=== PATIENT | female | born 1945 | race Caucasian/White ===

== ENCOUNTER 2017-12-30 20:35 | Emergency (ER) | payer MEDICARE, OTHER, SELFPAY ==
[2017-12-30 20:36] VITALS: BP 144/71; PULSE 123; RESP 18; TEMP 36.3; O2SAT 99; BMI 35.0
--- NOTE | 2017-12-30 20:56 | ED.DCSUM_ITS ---
- ER Visit Summary Date of Service: 12/30/17 Chief Complaint: Nosebleed History of Present Illness: The patient is a 72 F presenting with nosebleed. Patient states she has had intermittent bleeding from her nose since last night. She states initially it was coming from the right side of her nose and then started from the left. She is not on blood thinners. She had no trauma. She has seasonal allergies and blows her nose frequently. She does not have a humidifier. She states this happened one time several years ago and she followed up with Dr. Glez. Physical Examination: Vitals are stable. Patient is afebrile. Alert no acute distress. HEENT exam is unremarkable. No blood in bilateral nares. No blood in posterior pharynx. Neck is supple. Lungs are clear and equal bilaterally. Heart is regular and tachycardic. Abdomen is soft nontender nondistended. Extremities are unremarkable. Skin is warm and dry. No focal neurologic deficit. Remainder of exam is unremarkable. Emergency Department Course and Treatment: She was observed in the emergency department and had no further bleeding. She is comfortable with discharge home. She is advised to follow-up with Dr. Glez. Advised return to ED for any worsening complaints. Disposition: Discharge home Impression: Epistaxis, resolved This note was generated with [employer] dictation software. It may contain incorrect words, spelling, and punctuation that were not noted in review of the chart prior to signing ED Disposition - Plan for ED Patient: Chief Complaint: Nosebleed Instructions: Nosebleed Referrals: Zoran Glez MD [STAFF PHYSICIAN] - Garcia Angelo DO [Primary Care Provider] -
--- NOTE | 2017-12-30 21:52 | ED.DEP ---
ED Disposition - Plan for ED Patient: Chief Complaint: Nosebleed Instructions: Nosebleed Referrals: Garcia Angelo DO [Primary Care Provider] - Zoran Glez MD [STAFF PHYSICIAN] -
[2017-12-30 22:02] VITALS: BP 156/66; PULSE 100; RESP 15; O2SAT 98
== END 2017-12-30 22:00 | disposition home or self-care (01) ==
LOC: ED 21:01
PROVIDERS: Emergency Provider Emergency Medicine; Family Provider Family Medicine; PCP Family Medicine
DX: R04.0 Epistaxis (principal); I10 Essential (primary) hypertension; E78.00 Pure hypercholesterolemia, unspecified; Z79.899 Other long term (current) drug therapy
CPT/HCPCS: 99282

== ENCOUNTER → 2018-02-05 15:52 | Outpatient (CLI) | payer MEDICARE, OTHER, SELFPAY ==
[2018-02-05 17:52] LABS: Absolute Lymphocyte Count 2.05 X10^3/ul (0.83-4.51); Absolute Neutrophil Count 6.3 X10^3/uL (2.0-7.7); Basophil# 0.08 X10^3/uL; Basophil% 0.8 % (0-1); Eosinophil# 0.36 X10^3/uL; Eosinophils% 3.6 % (0-5); Hematocrit 36.1 % (37-47); Hemoglobin 11.1 g/dl (12.0-15.0); Lymphocyte # 2.05 X10^3/ul (4.0); Lymphocyte % 20.6 % (19-41); Mean Corp Hgb Conc 30.7 g/gl (32-36); Mean Corpuscular Hgb 27.5 pg (27.0-32.0); Mean Corpuscular Volume 89.4 fL (81-99); Mean Platelet Vol. 10.5 fl (6.2-12.0); Neutrophil # 6.25 X10^3/uL (2.7-7.7); Neutrophil % 62.8 % (47-70); Platelet Count 349 K/mm3 (150-450); Red Blood Count 4.04 M/mm3 (4.2-5.4)
[2018-02-05 17:56] LABS: POSITIVE COUNT NO; POSITIVE DIFFERENTIAL NO; POSITIVE MORPHOLOGY NO
[2018-02-05 18:09] LABS: ALB/GLOB Ratio 0.9 RATIO (0.9-2.4); AST(SGOT) 23 U/L (15-37); Alanine Aminotransfer ALT/SGPT 29 U/L (13-56); Albumin, Serum 3.5 g/dL (3.2-5.0); Alkaline Phosphatase 84 U/L (45-117); Anion Gap 11 (5-15); BUN 26 mg/dL (7-18); BUN/Creat Ratio 24.5 RATIO (10-20); Calcium,Total 8.8 mg/dL (8.5-10.1); Chloride 106 mmol/L (98-107); Cholesterol 171 mg/dL (200); Creatinine, Serum 1.06 mg/dL (0.55-1.02); EST Glomerular Filtration Rate 54 mL/min (>60); Est Glom Filt Rate - Afr Amer 65 mL/min (>60); Globulin 3.8 g/dL (2.2-4.2); Glucose 94 mg/dL (74-106); High Density Lipoprotein 48 mg/dL; Potassium 4.3 mmol/L (3.5-5.1); Protein, Total 7.3 g/dL (6.4-8.2); Sodium Level 142 mmol/L (136-145); T4 Free Direct 1.23 ng/dL (0.76-1.46); Thyroid Stim Hormone (TSH) 2.79 uIU/mL (0.358-3.74); Triglycerides 147 mg/dL; Very Low Density Lipoprotein 29 mg/dL (5-40)
== END ==
PROVIDERS: Family Provider Family Medicine; PCP Family Medicine; Visit Provider Family Medicine
DX: I10 Essential (primary) hypertension (principal); E03.9 Hypothyroidism, unspecified; E78.00 Pure hypercholesterolemia, unspecified
CPT/HCPCS: 36415; 80053; 80061; 84439; 84443; 85025

== ENCOUNTER → 2018-03-11 16:26 | Outpatient (CLI) | payer MEDICARE, OTHER, SELFPAY ==
[2018-03-11 17:34] LABS: Absolute Lymphocyte Count 2.06 X10^3/ul (0.83-4.51); Absolute Neutrophil Count 6.9 X10^3/uL (2.0-7.7); Basophil# 0.06 X10^3/uL; Basophil% 0.6 % (0-1); Eosinophil# 0.23 X10^3/uL; Eosinophils% 2.2 % (0-5); Hematocrit 37.1 % (37-47); Hemoglobin 11.4 g/dl (12.0-15.0); Lymphocyte # 2.06 X10^3/ul (4.0); Lymphocyte % 19.5 % (19-41); Mean Corp Hgb Conc 30.7 g/gl (32-36); Mean Corpuscular Volume 87.7 fL (81-99); Mean Platelet Vol. 10.1 fl (6.2-12.0); Monocyte# 1.31 X10^3/uL; Monocyte% 12.4 % (0-10); Neutrophil % 65.1 % (47-70); Platelet Count 371 K/mm3 (150-450); RBC Distribution Width CV 14.9 % (11.6-14.6); RBC Distribution Width SD 47.6 fl (35.1-43.9); Red Blood Count 4.23 M/mm3 (4.2-5.4); White Blood Count 10.6 K/mm3 (4.4-11.0)
[2018-03-11 17:37] LABS: POSITIVE COUNT NO; POSITIVE DIFFERENTIAL NO; POSITIVE MORPHOLOGY NO
[2018-03-11 17:52] LABS: Ferritin 8 ng/mL (8-252); Iron 50 ug/dL (50-170)
== END ==
PROVIDERS: Family Provider Family Medicine; PCP Family Medicine; Referring Provider Family Medicine; Visit Provider Family Medicine
DX: D64.9 Anemia, unspecified (principal)
CPT/HCPCS: 36415; 82728; 83540; 85025

== ENCOUNTER → 2018-06-05 12:58 | Outpatient (CLI) | payer MEDICARE, OTHER, SELFPAY ==
--- NOTE | 2018-06-05 13:02 | BI_ITS ---
MAMMOGRAPHY - BILATERAL SCREENING REASON FOR EXAM: Female, 72 years old. Routine annual screening examination. PERTINENT HISTORY: Aunt with breast cancer. TECHNIQUE: Digital bilateral breast karen (3D mammographic acquisition) in the CC and MLO projections. 2-D mediolateral oblique (MLO) and craniocaudad (CC) views of both breasts were obtained. CAD: Full Field Digital Mammography with Computer Added Detection was performed. COMPARISON: Comparison is made with prior study dated April 09, 2017 and April 03, 2016. FINDINGS: Breast Composition: The breasts are almost entirely fatty. There are no dominant masses or suspicious calcifications. Stable partially calcified 6.1 mm nodule in the slightly upper medial portion of the right breast. No other significant abnormalities are identified. There has been no significant change since the prior study. BI/SCREENING MAMM (CAD), BILAT IMPRESSION: Stable bilateral screening mammogram. Yearly follow-up mammogram recommended. (A) ASSESSMENT CATEGORY: BIRADS Category 2: Benign. A letter regarding these results will be sent to the patient by the facility within 30 days. Approximately 10% of breast cancers are not detected by mammography. A normal mammogram should not delay biopsy of a clinically suspicious abnormality. [id number] Electronically Signed: Moises Huerta MD at 9:18 EST Tel [phone], Service support ,
== END ==
PROVIDERS: Family Provider Family Medicine; PCP Family Medicine; Visit Provider Obstetrics & Gynecology
DX: Z12.31 Encounter for screening mammogram for malignant neoplasm of breast (principal)
CPT/HCPCS: 77063; 77067

== ENCOUNTER 2022-05-25 16:27 | Inpatient (IN) | payer MEDICARE, OTHER, SELFPAY ==
[2022-05-25] VITALS (21 sets, daily range): BP systolic 136–192; BP diastolic 67–93; PULSE 85–104; RESP 12–24; TEMP 36.1–36.4; O2SAT 78–100; BMI 29.3; BMI 27.3
--- NOTE | 2022-05-25 16:48 | EDS_ITS ---
HPI History of Present Illness Chief Complaint: Shortness of Breath Informant: patient Narrative Narrative: Patient is a very poor informant for details and this makes history quite difficult. She answers with I do not know not infrequently. She evidently stopped all of her medications a year or 2 ago. This includes Synthroid and medicine for cholesterol. She denies any diabetes hypertension or history of heart disease. She does have a history of smoking but I cannot get from her if she is still smoking. It does not sound like she is ever had COPD. I do not know if she is ever used an inhaler before. She states she has been getting short of breath off and on. But I cannot get from her if this is been going on for hours days weeks months or longer. She did call because she was short of breath today. She cannot say if its worse or different than other times. She does not think she has had a fever. She does not think she is having any chest pain. When I ask her how long she has had some swelling of arms and legs she states she did not know she did have swelling of her arms and legs. [facility] Medical History (Updated 05/26/22 @ 00:[address] Rojelio Pedersen MD) Hypothyroid Home Medications NK 05/25/22 [History Last Taken Unknown] Allergy/AdvReac Type Severity Reaction Status Date / Time No Known Allergies Allergy Verified 12/30/17 20:36 Social History Smoking Status: Former smoker ROS ROS ED ROS Narrative Very limited history. Patient's not sure of all of her symptoms or how long they have been going on. Constitutional Constitutional ED: Denies fever(s) ENT ENT ED: Denies sore throat Cardiovascular Cardiovascular: Denies chest pain Respiratory/Chest Respiratory/Chest: Reports dyspnea Gastrointestinal Gastrointestinal: Denies vomiting Musculoskeletal Musculoskeletal: Denies myalgias Integumentary Denies rash Neurologic Neurologic: Denies headache(s) Hematologic/Lymphatic Hematologic/Lymphatic: Denies easy bleeding or easy bruising Allergic/Immunologic Allergic/Immunologic ED: Denies urticaria EXAM Physical Exam Const Vital Signs: 05/25/22 16:36 05/25/22 16:40 05/25/22 16:42 Temperature 97.1 F L Temperature Source Oral Pulse Rate 95 Respiratory Rate 22 H Respiratory Effort Short of Breath Labored Accessory Muscle Use Respiratory Pattern Normal Blood Pressure 192/92 H Blood Pressure Mean 125 Blood Pressure Source Blood Pressure Position Blood Pressure Location Pulse Ox 84 88 Oxygen Delivery Method Room Air Nasal Cannula Nasal Cannula Oxygen Flow Rate (L/min) 4 4 Fraction of Inspired Oxygen (FIO2) 05/25/22 16:43 05/25/22 16:45 05/25/22 16:59 Temperature Temperature Source Pulse Rate 96 97 Respiratory Rate 18 22 H Respiratory Effort Respiratory Pattern Blood Pressure Blood Pressure Mean Blood Pressure Source Blood Pressure Position Blood Pressure Location Pulse Ox 92 78 Oxygen Delivery Method Nasal Cannula Nasal Cannula Oxygen Flow Rate (L/min) 4 6 Fraction of Inspired Oxygen (FIO2) 05/25/22 17:00 05/25/22 17:32 05/25/22 18:58 Temperature 97.1 F L Temperature Source Axillary Pulse Rate 104 H 88 85 Respiratory Rate 22 H 21 H 17 Respiratory Effort Respiratory Pattern Blood Pressure 148/71 H 143/75 H Blood Pressure Mean 96 97 Blood Pressure Source Monitor Blood Pressure Position Semi-Fowlers Blood Pressure Location Left Arm Pulse Ox 100 98 100 Oxygen Delivery Method Bi-pap Nasal Cannula Oxygen Flow Rate (L/min) 6 Fraction of Inspired Oxygen (FIO2) 100 Positive well nourished and well developed Constitutional Narrative: When I first walked in the room patient is awake alert. Her saturations are 92 to 94% on 4 L. But she looks quite pale. She also has some visible edema of arms and legs/mild anasarca. She carries on just a shortened conversation. She does appear somewhat dyspneic but is not gasping. She does not need to be intubated. General Appearance ED: well developed and pallor HEENT Reports moist mucous membranes Eyes Eyes Narrative: Conjunctive a are quite pale. General Eye ED: Yes pale conjunctiva Neck no meningeal signs and no JVD Resp Resp Narrative: Slight increased respiratory effort. She does have some basilar crackles and some slight expiratory wheezing. Auscultation: rales and wheezes; Negative for rhonchi Cardio regular rate, regular rhythm and no murmurs GI non-tender and non-distended Back/Spine no CVA tenderness Extremity Extremity Narrative: Patient does have some +1/2 edema of arms and legs diffusely. General Extremety ED: Yes edema General Extremity: edema Neuro Sensorium / Orientation: alert Psych mental status grossly normal Skin no wounds General Skin Exam: pallor MDM MDM MDM Narrative Medical decision making narrative: Patient is doing better on oxygen. We will recheck her blood pressure. I will give a breathing treatment as she has some wheezing and history of smoking. But I do not think all of her symptoms are due to COPD. I think significant anemia is a major contributor. But she denies any black or bloody stools and she denies any anticoagulation or any other medicines. She may also have a component myxedema. Lab Data Attestation: I reviewed the patient's lab results. Labs: Laboratory Results - last 24 hr 05/25/22 05/25/22 05/25/22 16:50 16:50 16:50 WBC 14.5 H RBC 3.86 L Hgb 5.5 L* Hct 21.9 L MCV 56.7 L MCH 14.2 L MCHC 25.1 L RDW Std Deviation 43.2 RDW Coeff of [place] 22.2 H Plt Count 652 H MPV 8.9 Immature Gran % (Auto) 0.800 Neut % (Auto) 77.2 H Lymph % (Auto) 12.1 L [place] % (Auto) 7.9 Eos % (Auto) 0.8 Baso % (Auto) 1.2 H Absolute Neuts (auto) 11.2 H Absolute Lymphs (auto) 1.75 Nucleated RBC % 0.2 Differential Comment SCANNED Diff Path Review May foll PT 14.6 INR 1.2 APTT 30.4 Sodium Potassium Chloride Carbon Dioxide Anion Gap BUN Creatinine Estim Creat Clear Calc Est GFR (MDRD) Af Amer Est GFR (MDRD) Non-Af BUN/Creatinine Ratio Glucose Lactic Acid Calcium Iron TIBC Iron Saturation Ferritin Total Bilirubin AST ALT Alkaline Phosphatase Troponin I High Sens B-Natriuretic Peptide 1115.3 H Total Protein Albumin Globulin Albumin/Globulin Ratio Vitamin B12 Folate TSH Free T4 Free T3 pg/dL Blood Type Antibody Screen Crossmatch 05/25/22 05/25/22 05/25/22 16:50 16:50 16:50 WBC RBC Hgb Hct MCV MCH MCHC RDW Std Deviation RDW Coeff of [place] Plt Count MPV Immature Gran % (Auto) Neut % (Auto) Lymph % (Auto) [place] % (Auto) Eos % (Auto) Baso % (Auto) Absolute Neuts (auto) Absolute Lymphs (auto) Nucleated RBC % Differential Comment Diff Path Review PT INR APTT Sodium 132 L Potassium 4.3 Chloride 102 Carbon Dioxide 21.0 Anion Gap 9 BUN 18 Creatinine 0.89 Estim Creat Clear Calc 54.28 Est GFR (MDRD) Af Amer 79 Est GFR (MDRD) Non-Af 65 BUN/Creatinine Ratio 20.3 H Glucose 181 H Lactic Acid 3.9 H* Calcium 8.4 L Iron TIBC Iron Saturation Ferritin Total Bilirubin 0.30 AST 15 ALT 12 L Alkaline Phosphatase 109 Troponin I High Sens 16 B-Natriuretic Peptide Total Protein 7.4 Albumin 3.2 Globulin 4.2 Albumin/Globulin Ratio 0.8 L Vitamin B12 Folate TSH 78.40 H Free T4 0.45 L Free T3 pg/dL 0.8 L Blood Type O POSITIVE Antibody Screen NEGATIVE Crossmatch See Detail 05/25/22 05/25/22 16:50 16:50 WBC RBC Hgb Hct MCV MCH MCHC RDW Std Deviation RDW Coeff of [place] Plt Count MPV Immature Gran % (Auto) Neut % (Auto) Lymph % (Auto) [place] % (Auto) Eos % (Auto) Baso % (Auto) Absolute Neuts (auto) Absolute Lymphs (auto) Nucleated RBC % Differential Comment Diff Path Review PT INR APTT Sodium Potassium Chloride Carbon Dioxide Anion Gap BUN Creatinine Estim Creat Clear Calc Est GFR (MDRD) Af Amer Est GFR (MDRD) Non-Af BUN/Creatinine Ratio Glucose Lactic Acid Calcium Iron 7 L TIBC 456 H Iron Saturation 1.5 L Ferritin 4 L Total Bilirubin AST ALT Alkaline Phosphatase Troponin I High Sens B-Natriuretic Peptide Total Protein Albumin Globulin Albumin/Globulin Ratio Vitamin B12 401 Folate 11.90 TSH Free T4 Free T3 pg/dL Blood Type Antibody Screen Crossmatch Radiography Diagnostic Testing: Clinical Impression(s) from Imaging Studies Chest X-Ray 05/25/22 17:05 IMPRESSION: 1. RIGHT lower lobe airspace consolidation atelectasis and moderate to large RIGHT effusion. 2. Atelectasis versus interstitial infiltrate at the LEFT lung base and small LEFT effusion. 3. No congestive failure Electronically Signed: Wojciech Rick MD at 17:47 EST , EKG Initial EKG: Comments: EKG done for dyspnea read by me shows normal sinus rhythm with overall rate of 99. There is some baseline variation. No ventricular ectopy. No acute ST elevation or depression other than nonspecific changes. PA interval, QRS duration and QTc normal. Discharge Plan Dx/Rx/DC Orders Clinical Impression: CHF exacerbation, Hypothyroid, Pleural effusion, Myxedema Disposition Disposition: Acute Care Hospital [facility]
[2022-05-25] MEDS: Ipratropium/Albuterol Sulfate 3 ML AMPUL.NEB INHALATION (16:57)
--- NOTE | 2022-05-25 17:05 | RAD_ITS ---
INDICATION: SOB EXAMINATION/TECHNIQUE: X-RAY - XR Chest 1 View COMPARISON: No previous relevant examinations available for comparison.. FINDINGS: LIFE-SUPPORT AND LINES: 1. None HEART AND VESSELS: Cardiac silhouette is partially obscured due to pleural fluid collection and consolidation at the RIGHT lung base. No evidence congestive failure although vascular congestion noted LUNGS AND PLEURAL SPACES: 1. RIGHT lower lobe consolidation, RIGHT effusion and volume loss. 2. Mild atelectasis versus retrocardiac LEFT lower lobe infiltrate and small LEFT effusion. MEDIASTINUM AND HILAR REGIONS: No masses adenopathy noted. No areas of calcification. Visualized upper airway is normal in position. BONY ELEMENTS: No acute bony changes noted. RAD/Chest 1 View (Portable) IMPRESSION: 1. RIGHT lower lobe airspace consolidation atelectasis and moderate to large RIGHT effusion. 2. Atelectasis versus interstitial infiltrate at the LEFT lung base and small LEFT effusion. 3. No congestive failure Electronically Signed: Wojciech Rick MD at 17:47 EST ,
[2022-05-25 17:07] LABS: Absolute Lymphocyte Count 1.75 X10^3/uL (0.83-4.51); Absolute Neutrophil Count 11.2 X10^3/uL (2.0-7.7); Basophil# 0.18 X10^3/uL; Basophil% 1.2 % (0-1); Eosinophil# 0.12 X10^3/uL; Eosinophils% 0.8 % (0-5); Hematocrit 21.9 % (37-47); Hemoglobin 5.5 g/dL (12.0-15.0); Lymphocyte # 1.75 X10^3/ul (0.83-4.51); Lymphocyte % 12.1 % (19-41); Mean Corp Hgb Conc 25.1 g/dL (32-36); Mean Corpuscular Hgb 14.2 pg (27.0-32.0); Mean Corpuscular Volume 56.7 fL (81-99); Mean Platelet Vol. 8.9 fl (6.2-12.0); Monocyte# 1.15 X10^3/uL; Monocyte% 7.9 % (0-10); NRBC Flagged by Analyzer 0.2 % (0-5); Neutrophil # 11.19 X10^3/uL (2.7-7.7); Neutrophil % 77.2 % (47-70); POSITIVE COUNT YES; POSITIVE MORPHOLOGY YES; Platelet Count 652 K/mm3 (150-450); RBC Distribution Width CV 22.2 % (11.6-14.6); RBC Distribution Width SD 43.2 fl (35.1-43.9); Red Blood Count 3.86 M/mm3 (4.2-5.4); White Blood Count 14.5 K/mm3 (4.4-11.0)
[2022-05-25 17:10] LABS: International Normalized Ratio 1.2; Prothrombin Time (Protime)PT. 14.6 SECONDS (11.7-14.9)
[2022-05-25 17:11] LABS: Partial Thromboplast Time 30.4 Seconds (24.1-36.2)
[2022-05-25 17:16] LABS: Differential Indicated SCAN CRITERIA MET
[2022-05-25 17:28] LABS: ALB/GLOB Ratio 0.8 RATIO (0.9-2.4); AST(SGOT) 15 U/L (15-37); Alanine Aminotransfer ALT/SGPT 12 U/L (13-56); Albumin, Serum 3.2 g/dL (3.2-5.0); Alkaline Phosphatase 109 U/L (45-117); Anion Gap 9 (5-15); BUN 18 mg/dL (7-18); BUN/Creat Ratio 20.3 RATIO (10-20); Calcium,Total 8.4 mg/dL (8.5-10.1); Chloride 102 mmol/L (98-107); Creatinine, Serum 0.89 mg/dL (0.55-1.02); EST Glomerular Filtration Rate 65 mL/min (>60); Est Glom Filt Rate - Afr Amer 79 mL/min (>60); Estimated Creatinine Clearance 54.28 ml/min; Free T3 0.8 pg/mL (2.18-3.98); Globulin 4.2 g/dL (2.2-4.2); Glucose 181 mg/dL (74-106); Potassium 4.3 mmol/L (3.5-5.1); Protein, Total 7.4 g/dL (6.4-8.2); Sodium Level 132 mmol/L (136-145); T4 Free Direct 0.45 ng/dL (0.76-1.46); Troponin-I HS 16 pg/mL (3.0-54.0)
[2022-05-25 17:39] LABS: Differential Comment SCANNED
[2022-05-25 17:46] LABS: Lactic Acid 3.9 mmol/L (0.4-1.9)
[2022-05-25 17:51] LABS: BNP,B-Type NATRIURETIC PEPTIDE 1115.3 pg/mL (0-100)
[2022-05-25] MEDS: LEVOTHYROXINE SODIUM 100 MCG VIAL IV (18:23)
--- NOTE | 2022-05-25 19:11 | PCM.HP.STD ---
[facility] - General General Date of Service: 05/25/22 Chief Complaint: weakness and shortness of breath. HPI Narrative ROS COFFEY, is a 76 F who presents with progressive weakness and shortness of breath. Since the onset of the pandemic, patient has not gone nor seen any physicians and much less family. Today she just more noticeably short of breath. Brought into the emergency room where was noted that her hemoglobin is 5.5 and x-ray showed bilateral pleural effusions with the right being greater than the left. Patient does have a history of hypothyroidism and her TSH came back at 78 and her free T4 was low at 0.45. Patient received 100 mcg of levothyroxine IV in the emergency room. There is concerned about myxedema coma. Patient was listless but not confused during my encounter. Patient did not really have any reasoning for not seeing anyone but just sheltering in place. Patient did receive 1 shot of her COVID-19 vaccination but has not followed up to get any additional shots for boosters. Patient does have lower extremity edema. Denies any fever or chills. [facility] Medical History (Updated 05/25/22 @ 19:[address] Mart Houston DO) Hypothyroid Allergy/AdvReac Type Severity Reaction Status Date / Time No Known Allergies Allergy Verified 12/30/17 20:36 no significant family history Social History Smoking Status: Former smoker ROS ROS Narrative Denies any chest pain. No abdominal pain. No melena nor hematochezia. All review of systems were negative except as mentioned above in the history of present illness and the other review of systems. Vital Signs Vital Signs Vital Signs: 05/25/22 16:36 05/25/22 16:40 05/25/22 16:42 Temperature 36.2 C L Temperature Source Oral Pulse Rate 95 Respiratory Rate 22 H Respiratory Effort Short of Breath Labored Accessory Muscle Use Respiratory Pattern Normal Blood Pressure 192/92 H Blood Pressure Mean 125 Pulse Ox 84 88 Oxygen Delivery Method Room Air Nasal Cannula Nasal Cannula Oxygen Flow Rate (L/min) 4 4 Fraction of Inspired Oxygen (FIO2) 05/25/22 16:43 05/25/22 16:45 05/25/22 16:59 Temperature Temperature Source Pulse Rate 96 97 Respiratory Rate 18 22 H Respiratory Effort Respiratory Pattern Blood Pressure Blood Pressure Mean Pulse Ox 92 78 Oxygen Delivery Method Nasal Cannula Nasal Cannula Oxygen Flow Rate (L/min) 4 6 Fraction of Inspired Oxygen (FIO2) 05/25/22 17:00 05/25/22 17:32 Temperature Temperature Source Pulse Rate 104 H 88 Respiratory Rate 22 H 21 H Respiratory Effort Respiratory Pattern Blood Pressure 148/71 H Blood Pressure Mean 96 Pulse Ox 100 98 Oxygen Delivery Method Bi-pap Oxygen Flow Rate (L/min) Fraction of Inspired Oxygen (FIO2) 100 Weight Weight: 66 kg Body Mass Index (BMI) 29.3 Physical Exam Const Constitutional Narrative: Initially seen on BiPAP but was not having any respiratory distress. During my encounter I requested the BiPAP be taken off and the patient was placed on nasal cannula. Patient remained alert and oriented during the encounter and had no respiratory distress after being taken off the BiPAP. HEENT normocephalic and hearing grossly normal bilaterally Resp normal respiratory effort Resp Narrative: Diminished in the bases Cardio regular rate, regular rhythm, S1 normal heart sound and S2 normal heart sound GI normal to inspection, nondistended, normoactive bowel sounds, soft to palpation, non-tender and non-distended Extremity Extremity Narrative: Bilateral lower extremity edema with skin changes Neuro oriented x3 and moves all extremities Sensorium / Orientation: awake and alert Psych affect normal Results Lab / Micro Data Attestation: I reviewed the patient's lab results. Lab results narrative: Chest x-ray personally reviewed and showed bilateral pleural effusions with right greater than the left. Result Diagrams: 05/25/22 16:50 05/25/22 16:50 Labs: Laboratory Results - last 24 hr 05/25/22 16:50: WBC 14.5 H, RBC 3.86 L, Hgb 5.5 L*, Hct 21.9 L, MCV 56.7 L, MCH 14.2 L, MCHC 25.1 L, RDW Std Deviation 43.2, RDW Coeff of [place] 22.2 H, Plt Count 652 H, MPV 8.9, Immature Gran % (Auto) 0.800, Neut % (Auto) 77.2 H, Lymph % (Auto) 12.1 L, [place] % (Auto) 7.9, Eos % (Auto) 0.8, Baso % (Auto) 1.2 H, Absolute Neuts (auto) 11.2 H, Absolute Lymphs (auto) 1.75, Nucleated RBC % 0.2, Differential Comment SCANNED, Diff Path Review October foll 05/25/22 16:50: PT 14.6, INR 1.2, APTT 30.4 05/25/22 16:50: B-Natriuretic Peptide 1115.3 H 05/25/22 16:50: Sodium 132 L, Potassium 4.3, Chloride 102, Carbon Dioxide 21.0, Anion Gap 9, BUN 18, Creatinine 0.89, Estim Creat Clear Calc 54.28, Est GFR (MDRD) Af Amer 79, Est GFR (MDRD) Non-Af 65, BUN/Creatinine Ratio 20.3 H, Glucose 181 H, Calcium 8.4 L, Total Bilirubin 0.30, AST 15, ALT 12 L, Alkaline Phosphatase 109, Troponin I High Sens 16, Total Protein 7.4, Albumin 3.2, Globulin 4.2, Albumin/Globulin Ratio 0.8 L, TSH 78.40 H, Free T4 0.45 L, Free T3 pg/dL 0.8 L 05/25/22 16:50: Lactic Acid 3.9 H* 05/25/22 16:50: Blood Type O POSITIVE, Antibody Screen NEGATIVE, Crossmatch See Detail Micro: Microbiology 05/25/22 18:00 Nasal Secretion SARS-CoV-2 & FLU Antigen (Rapid) - Final EKG Initial EKG: Attestation: I personally reviewed and interpreted this EKG as follows: Prior EKG tracings: available for review EKG Rhythm Intrepretation: Sinus Rhythm Radiology Impression Chest X-Ray 05/25/22 17:05 IMPRESSION: 1. RIGHT lower lobe airspace consolidation atelectasis and moderate to large RIGHT effusion. 2. Atelectasis versus interstitial infiltrate at the LEFT lung base and small LEFT effusion. 3. No congestive failure Electronically Signed: Wojciech Rick MD at 17:47 EST , Assessment & Plan Assessment/Plan (1) CHF exacerbation: QUALIFIERS: Heart failure type: unspecified Qualified Code(s): I50.9 - Heart failure, unspecified PLAN: Unclear type Start furosemide IV Check echocardiogram (2) Pleural effusion: PLAN: Suspect transudative Plan for ultrasound-guided thoracentesis on the right Check studies. Check LDH. Patient already had a protein 7.4. (3) Microcytic anemia: PLAN: Patient is never had a colonoscopy Denies any hematochezia or melena Consult gastroenterology Start prep with GoLytely Patient received 2 units of packed red blood cells. (4) Hypothyroid: PLAN: I do not feel the patient is in myxedema coma Patient received 100 mcg of levothyroxine IV in the emergency room Will continue with 75 mcg p.o. daily Patient will require follow-up (5) Debility: PLAN: Likely due to the patient's multiple medical comorbidities PT OT evaluate and treat Check 25-hydroxy vitamin D level PLAN: Plan VTE prophylaxis with SCDs. Chemical prophylaxis contraindicated in light of the anemia. CODE STATUS: Addressed with the patient. Patient wishes to be full code. Charges/Coding Visit Charges Inpatient E&M: 40105 Init Hosp L3
[2022-05-25 20:57] LABS: Reflex Lactate? Y
--- NOTE | 2022-05-25 21:09 | ECHOD_ITS ---
Reason For Study: CHF Procedure This was a 2D Doppler, Color Flow transthoracic echocardiogram. Exam performed portable in patient room. Left Ventricle Moderately dilated left ventricle. The estimated ejection fraction is 50-55 %. Right Ventricle Normal right ventricle. Normal systolic function. Atria The left atrium is moderately enlarged. The right atrium is mildly enlarged. Mitral Valve There is moderate mitral annular calcification. Mild (1+) mitral valve insufficiency. Tricuspid Valve Normal tricuspid valve. Moderate (2+) tricuspid valve insufficiency. Aortic Valve Moderate diffuse aortic valve calcification. Pulmonic Valve The pulmonic valve is not well visualized. Great Vessels Normal aortic root. Pericardium/Pleural Small pericardial effusion. Large left pleural effusion. MMode/2D Measurements & Calculations LVIDd: 4.3 cm IVSd: 1.1 cm Ao root diam: 2.6 cm LVIDs: 3.3 cm LVPWd: 1.1 cm RVDd: 3.1 cm FS: 23.9 % LAV(MOD-bp): 60.1 ml LA A4 area: 22.6 cm2 LA dimension(2D): 3.2 cm LAV(MOD-bp) Indexed: 38.5 ml/m2 LAV(MOD-sp2): 45.5 ml LAV(MOD-sp4): 73.8 ml RA A4 area: 10.2 cm2 Time Measurements MV dec time: 0.17 sec Doppler Measurements & Calculations MV E max angel: 83.6 cm/sec Lat Peak E' Angel: 5.9 cm/sec Med Peak E' Angel: 4.5 cm/sec MV A max angel: 127.7 cm/sec E/E' lat: 14.2 E/E' med: 18.6 MV E/A: 0.65 MV dec slope: 492.2 cm/sec2 Ao V2 max: 123.9 cm/sec LV V1 max: 82.5 cm/sec Ao max P.1 mmHg LV V1 max P.7 mmHg Ao V2 mean: 88.7 cm/sec LV V1 mean P.5 mmHg Ao mean P.4 mmHg LV V1 mean: 58.0 cm/sec Ao V2 VTI: 23.9 cm LV V1 VTI: 18.0 cm AV (velocity ratio): 0.76 PA V2 max: 93.7 cm/sec TR max angel: 291.6 cm/sec TR max P.2 mmHg ECHO/Echo Complete Interpretation Summary The estimated ejection fraction is 50-55 %. Large L.Pleural Effusion Small pericardial Effusion No previous echo to compare Ordering Physician: Mart Houston Referring Physician: Garcia Angelo Performed By: Kassie Hamilton RDCS, RVT
[2022-05-25 21:41] LABS: Ferritin 4 ng/mL (8-252); Iron 7 ug/dL (50-170); Iron Binding Capacity,Total 456 ug/dL (250-450); PERCENT IRON SATURATION 1.5 % (15.0-55.0)
--- NOTE | 2022-05-25 21:42 | NURSING ---
Discussed pt with Dr Rosales states pt is not sepsis and cancelled alert. Denies need for blood cultures and antibiotics at this time.
[2022-05-25] MEDS: Furosemide 40 MG/4 ML Vial IV (22:07)
[2022-05-25] MEDS: Ondansetron 4 MG/2 ML Vial IV (22:15)
[2022-05-25 22:20] LABS: Lactic Acid 2.4 mmol/L (0.4-1.9)
[2022-05-25] MEDS: 0.9% Saline Lock 10 ML Syringe IV (22:27)
[2022-05-25 22:34] LABS: Vitamin B12 401 pg/mL (211-911)
--- NOTE | 2022-05-25 22:36 | NURSING ---
Addendum entered by Trinidad Rudolph 05/25/22 22:37: states will order prn medication for blood pressure. Original Note: Dr Peguero notified of lactic acid level of 2.4 and previous level. also notified of need for continuous bipap and can not take bowel prep at this time. ok to dc bowel prep for now. also informed of elevated bp 189/88. and just received 40 mg iv lasix.
[2022-05-25 23:52] LABS: Troponin-I HS 40 pg/mL (3.0-54.0)
[2022-05-25 23:59] LABS: Hemoglobin 8.2 g/dL (12.0-15.0)
[2022-05-26] VITALS (24 sets, daily range): BP systolic 93–155; BP diastolic 42–80; PULSE 75–95; RESP 10–28; TEMP 35.6–36.5; O2SAT 92–100
--- NOTE | 2022-05-26 00:25 | NURSING ---
Dr Peguero notified that the hemoglobin was checked too early by lab. order received to have cbc in am
[2022-05-26 01:46] LABS: Troponin-I HS 65 pg/mL (3.0-54.0)
[2022-05-26 06:04] LABS: Absolute Lymphocyte Count 1.14 X10^3/uL (0.83-4.51); Absolute Neutrophil Count 10.6 X10^3/uL (2.0-7.7); Basophil# 0.13 X10^3/uL; Eosinophil# 0.11 X10^3/uL; Eosinophils% 0.8 % (0-5); Hematocrit 26.8 % (37-47); Hemoglobin 7.3 g/dL (12.0-15.0); Lymphocyte # 1.14 X10^3/ul (0.83-4.51); Lymphocyte % 8.6 % (19-41); Mean Corp Hgb Conc 27.2 g/dL (32-36); Mean Corpuscular Hgb 17.3 pg (27.0-32.0); Mean Corpuscular Volume 63.5 fL (81-99); Mean Platelet Vol. 8.8 fl (6.2-12.0); Monocyte# 1.12 X10^3/uL; Monocyte% 8.5 % (0-10); NRBC Flagged by Analyzer 0.2 % (0-5); Neutrophil # 10.59 X10^3/uL (2.7-7.7); Neutrophil % 80.4 % (47-70); POSITIVE MORPHOLOGY YES; Platelet Count 524 K/mm3 (150-450); RBC Distribution Width CV 29.2 % (11.6-14.6); RBC Distribution Width SD 62.8 fl (35.1-43.9); Red Blood Count 4.22 M/mm3 (4.2-5.4); White Blood Count 13.2 K/mm3 (4.4-11.0)
[2022-05-26 06:15] LABS: Differential Indicated SCAN CRITERIA MET
[2022-05-26 06:23] LABS: Hypochromasia 2+
[2022-05-26 06:24] LABS: Anisocytosis 2+; Microcytosis 2+
[2022-05-26 06:37] LABS: Anion Gap 6 (5-15); BUN 19 mg/dL (7-18); BUN/Creat Ratio 21.7 RATIO (10-20); Calcium,Total 8.5 mg/dL (8.5-10.1); Chloride 103 mmol/L (98-107); Cholesterol 165 mg/dL (200); Creatinine, Serum 0.88 mg/dL (0.55-1.02); EST Glomerular Filtration Rate 66 mL/min (>60); Est Glom Filt Rate - Afr Amer 80 mL/min (>60); Estimated Creatinine Clearance 51.07 ml/min; Glucose 82 mg/dL (74-106); High Density Lipoprotein 49 mg/dL; LDH 163 U/L (84-246); Potassium 4.5 mmol/L (3.5-5.1); Sodium Level 133 mmol/L (136-145); Triglycerides 80 mg/dL; Very Low Density Lipoprotein 16 mg/dL (5-40)
[2022-05-26 06:40] LABS: Troponin-I HS 66 pg/mL (3.0-54.0)
[2022-05-26] MEDS: Furosemide 40 MG/4 ML Vial IV (09:02)
[2022-05-26] MEDS: 0.9% Saline Lock 10 ML Syringe IV ×2 (09:02→21:47)
[2022-05-26] MEDS: Ensure Clear 120 ML Liquid PO (11:21)
[2022-05-26 12:04] LABS: Magnesium 2.6 mg/dL (1.6-2.6)
--- NOTE | 2022-05-26 12:56 | PN.HOSP_ITS ---
Subjective Subjective Follow-up on acute CHF/bilateral pleural effusion/hypothyroidism: Patient was seen and examined. She denied any new complaints. She is on 4 L of oxygen. Thoracocentesis could not be done yesterday IR was not available. Patient is however diuresing. She denied any chest pain or chest pressure or dizziness. Objective Data Objective Data Vital Signs: Vital Signs Temp Pulse Resp BP Pulse Ox O2 Del Method O2 Flow Rate 97.7 F L 93 18 93/42 L 96 Nasal Cannula 4 05/26/22 12:00 05/26/22 12:00 05/26/22 12:00 05/26/22 12:00 05/26/22 12:00 05/26/22 12:00 05/26/22 12:00 FiO2 40 05/26/22 06:14 Oxygen Flow Rate (L/min) 4 Oxygen Delivery Method Nasal Cannula Weight: 61.4 kg Body Mass Index (BMI) 27.3 Intake & Output: Intake and Output for Last 24 Hours 05/24/22 05/25/22 05/26/22 23:59 23:59 23:59 Intake Total 0 / 0 200 / 200 Output Total 1750 / 1750 Balance 0 / 0 -1550 / -1550 Lab / Micro Data Result Diagrams: 05/26/22 05:25 05/26/22 05:25 Labs: Laboratory Results - last 24 hr 05/25/22 16:50: WBC 14.5 H, RBC 3.86 L, Hgb 5.5 L*, Hct 21.9 L, MCV 56.7 L, MCH 14.2 L, MCHC 25.1 L, RDW Std Deviation 43.2, RDW Coeff of [place] 22.2 H, Plt Count 652 H, MPV 8.9, Immature Gran % (Auto) 0.800, Neut % (Auto) 77.2 H, Lymph % (Auto) 12.1 L, [place] % (Auto) 7.9, Eos % (Auto) 0.8, Baso % (Auto) 1.2 H, Absolute Neuts (auto) 11.2 H, Absolute Lymphs (auto) 1.75, Nucleated RBC % 0.2, Differential Comment SCANNED, Diff Path Review October05/25/22 16:50: PT 14.6, INR 1.2, APTT 30.4 05/25/22 16:50: B-Natriuretic Peptide 1115.3 H 05/25/22 16:50: Sodium 132 L, Potassium 4.3, Chloride 102, Carbon Dioxide 21.0, Anion Gap 9, BUN 18, Creatinine 0.89, Estim Creat Clear Calc 54.28, Est GFR (MDRD) Af Amer 79, Est GFR (MDRD) Non-Af 65, BUN/Creatinine Ratio 20.3 H, Glucose 181 H, Calcium 8.4 L, Total Bilirubin 0.30, AST 15, ALT 12 L, Alkaline Phosphatase 109, Troponin I High Sens 16, Total Protein 7.4, Albumin 3.2, Globulin 4.2, Albumin/Globulin Ratio 0.8 L, TSH 78.40 H, Free T4 0.45 L, Free T3 pg/dL 0.8 L 05/25/22 16:50: Lactic Acid 3.9 H* 05/25/22 16:50: Blood Type O POSITIVE, Antibody Screen NEGATIVE, Crossmatch See Detail 05/25/22 16:50: Iron 7 L, TIBC 456 H, Iron Saturation 1.5 L, Ferritin 4 L, Folate 11.90 05/25/22 16:50: Vitamin B12 401 05/25/22 21:27: Lactic Acid 2.4 H* 05/25/22 22:50: Troponin I High Sens 40 05/25/22 22:50: Hgb 8.2 L 05/26/22 00:55: Troponin I High Sens 65 H 05/26/22 05:25: WBC 13.2 H, RBC 4.22, Hgb 7.3 L, Hct 26.8 L, MCV 63.5 L D, MCH 17.3 L, MCHC 27.2 L D, RDW Std Deviation 62.8 H, RDW Coeff of [place] 29.2 H, Plt Count 524 H, MPV 8.8, Immature Gran % (Auto) 0.700, Neut % (Auto) 80.4 H, Lymph % (Auto) 8.6 L, [place] % (Auto) 8.5, Eos % (Auto) 0.8, Baso % (Auto) 1.0, Absolute Neuts (auto) 10.6 H, Absolute Lymphs (auto) 1.14, Nucleated RBC % 0.2, Hypochromasia 2+, Anisocytosis 2+, Microcytosis 2+ 05/26/22 05:25: Sodium 133 L, Potassium 4.5, Chloride 103, Carbon Dioxide 24.0, Anion Gap 6, BUN 19 H, Creatinine 0.88, Estim Creat Clear Calc 51.07, Est GFR (MDRD) Af Amer 80, Est GFR (MDRD) Non-Af 66, BUN/Creatinine Ratio 21.7 H, Glucose 82, Calcium 8.5, Lactate Dehydrogenase 163, Triglycerides 80, Cholesterol 165, LDL Cholesterol 100, VLDL Cholesterol 16, HDL Cholesterol 49 05/26/22 05:25: Vitamin D 25-Hydroxy 9.0 05/26/22 05:25: Troponin I High Sens 66 H 05/26/22 05:25: Magnesium 2.6 Micro: Microbiology 05/25/22 18:00 Nasal Secretion SARS-CoV-2 & FLU Antigen (Rapid) - Final Radiography Diagnostic Testing: Radiology Impression Chest X-Ray 05/25/22 17:05 IMPRESSION: 1. RIGHT lower lobe airspace consolidation atelectasis and moderate to large RIGHT effusion. 2. Atelectasis versus interstitial infiltrate at the LEFT lung base and small LEFT effusion. 3. No congestive failure Electronically Signed: Wojciech Rick MD at 17:47 EST , Physical Exam Narrative Physical exam: General: Alert, Oriented x3, Cooperative, on 4L oxygen HEENT: Atraumatic Oral: Moist Mucosa Neck: Supple Lungs: Diminished to auscultation Cardiovascular: HS I+II, regular, no murmurs Abdomen: Bowel Sounds Present, Soft, Non Tender Extremities: Bilateral trace pedal edema Skin: No rashes, No breakdown Neurological: Grossly intact Psych/Mental Status: Appropriate Assessment & Plan Assessment/Plan (1) Anemia: (2) Debility: (3) Microcytic anemia: (4) Pleural effusion: PLAN: Plan 1. Acute hypoxia secondary to bilateral pleural effusion/acute CHF exacerbation Patient is currently on 4 L of oxygen, will wean off for Spo2 >94% Encourage use of incentive spirometer 2. Acute exacerbation of heart failure with reduced EF, EF 50%/bilateral pleural effusion Continue on IV Lasix, CHF protocol Thoracocentesis planned 3. Hypothyroidism, continue Synthroid, needs to follow-up in the outpatient 4. Severe iron deficiency anemia, patient was admitted with hemoglobin 5.5, status post 2 units of packed RBCs, repeat hemoglobin was 8.2, hemoglobin 7.3 this morning GI consulted, will check celiac panel, FOBT, IV venofer, repeat blood work in am 5. DVT PPx- SCDs Charges/Coding Visit Charges Inpatient E&M: 71890 Subs Hosp L3
[2022-05-26 14:02] LABS: Pathologist Review Reviewed
[2022-05-26 14:02] LABS: Pathologist Review Reviewed
--- NOTE | 2022-05-26 16:31 | CASEMGMT ---
FE GAGE Discharge Planning Assessment: Face to Face with patient for initial transition planning/care coordination assessment. Pt alert and oriented and sitting up in the chair. Pt agreeable to participating in assessment. FE GAGE introduced self and role at [facility], Pt voices understanding.? Care providers, pharmacy,?and demographics verified. ? PCP: Gi but has not seen Dr. Angelo for over 2 years. Specialists: None Preferred Pharmacy: [facility] Insurance: [facility] A/B, [employer] Prescription Benefit:?Yes, Pt states she has not taken her medications (thyroid and cholesterol medications) for the past 2 years (since before COVID). Living Will/HPOA: No LNOK: Son Rudy, Daughter Lili Living Arrangements: Pt lives in a single story home without steps to enter. States her son and daughter live with her and a second son lives next door. Pt states she is never alone. States she sits in her chair all day and only goes to the bathroom when someone can walk her there so she doesn't fall. Sates the bathroom is only 10 feet from her bedroom and she doesn't walk far. Children cook and perform all household tasks. Transportation: Pt states she has not left the house in 2 years, since COVID. Pt's children are able to transport if needed. DME: shower chair SNF/HHC: denies prior providers ? Plan: Pt states she would like to return at discharge with the support of her family. Discussed possible needs including home O2 and home health. Pt agreeable and states she does not have a preference in home O2 providers. Reviewed providers and pt states her choice is [facility]. Pt would consider home health if that was felt to be what she needed. Pt will need a visit with her PCP before this could be set up. Will continue to monitor pt's progress with therapy to determine appropriate level of care at discharge. Pt choice lists for both Home Health and SNF level of care including quality and resource use data and consistent with pt's insurance network and geographic region were provided to pt in preparation for either need. Pt also provided with brochure on Visiting Physician service for in-home physician visits. Antony Iniguez RN CM
--- NOTE | 2022-05-26 16:40 | CASEMGMT ---
FE GAGE NOTE: Pt states she does not have a walker and would be agreeable to getting one @ d/c, if she is able to return home. She does not have preference of DME co. Green sheet placed on chart for home o2 and walker. Rigoberto OGLESBY RN CM
--- NOTE | 2022-05-26 16:59 | CON.PCM.GI_ITS ---
HPI Consult Data Date of Consult: 05/26/22 HPI Narrative HPI Narrative: ROS COFFEY, is a 76 F who presents with progressive weakness and shortness of breath.? Since the onset of the pandemic, patient has not gone nor seen any physicians and much less family.? Today she just more noticeably short of breath.? Brought into the emergency room where was noted that her hemoglobin is 5.5 and x-ray showed bilateral pleural effusions with the right being greater than the left.? Patient does have a history of hypothyroidism and her TSH came back at 78 and her free T4 was low at 0.45.? Patient received 100 mcg of levothyroxine IV in the emergency room.? There is concerned about myxedema coma.? Patient was listless but not confused during my encounter.? Patient did not really have any reasoning for not seeing anyone but just sheltering in place.? Patient did receive 1 shot of her COVID-19 vaccination but has not followed up to get any additional shots for boosters.? Patient does have lower extremity edema.? Denies any fever or chills. I was called to see her due to her severely low bone. As per patient she does not take any blood thinners. She has not had a colonoscopy in the past. She denies any abdominal pain. She denies any chest pain or shortness of breath. She received 2 units of packed red blood cells and her hemoglobin increased from 5.5-7.8. However currently it is going back down to 7.1. I had wanted to do an upper lower endoscopy on her but she has been on BiPAP and cannot prep for procedure at this time. [facility] Medical History (Updated 05/26/22 @ 17:[address] Hilario Friend, DO) Hypothyroid Home Medications NK 05/25/22 [History Last Taken Unknown] Allergy/AdvReac Type Severity Reaction Status Date / Time No Known Allergies Allergy Verified 12/30/17 20:36 Family History no significant family his Social History Smoking Status: Former smoker ROS ROS Narrative Denies any chest pain. No abdominal pain. No melena nor hematochezia. All review of systems were negative except as mentioned above in the history of present illness and the other review of systems. Physical Exam HEENT normocephalic and hearing grossly normal bilaterally Resp normal respiratory effort Resp Narrative: Diminished in the bases Cardio regular rate, regular rhythm, S1 normal heart sound and S2 normal heart sound GI normal to inspection, nondistended, normoactive bowel sounds, soft to palpation, non-tender and non-distended Extremity Extremity Narrative: Bilateral lower extremity edema with skin changes Neuro oriented x3 and moves all extremities Sensorium / Orientation: awake and alert Psych affect normal Lab / Micro Data Result Diagrams: 05/26/22 05:25 05/26/22 05:25 Labs: Laboratory Results - last 24 hr 05/25/22 16:50: WBC 14.5 H, RBC 3.86 L, Hgb 5.5 L*, Hct 21.9 L, MCV 56.7 L, MCH 14.2 L, MCHC 25.1 L, RDW Std Deviation 43.2, RDW Coeff of [place] 22.2 H, Plt Count 652 H, MPV 8.9, Immature Gran % (Auto) 0.800, Neut % (Auto) 77.2 H, Lymph % (Auto) 12.1 L, [place] % (Auto) 7.9, Eos % (Auto) 0.8, Baso % (Auto) 1.2 H, Absolute Neuts (auto) 11.2 H, Absolute Lymphs (auto) 1.75, Nucleated RBC % 0.2, Differential Comment SCANNED, Diff Path Review Reviewed 05/25/22 16:50: PT 14.6, INR 1.2, APTT 30.4 05/25/22 16:50: B-Natriuretic Peptide 1115.3 H 05/25/22 16:50: Sodium 132 L, Potassium 4.3, Chloride 102, Carbon Dioxide 21.0, Anion Gap 9, BUN 18, Creatinine 0.89, Estim Creat Clear Calc 54.28, Est GFR (MDRD) Af Amer 79, Est GFR (MDRD) Non-Af 65, BUN/Creatinine Ratio 20.3 H, Glucose 181 H, Calcium 8.4 L, Total Bilirubin 0.30, AST 15, ALT 12 L, Alkaline Phosphatase 109, Troponin I High Sens 16, Total Protein 7.4, Albumin 3.2, Globulin 4.2, Albumin/Globulin Ratio 0.8 L, TSH 78.40 H, Free T4 0.45 L, Free T3 pg/dL 0.8 L 05/25/22 16:50: Lactic Acid 3.9 H* 05/25/22 16:50: Blood Type O POSITIVE, Antibody Screen NEGATIVE, Crossmatch See Detail 05/25/22 16:50: Iron 7 L, TIBC 456 H, Iron Saturation 1.5 L, Ferritin 4 L, Folate 11.90 05/25/22 16:50: Vitamin B12 401 05/25/22 21:27: Lactic Acid 2.4 H* 05/25/22 22:50: Troponin I High Sens 40 05/25/22 22:50: Hgb 8.2 L 05/26/22 00:55: Troponin I High Sens 65 H 05/26/22 05:25: WBC 13.2 H, RBC 4.22, Hgb 7.3 L, Hct 26.8 L, MCV 63.5 L D, MCH 17.3 L, MCHC 27.2 L D, RDW Std Deviation 62.8 H, RDW Coeff of [place] 29.2 H, Plt Count 524 H, MPV 8.8, Immature Gran % (Auto) 0.700, Neut % (Auto) 80.4 H, Lymph % (Auto) 8.6 L, [place] % (Auto) 8.5, Eos % (Auto) 0.8, Baso % (Auto) 1.0, Absolute Neuts (auto) 10.6 H, Absolute Lymphs (auto) 1.14, Nucleated RBC % 0.2, Diff Path Review Reviewed, Hypochromasia 2+, Anisocytosis 2+, Microcytosis 2+ 05/26/22 05:25: Sodium 133 L, Potassium 4.5, Chloride 103, Carbon Dioxide 24.0, Anion Gap 6, BUN 19 H, Creatinine 0.88, Estim Creat Clear Calc 51.07, Est GFR (MDRD) Af Amer 80, Est GFR (MDRD) Non-Af 66, BUN/Creatinine Ratio 21.7 H, Glucose 82, Calcium 8.5, Lactate Dehydrogenase 163, Triglycerides 80, Cholesterol 165, LDL Cholesterol 100, VLDL Cholesterol 16, HDL Cholesterol 49 05/26/22 05:25: Vitamin D 25-Hydroxy 9.0 05/26/22 05:25: Troponin I High Sens 66 H 05/26/22 05:25: Magnesium 2.6 Micro: Microbiology 05/25/22 18:00 Nasal Secretion SARS-CoV-2 & FLU Antigen (Rapid) - Final Radiology Impression Chest X-Ray 05/25/22 17:05 IMPRESSION: 1. RIGHT lower lobe airspace consolidation atelectasis and moderate to large RIGHT effusion. 2. Atelectasis versus interstitial infiltrate at the LEFT lung base and small LEFT effusion. 3. No congestive failure Electronically Signed: Wojciech Rick MD at 17:47 EST , Assessment & Plan Assessment/Plan (1) Anemia: PLAN: Due to her severe microcytic anemia she should rule out occult GI blood loss. Also recommend to check celiac studies as that can cause a chronic microcytic anemia. When she is able to tolerate a prep I think she should have an upper and lower endoscopy. Recommend iron transfusions x2. I will continue to follow. Charges/Coding Visit Charges Inpatient E&M: 29274 Init Hosp L2
[2022-05-26] MEDS: Furosemide 20 MG/2 ML VIAL IV (18:50)
--- NOTE | 2022-05-26 23:44 | CPS ---
Pt not using Bipap tonite, was used in for rescue, Nasal O2 at 3L . Pt resting comfortably.
[2022-05-27] VITALS (14 sets, daily range): BP systolic 96–125; BP diastolic 47–62; PULSE 80–90; RESP 15–18; TEMP 35.9–36.4; O2SAT 85–100
[2022-05-27] MEDS: Levothyroxine 75 MCG Tablet PO (05:49)
[2022-05-27 07:08] LABS: Absolute Lymphocyte Count 1.27 X10^3/uL (0.83-4.51); Absolute Neutrophil Count 7.8 X10^3/uL (2.0-7.7); Basophil# 0.15 X10^3/uL; Basophil% 1.4 % (0-1); Eosinophil# 0.47 X10^3/uL; Eosinophils% 4.4 % (0-5); Hematocrit 25.8 % (37-47); Lymphocyte # 1.27 X10^3/ul (0.83-4.51); Lymphocyte % 11.9 % (19-41); Mean Corp Hgb Conc 27.1 g/dL (32-36); Mean Corpuscular Hgb 17.6 pg (27.0-32.0); Mean Corpuscular Volume 64.8 fL (81-99); Mean Platelet Vol. 8.8 fl (6.2-12.0); Monocyte# 0.98 X10^3/uL; Monocyte% 9.2 % (0-10); NRBC Flagged by Analyzer 0.2 % (0-5); Neutrophil # 7.76 X10^3/uL (2.7-7.7); Neutrophil % 72.6 % (47-70); POSITIVE MORPHOLOGY YES; Platelet Count 477 K/mm3 (150-450); RBC Distribution Width CV 29.2 % (11.6-14.6); RBC Distribution Width SD 64.8 fl (35.1-43.9); Red Blood Count 3.98 M/mm3 (4.2-5.4); White Blood Count 10.7 K/mm3 (4.4-11.0)
[2022-05-27 07:17] LABS: Differential Indicated SCAN CRITERIA MET
[2022-05-27] MEDS: Ensure Clear 120 ML Liquid PO ×2 (07:22→17:12)
[2022-05-27 07:32] LABS: ALB/GLOB Ratio 0.8 RATIO (0.9-2.4); AST(SGOT) 18 U/L (15-37); Alanine Aminotransfer ALT/SGPT 10 U/L (13-56); Albumin, Serum 2.9 g/dL (3.2-5.0); Alkaline Phosphatase 90 U/L (45-117); Anion Gap 8 (5-15); BUN 24 mg/dL (7-18); Calcium,Total 8.2 mg/dL (8.5-10.1); Chloride 104 mmol/L (98-107); EST Glomerular Filtration Rate 46 mL/min (>60); Est Glom Filt Rate - Afr Amer 56 mL/min (>60); Estimated Creatinine Clearance 36.72 ml/min; Globulin 3.7 g/dL (2.2-4.2); Glucose 67 mg/dL (74-106); Potassium 4.1 mmol/L (3.5-5.1); Protein, Total 6.6 g/dL (6.4-8.2); Sodium Level 134 mmol/L (136-145)
[2022-05-27 08:20] LABS: Anisocytosis 2+; Hypochromasia 2+; Microcytosis 2+; Platelet Estimate ADEQUATE (ADEQ); Poikilocytosis 1+
[2022-05-27] MEDS: Furosemide 20 MG/2 ML VIAL IV ×2 (08:59→17:13)
[2022-05-27] MEDS: 0.9% Saline Lock 10 ML Syringe IV ×3 (08:59→22:55)
--- NOTE | 2022-05-27 11:02 | PN.HOSP_ITS ---
Subjective Subjective Patient is a 76-year-old lady admitted with progressive shortness of breath diagnosed with acute hypoxia secondary to CHF with acute exacerbation.1.? RIGHT lower lobe airspace consolidation atelectasis and moderate to large RIGHT effusion. Atelectasis versus interstitial infiltrate at the LEFT lung base and small LEFT effusion. Objective Data Objective Data Vital Signs: Vital Signs Temp Pulse Resp BP Pulse Ox O2 Del Method O2 Flow Rate 97.1 F L 80 18 125/59 H 97 Nasal Cannula 2 05/27/22 08:54 05/27/22 08:54 05/27/22 08:54 05/27/22 08:54 05/27/22 08:54 05/27/22 08:54 05/27/22 08:54 FiO2 97 05/27/22 07:31 Oxygen Flow Rate (L/min) 2 Oxygen Delivery Method Nasal Cannula Weight: 60.2 kg Body Mass Index (BMI) 27.3 Intake & Output: Intake and Output for Last 24 Hours 05/25/22 05/26/22 05/27/22 23:59 23:59 23:59 Intake Total 0 / 0 590 / 710 230 / 230 Output Total 2400 / 2850 450 / 450 Balance 0 / 0 -1810 / -2140 -220 / -220 Lab / Micro Data Result Diagrams: 05/27/22 05:42 05/27/22 05:42 Labs: Laboratory Results - last 24 hr 05/25/22 16:50: Diff Path Review Reviewed 05/26/22 05:25: Diff Path Review Reviewed 05/26/22 05:25: Magnesium 2.6 05/27/22 05:42: WBC 10.7, RBC 3.98 L, Hgb 7.0 L, Hct 25.8 L, MCV 64.8 L, MCH 17.6 L, MCHC 27.1 L, RDW Std Deviation 64.8 H, RDW Coeff of [place] 29.2 H, Plt Count 477 H, MPV 8.8, Immature Gran % (Auto) 0.500, Neut % (Auto) 72.6 H, Lymph % (Auto) 11.9 L, [place] % (Auto) 9.2, Eos % (Auto) 4.4, Baso % (Auto) 1.4 H, Absolute Neuts (auto) 7.8 H, Absolute Lymphs (auto) 1.27, Nucleated RBC % 0.2, Platelet Estimate ADEQUATE, Hypochromasia 2+, Poikilocytosis 1+, Anisocytosis 2+, Microcytosis 2+ 05/27/22 05:42: Sodium 134 L, Potassium 4.1, Chloride 104, Carbon Dioxide 22.0, Anion Gap 8, BUN 24 H, Creatinine 1.20 H, Estim Creat Clear Calc 36.72, Est GFR (MDRD) Af Amer 56 L, Est GFR (MDRD) Non-Af 46 L, BUN/Creatinine Ratio 20.0, Glucose 67 L, Calcium 8.2 L, Total Bilirubin 0.50, AST 18, ALT 10 L, Alkaline Phosphatase 90, Total Protein 6.6, Albumin 2.9 L, Globulin 3.7, Albumin/Globulin Ratio 0.8 L Micro: Microbiology 05/25/22 18:00 Nasal Secretion SARS-CoV-2 & FLU Antigen (Rapid) - Final Radiography Diagnostic Testing: Radiology Impression Echocardiogram 05/25/22 21:09 Interpretation Summary The estimated ejection fraction is 50-55 %. Large L.Pleural Effusion Small pericardial Effusion No previous echo to compare Ordering Physician: Mart Houston Referring Physician: Garcia Angelo Performed By: Kassie Hamilton, DENISE, RVT Physical Exam Narrative GENERAL: cooperative HEENT: Atraumatic; normocephalic EYES; Anicteric, Normal Conjunctiva NECK; supple, normal thyroid, RESPIRATORY: Diminished to auscultation CARDIOVASCULAR: Regular S1 S2, GI: soft, normoactive bowel sounds, : No Renal angle tenderness; EXTREMITIES: Dry scaly with pitting edema, MUSCULOSKELETAL: no muscle wasting NEURO: Awake; no lateralizing signs. SKIN: As described above PSYCH; Flat affect Assessment & Plan Assessment/Plan (1) Anemia: PLAN: Plan Patient is a 76-year-old lady admitted with progressive shortness of breath diagnosed with acute hypoxia secondary to CHF with acute exacerbation.1.? RIGHT lower lobe airspace consolidation atelectasis and moderate to large RIGHT effusion. Atelectasis versus interstitial infiltrate at the LEFT lung base and small LEFT effusion. 1. Acute hypoxia secondary to combination of bilateral pleural effusion and CHF exacerbation ? Patient placed on supplemental oxygen 2. Acute on chronic congestive heart failure with preserved ejection fraction ? Echo obtained demonstrated EF of 50 to 55%. 3. Large left-sided pleural effusion ? Attributed to patient congestive heart failure patient being managed with diuretics. Plan also patient to undergo an ultrasound-guided thoracocentesis w hich had to be postponed due to nonavailability of interventional radiology. Repeat checks x-ray ordered for subsequent monitoring 4. Severe iron deficiency anemia ? Patient has received total of 2 unit PRBC following her admission subsequent monitoring with daily H&H ordered with plans for further transfusion patient is deemed to be symptomatic or hemoglobin falls below 7. Patient placed on s upplemental iron with consultation placed to GI for possible endoscopic evaluation prior to discharge 5. Hypothyroidism - Patient is on levothyroxine home dose continued 6. DVT prophylaxis -bilateral SCDs Charges/Coding Visit Charges Inpatient E&M: 93468 Subs Hosp L2
--- NOTE | 2022-05-27 11:05 | RAD_ITS ---
STUDY: X-RAY CHEST REASON FOR EXAM: Female, 76 years old. Pleural effusion TECHNIQUE: Frontal and lateral views of the chest. COMPARISON: May 25, 2022 FINDINGS: There monitoring device. There is right mid and bilateral lower lung airspace consolidation. There is moderately large right pleural effusion. There is small to moderate left pleural effusion. Normal size heart. Normal mediastinum and omar. Normal visualized pulmonary arteries. Normal visualized aortic arch and descending thoracic aorta. There are diffuse degenerative changes of the visualized thoracic spine. Normal visualized ribs, clavicles, and shoulders. There is no demonstrated abnormality of the visualized soft tissue structures of the upper abdomen. RAD/Chest PA and Lateral IMPRESSION: Right greater than left infiltrates and effusions. Electronically Signed: Alex Syed MD at 15:23 EST ,
[2022-05-27] MEDS: Acetaminophen 325 MG Tablet 650 MG PO (12:09)
[2022-05-28] VITALS (12 sets, daily range): BP systolic 98–115; BP diastolic 46–56; PULSE 77–92; RESP 14–20; TEMP 36.4–37.3; O2SAT 96–100
[2022-05-28] MEDS: Levothyroxine 75 MCG Tablet PO (05:36)
--- NOTE | 2022-05-28 08:14 | PCM.PN.HOSP ---
Subjective Subjective Patient seen. Repeat chest x-ray obtained today prior demonstrated presence of Right greater than left infiltrates and effusions.. CT of the chest without contrast ordered for further eval Objective Data Objective Data Vital Signs: Vital Signs Temp Pulse Resp BP Pulse Ox O2 Del Method O2 Flow Rate 97.6 F L 84 16 105/46 L 100 Nasal Cannula 2 05/28/22 04:00 05/28/22 07:20 05/28/22 04:00 05/28/22 04:00 05/28/22 04:00 05/28/22 04:00 05/28/22 04:00 FiO2 97 05/27/22 07:31 Oxygen Flow Rate (L/min) 2 Oxygen Delivery Method Nasal Cannula Weight: 61.3 kg Body Mass Index (BMI) 27.3 Intake & Output: Intake and Output for Last 24 Hours 05/26/22 05/27/22 05/28/22 23:59 23:59 23:59 Intake Total 590 / 710 1010 / 1010 200 / 200 Output Total 2400 / 2850 1200 / 1650 750 / 750 Balance -1810 / -2140 -190 / -640 -550 / -550 Lab / Micro Data Result Diagrams: 05/27/22 05:42 05/27/22 05:42 Labs: Laboratory Results - last 24 hr 05/27/22 05:42: Platelet Estimate ADEQUATE, Hypochromasia 2+, Poikilocytosis 1+, Anisocytosis 2+, Microcytosis 2+ Micro: Microbiology 05/25/22 18:00 Nasal Secretion SARS-CoV-2 & FLU Antigen (Rapid) - Final Radiography Diagnostic Testing: Radiology Impression Chest X-Ray 05/27/22 11:05 IMPRESSION: Right greater than left infiltrates and effusions. Electronically Signed: Alex Syed MD at 15:23 EST , Physical Exam Narrative GENERAL: cooperative HEENT: Atraumatic; normocephalic EYES; Anicteric, Normal Conjunctiva NECK; supple, normal thyroid, RESPIRATORY: Diminished to auscultation CARDIOVASCULAR: Regular S1 S2, GI: soft, normoactive bowel sounds, : No Renal angle tenderness; EXTREMITIES: Dry scaly with pitting edema, MUSCULOSKELETAL: no muscle wasting NEURO: Awake; no lateralizing signs. SKIN: As described above PSYCH; Flat affect Assessment & Plan Assessment/Plan (1) Anemia: PLAN: Plan Patient is a 76-year-old lady admitted with progressive shortness of breath diagnosed with acute hypoxia secondary to CHF with acute exacerbation.1.? RIGHT lower lobe airspace consolidation atelectasis and moderate to large RIGHT effusion. Atelectasis versus interstitial infiltrate at the LEFT lung base and small LEFT effusion. 1. Acute hypoxia secondary to combination of bilateral pleural effusion and CHF exacerbation ? Patient placed on supplemental oxygen 2. Acute on chronic congestive heart failure with preserved ejection fraction ? Echo obtained demonstrated EF of 50 to 55%. 3. Large left-sided pleural effusion ? Attributed to patient congestive heart failure patient being managed with diuretics. Plan also patient to undergo an ultrasound-guided thoracocentesis which had to be postponed due to nonavailability of interventional radiology. Repeat checks x-ray ordered for subsequent monitoring -05/28/2022; Repeat chest x-ray obtained today prior demonstrated presence of Right greater than left infiltrates and effusions.. CT of the chest without contrast ordered for further eval 4. Severe iron deficiency anemia ? Patient has received total of 2 unit PRBC following her admission subsequent monitoring with daily H&H ordered with plans for further transfusion patient is deemed to be symptomatic or hemoglobin falls below 7. Patient placed on supplemental iron with consultation placed to GI for possible endoscopic evaluation prior to discharge 5. Hypothyroidism - Patient is on levothyroxine home dose continued 6. DVT prophylaxis -bilateral SCDs Charges/Coding Visit Charges Inpatient E&M: 43280 Subs Hosp L2
[2022-05-28] MEDS: 0.9% Saline Lock 10 ML Syringe IV ×2 (10:13→18:23)
[2022-05-28] MEDS: Furosemide 20 MG/2 ML VIAL IV ×2 (10:13→18:24)
--- NOTE | 2022-05-28 10:20 | CT_ITS ---
INDICATION: pneumonia EXAMINATION: CT CHEST WITHOUT CONTRAST - CT Chest W/O Contrast Injection TECHNIQUE: Helically acquired images were obtained of the chest. A radiation dose optimization technique was used for this scan. IV Contrast dosage and agent: None. COMPARISON: Chest x-ray 05/27/2022 FINDINGS: LUNGS, PLEURA AND LARGE AIRWAYS: 1.5 cm noncalcified nodule in the left upper lobe the lungs on image 21 and correlation with PET CT scan is recommended. Another 1 cm nodule in the posterior left upper lobe the lungs adjacent to the major fissure on image 32 and correlation with PET CT scan is recommended. Large right pleural effusion with right lower lobe atelectasis. Moderate left pleural effusion with left lower lobe atelectasis. No pneumothorax. THYROID: No thyroid lesions. HEART AND PERICARDIUM: Heart size is normal. Small pericardial effusion. CORONARY ARTERIES: Coronary artery calcification is seen. VESSELS: Thoracic aorta is not dilated. MEDIASTINUM AND ROSEANNE: No mediastinal or hilar adenopathy. Esophagus is unremarkable. No hiatal hernia. UPPER ABDOMEN: No acute pathology. BONES: No suspicious lytic or blastic abnormality. CT/Chest without Contrast IMPRESSION: 1. Large right pleural effusion with right lower lobe atelectasis. 2. Moderate left pleural effusion with left lower lobe atelectasis. 3. 2 Separate left upper lobe nodules in correlation with PET CT scan is recommended. 4. Small pericardial effusion. Electronically Signed: Wojciech Almanza MD at 11:48 EST ,
[2022-05-28] MEDS: DiphenhydrAMINE 25 MG Capsule PO (11:58)
[2022-05-28] MEDS: Ensure Clear 120 ML Liquid PO (12:08)
--- NOTE | 2022-05-28 18:30 | PCM.PROGNOTE ---
Subjective Subjective Patient says that her breathing is about the same but she is requiring oxygen. She not requiring oxygen as an outpatient. She is tolerating a diet. She denies chest pain or shortness of breath. Objective Data Objective Data Vital Signs: Vital Signs Temp Pulse Resp BP Pulse Ox O2 Del Method O2 Flow Rate 98 F 83 14 98/56 L 98 Nasal Cannula 2 05/28/22 15:30 05/28/22 15:30 05/28/22 15:30 05/28/22 15:30 05/28/22 15:30 05/28/22 15:30 05/28/22 15:30 FiO2 97 05/27/22 07:31 Oxygen Flow Rate (L/min) 2 Oxygen Delivery Method Nasal Cannula Weight: 135 lb 2.294 oz Body Mass Index (BMI) 27.3 Intake & Output: Intake and Output for Last 24 Hours 05/26/22 05/27/22 05/28/22 23:59 23:59 23:59 Intake Total 590 / 710 1010 / 1010 1540 / 1540 Output Total 2400 / 2850 1200 / 1650 1450 / 1450 Balance -1810 / -2140 -190 / -640 90 / 90 Lab / Micro Data Result Diagrams: 05/27/22 05:42 05/27/22 05:42 Micro: Microbiology 05/25/22 18:00 Nasal Secretion SARS-CoV-2 & FLU Antigen (Rapid) - Final Radiography Diagnostic Testing: Radiology Impression Chest CT 05/28/22 10:20 IMPRESSION: 1. Large right pleural effusion with right lower lobe atelectasis. 2. Moderate left pleural effusion with left lower lobe atelectasis. 3. 2 Separate left upper lobe nodules in correlation with PET CT scan is recommended. 4. Small pericardial effusion. Electronically Signed: Wojciech Almanza MD at 11:48 EST , Physical Exam Narrative GENERAL: cooperative HEENT: Atraumatic; normocephalic EYES; Anicteric, Normal Conjunctiva NECK; supple, normal thyroid, RESPIRATORY: Diminished to auscultation CARDIOVASCULAR: Regular S1 S2, GI: soft, normoactive bowel sounds, : No Renal angle tenderness; EXTREMITIES: Dry scaly with pitting edema, MUSCULOSKELETAL: no muscle wasting NEURO: Awake; no lateralizing signs. SKIN: As described above PSYCH; Flat affect Assessment & Plan Assessment/Plan (1) Anemia: PLAN: Patient's hemoglobin continues to trend down. She will need an EGD and colonoscopy. The plan was to do it on 05/30/2022. However the patient told me she is scheduled to get a thoracentesis on that day. Therefore we can plan on doing it either later on 05/30/2022 or on 05/31/2022. Charges/Coding Visit Charges Inpatient E&M: 21783 Subs Hosp L2
[2022-05-28] MEDS: Acetaminophen 325 MG Tablet 650 MG PO (22:48)
[2022-05-29] VITALS (13 sets, daily range): BP systolic 97–153; BP diastolic 41–63; PULSE 77–97; RESP 16–24; TEMP 36.5–36.8; O2SAT 90–100
[2022-05-29] MEDS: Levothyroxine 75 MCG Tablet PO (06:02)
[2022-05-29] MEDS: 0.9% Saline Lock 10 ML Syringe IV ×3 (08:26→21:03)
[2022-05-29] MEDS: Ensure Clear 120 ML Liquid PO (08:28)
[2022-05-29] MEDS: Furosemide 20 MG/2 ML VIAL IV ×2 (08:28→18:01)
--- NOTE | 2022-05-29 09:41 | PN.HOSP_ITS ---
Subjective Subjective CT of the chest obtained the day prior did show large right-sided pleural effusion with right lobe atelectasis. Repeat requisition placed for interventional radiology for patient to undergo ultrasound-guided thoraco centesis on 05/30/2022 ? Objective Data Objective Data Vital Signs: Vital Signs Temp Pulse Resp BP Pulse Ox O2 Del Method O2 Flow Rate 98.3 F 80 16 130/54 H 94 Room Air 1 05/29/22 08:12 05/29/22 08:12 05/29/22 08:12 05/29/22 08:12 05/29/22 08:37 05/29/22 08:37 05/29/22 07:54 FiO2 97 05/27/22 07:31 Oxygen Flow Rate (L/min) 1 Oxygen Delivery Method Room Air Weight: 61.5 kg Body Mass Index (BMI) 27.3 Intake & Output: Intake and Output for Last 24 Hours 05/27/22 05/28/22 05/29/22 23:59 23:59 23:59 Intake Total 1010 / 1010 1540 / 1540 320 / 320 Output Total 1200 / 1650 1450 / 1900 850 / 850 Balance -190 / -640 90 / -360 -530 / -530 Lab / Micro Data Result Diagrams: 05/27/22 05:42 05/27/22 05:42 Labs: Laboratory Results - last 24 hr 05/25/22 16:50: Crossmatch See Detail Micro: Microbiology 05/25/22 18:00 Nasal Secretion SARS-CoV-2 & FLU Antigen (Rapid) - Final Radiography Diagnostic Testing: Radiology Impression Chest CT 05/28/22 10:20 IMPRESSION: 1. Large right pleural effusion with right lower lobe atelectasis. 2. Moderate left pleural effusion with left lower lobe atelectasis. 3. 2 Separate left upper lobe nodules in correlation with PET CT scan is recommended. 4. Small pericardial effusion. Electronically Signed: Wojciech Almanza MD at 11:48 EST , Physical Exam Narrative GENERAL: cooperative HEENT: Atraumatic; normocephalic EYES; Anicteric, Normal Conjunctiva NECK; supple, normal thyroid, RESPIRATORY: Diminished to auscultation CARDIOVASCULAR: Regular S1 S2, GI: soft, normoactive bowel sounds, : No Renal angle tenderness; EXTREMITIES: Dry scaly with pitting edema, MUSCULOSKELETAL: no muscle wasting NEURO: Awake; no lateralizing signs. SKIN: As described above PSYCH; Flat affect Assessment & Plan Assessment/Plan (1) Anemia: PLAN: Plan Patient is a 76-year-old lady admitted with progressive shortness of breath diagnosed with acute hypoxia secondary to CHF with acute exacerbation.1.? RIGHT lower lobe airspace consolidation atelectasis and moderate to large RIGHT effusion. Atelectasis versus interstitial infiltrate at the LEFT lung base and small LEFT effusion. 1. Acute hypoxia secondary to combination of bilateral pleural effusion and CHF exacerbation ? Patient placed on supplemental oxygen 2. Acute on chronic congestive heart failure with preserved ejection fraction ? Echo obtained demonstrated EF of 50 to 55%. 3. Large left-sided pleural effusion ? Attributed to patient congestive heart failure patient being managed with diuretics. Plan also patient to undergo an ultrasound-guided thoracocentesis which had to be postponed due to nonavailability of interventional radiology. Repeat checks x-ray ordered for subsequent monitoring -05/28/2022; Repeat chest x-ray obtained today prior demonstrated presence of Right greater than left infiltrates and effusions.. CT of the chest without contrast ordered for further eval -05/29/2022; CT of the chest obtained the day prior did show large right-sided pleural effusion with right lobe atelectasis. Repeat requisition placed for interventional radiology for patient to undergo ultrasound-guided thoracocentesis on 05/30/2022 4. Severe iron deficiency anemia ? Patient has received total of 2 unit PRBC following her admission subsequent monitoring with daily H&H ordered with plans for further transfusion patient is deemed to be symptomatic or hemoglobin falls below 7. Patient placed on supplemental iron with consultation placed to GI for possible endoscopic evalu ation prior to discharge 5. Hypothyroidism - Patient is on levothyroxine home dose continued 6. DVT prophylaxis -bilateral SCDs Charges/Coding Visit Charges Inpatient E&M: 86629 Subs Hosp L2
[2022-05-29 10:05] LABS: Absolute Neutrophil Count 11.5 X10^3/uL (2.0-7.7); Basophil# 0.24 X10^3/uL; Basophil% 1.7 % (0-1); Eosinophil# 0.54 X10^3/uL; Eosinophils% 3.8 % (0-5); Hematocrit 27.1 % (37-47); Hemoglobin 7.6 g/dL (12.0-15.0); Lymphocyte % 6.3 % (19-41); Mean Corpuscular Volume 64.1 fL (81-99); Mean Platelet Vol. 8.5 fl (6.2-12.0); Monocyte# 1.11 X10^3/uL; Monocyte% 7.7 % (0-10); NRBC Flagged by Analyzer 0.1 % (0-5); Neutrophil # 11.47 X10^3/uL (2.7-7.7); Neutrophil % 79.9 % (47-70); POSITIVE MORPHOLOGY YES; Platelet Count 479 K/mm3 (150-450); RBC Distribution Width CV 31.5 % (11.6-14.6); RBC Distribution Width SD 67.1 fl (35.1-43.9); Red Blood Count 4.23 M/mm3 (4.2-5.4); White Blood Count 14.3 K/mm3 (4.4-11.0)
[2022-05-29 10:06] LABS: Differential Indicated SCAN CRITERIA MET
[2022-05-29 10:18] LABS: Anion Gap 8 (5-15); BUN 25 mg/dL (7-18); BUN/Creat Ratio 15.9 RATIO (10-20); Calcium,Total 8.5 mg/dL (8.5-10.1); Chloride 104 mmol/L (98-107); Creatinine, Serum 1.57 mg/dL (0.55-1.02); EST Glomerular Filtration Rate 34 mL/min (>60); Est Glom Filt Rate - Afr Amer 41 mL/min (>60); Estimated Creatinine Clearance 28.67 ml/min; Glucose 142 mg/dL (74-106); Magnesium 1.9 mg/dL (1.6-2.6); Phosphorus 2.9 mg/dL (2.5-4.9); Potassium 2.9 mmol/L (3.5-5.1); Sodium Level 136 mmol/L (136-145)
[2022-05-29 10:27] LABS: Anisocytosis 3+; Hypochromasia 1+; Microcytosis 2+; Ovalocyte 1+; Platelet Estimate SLT INC (ADEQ); Poikilocytosis 1+
[2022-05-29] MEDS: Acetaminophen 325 MG Tablet 650 MG PO ×2 (13:23→21:03)
[2022-05-29] MEDS: Senna Tablet 1 TABLET PO ×2 (13:53→21:03)
[2022-05-29] MEDS: Polyethylene Glycol 3350 17 GM PACKET PO (13:53)
[2022-05-29] MEDS: Potassium Chloride Oral Tablet 20 MEQ PO ×2 (13:57→21:03)
[2022-05-29] MEDS: Bisacodyl 5 MG Tablet 20 MG PO (14:58)
[2022-05-29] MEDS: Potassium Chloride 10mEq/100mL 10 MEQ/100 ML IV.SOLN. 100 MEQ IV BOLUS ×4 (15:02→18:00)
[2022-05-29] MEDS: Polyethylene Glycol 3350 BOWEL PREP PO (16:33)
[2022-05-29] MEDS: Ondansetron 4 MG/2 ML Vial IV (21:03)
[2022-05-30] VITALS (20 sets, daily range): BP systolic 76–128; BP diastolic 34–83; PULSE 69–103; RESP 14–19; TEMP 36.4–37.1; O2SAT 91–100; BMI 27.8
[2022-05-30 07:03] LABS: Absolute Lymphocyte Count 1.27 X10^3/uL (0.83-4.51); Absolute Neutrophil Count 15.9 X10^3/uL (2.0-7.7); Basophil# 0.13 X10^3/uL; Basophil% 0.7 % (0-1); Eosinophil# 0.17 X10^3/uL; Eosinophils% 0.9 % (0-5); Hematocrit 27.9 % (37-47); Hemoglobin 7.5 g/dL (12.0-15.0); Lymphocyte # 1.27 X10^3/ul (0.83-4.51); Lymphocyte % 6.6 % (19-41); Mean Corp Hgb Conc 26.9 g/dL (32-36); Mean Corpuscular Hgb 17.6 pg (27.0-32.0); Mean Corpuscular Volume 65.3 fL (81-99); Mean Platelet Vol. 8.8 fl (6.2-12.0); Monocyte# 1.56 X10^3/uL; Monocyte% 8.1 % (0-10); NRBC Flagged by Analyzer 0.1 % (0-5); Neutrophil # 15.89 X10^3/uL (2.7-7.7); Neutrophil % 82.9 % (47-70); POSITIVE DIFFERENTIAL YES; POSITIVE MORPHOLOGY YES; Platelet Count 573 K/mm3 (150-450); RBC Distribution Width CV 31.9 % (11.6-14.6); RBC Distribution Width SD 68.4 fl (35.1-43.9); Red Blood Count 4.27 M/mm3 (4.2-5.4); White Blood Count 19.2 K/mm3 (4.4-11.0)
[2022-05-30 07:20] LABS: International Normalized Ratio 1.2; Prothrombin Time (Protime)PT. 14.5 SECONDS (11.7-14.9)
[2022-05-30 07:21] LABS: Partial Thromboplast Time 37.2 Seconds (24.1-36.2)
[2022-05-30 07:28] LABS: Differential Indicated SCAN CRITERIA MET
[2022-05-30 07:30] LABS: Anion Gap 6 (5-15); BUN 27 mg/dL (7-18); BUN/Creat Ratio 18.1 RATIO (10-20); Calcium,Total 8.8 mg/dL (8.5-10.1); Chloride 104 mmol/L (98-107); Creatinine, Serum 1.49 mg/dL (0.55-1.02); EST Glomerular Filtration Rate 36 mL/min (>60); Est Glom Filt Rate - Afr Amer 43 mL/min (>60); Estimated Creatinine Clearance 30.65 ml/min; Glucose 89 mg/dL (74-106); LDH 154 U/L (84-246); Potassium 3.8 mmol/L (3.5-5.1); Sodium Level 136 mmol/L (136-145)
--- NOTE | 2022-05-30 08:00 | US_ITS ---
PROCEDURE: Ultrasound guided thoracentesis. DATE OF EXAMINATION: 05/30/2022. INDICATION: Female, 76 years old. Pleural effusion PHYSICIAN: Matt Arthur D.O. TECHNIQUE: The risks, benefits, and alternatives to the procedure were explained to the patient. The specific risks of bleeding, infection, and pneumothorax were detailed and accepted. Witnessed informed consent was obtained. The chest was ultrasonographically surveyed. An appropriate pocket of fluid was identified at the right lower thorax. The skin were cleaned and prepped in the usual sterile fashion. Using ultrasound guidance, the pleural cavity was accessed with a 5-Namibian paracentesis needle/catheter system. The trocar was removed. A total of 900 ml of clear straw-colored pleural fluid was removed from the peritoneal cavity with a 100 cc sample sent to the lab for diagnostic tests. The catheter was removed and a sterile dressing was applied. The procedure was well tolerated. Immediate post operative chest radiograph demonstrated no sizable pneumothorax. The patient was returned to the floor in stable condition. US/Thoracentesis W US IMPRESSION: Ultrasound guided diagnostic and therapeutic paracentesis. Electronically Signed: Matt Arthur, at 14:04 EST ,
[2022-05-30 08:46] LABS: Anisocytosis 2+; Differential Comment SCANNED; Hypochromasia 2+
[2022-05-30 08:47] LABS: Ovalocyte 1+
[2022-05-30 08:50] LABS: Microcytosis 2+
--- NOTE | 2022-05-30 09:50 | FLU_PTH ---
PATIENT: ROS COFFEY LOC: [facility] U#:[id number] AGE/SX: 76/F ROOM: [facility] RE05/25/[address]: Dr. Garcia Soares DO : 1945 BED: 1 DIS: 06/01/2022 SPEC #: [id number] RECD: 05/30/22 11:15 STATUS: RODRIGO REQ #: [id number] WANDA: 05/30/22 09:[address]: Naun Griffin DEPT: CYTOLOGY RECD BY: Felicitas Santana ENTERED: 05/30/22 11:53 SP TYPE: Fluid OTHR DR: MD Dr. Naun Euceda MD Dr. Dhaval Patel, DO Dr. Mart Houston, DO Dr. Garcia Angelo, DO Dr. Garcia Soares, Tissues: Pleural fluid, NOS Procedures: Special Stain Group II Surgery Specimen Level IV Cytospin Fluid Comments: @ Ordering doctor for SSII edited from to @ by LANDON at 05/30/22 1423 @ Ordering doctor for SUIV edited from to @ by RGOOD at 05/30/22 1423 @ Ordering doctor for CYSPIN edited from to @ by LANDON at 05/30/22 1423 @ Submitting doctor edited from to @ by RGOOD at 05/30/22 1423 HEADER OPERATION: Thoracentesis PRE-OP DIAGNOSIS: Right pleural effusion TISSUE SUBMITTED: Thoracentesis fluid for cytology DIAGNOSIS CYTOLOGY Thoracentesis fluid for cytology (cytospin): Negative for malignant cells. AM:wendie 05/31/2022 CYTOLOGY STUDY Slides are reviewed. CYTOLOGY GROSS Received is 95 ml of hazy yellow fluid labeled with the patient's name and and designated per the requisition as thoracentesis. Submitted for cytology preparation including cell block. / wendie 05/30/2022 TC:5 CPT: 78549, 01486
--- NOTE | 2022-05-30 10:08 | RAD_ITS ---
INDICATION: post thoracentesis EXAMINATION/TECHNIQUE: X-RAY - XR Chest 2 Views COMPARISON: Chest radiograph from 05/27/2022. FINDINGS: Support devices: None. Small residual right pleural effusion, improved from prior, status post thoracentesis. Aeration of the right lung base is improved. Stable trace left pleural effusion. No sizable pneumothorax. Heart size is stable. Bones and soft tissues are unchanged. RAD/Chest Insp/Exp 2 View IMPRESSION: Small residual right pleural effusion status post thoracentesis. No sizable pneumothorax. Electronically Signed: Matt Arthur, at 11:34 EST ,
[2022-05-30] MEDS: Lidocaine 1% (20 ml mdv) 20 ML Vial INFILT (10:10)
[2022-05-30 11:20] LABS: Cytology, Body Fluid / CSF SEE PATHOLOGY REPORT
[2022-05-30] MEDS: 0.9% Saline Lock 10 ML Syringe IV (11:29)
[2022-05-30] MEDS: Potassium Chloride Oral Tablet 20 MEQ PO ×2 (11:31→17:53)
[2022-05-30] MEDS: Senna Tablet 1 TABLET PO (11:32)
[2022-05-30 11:57] LABS: Body Fluid Mononuclear WBC # 0.187 10^3/uL; Body Fluid Mononuclear WBC % 88.2 %; Body Fluid Polynuclear WBC # 0.025 10^3/uL; Body Fluid Polynuclear WBC % 11.8 %; Body Fluid Total Cells Counted 0.258 10^3/ul; White Blood Count/Body Fluid 0.212 10^3/uL
[2022-05-30 12:00] LABS: Glucose, Body Fluid 99 mg/dL (40-70); LDH,Body Fluid 99 Units/l (Not Establ.); Protein, Body Fluid 4.5 g/dL (Not Establ.)
--- NOTE | 2022-05-30 13:11 | OP.EGD_ITS ---
Patient Name: Kassie Diane Procedure Date: 05/30/2022 12:26 PM Date of : 1945 Age: 76 Procedure: Upper GI endoscopy Indications: Epigastric abdominal pain, Iron deficiency anemia Providers: Sulaiman Justin DO Medicines: Propofol per Anesthesia Patient Profile: This is a 76 year old female. Refer to note in patient chart for documentation of history and physical. Patient has symptoms of acute epigastric abdominal pain, acute dyspepsia and acute nausea. Complications: No immediate complications. Procedure: Pre-Anesthesia Assessment: - Prior to the procedure, a History and Physical was performed, and patient medications and allergies were reviewed. The risks and benefits of the procedure and the sedation options and risks were discussed with the patient. All questions were answered and informed consent was obtained. Patient identification and proposed procedure were verified by the physician in the pre-procedure area. Mental Status Examination: alert and oriented. Airway Examination: normal oropharyngeal airway and neck mobility. Respiratory Examination: clear to auscultation. CV Examination: normal. Prophylactic Antibiotics: The patient does not require prophylactic antibiotics. Prior Anticoagulants: The patient has taken no previous anticoagulant or antiplatelet agents. ASA Grade Assessment: III - A patient with severe systemic disease. After reviewing the risks and benefits, the patient was deemed in satisfactory condition to undergo the procedure. The anesthesia plan was to use monitored anesthesia care (MAC). Immediately prior to administration of medications, the patient was re-assessed for adequacy to receive sedatives. The heart rate, respiratory rate, oxygen saturations, blood pressure, adequacy of pulmonary ventilation, and response to care were monitored throughout the procedure. The physical status of the patient was re-assessed after the procedure. After obtaining informed consent, the endoscope was passed under direct vision. Throughout the procedure, the patient's blood pressure, pulse, and oxygen saturations were monitored continuously. The Colonoscope was introduced through the mouth, and advanced to the second part of duodenum. The upper GI endoscopy was accomplished without difficulty. The patient tolerated the procedure well. Scope In: 12:37:46 PM Scope Out: 12:45:16 PM Total Procedure Duration Time 0 hours 7 minutes 30 seconds Findings: No gross lesions were noted in the entire esophagus. Three 5 mm bleeding angiodysplastic lesions were found on the greater curvature of the stomach. Coagulation for hemostasis using heater probe was successful. Estimated blood loss was minimal. Estimated blood loss was minimal. 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 Biopsies for histology were taken with a cold forceps. Coagulation for hemostasis using argon plasma at 0.3 liters/minute and 20 martini was successful. Estimated blood loss was minimal. The second portion of the duodenum was normal. Impression: - No gross lesions in esophagus. - Three bleeding angiodysplastic lesions in the stomach. Treated with a heater probe. - Gastric antral vascular ectasia with bleeding. Biopsied. Treated with argon plasma coagulation (APC). - Normal second portion of the duodenum. Recommendation: - Advance diet as tolerated. - Continue present medications. - Await pathology results. - Repeat upper endoscopy in 3 months for retreatment. - Return to GI office. Procedure Code(s): --- Professional --- 90793, 59, Esophagogastroduodenoscopy, flexible, transoral; with control of bleeding, any method 47117, 51, Esophagogastroduodenoscopy, flexible, transoral; with biopsy, single or multiple CPT copyright 2017 [employer]. All rights reserved. The codes documented in this report are preliminary and upon client hr manager review may be revised to meet current compliance requirements. Sulaiman Justin DO 05/30/2022 1:10:47 PM This report has been signed electronically. Number of Addenda: 0 Note Initiated On: 05/30/2022 12:26 PM
--- NOTE | 2022-05-30 13:12 | OP.CCLET_ITS ---
05/30/2022 Garcia Angelo [address] [facility] [address] Re : Upper GI endoscopy procedure for Kassiekishan Diane Dear Dr. Angelo This procedure was performed on Monday, May 30, 2022. My impressions and recommendations are as follows: Impressions : - No gross lesions in esophagus. - Three bleeding angiodysplastic lesions in the stomach. Treated with a heater probe. - Gastric antral vascular ectasia with bleeding. Biopsied. Treated with argon plasma coagulation (APC). - Normal second portion of the duodenum. Recommendations : - Advance diet as tolerated. - Continue present medications. - Await pathology results. - Repeat upper endoscopy in 3 months for retreatment. - Return to GI office. My findings are described in the full procedure note, which is enclosed. If I can be of further assistance, please feel free to contact me at . Sincerely, Sulaiman Justin, 05/30/2022 1:10:47 PM This report has been signed electronically.
--- NOTE | 2022-05-30 13:17 | OP.COLON_ITS ---
Patient Name: Kassie Diane Procedure Date: 05/30/2022 12:45 PM Date of : 1945 Age: 76 Procedure: Colonoscopy Indications: This is the patient's first colonoscopy, Iron deficiency anemia Providers: Sulaiman Justin DO Medicines: Monitored Anesthesia Care Patient Profile: This is a 76 year old female. Refer to note in patient chart for documentation of history and physical. Patient has symptoms of acute epigastric abdominal pain, acute dyspepsia and acute nausea. Last Colonoscopy: none. The patient's first colonoscopy is today. Complications: No immediate complications. Procedure: Pre-Anesthesia Assessment: - Prior to the procedure, a History and Physical was performed, and patient medications and allergies were reviewed. The risks and benefits of the procedure and the sedation options and risks were discussed with the patient. All questions were answered and informed consent was obtained. Patient identification and proposed procedure were verified by the physician in the pre-procedure area. Mental Status Examination: alert and oriented. Airway Examination: normal oropharyngeal airway and neck mobility. Respiratory Examination: clear to auscultation. CV Examination: normal. Prophylactic Antibiotics: The patient does not require prophylactic antibiotics. Prior Anticoagulants: The patient has taken no previous anticoagulant or antiplatelet agents. ASA Grade Assessment: III - A patient with severe systemic disease. After reviewing the risks and benefits, the patient was deemed in satisfactory condition to undergo the procedure. The anesthesia plan was to use monitored anesthesia care (MAC). Immediately prior to administration of medications, the patient was re-assessed for adequacy to receive sedatives. The heart rate, respiratory rate, oxygen saturations, blood pressure, adequacy of pulmonary ventilation, and response to care were monitored throughout the procedure. The physical status of the patient was re-assessed after the procedure. After I obtained informed consent, the scope was passed under direct vision. Throughout the procedure, the patient's blood pressure, pulse, and oxygen saturations were monitored continuously. The Colonoscope was introduced through the anus and advanced to the terminal ileum. The colonoscopy was performed without difficulty. The patient tolerated the procedure well. The quality of the bowel preparation was poor. Scope In: 12:49:55 PM Scope Withdrawal Time 0 hours 8 minutes 16 seconds Scope Out: 1:01:04 PM Total Procedure Duration Time 0 hours 11 minutes 9 seconds Findings: Hemorrhoids were found on perianal exam. Multiple small and large-mouthed diverticula were found in the recto-sigmoid colon, sigmoid colon and descending colon. Localized mild inflammation characterized by congestion (edema), erosions and erythema was found in the sigmoid colon. Biopsies were taken with a cold forceps for histology. Verification of patient identification for the specimen was done. Estimated blood loss was minimal. Three medium-sized localized angiodysplastic lesions with bleeding were found at the splenic flexure and in the transverse colon. Coagulation for hemostasis using heater probe was successful. Estimated blood loss was minimal. A large amount of stool was found in the rectum, in the recto-sigmoid colon, in the sigmoid colon, at the splenic flexure, in the transverse colon, at the hepatic flexure, in the ascending colon and in the cecum. Impression: - Preparation of the colon was poor. - Hemorrhoids found on perianal exam. - Diverticulosis in the recto-sigmoid colon, in the sigmoid colon and in the descending colon. - Localized mild inflammation was found in the sigmoid colon secondary to colitis. Biopsied. - Three bleeding colonic angiodysplastic lesions. Treated with a heater probe. - Stool in the rectum, in the recto-sigmoid colon, in the sigmoid colon, at the splenic flexure, in the transverse colon, at the hepatic flexure, in the ascending colon and in the cecum. Recommendation: - Return patient to [facility] for ongoing care. - Repeat colonoscopy in 3 months because the bowel preparation was suboptimal. - Continue present medications. Procedure Code(s): --- Professional --- 94442, 59, Colonoscopy, flexible; with control of bleeding, any method 14935, Colonoscopy, flexible; with biopsy, single or multiple CPT copyright 2017 [employer]. All rights reserved. The codes documented in this report are preliminary and upon platform inspector review may be revised to meet current compliance requirements. Sulaiman Justin DO 05/30/2022 1:17:18 PM This report has been signed electronically. Number of Addenda: 0 Note Initiated On: 05/30/2022 12:45 PM
--- NOTE | 2022-05-30 13:18 | OP.CCLET_ITS ---
05/30/2022 Garcia Angelo [address] [facility] [place] [address] Re : Colonoscopy procedure for Kassie Diane Dear Dr. Angelo This procedure was performed on Monday, May 30, 2022. My impressions and recommendations are as follows: Impressions : - Preparation of the colon was poor. - Hemorrhoids found on perianal exam. - Diverticulosis in the recto-sigmoid colon, in the sigmoid colon and in the descending colon. - Localized mild inflammation was found in the sigmoid colon secondary to colitis. Biopsied. - Three bleeding colonic angiodysplastic lesions. Treated with a heater probe. - Stool in the rectum, in the recto-sigmoid colon, in the sigmoid colon, at the splenic flexure, in the transverse colon, at the hepatic flexure, in the ascending colon and in the cecum. Recommendations : - Return patient to [facility] for ongoing care. - Repeat colonoscopy in 3 months because the bowel preparation was suboptimal. - Continue present medications. My findings are described in the full procedure note, which is enclosed. If I can be of further assistance, please feel free to contact me at . Sincerely, Sulaiman Justin, 05/30/2022 1:17:18 PM This report has been signed electronically.
--- NOTE | 2022-05-30 13:48 | SUR.PHASEI ---
pcu is ready for pt to come upstairs. waiting on transport to take pt.
[2022-05-30 14:13] LABS: Pathologist Review Reviewed
[2022-05-30 14:44] LABS: Auto B Fluid Analyzer BKGD Ct COUNTS W/IN LIMITS (W/IN LIMITS)
[2022-05-30 14:45] LABS: Appearance/Body Fluid CLEAR; Color/Body Fluid YELLOW; Red Cell Count/Body Fluid 14 /mm3; Source- Body Fluid THORACENTESIS
[2022-05-30 14:52] LABS: Body Fluid QC Type(s) BF1Q; Lymphocytes 9 %; Macrophages 57 %; Mesothelial Cells 1 %; Monocytes 5 %; Neutrophil (Segs) 28 %
--- NOTE | 2022-05-30 15:30 | IMM_PTH ---
PATIENT: ROS COFFEY LOC: [facility] U#:[id number] AGE/SX: 76/F ROOM: [facility] RE05/25/[address]: Dr. Garcia Soares DO : 1945 BED: 1 DIS: 06/01/2022 SPEC #: [id number] RECD: 05/31/22 09:16 STATUS: RODRIGO REZack #: [id number] WANDA: 05/30/22 15:[address]: Sulaiman Justin DEPT: IMMUNOHISTOCHEMISTRY RECD BY: Arlene Sutherland ENTERED: 05/31/22 09:17 SP TYPE: IMMUNO OTHR DR: MD Dr. Naun Euceda MD Dr. Dhaval Patel, DO Dr. Eric Jopperi, DO Dr. Mark Stutzman, DO Dr. Garcia Soares, Tissues: A - Stomach, NOS Procedures: H Pylori (initial) PHYSICIAN & [address] [address] SPECIMEN INFORMATION: Tissue Source: A ? Antrum biopsy Clinical Info: Aline Specimen Number: [id number] CPT code: 89206 METHODOLOGY: Deparaffinized sections of prefer/formalin-fixed tissue or PAP/DQ stained slides are incubated with monoclonal/polyclonal antibodies/oligonucleotide probes. Localization is made via biotin free immunoperoxidase method. Appropriate controls are performed and reacted as expected. Results on target cell population are indicated in the following table: RESULTS: ANTIBODY / CLONE RESULT Block A H Pylori (polyclonal) negative These tests were developed and their performance characteristics determined by [facility]. They may not have been cleared or approved by the U.S. Food and Drug Administration. The FDA has determined that such clearance or approval is not necessary. The above immunohistochemical/dualISH markers are ordered and reviewed by the Pathologist. INTERPRETATION: A. Antrum, biopsy: Negative for Helicobacter pylori organisms. AM:wendie 06/01/2022
--- NOTE | 2022-05-30 15:30 | COLBX_PTH ---
PATIENT: ROS COFFEY LOC: [facility] U#:[id number] AGE/SX: 76/F ROOM: [facility] RE05/25/[address]: Dr. Garcia Soares DO : 1945 BED: 1 DIS: 06/01/2022 SPEC #: [id number] RECD: 05/30/22 16:18 STATUS: RODRIGO [place] #: [id number] WANDA: 05/30/22 15:[address]: Sulaiman Justin DEPT: SURGICAL PATHOLOGY RECD BY: Felicitas Santana ENTERED: 05/31/22 08:12 SP TYPE: COLON BX OTHR DR: MD Dr. Naun Euceda MD Dr. Dhaval Patel, DO Dr. Garcia Ortega Dr., DO Dr. Garcia Soares, Tissues: A - Gastric mucous membrane B - Sigmoid colon biopsy Procedures: Surgery Specimen Level IV HEADER OPERATION: Colonoscopy, EGD (MAC), biopsy, electrohemostasis PRE-OP DIAGNOSIS: Anemia TISSUE SUBMITTED: A ? Antrum biopsy for histo and H. pylori, B ? Sigmoid biopsy MICROSCOPIC DIAGNOSIS A. Gastric antrum, biopsy: Chronic gastritis. See comment. B. Sigmoid colon, biopsy: Polypoid fragments of benign colonic mucosa. AM:wendie 06/01/2022 COMMENT A. The results of immunohistochemistry for Helicobacter pylori will be reported separately ([id number]). MICROSCOPIC DESCRIPTION Slides are reviewed. GROSS DESCRIPTION A - Received in fixative is one container labeled with the patient's name and designated antrum biopsy. The specimen consists of two irregular fragments of light osborn soft tissue that in aggregate measure 0.6 x 0.3 x 0.1 cm. The specimen is totally submitted in one cassette. B - Received in fixative is one container labeled with the patient's name and designated sigmoid biopsy. The specimen consists of two irregular fragments of light osborn soft tissue that in aggregate measure 0.4 x 0.3 x 0.1 cm. The specimen is totally submitted in one cassette. / JANAY:wendie 05/31/2022 TC:5 CPT: 96324 x2
[2022-05-30] MEDS: Furosemide 20 MG/2 ML VIAL IV (17:54)
[2022-05-30 19:46] LABS: Endomysial Antibody IgA Negative (Negative); Immunoglobulin A 314 mg/dL (64-422); t-Transglutaminase IgA <2 U/mL (0-3)
--- NOTE | 2022-05-30 20:08 | PN.HOSP_ITS ---
Subjective Subjective AlteredPatient was seen and examined today, a right thoracentesis was performed and 900 cc of fluid was removed from the right thoracic cavity. Patient also underwent an EGD and colonoscopy today, a small area of mild colitis was found in the sigmoid colon, this was biopsied, there is also 3 bleeding colonic angio dysplastic lesions that were treated with a heater probe. EGD revealed 3 bleeding angiodysplastic lesions in the stomach, these were treated with a heater probe, there are areas of vascular ectasia noted in the stomach that was biopsied-these appear to be bleeding. They were treated with argon plasma coagulation. At this time, patient remains on 2 L of oxygen, I will reevaluate the patient tomorrow for possible discharge. Objective Data Objective Data Vital Signs: Vital Signs Temp Pulse Resp BP Pulse Ox O2 Del Method O2 Flow Rate 98.3 F 85 19 H 119/56 L 100 Nasal Cannula 2 05/30/22 15:48 05/30/22 15:48 05/30/22 15:48 05/30/22 15:48 05/30/22 15:48 05/30/22 15:48 05/30/22 15:48 FiO2 97 05/27/22 07:31 Oxygen Flow Rate (L/min) [4] 2 Oxygen Flow Rate (L/min) [3] 2 Oxygen Flow Rate (L/min) [2] 2 Oxygen Flow Rate (L/min) [1 ( 2 Initial Baseline)] Oxygen Flow Rate (L/min) 2 Oxygen Delivery Method [4] Nasal Cannula Oxygen Delivery Method [3] Nasal Cannula Oxygen Delivery Method [2] Nasal Cannula Oxygen Delivery Method [1 ( Nasal Cannula Initial Baseline)] Oxygen Delivery Method Nasal Cannula Weight: 62.4 kg Body Mass Index (BMI) 27.8 Intake & Output: Intake and Output for Last 24 Hours 05/28/22 05/29/22 05/30/22 23:59 23:59 23:59 Intake Total 1540 / 1540 2273.33 / 2273.33 670 / 670 Output Total 1450 / 1900 1850 / 1850 900 / 900 Balance 90 / -360 423.33 / 423.33 -230 / -230 Lab / Micro Data Result Diagrams: 06/01/22 06:45 05/30/22 06:15 Labs: Laboratory Results - last 24 hr 05/26/22 05:25: IgA 314, Endomysial IgA Ab Negative, Tiss Transglutamin IgA <2 05/30/22 06:15: WBC 19.2 H, RBC 4.27, Hgb 7.5 L, Hct 27.9 L, MCV 65.3 L, MCH 17.6 L, MCHC 26.9 L, RDW Std Deviation 68.4 H, RDW Coeff of [place] 31.9 H, Plt Count 573 H, MPV 8.8, Immature Gran % (Auto) 0.800, Neut % (Auto) 82.9 H, Lymph % (Auto) 6.6 L, [place] % (Auto) 8.1, Eos % (Auto) 0.9, Baso % (Auto) 0.7, Absolute Neuts (auto) 15.9 H, Absolute Lymphs (auto) 1.27, Nucleated RBC % 0.1, Differential Comment SCANNED, Diff Path Review Reviewed, Hypochromasia 2+, Anisocytosis 2+, Microcytosis 2+, Ovalocytes 1+ 05/30/22 06:15: Sodium 136, Potassium 3.8, Chloride 104, Carbon Dioxide 26.0, Anion Gap 6, BUN 27 H, Creatinine 1.49 H, Estim Creat Clear Calc 30.65, Est GFR (MDRD) Af Amer 43 L, Est GFR (MDRD) Non-Af 36 L, BUN/Creatinine Ratio 18.1, Glucose 89, Calcium 8.8, Lactate Dehydrogenase 154 05/30/22 06:15: PT 14.5, INR 1.2, APTT 37.2 H 05/30/22 09:50: Fluid Glucose 99 H, Fluid Total Protein 4.5, Fluid LDH 99 05/30/22 09:50: Fluid Source THORACENTESIS, Fluid Color YELLOW, Fluid Appearance CLEAR, Fluid WBC 0.212, Fluid RBC 14, Fluid Tot Cell Count 0.258 H, Fld Polynuclear WBCs # 0.025, Fld Polynuclear WBCs % 11.8, Fluid Mononuclear WBCs 0.187, Fld Mononuclear WBCs % 88.2, Fluid Neutrophils 28, Fluid Lymphocytes 9, Fluid Monocytes 5, Fluid Macrophages 57, Fld Mesothelial Cells 1, Fl Pathologist Comment May follow, Fluid Comment 2 SEE COMMENT Micro: Microbiology 05/25/22 18:00 Nasal Secretion SARS-CoV-2 & FLU Antigen (Rapid) - Final Radiography Diagnostic Testing: Radiology Impression Thoracentesis Ultrasound 05/30/22 08:00 IMPRESSION: Ultrasound guided diagnostic and therapeutic paracentesis. Electronically Signed: Matt Arthur, at 14:04 EST , ADDENDUM: 05/30/22 1510 IMPRESSION: undefined Chest X-Ray 05/30/22 10:08 IMPRESSION: Small residual right pleural effusion status post thoracentesis. No sizable pneumothorax. Electronically Signed: Matt Arthur, at 11:34 EST , Physical Exam Const alert, oriented x3, no apparent distress and healthy appearing General Appearance: cooperative, well kempt and well developed Orientation / Consciousness: awake, oriented to person, oriented to place and oriented to time HEENT normocephalic and moist oral mucous membranes Eyes PERRL, EOMs intact bilaterally and conjunctivae normal Neck supple, no JVD, thyroid normal and no carotid bruits General: trachea midline Resp normal respiratory effort and clear to auscultation bilaterally Auscultation: Negative for rales, rhonchi or wheezes Cardio regular rate, regular rhythm, no murmurs, no rub and no gallops GI normal to inspection, nondistended, normoactive bowel sounds, soft to palpation, non-tender and non-distended Extremity no clubbing, cyanosis or edema Skin no rashes or lesions noted General Skin Exam: no breakdown Neuro oriented x3, CN's II-XII intact bilaterally, no focal motor deficits and no sensory deficits noted Sensorium / Orientation: awake and alert Speech: speech normal Psych affect normal Assessment & Plan Assessment/Plan (1) CHF exacerbation: QUALIFIERS: Heart failure type: unspecified Qualified Code(s): I50.9 - Heart failure, unspecified PLAN: Plan 1. Acute hypoxia secondary to acute on chronic diastolic CHF exacerbation- continue present treatment, I will reevaluate the patient tomorrow for possible discharge. 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
[2022-05-31] VITALS (16 sets, daily range): BP systolic 118–142; BP diastolic 45–70; PULSE 80–105; RESP 16–18; TEMP 36.8–37.3; O2SAT 87–100
[2022-05-31] MEDS: Levothyroxine 75 MCG Tablet PO (06:19)
--- NOTE | 2022-05-31 08:00 | NURSING ---
Emergency Documentation effective 05/31 @ 0800.
--- NOTE | 2022-05-31 08:00 | NURSING ---
Emergency Documentation effective 05/31 @ 0800.
[2022-05-31] MEDS: Potassium Chloride Oral Tablet 20 MEQ PO ×2 (09:03→17:08)
[2022-05-31] MEDS: Furosemide 20 MG/2 ML VIAL IV ×2 (09:28→17:09)
--- NOTE | 2022-05-31 10:39 | CASEMGMT ---
Social Work Consult: Possible SNF placement, patient declining to participate in therapy. Referral source: FE GAGE This social work case manager spoke with nursing staff, nursing report that patient was a assist of 1 with a walker to transfer from the bed to the chair this morning. This social work case manager met with patient in room. Introduced self and social work case manager role. Patient reports plan and intent to discharge to home where patient son and daughter lives with patient in a 1-story home. Patient reports that family have been assisting patient with getting to the bathroom prior to hospitalization. This social work case manager inquired if patient has a walker at home. Patient reports to have no walker at home and to be agreeable to having one set up. This social work case manager inquired if patient would be agreeable to home health care for therapy. Patient reports to be agreeable to home health care. Patient is only open to returning to home and is declining [facility]cf placement. This social work case manager updated RN MERARI on above. FE GAGE to follow up for discharge planning. Ronal ACE, JULIAN
--- NOTE | 2022-05-31 10:51 | CASEMGMT ---
FE GAGE in to discuss discharge planning with patient. Patient would like [facility] after reviewing list. Patient will need PCP appt prior to [facility] setup. departmental secretary to schedule appt. Patient will need walker and home oxygen at discharge and prefers [employer]. FE GAGE will obtain scripts from hospitalist. FE GAGE called [facility] to make referral for SN, PT/OT. CM will continue to follow this patient and plan for a safe discharge.
[2022-05-31 11:05] LABS: Absolute Lymphocyte Count 0.66 X10^3/uL (0.83-4.51); Absolute Neutrophil Count 10.5 X10^3/uL (2.0-7.7); Basophil# 0.13 X10^3/uL; Eosinophil# 0.43 X10^3/uL; Eosinophils% 3.3 % (0-5); Hematocrit 26.3 % (37-47); Hemoglobin 7.2 g/dL (12.0-15.0); Lymphocyte # 0.66 X10^3/ul (0.83-4.51); Lymphocyte % 5.1 % (19-41); Mean Corp Hgb Conc 27.4 g/dL (32-36); Mean Corpuscular Hgb 18.4 pg (27.0-32.0); Mean Corpuscular Volume 67.1 fL (81-99); Mean Platelet Vol. 8.5 fl (6.2-12.0); Monocyte# 1.28 X10^3/uL; Monocyte% 9.8 % (0-10); NRBC Flagged by Analyzer 0 % (0-5); Neutrophil # 10.46 X10^3/uL (2.7-7.7); Neutrophil % 80.3 % (47-70); POSITIVE MORPHOLOGY YES; Platelet Count 512 K/mm3 (150-450); RBC Distribution Width CV 33.4 % (11.6-14.6); RBC Distribution Width SD 69.8 fl (35.1-43.9); Red Blood Count 3.92 M/mm3 (4.2-5.4)
[2022-05-31 11:08] LABS: Differential Indicated SCAN CRITERIA MET
[2022-05-31 11:33] LABS: Differential Comment SCANNED
[2022-05-31 11:35] LABS: Anisocytosis 2+; Platelet Estimate SLT INC (ADEQ)
[2022-05-31 11:36] LABS: Hypochromasia 2+
[2022-05-31 12:17] LABS: Pathologist Comment/Body Fluid Reviewed
--- NOTE | 2022-05-31 13:14 | CASEMGMT ---
FE CM updated that PCP appt scheduled for 06/07/22 at 0900. RN CM updated [facility] and they will see patient on 06/08/22. RN CM back to patient's room to update. Daughter is in room with patient. Patient and daughter updated regarding PCP appt and [facility] with planned start of care for 06/08/22. FE GAGE updated hospitalist regarding [facility] start of care date, hospitalist agreeable to discharge plan. CM will continue to follow patient and plan for a safe discharge.
--- NOTE | 2022-05-31 17:08 | NURSING ---
Spoke with Mariely, from [facility]. Confirmation # [id number].
--- NOTE | 2022-05-31 18:56 | PN_ITS ---
Subjective Subjective Patient is doing very well today. She supplemental oxygen. She colonoscopy yesterday. She was discovered to have multiple angiodysplastic lesions stomach and in the colon that were treated endoscopically. She also had a polyp removed. She colitis that was seen. Biopsies Pending. I suspect it was due to bile induced colitis or ischemic colitis. Objective Data Objective Data Vital Signs: Vital Signs Temp Pulse Resp BP Pulse Ox O2 Del Method O2 Flow Rate 99.2 F H 90 16 137/56 H 97 Nasal Cannula 2 05/31/22 18:19 05/31/22 18:19 05/31/22 18:19 05/31/22 18:19 05/31/22 18:19 05/31/22 18:19 05/31/22 18:19 FiO2 97 05/27/22 07:31 Oxygen Flow Rate (L/min) [4] 2 Oxygen Flow Rate (L/min) [3] 2 Oxygen Flow Rate (L/min) [2] 2 Oxygen Flow Rate (L/min) [1 ( 2 Initial Baseline)] Oxygen Flow Rate (L/min) [ 2 AMBULATING on Room Air] Oxygen Flow Rate (L/min) [At 2 REST with Oxygen] Oxygen Flow Rate (L/min) [At 0 REST on Room Air] Oxygen Flow Rate (L/min) 2 Oxygen Delivery Method [4] Nasal Cannula Oxygen Delivery Method [3] Nasal Cannula Oxygen Delivery Method [2] Nasal Cannula Oxygen Delivery Method [1 ( Nasal Cannula Initial Baseline)] Oxygen Delivery Method Nasal Cannula Weight: 134 lb 4.184 oz Body Mass Index (BMI) 27.8 Intake & Output: Intake and Output for Last 24 Hours 05/29/22 05/30/22 05/31/22 23:59 23:59 23:59 Intake Total 2273.33 / 2273.33 780 / 780 110 / 110 Output Total 1850 / 1850 900 / 1600 850 / 850 Balance 423.33 / 423.33 -120 / -820 -740 / -740 Lab / Micro Data Result Diagrams: 05/31/22 10:48 05/30/22 06:15 Labs: Laboratory Results - last 24 hr 05/26/22 05:25: IgA 314, Endomysial IgA Ab Negative, Tiss Transglutamin IgA <2 05/30/22 09:50: Fl Pathologist Comment Reviewed 05/30/22 09:50: Miscellaneous Cytology SEE PATHOLOGY REPORT 05/31/22 10:48: WBC 13.0 H, RBC 3.92 L, Hgb 7.2 L, Hct 26.3 L, MCV 67.1 L, MCH 18.4 L, MCHC 27.4 L, RDW Std Deviation 69.8 H, RDW Coeff of [place] 33.4 H, Plt Count 512 H, MPV 8.5, Immature Gran % (Auto) 0.500, Neut % (Auto) 80.3 H, Lymph % (Auto) 5.1 L, [place] % (Auto) 9.8, Eos % (Auto) 3.3, Baso % (Auto) 1.0, Absolute Neuts (auto) 10.5 H, Absolute Lymphs (auto) 0.66 L, Nucleated RBC % 0, Differential Comment SCANNED, Platelet Estimate SLT INC, Hypochromasia 2+, Anisocytosis 2+ 05/31/22 10:48: Blood Type O POSITIVE, Antibody Screen NEGATIVE, Crossmatch See Detail Micro: Microbiology 05/25/22 18:00 Nasal Secretion SARS-CoV-2 & FLU Antigen (Rapid) - Final Physical Exam Narrative GENERAL: cooperative HEENT: Atraumatic; normocephalic EYES; Anicteric, Normal Conjunctiva NECK; supple, normal thyroid, RESPIRATORY: Diminished to auscultation CARDIOVASCULAR: Regular S1 S2, GI: soft, normoactive bowel sounds, : No Renal angle tenderness; EXTREMITIES: Dry scaly with pitting edema, MUSCULOSKELETAL: no muscle wasting NEURO: Awake; no lateralizing signs. SKIN: As described above PSYCH; Flat affect Assessment & Plan Assessment/Plan (1) Anemia: PLAN: Anemia secondary to acute on chronic GI blood loss secondary to he odysplastic lesions that were treated endoscopically in the setting of colitis likely secondary to ischemic colitis. Hemoglobin seems to be stable. She should A capsule endoscopy study as an Outpatient. Charges/Coding Visit Charges Inpatient E&M: 92089 Subs Hosp L2
--- NOTE | 2022-05-31 19:00 | PCA ---
EMERGENCY DOCUMENTATION
--- NOTE | 2022-05-31 19:37 | PN.HOSP_ITS ---
Subjective Subjective Patient was seen and examined today, she is going to require supplemental oxygen at 2 L/min at rest and during activity. Patient's repeat CBC today showed a hemoglobin of 7.2, I decided after much discussion with the patient and her daughter to give the patient 1 unit of packed red blood cells, this will not be completed till late tonight and the patient will be reevaluated tomorrow morning, H&H will be obtained tomorrow morning. Patient's white blood cell count today was improved at 13 Objective Data Objective Data Vital Signs: Vital Signs Temp Pulse Resp BP Pulse Ox O2 Del Method O2 Flow Rate 99.2 F H 90 16 137/56 H 97 Nasal Cannula 2 05/31/22 18:19 05/31/22 18:19 05/31/22 18:19 05/31/22 18:19 05/31/22 18:19 05/31/22 18:19 05/31/22 18:19 FiO2 97 05/27/22 07:31 Oxygen Flow Rate (L/min) [4] 2 Oxygen Flow Rate (L/min) [3] 2 Oxygen Flow Rate (L/min) [2] 2 Oxygen Flow Rate (L/min) [1 ( 2 Initial Baseline)] Oxygen Flow Rate (L/min) [ 2 AMBULATING on Room Air] Oxygen Flow Rate (L/min) [At 2 REST with Oxygen] Oxygen Flow Rate (L/min) [At 0 REST on Room Air] Oxygen Flow Rate (L/min) 2 Oxygen Delivery Method [4] Nasal Cannula Oxygen Delivery Method [3] Nasal Cannula Oxygen Delivery Method [2] Nasal Cannula Oxygen Delivery Method [1 ( Nasal Cannula Initial Baseline)] Oxygen Delivery Method Nasal Cannula Weight: 60.9 kg Body Mass Index (BMI) 27.8 Intake & Output: Intake and Output for Last 24 Hours 05/29/22 05/30/22 05/31/22 23:59 23:59 23:59 Intake Total 2273.33 / 2273.33 780 / 780 110 / 110 Output Total 1850 / 1850 900 / 1600 850 / 850 Balance 423.33 / 423.33 -120 / -820 -740 / -740 Lab / Micro Data Result Diagrams: 06/01/22 06:45 05/30/22 06:15 Labs: Laboratory Results - last 24 hr 05/26/22 05:25: IgA 314, Endomysial IgA Ab Negative, Tiss Transglutamin IgA <2 05/30/22 09:50: Fl Pathologist Comment Reviewed 05/30/22 09:50: Miscellaneous Cytology SEE PATHOLOGY REPORT 05/31/22 10:48: WBC 13.0 H, RBC 3.92 L, Hgb 7.2 L, Hct 26.3 L, MCV 67.1 L, MCH 18.4 L, MCHC 27.4 L, RDW Std Deviation 69.8 H, RDW Coeff of [place] 33.4 H, Plt Count 512 H, MPV 8.5, Immature Gran % (Auto) 0.500, Neut % (Auto) 80.3 H, Lymph % (Auto) 5.1 L, [place] % (Auto) 9.8, Eos % (Auto) 3.3, Baso % (Auto) 1.0, Absolute Neuts (auto) 10.5 H, Absolute Lymphs (auto) 0.66 L, Nucleated RBC % 0, Differential Comment SCANNED, Platelet Estimate SLT INC, Hypochromasia 2+, Anisocytosis 2+ 05/31/22 10:48: Blood Type O POSITIVE, Antibody Screen NEGATIVE, Crossmatch See Detail Micro: Microbiology 05/25/22 18:00 Nasal Secretion SARS-CoV-2 & FLU Antigen (Rapid) - Final Physical Exam Narrative alert, oriented x3, no apparent distress and healthy appearing General Appearance: cooperative, well kempt and well developed Orientation / Consciousness: awake, oriented to person, oriented to place and oriented to time HEENT normocephalic and moist oral mucous membranes Eyes PERRL, EOMs intact bilaterally and conjunctivae normal Neck supple, no JVD, thyroid normal and no carotid bruits General: trachea midline Resp normal respiratory effort and clear to auscultation bilaterally Auscultation: Negative for rales, rhonchi or wheezes Cardio regular rate, regular rhythm, no murmurs, no rub and no gallops GI normal to inspection, nondistended, normoactive bowel sounds, soft to palpation, non-tender and non-distended Extremity no clubbing, cyanosis or edema Skin no rashes or lesions noted General Skin Exam: no breakdown Neuro oriented x3, CN's II-XII intact bilaterally, no focal motor deficits and no sensory deficits noted Sensorium / Orientation: awake and alert Speech: speech normal Psych affect normal Assessment & Plan Assessment/Plan (1) Anemia: (2) CHF exacerbation: QUALIFIERS: Heart failure type: unspecified Qualified Code(s): I50.9 - Heart failure, unspecified PLAN: Plan 1. Acute hypoxia secondary to acute on chronic diastolic CHF exacerbation- continue present treatment, I will reevaluate the patient tomorrow for possible discharge. Patient may need home oxygen at the time of discharge #2 acute on chronic diastolic congestive heart failure-continue present medications #3 left-sided pleural effusion secondary to #2-patient underwent thoracentesis today #4 severe iron deficiency anemia secondary to GI blood loss-patient had received 2 units of packed red blood cells following her admission, I will transfuse 1 additional unit of packed red blood cells today and reevaluate the patient tomorrow #5 hypothyroidism-patient is currently on Synthroid #6 angiodysplastic lesions of the stomach with bleeding-again patient underwent EGD today with treatment with a heater probe #7 gastric antral vascular ectasia-treated with argon plasma coagulation Charges/Coding Visit Charges Inpatient E&M: 94326 Subs Hosp L2
[2022-05-31] MEDS: 0.9% Saline Lock 10 ML Syringe IV (21:46)
--- NOTE | 2022-05-31 22:45 | NURSING ---
Spoke with about patients IV site and IV protonix. Pt has had 3 infiltrated IV's and is planned to be Discharged tomorrow. changed protonix to PO and gave the OK to leave IV out for the night.
[2022-05-31] MEDS: Acetaminophen 325 MG Tablet 650 MG PO (23:00)
[2022-05-31] MEDS: Pantoprazole Sodium 40 MG Tablet PO (23:00)
[2022-06-01 03:00] VITALS: BP 141/59; PULSE 78; PULSE 84; RESP 16; TEMP 36.6; O2SAT 98
[2022-06-01] MEDS: Levothyroxine 75 MCG Tablet PO (06:12)
[2022-06-01 07:00] VITALS: PULSE 75
[2022-06-01 07:25] LABS: Absolute Lymphocyte Count 0.93 X10^3/uL (0.83-4.51); Absolute Neutrophil Count 7.6 X10^3/uL (2.0-7.7); Basophil# 0.15 X10^3/uL; Basophil% 1.4 % (0-1); Eosinophil# 0.51 X10^3/uL; Eosinophils% 4.8 % (0-5); Hematocrit 30.3 % (37-47); Hemoglobin 8.9 g/dL (12.0-15.0); Lymphocyte # 0.93 X10^3/ul (0.83-4.51); Lymphocyte % 8.7 % (19-41); Mean Corp Hgb Conc 29.4 g/dL (32-36); Mean Corpuscular Hgb 20.4 pg (27.0-32.0); Mean Corpuscular Volume 69.5 fL (81-99); Mean Platelet Vol. 8.6 fl (6.2-12.0); Monocyte# 1.34 X10^3/uL; Monocyte% 12.6 % (0-10); NRBC Flagged by Analyzer 0 % (0-5); Neutrophil # 7.64 X10^3/uL (2.7-7.7); Neutrophil % 71.8 % (47-70); POSITIVE MORPHOLOGY YES; Platelet Count 445 K/mm3 (150-450); RBC Distribution Width CV 33.5 % (11.6-14.6); RBC Distribution Width SD 73.8 fl (35.1-43.9); Red Blood Count 4.36 M/mm3 (4.2-5.4); White Blood Count 10.6 K/mm3 (4.4-11.0)
[2022-06-01 07:50] LABS: Differential Indicated SCAN CRITERIA MET
[2022-06-01 08:07] LABS: Anisocytosis 2+; Hypochromasia 2+; Microcytosis 2+
[2022-06-01 08:59] VITALS: O2SAT 84; O2SAT 95
[2022-06-01 09:00] VITALS: BP 128/52; PULSE 80; RESP 16; TEMP 36.6; O2SAT 95
[2022-06-01] MEDS: Potassium Chloride Oral Tablet 20 MEQ PO (09:36)
[2022-06-01] MEDS: Pantoprazole Sodium 40 MG Tablet PO (09:37)
[2022-06-01 11:00] VITALS: PULSE 74
--- NOTE | 2022-06-01 11:09 | DCINST_ITS ---
Discharge Instructions Diet Discharge Diet: No restrictions Activity Discharge Activity: Return to Normal Activity Weight Bearing Status: Full weight bearing Follow Up Care Test Results: Test results from this visit will be discussed in further detail at your follow- up appointment, if applicable. Discharge Plan Admission Admit Date/Time: 05/25/22 19:01 Primary Reason for Your Visit: congestive heart failure, pleural effusion Attending Provider: Garcia Soares Primary Care Provider: Garcia Angelo Consulting Providers: Mart Houston ; Juhi Rao ; Nuan Griffin ; Matt Arhtur Instructions Patient Instructions: RUBA RN Thoracentesis Dc Additional Instructions / Restrictions: Wear oxygen at 2 L at rest and with activity Discharge Orders/Prescriptions Prescriptions: New pantoprazole 40 mg Tablet,Delayed Release (Dr/Ec) 40 mg PO BID Qty: 60 0RF furosemide [Lasix] 40 mg tablet 40 mg PO DAILY Qty: 30 0RF potassium chloride 10 mEq tablet,ER particles/crystals 20 meq PO DAILY Qty: 60 0RF pantoprazole [Protonix] 40 mg tablet,delayed release (DR/EC) 40 mg PO BID Qty: 60 0RF levothyroxine 100 mcg tablet 100 mcg PO DAILY Qty: 30 0RF Referrals / Follow Up: Garcia Angelo DO [Primary Care Provider] - In 1 Week (He will need to repeat your CBC to check on your anemia, he will also need to order a renal panel to check on your kidney function) Friend,DO Sulaiman [Med Staff - Active Staff] - See Referral Note (in 2 weeks) Disposition Disposition (needs filled in before D/C Order can be placed): Home, Self Care
[2022-06-01 12:25] VITALS: BP 133/52; PULSE 79; RESP 15; TEMP 37.1; O2SAT 95
--- NOTE | 2022-06-01 12:25 | DS.PCM_ITS ---
Providers Date of Admission: 05/25/22 Date of Discharge: 06/01/22 Primary Care Physician: Dr. Garcia Angelo, Consultations 05/25/22 21:09 Consult: Gastroenterology Routine Consulting Provider: [facility] Reason for Consult: microcytic anemia EMERGENT Consult: No MD Notified: Yes Date Notified: 05/25/22 Time Notified: 19:03 Method of Notification: Text Reason For Visit: CHF. ANEMIA/ PLEURAL EFFUSION Diagnosis Discharge Diagnosis (1) Anemia: Status: Acute Code(s): D64.9 - Anemia, unspecified Plan 1. Acute hypoxia secondary to acute on chronic diastolic CHF exacerbation #2 acute on chronic diastolic congestive heart failure #3 left-sided pleural effusion #4 severe iron deficiency anemia secondary to GI blood loss #5 hypothyroidism #6 angiodysplastic lesions of the stomach with hemorrhage #7 gastric antral vascular ectasia #8 angiodysplastic lesions in the colon at the splenic flexure and in transverse colon #9 localized inflammation in the sigmoid colon Medications at Discharge Home Medications furosemide 40 mg tablet (Lasix) 40 mg PO DAILY #30 tabs 06/01/22 levothyroxine 100 mcg tablet 100 mcg PO DAILY #30 tabs 06/01/22 pantoprazole 40 mg tablet,delayed release 40 mg PO BID #60 tabs 06/01/22 pantoprazole 40 mg tablet,delayed release (Protonix) 40 mg PO BID #60 tabs 06/01/22 potassium chloride 10 mEq tablet,extended release(part/cryst) 20 meq PO DAILY #60 tabs 06/01/22 Hospital Course Operations None Procedures Blood transfusion and Thoracentesis Summary of Care Provided Minutes Spent on Discharge: 32 Hospital Course: 76-year-old white female was seen in the emergency room with this chief complaint of weakness and shortness of breath. Work-up in the emergency room included a CBC which showed a low hemoglobin of 5.5, chest x-ray showed bilateral pleural effusions with the right being greater than left. Patient's TSH came back elevated at 78, free T4 was low at 0.45. Patient was admitted to PCU, she was placed on IV furosemide, she had an echocardiogram obtained which showed a normal EF. Patient had an ultrasound-guided thoracentesis on the right, she was given a total of 3 units of packed red blood cells. Patient's thyroid medications which were started in the ER was continued. 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 She had a colonoscopy performed which showed localized mild inflammation in the sigmoid colon, biopsies were taken, there were 3 medium sized localized angiodysplastic lesions with bleeding found at the splenic flexure and in the transverse colon coagulation with a heater probe was carried out. On 06/01/2022, patient was seen and examined: On examination she appeared in good health and spirits, she does not appear to be in any distress. Vital signs as documented. Skin warm and dry and without overt rashes. Neck without JVD, thyroid appears normal, trachea is midline, neck is supple. Lungs clear, normal air movement was noted. Heart exam notable for regular rhythm, normal sounds and absence of murmurs, rubs or gallops. Abdomen unremarkable and without evidence of organomegaly, masses, or abdominal aortic enlargement, bowel sounds are present in all 4 quadrants, no abdominal tenderness was noted. Extremities nonedematous, no cyanosis was noted, no clubbing was noted. Neuro: Cranial nerves II through XII are grossly intact, no focal motor deficits were noted, sensation to light touch and pinprick is intact, motor exam 5/5 throughout. Psych: Patient is alert and oriented x3, she does not appear anxious or depressed, she does not appear agitated. On 06/01/2022, patient was discharged to home in stable condition, she required 2 L of oxygen at rest and with activity to maintain a pulse ox above 90%, she was expected to wear the oxygen at home and outside her home during rest and during activities of daily living. Weight / BMI Weight Weight: 59.6 kg Body Mass Index (BMI) 27.8 ABG / Lab / Microbiology Data Result Diagrams: 06/01/22 06:45 05/30/22 06:15 Laboratory: Laboratory Results - last 24 hr 05/30/22 09:50: Miscellaneous Cytology SEE PATHOLOGY REPORT 05/31/22 10:48: Blood Type O POSITIVE, Antibody Screen NEGATIVE, Crossmatch See Detail 06/01/22 06:45: WBC 10.6, RBC 4.36, Hgb 8.9 L, Hct 30.3 L, MCV 69.5 L, MCH 20.4 L, MCHC 29.4 L D, RDW Std Deviation 73.8 H, RDW Coeff of [place] 33.5 H, Plt Count 445, MPV 8.6, Immature Gran % (Auto) 0.700, Neut % (Auto) 71.8 H, Lymph % (Auto) 8.7 L, [place] % (Auto) 12.6 H, Eos % (Auto) 4.8, Baso % (Auto) 1.4 H, Absolute Neuts (auto) 7.6, Absolute Lymphs (auto) 0.93, Nucleated RBC % 0, Hypochromasia 2+, Anisocytosis 2+, Microcytosis 2+ 06/01/22 06:45: Blood Type O POSITIVE, Antibody Screen NEGATIVE Microbiology: Microbiology 05/25/22 18:00 Nasal Secretion SARS-CoV-2 & FLU Antigen (Rapid) - Final D/C Instructions Discharge Diet: No restrictions Weight Bearing Status: Full weight bearing Meaningful Use Info Meaningful Use Diagnoses (Choose all that apply): None applicable Discharge Plan Admission Admit Date/Time: 05/25/22 19:01 Primary Reason for Your Visit: congestive heart failure, pleural effusion Attending Provider: Garcia Soares Primary Care Provider: Garcia Angelo Consulting Providers: Mart Houston ; Juhi Rao ; Naun Griffin ; Matt Arthur Instructions Patient Instructions: RUBA RN Thoracentesis Dc Additional Instructions / Restrictions: Wear oxygen at 2 L at rest and with activity Discharge Orders/Prescriptions Prescriptions: New pantoprazole 40 mg Tablet,Delayed Release (Dr/Ec) 40 mg PO BID Qty: 60 0RF furosemide [Lasix] 40 mg tablet 40 mg PO DAILY Qty: 30 0RF potassium chloride 10 mEq tablet,ER particles/crystals 20 meq PO DAILY Qty: 60 0RF pantoprazole [Protonix] 40 mg tablet,delayed release (DR/EC) 40 mg PO BID Qty: 60 0RF levothyroxine 100 mcg tablet 100 mcg PO DAILY Qty: 30 0RF Referrals / Follow Up: Garcia Angelo DO [Primary Care Provider] - In 1 Week (He will need to repeat your CBC to check on your anemia, he will also need to order a renal panel to check on your kidney function) Friend,DO Sulaiman [Med Staff - Active Staff] - See Referral Note (in 2 weeks) Disposition Disposition (needs filled in before D/C Order can be placed): Home, Self Care Charges/Coding Visit Charges Inpatient E&M: [id number] Disch Hosp
== END 2022-06-01 15:03 | disposition home health service (06) | DRG 291 ==
LOC: ED 18:22 → PCU 20:01
PROVIDERS: Hospitalist; Internal Medicine; Internal Medicine Gastroenterology; Emergency Provider Emergency Medicine; PCP Family Medicine; Visit Provider Internal Medicine
PROC: 0DJD8ZZ Inspection of Lower Intestinal Tract, Via Natural or Artificial Opening Endoscopic (ICD-10-PCS; CPT 45378; principal; 2022-05-30 15:25)
DX: I50.33 Acute on chronic diastolic (congestive) heart failure (principal); K55.21 Angiodysplasia of colon with hemorrhage; K31.811 Angiodysplasia of stomach and duodenum with bleeding; J91.8 Pleural effusion in other conditions classified elsewhere; E03.9 Hypothyroidism, unspecified; K52.9 Noninfective gastroenteritis and colitis, unspecified; K57.30 Diverticulosis of large intestine without perforation or abscess without bleeding; D50.0 Iron deficiency anemia secondary to blood loss (chronic); R53.81 Other malaise; Z87.891 Personal history of nicotine dependence; R09.02 Hypoxemia
CPT/HCPCS: 32555; 36415; 71045; 71046; 71250; 80048; 80053; 80061; 82306; 82607; 82728; 82746; 82784; 82945; 83516; 83540; 83550; 83605; 83615; 83735; 83880; 84100; 84157; 84439; 84443; 84481; 84484; 85018; 85025; 85610; 85730; 86255; 86850; 86900; 86901; 86920; 86922; 87428; 88108; 88305; 88313; 88342; 89050; 93005; 93306; 94002; 94003; 94640; 94762; 97116; 97162; 97166; 97530; 97802; 97803; 99285; J7040; J7050; P9016; A4216; J1940; J2405; J2916

== ENCOUNTER → 2022-06-15 | Outpatient (CLI) | payer MEDICARE, OTHER, SELFPAY ==
[2022-06-15 16:05] LABS: Absolute Lymphocyte Count 1.15 X10^3/uL (0.83-4.51); Absolute Neutrophil Count 7.7 X10^3/uL (2.0-7.7); Basophil# 0.15 X10^3/uL; Basophil% 1.4 % (0-1); Eosinophil# 0.63 X10^3/uL; Eosinophils% 5.9 % (0-5); Hematocrit 37.4 % (37-47); Hemoglobin 10.8 g/dL (12.0-15.0); Lymphocyte # 1.15 X10^3/ul (0.83-4.51); Lymphocyte % 10.8 % (19-41); Mean Corp Hgb Conc 28.9 g/dL (32-36); Mean Corpuscular Hgb 22.7 pg (27.0-32.0); Mean Corpuscular Volume 78.7 fL (81-99); Mean Platelet Vol. 9.7 fl (6.2-12.0); Monocyte# 1.04 X10^3/uL; Monocyte% 9.7 % (0-10); NRBC Flagged by Analyzer 0 % (0-5); Neutrophil # 7.67 X10^3/uL (2.7-7.7); Neutrophil % 71.7 % (47-70); POSITIVE COUNT YES; POSITIVE MORPHOLOGY YES; Red Blood Count 4.75 M/mm3 (4.2-5.4); White Blood Count 10.7 K/mm3 (4.4-11.0)
[2022-06-15 16:18] LABS: Differential Indicated SCAN CRITERIA MET; Platelet Count 752 K/mm3 (150-450)
[2022-06-15 16:27] LABS: ALB/GLOB Ratio 0.7 RATIO (0.9-2.4); AST(SGOT) 19 U/L (15-37); Alanine Aminotransfer ALT/SGPT 15 U/L (13-56); Albumin, Serum 3.1 g/dL (3.2-5.0); Alkaline Phosphatase 95 U/L (45-117); Anion Gap 3 (5-15); BUN 44 mg/dL (7-18); BUN/Creat Ratio 23.7 RATIO (10-20); Calcium,Total 9.6 mg/dL (8.5-10.1); Chloride 107 mmol/L (98-107); Creatinine, Serum 1.86 mg/dL (0.55-1.02); EST Glomerular Filtration Rate 28 mL/min (>60); Est Glom Filt Rate - Afr Amer 34 mL/min (>60); Ferritin 359 ng/mL (8-252); Globulin 4.6 g/dL (2.2-4.2); Glucose 96 mg/dL (74-106); Iron 51 ug/dL (50-170); Iron Binding Capacity,Total 297 ug/dL (250-450); PERCENT IRON SATURATION 17.2 % (15.0-55.0); Potassium 4.4 mmol/L (3.5-5.1); Protein, Total 7.7 g/dL (6.4-8.2); Sodium Level 140 mmol/L (136-145)
[2022-06-15 16:47] LABS: Anisocytosis 3+; Differential Comment SCANNED; Hypochromasia 1+; Macrocytosis 1+; Microcytosis 2+; Platelet Estimate MKD INC (ADEQ); Platelet Morphology LARGE
[2022-06-17 17:07] LABS: Endomysial Antibody IgA Negative (Negative)
[2022-06-18 12:03] LABS: Immunoglobulin A 339 mg/dL (64-422); t-Transglutaminase IgA <2 U/mL (0-3)
[2022-06-19 09:31] LABS: Pathologist Review Reviewed
== END | disposition home or self-care (01) ==
PROVIDERS: PCP Family Medicine; Referring Provider Internal Medicine Gastroenterology; Visit Provider Family Medicine
DX: D64.9 Anemia, unspecified (principal); N18.32 Chronic kidney disease, stage 3b
CPT/HCPCS: 36415; 80053; 82728; 82784; 83516; 83540; 83550; 85025; 86255

== ENCOUNTER → 2022-07-10 | Outpatient (CLI) | payer MEDICARE, OTHER, SELFPAY ==
[2022-07-10 18:04] LABS: Anion Gap 10 (5-15); BUN 46 mg/dL (7-18); BUN/Creat Ratio 26.9 RATIO (10-20); Calcium,Total 9.5 mg/dL (8.5-10.1); Chloride 109 mmol/L (98-107); Cholesterol 208 mg/dL (200); Creatinine, Serum 1.71 mg/dL (0.55-1.02); EST Glomerular Filtration Rate 31 mL/min (>60); Est Glom Filt Rate - Afr Amer 37 mL/min (>60); Glucose 87 mg/dL (74-106); High Density Lipoprotein 43 mg/dL; Potassium 4.3 mmol/L (3.5-5.1); Sodium Level 142 mmol/L (136-145); T4 Free Direct 1.32 ng/dL (0.76-1.46); Triglycerides 210 mg/dL; Very Low Density Lipoprotein 42 mg/dL (5-40)
== END | disposition home or self-care (01) ==
LOC: BFHLAB 16:06
PROVIDERS: PCP Family Medicine; Visit Provider Family Medicine
DX: I10 Essential (primary) hypertension (principal); E03.9 Hypothyroidism, unspecified; E78.00 Pure hypercholesterolemia, unspecified; L43.9 Lichen planus, unspecified
CPT/HCPCS: 36415; 80048; 80061; 84439; 84443

== ENCOUNTER → 2022-08-02 | Outpatient (CLI) | payer MEDICARE, OTHER, SELFPAY ==
--- NOTE | 2022-08-02 13:54 | CT_ITS ---
STUDY: CT CHEST WITH CONTRAST REASON FOR EXAM: Female, 77 years old. F/U 2 LEFT LUNG NODULES 05/2022 -- IV CONTRAST ONLY RADIATION DOSAGE (If Supplied By Facility): CTDIvol = ( 9.55 ) mGy, DLP = ( 310.60 ) mGycm TECHNIQUE: Transaxial imaging was performed following intravenous administration of IV 100mL Isovue-300. Multiplanar coronal and sagittal images were reformatted. Individualized dose optimization techniques were used for this CT. COMPARISON: Comparison is made with prior study dated 05/28/2022. FINDINGS: CHEST Stable 1.2 cm noncalcified nodule in the left upper lobe along the lateral aspect as seen on axial image #21. Stable 1 cm nodule in the posterior aspect of the left upper lobe abutting the left major fissure. Small right pleural effusion with right basilar atelectasis. This has improved as compared to prior study. There are calcifications of the coronary arteries. Normal mediastinum. Normal hilar regions. Normal unenhanced pulmonary arteries. Normal aorta arch and descending thoracic aorta. There are multi-level degenerative changes of the thoracic spine. There is no demonstrated abnormality of the visualized upper abdomen. CT/Chest WITH Contrast IMPRESSION: Interval decrease in size of the right pleural effusion. The remainder of the examination is unremarkable. Electronically Signed: Moises Huerta MD at 15:19 EST ,
[2022-08-02 14:36] VITALS: BP 137/62; PULSE 91; RESP 18; TEMP 35.8; O2SAT 94
== END | disposition home or self-care (01) ==
LOC: CT 13:54
PROVIDERS: PCP Family Medicine; Visit Provider Internal Medicine Hematology & Oncology
DX: R91.8 Other nonspecific abnormal finding of lung field (principal)
CPT/HCPCS: 71260; J7040; Q9967; A4216

== ENCOUNTER → 2022-11-10 | Outpatient (CLI) | payer MEDICARE, OTHER, SELFPAY ==
[2022-11-10 18:05] LABS: Absolute Lymphocyte Count 1.57 X10^3/uL (0.83-4.51); Absolute Neutrophil Count 8.9 X10^3/uL (2.0-7.7); Basophil# 0.15 X10^3/uL; Basophil% 1.1 % (0-1); Eosinophil# 1.39 X10^3/uL; Eosinophils% 10.5 % (0-5); Hematocrit 36.8 % (37-47); Lymphocyte # 1.57 X10^3/ul (0.83-4.51); Lymphocyte % 11.9 % (19-41); Mean Corp Hgb Conc 29.9 g/dL (32-36); Mean Corpuscular Hgb 26.7 pg (27.0-32.0); Mean Corpuscular Volume 89.3 fL (81-99); Mean Platelet Vol. 10.7 fl (6.2-12.0); Monocyte% 8.3 % (0-10); NRBC Flagged by Analyzer 0 % (0-5); Neutrophil # 8.94 X10^3/uL (2.7-7.7); Neutrophil % 67.8 % (47-70); Platelet Count 570 K/mm3 (150-450); RBC Distribution Width CV 14.5 % (11.6-14.6); RBC Distribution Width SD 46.3 fl (35.1-43.9); Red Blood Count 4.12 M/mm3 (4.2-5.4); White Blood Count 13.2 K/mm3 (4.4-11.0)
[2022-11-10 18:54] LABS: ALB/GLOB Ratio 0.6 RATIO (0.9-2.4); AST(SGOT) 18 U/L (15-37); Alanine Aminotransfer ALT/SGPT 15 U/L (13-56); Albumin, Serum 3.1 g/dL (3.2-5.0); Alkaline Phosphatase 118 U/L (45-117); Anion Gap 6 (5-15); BUN 35 mg/dL (7-18); BUN/Creat Ratio 31.5 RATIO (10-20); Calcium,Total 9.3 mg/dL (8.5-10.1); Chloride 113 mmol/L (98-107); Creatinine, Serum 1.11 mg/dL (0.55-1.02); EST Glomerular Filtration Rate 50 mL/min (>60); Est Glom Filt Rate - Afr Amer 61 mL/min (>60); Ferritin 66 ng/mL (8-252); Globulin 4.8 g/dL (2.2-4.2); Glucose 91 mg/dL (74-106); Iron 33 ug/dL (50-170); LDH 200 U/L (84-246); Potassium 4.3 mmol/L (3.5-5.1); Protein, Total 7.9 g/dL (6.4-8.2); Sodium Level 140 mmol/L (136-145); T4 Free Direct 1.81 ng/dL (0.76-1.46); Thyroid Stim Hormone (TSH) 0.32 uIU/mL (0.358-3.74)
== END | disposition home or self-care (01) ==
LOC: BFHLAB 15:15
PROVIDERS: PCP Family Medicine; Referring Provider Family Medicine; Visit Provider Family Medicine
DX: D64.9 Anemia, unspecified (principal); N18.32 Chronic kidney disease, stage 3b; E03.9 Hypothyroidism, unspecified; I12.9 Hypertensive chronic kidney disease with stage 1 through stage 4 chronic kidney disease, or unspecified chronic kidney disease
CPT/HCPCS: 36415; 80053; 82728; 83540; 83615; 84439; 84443; 85025

== ENCOUNTER 2023-06-03 19:27 | Inpatient (IN) | payer MEDICARE, OTHER, SELFPAY ==
[2023-06-03] VITALS (12 sets, daily range): BP systolic 55–152; BP diastolic 44–90; PULSE 105–152; RESP 14–35; TEMP 36.2–37.5; O2SAT 82–100; BMI 20.1
--- NOTE | 2023-06-03 19:55 | EKG12_ITS ---
Test Reason : DYSRHYTHMIA Blood Pressure : / mmHG Vent. Rate : 118 BPM Atrial Rate : 118 BPM P-R Int : 162 ms QRS Dur : 108 ms QT Int : 330 ms P-R-T Axes : 062 071 037 degrees QTc Int : 462 ms Sinus tachycardia Incomplete right bundle branch block Borderline ECG Confirmed by CARLOS RODRIGUEZ, JUAN ([id number]), subeditor ROSANNA CARL ([id number]) on 06/05/2023 8:37:57 AM Referred By: Confirmed By:JUAN GONZALEZ MD
[2023-06-03 20:44] LABS: Absolute Lymphocyte Count 0.78 X10^3/uL (0.83-4.51); Absolute Neutrophil Count 23.6 X10^3/uL (2.0-7.7); Basophil# 0.11 X10^3/uL; Basophil% 0.4 % (0-1); Hematocrit 36.4 % (37-47); Lymphocyte # 0.78 X10^3/ul (0.83-4.51); Mean Corp Hgb Conc 30.2 g/dL (32-36); Mean Corpuscular Hgb 24.6 pg (27.0-32.0); Mean Corpuscular Volume 81.3 fL (81-99); Monocyte# 1.41 X10^3/uL; Monocyte% 5.4 % (0-10); NRBC Flagged by Analyzer 0 % (0-5); Neutrophil % 90.8 % (47-70); POSITIVE DIFFERENTIAL YES; Platelet Count 429 K/mm3 (150-450); RBC Distribution Width CV 16.1 % (11.6-14.6); RBC Distribution Width SD 47.9 fl (35.1-43.9); Red Blood Count 4.48 M/mm3 (4.2-5.4)
[2023-06-03 20:45] LABS: Differential Indicated SCAN CRITERIA MET
[2023-06-03 20:55] LABS: International Normalized Ratio 1.2; Partial Thromboplast Time 36.9 Seconds (24.1-36.2); Prothrombin Time (Protime)PT. 14.8 SECONDS (11.7-14.9)
--- NOTE | 2023-06-03 21:06 | RAD_ITS ---
INDICATION: cough COMPARISON: 05/30/2022 chest radiograph. Findings: Single frontal view of the chest. LUNG PARENCHYMA/PLEURA: Diffuse bilateral interstitial thickening, somewhat more consolidative at the right lung base with associated small right layering pleural effusion. No pneumothorax. HEART/GREAT VESSELS: Cardiomediastinal silhouette is unremarkable. BONES: Osseous structures are unremarkable for age. RAD/Chest 1 View (Portable) IMPRESSION: Diffuse bilateral interstitial thickening, somewhat more consolidative at the right lung base with associated small right layering pleural effusion, to include pulmonary edema or other inflammatory process. Infectious etiology is not excluded. Electronically Signed: Buck Greco MD at 21:51 EST ,
[2023-06-03 21:08] LABS: BNP,B-Type NATRIURETIC PEPTIDE 698.1 pg/mL (0-100)
[2023-06-03 21:10] LABS: Lactic Acid 1.8 mmol/L (0.4-1.9)
[2023-06-03 21:37] LABS: AST(SGOT) 27 U/L (15-37); Alanine Aminotransfer ALT/SGPT 15 U/L (13-56); Albumin, Serum 3.2 g/dL (3.2-5.0); Alkaline Phosphatase 116 U/L (45-117); Anion Gap 10 (5-15); BUN 27 mg/dL (7-18); Bilirubin, Direct 0.09 mg/dL (0.00-0.30); Calcium,Total 9.2 mg/dL (8.5-10.1); Chloride 106 mmol/L (98-107); Creatinine, Serum 1.04 mg/dL (0.55-1.02); EST Glomerular Filtration Rate 54 mL/min (>60); Est Glom Filt Rate - Afr Amer 66 mL/min (>60); Estimated Creatinine Clearance 36.84 ml/min; Globulin 4.5 g/dL (2.2-4.2); Glucose 94 mg/dL (74-106); Lipase 67 U/L (13-75); Protein, Total 7.7 g/dL (6.4-8.2); Sodium Level 136 mmol/L (136-145); Troponin-I HS 1745 pg/mL (3.0-54.0)
[2023-06-03 21:44] LABS: Differential Comment SCANNED
[2023-06-03] MEDS: Furosemide 100 MG/10 ML Vial 60 MG IV (21:45)
[2023-06-03] MEDS: dexAMETHasone 10 MG/ML Vial IV (21:45)
[2023-06-03] MEDS: Heparin Injection (Vial) 5,000 UNIT/ML VIAL 4000 UNIT IV (22:08)
[2023-06-03] MEDS: HEPARIN/D5w 25,000 UNITS 25,000 UNITS/250 ML IV.SOLN. 8 UNITS CONT INF (22:10)
[2023-06-03] MEDS: Etomidate 20 MG/10 ML Vial 16 MG IV (23:15)
[2023-06-03] MEDS: Succinylcholine Chloride 200 MG/10 ML Vial 53 MG IV (23:16)
[2023-06-03] MEDS: Midazolam 5 MG/ML Syringe IV (23:25)
[2023-06-03] MEDS: Norepinephrine 8 MG in 0.9% Normal Saline (250mL Bag) 242 ML 9.40000000000000036 MG CONT INF (23:36)
[2023-06-03] MEDS: Propofol 10MG/Ml 1,000 MG/100 ML Bottle 3.20000000000000018 MG CONT INF (23:45)
--- NOTE | 2023-06-03 23:45 | RAD_ITS ---
INDICATION: intubation COMPARISON: Chest radiograph earlier same day and 05/30/2022. Findings: Single frontal view of the chest. Endotracheal tube tip is just at the tony. Right IJ central venous catheter tip overlies cavoatrial junction. Enteric tube tip terminates off the left upper quadrant inferior margin of the image, likely mid stomach. LUNG PARENCHYMA/PLEURA: Improved aeration with decreased bilateral interstitial thickening, although still more consolidative at the right lung base with associated small right layering pleural effusion. No pneumothorax. HEART/GREAT VESSELS: Cardiomediastinal silhouette is unremarkable. BONES: Osseous structures are unremarkable for age. RAD/Chest 1 View (Portable) IMPRESSION: Endotracheal tube tip is just at the tony. Recommend retracting 4 cm and reimaging. Right IJ central venous catheter tip overlies cavoatrial junction. Improved aeration with decreased bilateral interstitial thickening, although still more consolidative at the right lung base with associated small right layering pleural effusion. Electronically Signed: Buck Greco MD at 0:35 EST ,
[2023-06-03 23:46] LABS: Bacteria 0 SEEN /hpf (None Seen); Mucous, Urine 0 SEEN /hpf (<or=2+); Red Blood Cells-Urine 0 SEEN /hpf (0-5); Squamous Epithelial Cells - UA 0 SEEN /hpf (5-10)
[2023-06-03 23:54] LABS: Color, Urine Yellow (Yellow); Glucose, Dipstick Normal (Normal); Ketone-Dipstick 5 mg/dl (Negative); Leukocyte Esterase-Dipstick Negative /ul (Negative); Nitrite-Dipstick Negative (Negative); Occult Blood-Urine 25 /ul (Negative); Protein-Dipstick 30 mg/dl (Negative); Urine Bilirubin Dipstick Negative (Negative); Urine Clarity Clear (Clear); Urine Urobilinogen Normal (Normal)
[2023-06-03] MEDS: 0.9% Normal Saline (1000mL) 1,000 ML 200 ML IV (23:58)
[2023-06-04] VITALS (41 sets, daily range): BP systolic 67–139; BP diastolic 40–83; PULSE 72–108; RESP 14–22; TEMP 36–36.6; O2SAT 93–100; BMI 20.4
--- NOTE | 2023-06-04 00:02 | NURSING ---
ok to use Central Line: white: Propofol, Blue: Norepinephrine and NS, brown: Heparin
[2023-06-04 00:12] LABS: CPK Total, Creatine Kinase 83 U/L (26-192); Triglycerides 105 mg/dL
[2023-06-04 00:13] LABS: White Blood Cells 0-5 SEEN /hpf (0-5)
--- NOTE | 2023-06-04 00:14 | EKG12_ITS ---
Test Reason : DYSRHYTHMIA Blood Pressure : / mmHG Vent. Rate : 148 BPM Atrial Rate : 000 BPM P-R Int : 000 ms QRS Dur : 118 ms QT Int : 288 ms P-R-T Axes : 000 117 -29 degrees QTc Int : 452 ms Critical Test Result: High HR , Supraventricular tachycardia Right axis deviation Possible Right ventricular hypertrophy Confirmed by CARLOS RODRIGUEZ, JUAN ([id number]), marketing editor ROSANNA CARL ([id number]) on 06/05/2023 8:38:39 AM Referred By: Confirmed By:JUAN GONZALEZ MD
--- NOTE | 2023-06-04 00:22 | ED.VIS.DYS ---
HPI History of Present Illness Chief Complaint: Cough Informant: patient and family Narrative Narrative: 77-year-old female history of congestive heart failure presenting to the emergency room chief complaint of cough COVID-19. Patient states that she was exposed to COVID-19 by family and became ill mostly yesterday and worse today. She has developed worsening breathing throughout the day. She notes chills. She states she had a small amount of diarrhea. She does not wear oxygen at home. She denies any known significant lung conditions. She notes sputum production but is unable to characterize it as she states I swallow it PFSH PFS Medical History Angiodysplasia of colon Angiodysplasia of stomach Chronic gastritis Congestive heart failure Diverticular disease Dyslipidemia Hemorrhoids Hypothyroid Iron deficiency anemia due to chronic blood loss Lung nodule, multiple Pleural effusion, bilateral Home Medications pantoprazole 40 mg tablet,delayed release (Protonix) 40 mg PO BID #60 tabs 06/01/22 [Rx Last Taken Unknown] losartan 50 mg-hydrochlorothiazide 12.5 mg tablet 1 tab PO DAILY 07/19/22 [History Last Taken Unknown] pravastatin 20 mg tablet 20 mg PO DAILY 07/19/22 [History Last Taken Unknown] levothyroxine 100 mcg tablet 125 mcg PO DAILY 08/02/22 [History Last Taken Unknown] triamterene 37.5 mg-hydrochlorothiazide 25 mg tablet 1 tab PO DAILY 06/03/23 [History Last Taken Unknown] Allergy/AdvReac Type Severity Reaction Status Date / Time No Known Allergies Allergy Verified 06/03/23 19:28 Family History Mother NHL (non-Hodgkin's lymphoma) Father Heart disease Brother Myocardial infarction Daughter Essential thrombocytopenia Surgical History History of removal of skin mole History of tubal ligation Social History household members: family Smoking Status: Former smoker how long ago did patient quit smoking: >20 years; 1ppd x 35yrs alcohol intake: never substance use type: does not use ROS ROS ED Constitutional Constitutional ED: Reports chills and fever(s); Denies weight loss Eyes Eyes: Denies change in vision or diplopia ENT ENT ED: Denies ear pain, rhinorrhea or sore throat Cardiovascular Cardiovascular: Denies chest pain, orthopnea, palpitations or racing heartbeat Respiratory/Chest Respiratory/Chest: Reports cough, dyspnea, dyspnea on exertion and sputum; Denies orthopnea Gastrointestinal Gastrointestinal: Reports diarrhea; Denies abdominal pain, nausea or vomiting Genitourinary Genitourinary ED: Denies dysuria, hematuria or urinary frequency Musculoskeletal Musculoskeletal: Denies arthralgias or myalgias Integumentary Denies abscess or rash Neurologic Neurologic: Denies headache(s) or weakness Psychiatric Psychiatric: Denies anxiety, depression, suicidal ideation or suicidal thoughts Endocrine Endocrinology: Denies polydipsia, polyphagia or polyuria Allergic/Immunologic Allergic/Immunologic ED: Denies mouth swelling, tongue swelling or urticaria EXAM Physical Exam Const Vital Signs: 06/03/23 19:28 06/03/23 20:31 06/03/23 21:00 Temperature 99.5 F H 98.2 F 98.2 F Temperature Source Temporal Temporal Temporal Pulse Rate 113 H 131 H 136 H Respiratory Rate 20 H 31 H 31 H Respiratory Effort Respiratory Depth Respiratory Pattern Blood Pressure 142/75 H 136/73 H 152/90 H Blood Pressure Mean 97 94 110 Pulse Ox 93 96 95 Oxygen Delivery Method Venturi Mask Non-Rebreather Non-Rebreather Oxygen Flow Rate (L/min) 4 15 15 Fraction of Inspired Oxygen (FIO2) 06/03/23 21:15 06/03/23 20:20 06/03/23 22:00 Temperature 97.2 F L Temperature Source Temporal Pulse Rate 152 H Respiratory Rate 35 H Respiratory Effort Short of Breath Labored Accessory Muscle Use Respiratory Depth Normal Respiratory Pattern Normal Blood Pressure 122/77 H Blood Pressure Mean 92 Pulse Ox 82 Oxygen Delivery Method Non-Rebreather Nasal Cannula Bi-pap Oxygen Flow Rate (L/min) 15 6 Fraction of Inspired Oxygen (FIO2) 06/03/23 22:11 06/03/23 21:45 06/03/23 23:00 Temperature 98.1 F Temperature Source Oral Pulse Rate 146 H 121 H Respiratory Rate 34 H 31 H Respiratory Effort Respiratory Depth Respiratory Pattern Tachypnea Blood Pressure 84/46 L Blood Pressure Mean 58 Pulse Ox 97 92 Oxygen Delivery Method Bi-pap Bi-pap Oxygen Flow Rate (L/min) Fraction of Inspired Oxygen (FIO2) 100 06/03/23 23:36 06/03/23 23:44 06/04/23 00:00 Temperature Temperature Source Pulse Rate 105 H 106 H 103 H Respiratory Rate 16 17 16 Respiratory Effort Respiratory Depth Respiratory Pattern Blood Pressure 55/44 L 75/51 L 108/57 L Blood Pressure Mean 47 59 74 Pulse Ox 100 100 100 Oxygen Delivery Method Mechanical Ventilator Mechanical Ventilator Mechanical Ventilator Oxygen Flow Rate (L/min) 100 100 Fraction of Inspired Oxygen (FIO2) 100 06/04/23 00:16 06/04/23 00:27 06/03/23 23:31 Temperature Temperature Source Pulse Rate 106 H 107 H 108 H Respiratory Rate 19 H 22 H 14 Respiratory Effort Respiratory Depth Respiratory Pattern Blood Pressure 101/57 L 92/60 Blood Pressure Mean 71 70 Pulse Ox 100 100 98 Oxygen Delivery Method Mechanical Ventilator Mechanical Ventilator Oxygen Flow Rate (L/min) Fraction of Inspired Oxygen (FIO2) 60 60 100 06/04/23 01:00 06/04/23 01:10 Temperature Temperature Source Pulse Rate 108 H 105 H Respiratory Rate 16 17 Respiratory Effort Respiratory Depth Respiratory Pattern Blood Pressure 67/40 L 97/63 Blood Pressure Mean 49 74 Pulse Ox 100 100 Oxygen Delivery Method Mechanical Ventilator Mechanical Ventilator Oxygen Flow Rate (L/min) Fraction of Inspired Oxygen (FIO2) 50 50 Positive well nourished and well developed General Appearance ED: well developed HEENT Reports normocephalic, head/scalp atraumatic and moist mucous membranes Eyes PERRL and EOMs intact bilaterally Neck no lymphadenopathy, supple and no JVD Resp Resp Narrative: Patient has a very moist cough. She has a slight increased work of breathing. Auscultation: rales bilateral Cardio regular rate, regular rhythm and no murmurs Rate: tachycardic GI normal to inspection, nondistended, normoactive bowel sounds and non-tender Palpation: soft Back/Spine no CVA tenderness and normal ROM Extremity normal to inspection General Extremety ED: Negative for edema General Extremity: Negative for edema Neuro oriented x3 and CN's II-XII intact bilaterally Sensorium / Orientation: alert Motor Exam: strength 5/5 throughout Psych mental status grossly normal Mood & Affect: Negative for depressed or tearful Skin no rashes or lesions noted and no wounds MDM MDM MDM Narrative Medical decision making narrative: Patient returns COVID-positive. My independent interpretation of the plain films is a pleural effusion on the right with pulmonary edema. White count returned at 26 hemoglobin 11 platelet count of 429. Coags obtained. Lactic acid 1.8. Troponin 1745 BNP 698 lipase 67 glucose 94 anion gap 10 CO2 20 urinalysis negative for infection. Patient progressively had increasing work of breathing and was requiring increased amounts of oxygen to maintain saturations. She eventually required placement on BiPAP. With the positive COVID test the hypoxia and increasing work of breathing and the elevated troponin was wondering about PE. I would did not feel that we good quality images with the amount of work that she was doing and placed her on a heparin drip. This would benefit both the PE and possible coronary disease. Plan would be to take her to [facility] as soon as able. Patient has EKG is a sinus tachycardia with a ventricular rate of 118 bpm. Noted right bundle branch block. This seems new when compared to EKG dated 25 May 2022. While speaking with the son regarding treatment options and elevation of care I did notice a change in the morphology on the monitor. Repeat EKG shows tachycardia with a rate of 148. Concern for for STEMI and the case was discussed with on-call cardiology who felt this was not acute STEMI and in light of other issues would recommend optimizing management. Patient progressively worse send I noticed mottling decline in blood pressure. I advised the son that I felt that she may need to be intubated and have a central line with pressors. He wanted to wait till other siblings could arrive. Once they arrived we had a long detailed discussion regarding her wishes what they think she would want as she does not appear to be mentating adequately. Eventually they decided that they would go ahead and proceed with intubation central line and pressors. They understand that she would not want heroic measures such as CPR or long-term mechanical ventilation which would require tracheostomy. They provided informed consent for central line and intubation. Patient was moved to a larger room. She underwent RSI using etomidate succinylcholine and endotracheal tube was passed on the first step without any difficulty secured and placed equal breath sounds and good color change. A right IJ central line was placed under ultrasound guidance. This was done in the usual sterile fashion performed by this physician. Dark red nonpulsatile blood was obtained on the first attempt without difficulty.Using modified Seldinger technique the central line was placed and secured in line. My independent or potation of the postintubation line placement films is that the endotracheal tube needs to be pulled back 3 cm. Adequate patient will beOG and central line was approved for use. He can do CT and the plan will be admission into the hospital. Patient has received some Lasix but I do not feel that she is overtly volume overloaded is much as this is more of a pump issue. She was placed on Levophed for systolic blood pressures down into the 50s. Third EKG shows significant improvement over the second show sinus tachycardia at a rate of 108 bpm. Right bundle branch block noted. History & Record Review Discussion w/independent historian: Patient and Family Additional record(s) reviewed:: Prior inpatient record, Prior outpatient record, Prior ED visit and Prior labs Lab Data Attestation: I reviewed the patient's lab results. Labs: Laboratory Results - last 24 hr 06/03/23 06/03/23 20:30 23:40 WBC 26.0 H RBC 4.48 Hgb 11.0 L Hct 36.4 L MCV 81.3 MCH 24.6 L MCHC 30.2 L RDW Std Deviation 47.9 H RDW Coeff of [place] 16.1 H Plt Count 429 MPV 10.0 Immature Gran % (Auto) 0.400 Neut % (Auto) 90.8 H Lymph % (Auto) 3.0 L [place] % (Auto) 5.4 Eos % (Auto) 0.0 Baso % (Auto) 0.4 Absolute Neuts (auto) 23.6 H Absolute Lymphs (auto) 0.78 L Nucleated RBC % 0 Differential Comment SCANNED PT 14.8 INR 1.2 APTT 36.9 H Sodium 136 Potassium 4.0 Chloride 106 Carbon Dioxide 20.0 L Anion Gap 10 BUN 27 H Creatinine 1.04 H Estim Creat Clear Calc 36.84 Est GFR (MDRD) Af Amer 66 Est GFR (MDRD) Non-Af 54 L BUN/Creatinine Ratio 26.0 H Glucose 94 Lactic Acid 1.8 Calcium 9.2 Total Bilirubin 0.20 Direct Bilirubin 0.09 AST 27 ALT 15 Alkaline Phosphatase 116 Total Creatine Kinase 83 Troponin I High Sens 1745 H* B-Natriuretic Peptide 698.1 H Total Protein 7.7 Albumin 3.2 Globulin 4.5 H Triglycerides 105 Lipase 67 Urine Color Yellow Urine Clarity Clear Urine pH 6.0 Ur Specific [place] 1.020 Urine Protein 30 H Urine Glucose (UA) Normal Urine Ketones 5 H Urine Occult Blood 25 H Urine Nitrite Negative Urine Bilirubin Negative Urine Urobilinogen Normal Ur Leukocyte Esterase Negative Urine RBC 0 SEEN Urine WBC 0-5 SEEN Ur Squamous Epith Cells 0 SEEN Urine Bacteria 0 SEEN Urine Mucus 0 SEEN Radiography Diagnostic Testing: Clinical Impression(s) from Imaging Studies Chest X-Ray 06/03/23 21:06 IMPRESSION: Diffuse bilateral interstitial thickening, somewhat more consolidative at the right lung base with associated small right layering pleural effusion, to include pulmonary edema or other inflammatory process. Infectious etiology is not excluded. Electronically Signed: Buck Greco MD at 21:51 EST , Chest X-Ray 06/03/23 23:45 IMPRESSION: Endotracheal tube tip is just at the tony. Recommend retracting 4 cm and reimaging. Right IJ central venous catheter tip overlies cavoatrial junction. Improved aeration with decreased bilateral interstitial thickening, although still more consolidative at the right lung base with associated small right layering pleural effusion. Electronically Signed: Buck Greco MD at 0:35 EST , EKG Initial EKG: Attestation: I personally reviewed and interpreted this EKG as follows: Comments: Sinus tachycardia ventricular rate of 118 bpm. Right bundle branch block Follow-up EKG: Attestation: I personally reviewed and interpreted this EKG as follows: Comments: Supraventricular tachycardia at a rate of 148 bpm. Significant QRS changes when compared to prior Critical Care Time Critical Care Time: Yes Critical care time (excluding procedures): 30-74 minutes (35 min), Including time spent:, Discussing w/Patient &/or Family/Account Support Rep, Discussing w/Consultants, Arranging Admission or Transfer and Performing Direct Patient Care at Bedside Discharge Plan Dx/Rx/DC Orders Clinical Impression: COVID-19, Congestive heart failure, Hypothyroid, Non-ST elevation NM (NSTEMI), Shock circulatory, Acute hypoxemic respiratory failure Disposition Disposition: Acute Care Hospital [facility]
--- NOTE | 2023-06-04 01:06 | HP.PCM.HOS_ITS ---
HPI - General General Date of Admission: 06/04/23 Date of Service: 06/04/23 Chief Complaint: Acute hypoxic respiratory failure, COVID-19 infection HPI Narrative ROS COFFEY, is a 77 F who presented to [facility] ED on 06/04/19 with worsening shortness of breath with cough and recent COVID exposure. Patient seen at bedside in the ED post-intubation and line placement by ED physician. Patient was sedated, not following any commands. History obtained from ED physician and chart review. Please see Dr. Silverman's note for further details of patient's ED course leading up to intubation. In short, patient was brought in to the ED from home by family for worsening shortness of breath and known COVID exposure. Was found to be COVID-positive in the ED. Chest x-ray showed diffuse bilateral interstitial thickening with possible right lung base consolidative changes and small right layering pleural effusion. Patient unfortunately had increased work of breathing with increasing oxygen requirements while in the ED. Patient was also noted to have mottling of the skin with worsening hypotension at the time. After discussion with family, decision was ultimately made to intubate the patient for impending respiratory failure. Central line was placed in the ED and patient was started on Levophed for hypotension. Per ED physician, patient appeared to stabilize quite well after intubation, with improvement of patient's mottling, improvement in patient's heart rate and blood pressure. Importantly, patient was also found to have an elevated troponin of 1745 in the ED. ED physician also noted an apparent rhythm change with worsening tachycardia to the 140s. Had concern for possible STEMI at that time. ED physician spoke with on-call cardiology, who felt that this was not an acute STEMI, was likely an NSTEMI in setting of severe COVID infection and recommended optimizing medical management. [facility] Medical History Angiodysplasia of colon Angiodysplasia of stomach Chronic gastritis Congestive heart failure Diverticular disease Dyslipidemia Hemorrhoids Hypothyroid Iron deficiency anemia due to chronic blood loss Lung nodule, multiple Pleural effusion, bilateral Home Medications pantoprazole 40 mg tablet,delayed release (Protonix) 40 mg PO BID #60 tabs 06/01/22 [Rx Last Taken Unknown] losartan 50 mg-hydrochlorothiazide 12.5 mg tablet 1 tab PO DAILY 07/19/22 [History Last Taken Unknown] pravastatin 20 mg tablet 20 mg PO DAILY 07/19/22 [History Last Taken Unknown] levothyroxine 100 mcg tablet 125 mcg PO DAILY 08/02/22 [History Last Taken Unknown] triamterene 37.5 mg-hydrochlorothiazide 25 mg tablet 1 tab PO DAILY 06/03/23 [History Last Taken Unknown] Allergy/AdvReac Type Severity Reaction Status Date / Time No Known Allergies Allergy Verified 06/03/23 19:28 Family History Mother NHL (non-Hodgkin's lymphoma) Father Heart disease Brother Myocardial infarction Daughter Essential thrombocytopenia Surgical History History of removal of skin mole History of tubal ligation Social History household members: family Smoking Status: Former smoker how long ago did patient quit smoking: >20 years; 1ppd x 35yrs alcohol intake: never substance use type: does not use ROS Review of Systems ROS Unobtainable: due to endotracheal tube Vital Signs Vital Signs Vital Signs: 06/03/23 19:28 06/03/23 20:31 06/03/23 21:00 Temperature 99.5 F H 98.2 F 98.2 F Temperature Source Temporal Temporal Temporal Pulse Rate 113 H 131 H 136 H Respiratory Rate 20 H 31 H 31 H Respiratory Effort Respiratory Depth Respiratory Pattern Blood Pressure 142/75 H 136/73 H 152/90 H Blood Pressure Mean 97 94 110 Pulse Ox 93 96 95 Oxygen Delivery Method Venturi Mask Non-Rebreather Non-Rebreather Oxygen Flow Rate (L/min) 4 15 15 Fraction of Inspired Oxygen (FIO2) 06/03/23 21:15 06/03/23 20:20 06/03/23 22:00 Temperature 97.2 F L Temperature Source Temporal Pulse Rate 152 H Respiratory Rate 35 H Respiratory Effort Short of Breath Labored Accessory Muscle Use Respiratory Depth Normal Respiratory Pattern Normal Blood Pressure 122/77 H Blood Pressure Mean 92 Pulse Ox 82 Oxygen Delivery Method Non-Rebreather Nasal Cannula Bi-pap Oxygen Flow Rate (L/min) 15 6 Fraction of Inspired Oxygen (FIO2) 06/03/23 22:11 06/03/23 21:45 06/03/23 23:00 Temperature 98.1 F Temperature Source Oral Pulse Rate 146 H 121 H Respiratory Rate 34 H 31 H Respiratory Effort Respiratory Depth Respiratory Pattern Tachypnea Blood Pressure 84/46 L Blood Pressure Mean 58 Pulse Ox 97 92 Oxygen Delivery Method Bi-pap Bi-pap Oxygen Flow Rate (L/min) Fraction of Inspired Oxygen (FIO2) 100 06/03/23 23:36 06/03/23 23:44 06/04/23 00:00 Temperature Temperature Source Pulse Rate 105 H 106 H 103 H Respiratory Rate 16 17 16 Respiratory Effort Respiratory Depth Respiratory Pattern Blood Pressure 55/44 L 75/51 L 108/57 L Blood Pressure Mean 47 59 74 Pulse Ox 100 100 100 Oxygen Delivery Method Mechanical Ventilator Mechanical Ventilator Mechanical Ventilator Oxygen Flow Rate (L/min) 100 100 Fraction of Inspired Oxygen (FIO2) 100 06/04/23 00:16 06/04/23 00:27 06/03/23 23:31 Temperature Temperature Source Pulse Rate 106 H 107 H 108 H Respiratory Rate 19 H 22 H 14 Respiratory Effort Respiratory Depth Respiratory Pattern Blood Pressure 101/57 L 92/60 Blood Pressure Mean 71 70 Pulse Ox 100 100 98 Oxygen Delivery Method Mechanical Ventilator Mechanical Ventilator Oxygen Flow Rate (L/min) Fraction of Inspired Oxygen (FIO2) 60 60 100 Weight Weight: 53.2 kg Body Mass Index (BMI) 20.1 Physical Exam Const Constitutional Narrative: Intubated and sedated, not following commands. HEENT normocephalic and head/scalp atraumatic HEENT Narrative: ET tube in place. Neck no lymphadenopathy and supple Lymph Lymphatic: no lymphadenopathy noted Chest inspection of chest normal Resp Resp Narrative: Good breath sounds bilaterally in upper airways on ventilator. Moderate crackles noted throughout bilaterally, worse at lung bases. No wheezing noted. Cardio no murmurs and peripheral pulses 2+ throughout Cardio Narrative: Sinus tachycardia. GI normal to inspection, nondistended, normoactive bowel sounds, soft to palpation, non-tender and non-distended Extremity normal to inspection and no pedal edema Skin no rashes or lesions noted Results Lab / Micro Data 06/03/23 20:30 06/03/23 20:30 Labs: Laboratory Results - last 24 hr 06/03/23 20:30: WBC 26.0 H, RBC 4.48, Hgb 11.0 L, Hct 36.4 L, MCV 81.3, MCH 24.6 L, MCHC 30.2 L, RDW Std Deviation 47.9 H, RDW Coeff of [place] 16.1 H, Plt Count 429, MPV 10.0, Immature Gran % (Auto) 0.400, Neut % (Auto) 90.8 H, Lymph % (Auto) 3.0 L, [place] % (Auto) 5.4, Eos % (Auto) 0.0, Baso % (Auto) 0.4, Absolute Neuts (auto) 23.6 H, Absolute Lymphs (auto) 0.78 L, Nucleated RBC % 0, Differen tial Comment SCANNED, PT 14.8, INR 1.2, APTT 36.9 H, Sodium 136, Potassium 4.0, Chloride 106, Carbon Dioxide 20.0 L, Anion Gap 10, BUN 27 H, Creatinine 1.04 H, Estim Creat Clear Calc 36.84, Est GFR (MDRD) Af Amer 66, Est GFR (MDRD) Non-Af 54 L, BUN/Creatinine Ratio 26.0 H, Glucose 94, Lactic Acid 1.8, Calcium 9.2, Total Bilirubin 0.20, Direct Bilirubin 0.09, AST 27, ALT 15, Alkaline Phosphatase 116, Total Creatine Kinase 83, Troponin I High Sens 1745 H*, B- Natriuretic Peptide 698.1 H, Total Protein 7.7, Albumin 3.2, Globulin 4.5 H, Triglycerides 105, Lipase 67 06/03/23 23:40: Urine Color Yellow, Urine Clarity Clear, Urine pH 6.0, Ur Specific [place] 1.020, Urine Protein 30 H, Urine Glucose (UA) Normal, Urine Ketones 5 H, Urine Occult Blood 25 H, Urine Nitrite Negative, Urine Bilirubin Negative, Urine Urobilinogen Normal, Ur Leukocyte Esterase Negative, Urine RBC 0 SEEN, Urine WBC 0-5 SEEN, Ur Squamous Epith Cells 0 SEEN, Urine Bacteria 0 SEEN, Urine Mucus 0 SEEN Micro: Microbiology 06/03/23 20:25 Mucosa - Nose Influenza & RSV (PCR) - Final 06/03/23 20:30 Nasal Secretion SARS-CoV-2 Antigen (Rapid) - Final SARS-CoV-2 (COVID 19) Imagaing Radiology Impression Chest X-Ray 06/03/23 21:06 IMPRESSION: Diffuse bilateral interstitial thickening, somewhat more consolidative at the right lung base with associated small right layering pleural effusion, to include pulmonary edema or other inflammatory process. Infectious etiology is not excluded. Electronically Signed: Buck Greco MD at 21:51 EST , Chest X-Ray 06/03/23 23:45 IMPRESSION: Endotracheal tube tip is just at the tony. Recommend retracting 4 cm and reimaging. Right IJ central venous catheter tip overlies cavoatrial junction. Improved aeration with decreased bilateral interstitial thickening, although still more consolidative at the right lung base with associated small right layering pleural effusion. Electronically Signed: Buck Greco MD at 0:35 EST , Assessment & Plan Assessment/Plan (1) Acute hypoxemic respiratory failure: (2) COVID-19: (3) Septic shock: (4) Non-ST elevation HI (NSTEMI): PLAN: Plan Patient is a 77-year-old female who presented to [facility] ED on 06/04/2023 with worsening shortness of breath with cough and recent COVID exposure. 1. Acute hypoxic respiratory failure Suspect primarily due to severe COVID-19 infection, with possibly some degree of volume overload from heart failure. CTA chest showed no obvious PE, multiple diffuse bilateral groundglass opacities suggesting atypical infectious etiology, with small right and trace left pleural effusions. ? Admit under inpatient status to the ICU. Make Ready Worker consulted. Orders placed per ventilator management order set. Propofol and fentanyl pushes for sedation. Treating COVID infection as noted below. Given 1 dose of IV Lasix 60 mg in the ED, will hold on further diuresis for now. Repeat echo ordered as noted below. 2. Septic shock Suspect due to COVID-19 infection, lower concern for superimposed bacterial infection at this time. WBC count 26 K, sinus tachycardia to 140s, acute respiratory failure as noted above, hypotension requiring vasopressors; meets criteria for septic shock. Chest x-ray as noted above. UA on admit fairly benign. ? Continue vasopressors with MAP goal > 65 mmHg. Treating COVID as below. Blood cultures, sputum culture ordered. Procalcitonin ordered. Holding on IV antibiotics for now. Holding on sepsis fluids given respiratory status and concern for possible worsening HFpEF. Trend CBC. 3. Severe COVID-19 infection COVID-19 positive in ED, CTA chest findings as noted above. Reported onset of symptoms on 06/02. Unclear if vaccinated or if patient has had previous COVID infection. Given 1 dose of IV decadron 10 mg in the ED. ? Will start IV Decadron 6 mg daily and remdesivir. Isolation precautions in place. CRP, ferritin ordered for risk stratification. 4. NSTEMI, history of HFpEF Troponin trend 1745 to 7803. ED physician discussed with on-call cardiology, no active STEMI noted on EKG, suspected NSTEMI secondary to severe COVID infection with septic shock as noted above. CTA chest notably showed no obvious PE. Notably with history of HFpEF, last echo in 05/2022 showed EF 50 to 55%, moderately dilated left ventricle, moderately enlarged LA. ? Start heparin drip in the ED for NSTEMI, will continue this for now. Trend troponins. Echo ordered. Monitor telemetry. Can consider cardiology consult as needed. 5. History of acute blood loss anemia secondary to upper and lower GI bleed, Chronic normocytic anemia Previous hospitalization from 05/25-06/01/2022 for acute blood loss anemia secondary to upper GI bleed. EGD with Dr. 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 Also had colonoscopy that showed 3 medium size localized angiodysplastic lesions with bleeding found at splenic flexure, treated with heater probe. Hemoglobin was 5.5 on admit, required 3 units of packed red blood cells and hemoglobin stabilized after this. On home PPI twice daily. ? Hemoglobin 11.0, MCV 81 on admit. No signs of GI bleeding currently, but will need to monitor closely with heparin drip started as noted above. Will start IV PPI twice daily for now. Chronic medical conditions: ? Hypertension: Holding home meds. ? Hypothyroidism: TSH ordered. Continue home Synthroid. DVT prophylaxis: Heparin drip CODE STATUS: DNR CCA, okay to intubate. Dr. Watson had extensive discussion with family at bedside prior to intubation of the patient, family was clear they were okay with intubation but wanted no CPR or other heroic measures done if patient was to have cardiac arrest. Expected disposition: TBD Total clinical time spent by myself addressing the patient's medical issues, reviewing all the data, and collaborating with patient's care team: 75 minutes. Charges/Coding Visit Charges Inpatient E&M: 35380 Init Hosp L3
--- NOTE | 2023-06-04 01:29 | ECHOD_ITS ---
Reason For Study: CHF Procedure This was a limited 2D transthoracic echocardiogram. Exam performed portable in ICU/CCU. The exam was abbreviated due to the COVID 19 protocol. Left Ventricle Normal LV size. Severe LV systolic dysfunction. Anterior and apical akinesis. Consider Takotsubo's cardiomyopathy. Estimated ejection fraction 20%. Right Ventricle Normal right ventricle. Atria The left and right atria are normal. Mitral Valve Mild diffuse mitral valve thickening. Moderate (2+) mitral valve insufficiency. Tricuspid Valve Moderate (2+) tricuspid valve insufficiency. Right ventricular systolic pressure estimated to be 48 mmHg. Aortic Valve Aortic sclerosis, no stenosis. Pulmonic Valve The pulmonic valve is not well visualized. Great Vessels Normal sized aortic root. Pericardium/Pleural No pericardial effusion. MMode/2D Measurements & Calculations LVIDd: 3.6 cm IVSd: 1.1 cm LVAd ap4: 25.0 cm2 LVIDs: 2.3 cm LVPWd: 0.95 cm LVLd ap4: 7.1 cm FS: 35.3 % EDV(MOD-sp4): 71.2 ml EDV(sp4-el): 74.8 ml LVAs ap4: 21.1 cm2 LVLs ap4: 6.6 cm ESV(MOD-sp4): 55.2 ml ESV(sp4-el): 57.6 ml EF(MOD-sp4): 22.5 % EF(sp4-el): 23.0 % SV(MOD-sp4): 16.0 ml SV(sp4-el): 17.2 ml Doppler Measurements & Calculations Ao V2 max: 105.7 cm/sec TR max estela: 287.6 cm/sec Ao max P.5 mmHg TR max P.1 mmHg Ao V2 mean: 79.9 cm/sec Ao mean P.7 mmHg Ao V2 VTI: 19.5 cm ECHO/Echo Complete Interpretation Summary Severe LV systolic dysfunction. Anterior and apical akinesis. Consider Takotsub o's cardiomyopathy. Estimated ejection fraction 20%. Mild diffuse mitral valve thickening. Moderate (2+) mitral valve insufficiency. Moderate (2+) tricuspid valve insufficiency. Right ventricular systolic pressure estimated to be 48 mmHg. Ordering Physician: Nolan Eastman Referring Physician: Garcia Angelo Performed By: Jess Hernandez, DENISE, RVT
--- NOTE | 2023-06-04 01:39 | NURSING ---
Report called to ICU. Ready for pt.
[2023-06-04 01:55] LABS: Allen Test Positive; Base Excess -11 mmol/L (-2 to +2); Bicarbonate 15.7 mmol/L (22-26); Blood Gas Specimen Type ART; Mode Not entered; O2 Delivery Device Adult Vent; PEEP 5; PO2 68 mmHG (75-100); RR 14; SITE R Brach; SO2 92 % (95-99); Total Carbon Dioxide 17 mmol/L; pCO2 30.8 mmHg (35-45); pH 7.31 (7.35-7.45)
[2023-06-04 03:20] LABS: Troponin-I HS 7803 pg/mL (3.0-54.0)
[2023-06-04] MEDS: 0.9 % NaCl (Sterile) Posiflush 10 mL IV (04:06)
[2023-06-04] MEDS: fentaNYL drip 100 ML 2.5 MCG CONT INF (04:07)
[2023-06-04] MEDS: 0.9% Normal Saline (1000mL) 1,000 ML 200 ML IV (04:47)
[2023-06-04] MEDS: Remdesivir 200 MG in 0.9% Normal Saline (250mL Bag) 210 ML 250 MG IV (04:47)
[2023-06-04 04:48] LABS: Absolute Lymphocyte Count 0.92 X10^3/uL (0.83-4.51); Absolute Neutrophil Count 38.1 X10^3/uL (2.0-7.7); Basophil# 0.08 X10^3/uL; Basophil% 0.2 % (0-1); Eosinophil# 0.13 X10^3/uL; Eosinophils% 0.3 % (0-5); Hematocrit 34.6 % (37-47); Hemoglobin 10.5 g/dL (12.0-15.0); Lymphocyte # 0.92 X10^3/ul (0.83-4.51); Lymphocyte % 2.2 % (19-41); Mean Corp Hgb Conc 30.3 g/dL (32-36); Mean Corpuscular Hgb 24.9 pg (27.0-32.0); Mean Corpuscular Volume 82.2 fL (81-99); Monocyte# 2.33 X10^3/uL; Monocyte% 5.6 % (0-10); NRBC Flagged by Analyzer 0 % (0-5); Neutrophil # 38.06 X10^3/uL (2.7-7.7); Neutrophil % 90.8 % (47-70); POSITIVE COUNT YES; POSITIVE DIFFERENTIAL YES; POSITIVE MORPHOLOGY YES; Platelet Count 522 K/mm3 (150-450); RBC Distribution Width CV 16.3 % (11.6-14.6); RBC Distribution Width SD 48.3 fl (35.1-43.9); Red Blood Count 4.21 M/mm3 (4.2-5.4)
[2023-06-04 04:56] LABS: Differential Indicated SCAN CRITERIA MET; White Blood Count 41.9 K/mm3 (4.4-11.0)
[2023-06-04 05:21] LABS: Anion Gap 13 (5-15); BUN 29 mg/dL (7-18); BUN/Creat Ratio 24.8 RATIO (10-20); Calcium,Total 7.9 mg/dL (8.5-10.1); Chloride 107 mmol/L (98-107); Creatinine, Serum 1.17 mg/dL (0.55-1.02); EST Glomerular Filtration Rate 47 mL/min (>60); Est Glom Filt Rate - Afr Amer 57 mL/min (>60); Estimated Creatinine Clearance 33.24 ml/min; Ferritin 205 ng/mL (8-252); Glucose 107 mg/dL (74-106); Potassium 3.7 mmol/L (3.5-5.1); Sodium Level 136 mmol/L (136-145); Thyroid Stim Hormone (TSH) 2.76 uIU/mL (0.358-3.74)
--- NOTE | 2023-06-04 05:53 | EX.PCM.CONCC ---
Assessment & Plan Assessment/Plan (1) Acute hypoxemic respiratory failure: (2) Septic shock: PLAN: Plan RECOMMENDATIONS: 1. Continue assist-control mode mechanical ventilation. Wean FiO2 and PEEP for saturations greater than 90%. 2. Wean Levophed to maintain mean arterial pressure at or above 65 mmHg. 3. Agree with fluid resuscitation. 4. Continue remdesivir and Decadron as ordered. 5. Continue empiric broad-spectrum antimicrobials, pending infectious workup. 6. Continue heparin infusion. Obtain echocardiogram and cardiology consultation. 7. Continue appropriate ICU prophylaxis. IMPRESSIONS: 1. Septic shock The patient presented with sepsis due to COVID-19 pneumonia with concern for concurrent bacterial superinfection with acute sepsis related organ dysfunction as evidenced by acute respiratory failure requiring invasive mechanical ventilatory support. Initially, fluid resuscitation was withheld over concerns for worsening respiratory status. However, given the patient's current state including ongoing hypotension requiring vasopressor support, agree with pursuing fluid resuscitation at this time. In the interim, continue Levophed to maintain a mean arterial pressure at or above 65 mmHg. I agree with continuing broad-spectrum antimicrobials. Continue Decadron and remdesivir. The patient will be appropriate for the initiation of baricitinib as well. 2. Acute hypoxemic respiratory failure Concern for multifactorial etiology. Obviously, the patient has COVID-19 pneumonia. However, given the severity of her disease, I agree with treating for secondary bacterial pneumonia as well. The patient will be continued on appropriate COVID related treatment, as noted above. Assist-control mode mechanical ventilation will be continued. FiO2 and PEEP will be weaned to maintain saturations at or above 90%. 3. NSTEMI Most likely secondary demand ischemia in the setting of #1 and 2. The patient has been initiated on a heparin infusion with echocardiogram and cardiology consultation pending. 4. History of pulmonary nodules/hypothyroidism/hypertension/hyperlipidemia/anemia Complicates care, management, recovery and prognosis. Hold home antihypertensives. The patient has been followed on an outpatient basis by oncology with regard to her underlying pulmonary nodules. She is electing to pursue serial CT scans on an outpatient basis. However, it does not appear that she ever followed up for repeat imaging. TIME: 38 minutes of critical care time, independent of procedures, was spent addressing the patient's septic shock, acute hypoxemic respiratory failure, NSTEMI, review of all data and collaboration with the care team. HPI Consult Data Date of Consult: 06/04/23 HPI Narrative Reason for Consultation: Respiratory failure HPI Narrative: The patient is a 77-year-old female, with a history as outlined below, who presented to the emergency department via EMS on June 03 with cough, shortness of breath and recent exposure to COVID-19. History pertinent to her hospitalization was obtained primarily via chart review, as the patient is currently intubated and mechanically ventilated. The patient has a baseline medical history that includes hypothyroidism, hypertension and hyperlipidemia. Prior surface echocardiogram from May 2022 demonstrated a moderately dilated LV with an ejection fraction of 50 to 55%. On presentation to the emergency department, the patient was documented to have a low-grade fever and was tachycardic and tachypneic. Initial laboratory evaluation revealed an elevated white blood cell count to 26,000. Coagulation profile revealed an INR of 1.2. Chemistry profile was notable for a bicarbonate of 20 and creatinine of 1.04. Lactate was normal at 1.8. Troponin was increased at 1745 with a BNP of 698. Urine analysis was unremarkable. Rapid COVID screen was positive. The patient's respiratory status continued to decline in the emergency department and she was ultimately intubated. Although CT was obtained, distal pulmonary artery branches were suboptimally visualized. Diffuse bilateral groundglass and nodularity was noted. The patient was started on a heparin infusion along with vasopressor support, Decadron, remdesivir and antimicrobials. She was admitted to the medical intensive care unit for further management. [facility] Medical History Angiodysplasia of colon Angiodysplasia of stomach Chronic gastritis Congestive heart failure Diverticular disease Dyslipidemia Hemorrhoids Hypothyroid Iron deficiency anemia due to chronic blood loss Lung nodule, multiple Pleural effusion, bilateral Home Medications pantoprazole 40 mg tablet,delayed release (Protonix) 40 mg PO BID #60 tabs 06/01/22 [Rx Last Taken Unknown] losartan 50 mg-hydrochlorothiazide 12.5 mg tablet 1 tab PO DAILY 07/19/22 [History Last Taken Unknown] pravastatin 20 mg tablet 20 mg PO DAILY 07/19/22 [History Last Taken Unknown] levothyroxine 100 mcg tablet 125 mcg PO DAILY 08/02/22 [History Last Taken Unknown] triamterene 37.5 mg-hydrochlorothiazide 25 mg tablet 1 tab PO DAILY 06/03/23 [History Last Taken Unknown] Allergy/AdvReac Type Severity Reaction Status Date / Time No Known Allergies Allergy Verified 06/03/23 19:28 Family History Mother NHL (non-Hodgkin's lymphoma) Father Heart disease Brother Myocardial infarction Daughter Essential thrombocytopenia Surgical History History of removal of skin mole History of tubal ligation Social History household members: family Smoking Status: Former smoker how long ago did patient quit smoking: >20 years; 1ppd x 35yrs alcohol intake: never substance use type: does not use ROS Review of Systems ROS Unobtainable: due to endotracheal tube and due to mental status Physical Exam Const Constitutional Narrative: Intubated, sedated mechanically ventilated. No ventilator synchrony noted. HEENT normocephalic and head/scalp atraumatic Mouth: endotracheal tube in place and OG tube in place Eyes PERRL and EOMs intact bilaterally Neck supple General: trachea midline and CVC in place Chest inspection of chest normal Resp normal respiratory effort Auscultation: rales and diminished lung sounds Cardio regular rate and regular rhythm GI normal to inspection, nondistended, normoactive bowel sounds Extremity no clubbing, cyanosis or edema Skin no rashes or lesions noted Neuro Sensorium / Orientation: sedated on vent Lab / Micro Data 06/04/23 04:25 06/04/23 04:25 Labs: Laboratory Results - last 24 hr 06/03/23 20:30: WBC 26.0 H, RBC 4.48, Hgb 11.0 L, Hct 36.4 L, MCV 81.3, MCH 24.6 L, MCHC 30.2 L, RDW Std Deviation 47.9 H, RDW Coeff of [place] 16.1 H, Plt Count 429, MPV 10.0, Immature Gran % (Auto) 0.400, Neut % (Auto) 90.8 H, Lymph % (Auto) 3.0 L, [place] % (Auto) 5.4, Eos % (Auto) 0.0, Baso % (Auto) 0.4, Absolute Neuts (auto) 23.6 H, Absolute Lymphs (auto) 0.78 L, Nucleated RBC % 0, Differential Comment SCANNED, PT 14.8, INR 1.2, APTT 36.9 H, Sodium 136, Potassium 4.0, Chloride 106, Carbon Dioxide 20.0 L, Anion Gap 10, BUN 27 H, Creatinine 1.04 H, Estim Creat Clear Calc 36.84, Est GFR (MDRD) Af Amer 66, Est GFR (MDRD) Non-Af 54 L, BUN/Creatinine Ratio 26.0 H, Glucose 94, Lactic Acid 1.8, Calcium 9.2, Total Bilirubin 0.20, Direct Bilirubin 0.09, AST 27, ALT 15, Alkaline Phosphatase 116, Total Creatine Kinase 83, Troponin I High Sens 1745 H*, B-Natriuretic Peptide 698.1 H, Total Protein 7.7, Albumin 3.2, Globulin 4.5 H, Triglycerides 105, Lipase 67 06/03/23 23:40: Urine Color Yellow, Urine Clarity Clear, Urine pH 6.0, Ur Specific [place] 1.020, Urine Protein 30 H, Urine Glucose (UA) Normal, Urine Ketones 5 H, Urine Occult Blood 25 H, Urine Nitrite Negative, Urine Bilirubin Negative, Urine Urobilinogen Normal, Ur Leukocyte Esterase Negative, Urine RBC 0 SEEN, Urine WBC 0-5 SEEN, Ur Squamous Epith Cells 0 SEEN, Urine Bacteria 0 SEEN, Urine Mucus 0 SEEN 06/04/23 02:30: Troponin I High Sens 7803 H* 06/04/23 04:25: WBC 41.9 H*, RBC 4.21, Hgb 10.5 L, Hct 34.6 L, MCV 82.2, MCH 24.9 L, MCHC 30.3 L, RDW Std Deviation 48.3 H, RDW Coeff of [place] 16.3 H, Plt Count 522 H, MPV 10.0, Immature Gran % (Auto) 0.900, Neut % (Auto) 90.8 H, Lymph % (Auto) 2.2 L, [place] % (Auto) 5.6, Eos % (Auto) 0.3, Baso % (Auto) 0.2, Absolute Neuts (auto) 38.1 H, Absolute Lymphs (auto) 0.92, Nucleated RBC % 0, Sodium 136, Potassium 3.7, Chloride 107, Carbon Dioxide 16.0 L, Anion Gap 13, BUN 29 H, Creatinine 1.17 H, Estim Creat Clear Calc 33.24, Est GFR (MDRD) Af Amer 57 L, Est GFR (MDRD) Non-Af 47 L, BUN/Creatinine Ratio 24.8 H, Glucose 107 H, Calcium 7.9 L, Ferritin 205, C-React Prot Ext Range 150.00 H, TSH 2.76 Micro: Microbiology 06/03/23 20:25 Mucosa - Nose Influenza & RSV (PCR) - Final 06/03/23 20:30 Nasal Secretion SARS-CoV-2 Antigen (Rapid) - Final SARS-CoV-2 (COVID 19) ABG Data ABG results: ABG 06/04/23 01:51 Specimen Type ART Sample Site R Brach pH 7.31 L Bicarbonate Actual 15.7 L Total CO2 17 Base Excess -11 L O2 Saturation 92 L O2 % 40.0 ABG pCO2 30.8 L ABG pO2 68 L Hank Test Positive Respiration Rate 14 O2 Delivery Device Adult Vent Vent Mode Not entered Tidal Volume 450.0 POC PEEP 5 Imagaing Radiology Impression Chest X-Ray 06/03/23 21:06 IMPRESSION: Diffuse bilateral interstitial thickening, somewhat more consolidative at the right lung base with associated small right layering pleural effusion, to include pulmonary edema or other inflammatory process. Infectious etiology is not excluded. Electronically Signed: Buck Greco MD at 21:51 EST , Chest X-Ray 06/03/23 23:45 IMPRESSION: Endotracheal tube tip is just at the tony. Recommend retracting 4 cm and reimaging. Right IJ central venous catheter tip overlies cavoatrial junction. Improved aeration with decreased bilateral interstitial thickening, although still more consolidative at the right lung base with associated small right layering pleural effusion. Electronically Signed: Buck Greco MD at 0:35 EST , Chest CTA 06/04/23 22:00 IMPRESSION: Endotracheal tube tip is 21 mm from the tony. Interval worsening of multiple diffuse bilateral groundglass pulmonary nodules, suggesting atypical infectious etiology. Small right and trace left pleural effusion. Metastatic disease is not excluded. Distal pulmonary artery branch vessel evaluation is suboptimal secondary to timing of contrast bolus as well as respiratory motion, however, there is no obvious proximal pulmonary embolus. No acute aortic abnormality. Electronically Signed: Buck Greco MD at 2:33 EST , Charges/Coding Procedures Hospitalists Procedures: [id number] Critical Care 1st Hr
[2023-06-04] MEDS: 0.9% Normal Saline 250 ML IV.SOLN. IV (06:03)
[2023-06-04 07:01] LABS: Partial Thromboplast Time > 200.0 Seconds (24.1-36.2)
--- NOTE | 2023-06-04 07:07 | PCM.PN.HOSP ---
Reason for Visit Reason for Visit: Shortness of breath/cough Subjective Subjective Patient is a 77-year-old female who presented to the emergency department on 06/04/2023 with worsening shortness of breath and cough. She had a known recent COVID exposure. She reported on presentation she became ill the day prior to presentation and worse on the day of presentation. She slowly had worsening shortness of breath throughout the day on presentation. She had chills and a small amount of diarrhea. She is not oxygen dependent at home and does not have any significant lung conditions of which she is aware. She has had sputum production but was unable to characterize it and reported that she has been swallowing it. While in the emergency department, she had progressively worsening shortness of breath and increased work of breathing and was requiring increasing oxygen amounts to maintain saturations so she was placed on BiPAP. There was concern for possible pulmonary embolism so she was placed on a heparin drip she was too unstable to take the CAT scan. She became mottled and then had a decline in blood pressure and intubation was recommended. The ER physician had an extensive conversation with family with regards to CODE STATUS and they elected for DNR CCA but okay for short-term intubation lines and pressors. She was intubated and placed on pressors and admitted to the ICU. CBC on presentation showed a white count of 26,000 with a significant left shift. She had a stable hemoglobin of 11. Coags were normal. Her chemistry panel showed normal electrolytes with a decreased serum bicarbonate 20, BUN at 27 and 1.04 respectively which appears to be close to her baseline. Her lactic acid was 1.8. Liver functions were normal. Initial troponin was 1747 with a repeat at 7803. She never had chest pain on presentation. BNP was elevated at 698.1. Lipase was normal. TSH is normal. UA is not consistent with infection. CRP is markedly elevated at 150 with a normal ferritin. Chest x-ray showed diffuse bilateral interstitial thickening and somewhat consolidative right lung base with a small layering pleural effusion and CTA of the chest was performed after she was stabilized as there was concern for PE and demonstrated interval worsening of multiple diffuse bilateral groundglass pulmonary nodules concerning for atypical infectious etiology and a small right and trace left pleural effusion. Patient does have a history of pulmonary nodules previously and is followed with oncology for this. COVID testing was positive. Influenza and RSV was unremarkable. Blood cultures are pending, sputum cultures pending, urine cultures pending. She is now on pressors of Levophed at 15 mics per minute and I have added IV antibiotics with vancomycin and Zosyn. Objective Data Objective Data Vital Signs: Vital Signs Temp Pulse Resp BP Pulse Ox O2 Del Method O2 Flow Rate 96.8 F L 88 15 102/56 L 100 Mechanical Ventilator 100 06/04/23 04:00 06/04/23 05:45 06/04/23 05:45 06/04/23 05:45 06/04/23 05:45 06/04/23 05:45 06/03/23 23:44 FiO2 30 06/04/23 05:45 Oxygen Flow Rate (L/min) 100 Oxygen Delivery Method Mechanical Ventilator Weight: 54 kg Body Mass Index (BMI) 20.4 Intake & Output: Intake and Output for Last 24 Hours 06/02/23 06/03/23 06/04/23 23:59 23:59 23:59 Intake Total 1.25 / 1.25 1731.78 / 1731.78 Output Total 450 / 450 Balance 1.25 / 1.25 1281.78 / 1281.78 Lab / Micro Data 06/04/23 04:25 06/04/23 04:25 Labs: Laboratory Results - last 24 hr 06/03/23 20:30: WBC 26.0 H, RBC 4.48, Hgb 11.0 L, Hct 36.4 L, MCV 81.3, MCH 24.6 L, MCHC 30.2 L, RDW Std Deviation 47.9 H, RDW Coeff of [place] 16.1 H, Plt Count 429, MPV 10.0, Immature Gran % (Auto) 0.400, Neut % (Auto) 90.8 H, Lymph % (Auto) 3.0 L, [place] % (Auto) 5.4, Eos % (Auto) 0.0, Baso % (Auto) 0.4, Absolute Neuts (auto) 23.6 H, Absolute Lymphs (auto) 0.78 L, Nucleated RBC % 0, Differential Comment SCANNED, PT 14.8, INR 1.2, APTT 36.9 H, Sodium 136, Potassium 4.0, Chloride 106, Carbon Dioxide 20.0 L, Anion Gap 10, BUN 27 H, Creatinine 1.04 H, Estim Creat Clear Calc 36.84, Est GFR (MDRD) Af Amer 66, Est GFR (MDRD) Non-Af 54 L, BUN/Creatinine Ratio 26.0 H, Glucose 94, Lactic Acid 1.8, Calcium 9.2, Total Bilirubin 0.20, Direct Bilirubin 0.09, AST 27, ALT 15, Alkaline Phosphatase 116, Total Creatine Kinase 83, Troponin I High Sens 1745 H*, B-Natriuretic Peptide 698.1 H, Total Protein 7.7, Albumin 3.2, Globulin 4.5 H, Triglycerides 105, Lipase 67 06/03/23 23:40: Urine Color Yellow, Urine Clarity Clear, Urine pH 6.0, Ur Specific [place] 1.020, Urine Protein 30 H, Urine Glucose (UA) Normal, Urine Ketones 5 H, Urine Occult Blood 25 H, Urine Nitrite Negative, Urine Bilirubin Negative, Urine Urobilinogen Normal, Ur Leukocyte Esterase Negative, Urine RBC 0 SEEN, Urine WBC 0-5 SEEN, Ur Squamous Epith Cells 0 SEEN, Urine Bacteria 0 SEEN, Urine Mucus 0 SEEN 06/04/23 02:30: Troponin I High Sens 7803 H* 06/04/23 04:25: WBC 41.9 H*, RBC 4.21, Hgb 10.5 L, Hct 34.6 L, MCV 82.2, MCH 24.9 L, MCHC 30.3 L, RDW Std Deviation 48.3 H, RDW Coeff of [place] 16.3 H, Plt Count 522 H, MPV 10.0, Immature Gran % (Auto) 0.900, Neut % (Auto) 90.8 H, Lymph % (Auto) 2.2 L, [place] % (Auto) 5.6, Eos % (Auto) 0.3, Baso % (Auto) 0.2, Absolute Neuts (auto) 38.1 H, Absolute Lymphs (auto) 0.92, Nucleated RBC % 0, APTT > 200.0 H*, Sodium 136, Potassium 3.7, Chloride 107, Carbon Dioxide 16.0 L, Anion Gap 13, BUN 29 H, Creatinine 1.17 H, Estim Creat Clear Calc 33.24, Est GFR (MDRD) Af Amer 57 L, Est GFR (MDRD) Non-Af 47 L, BUN/Creatinine Ratio 24.8 H, Glucose 107 H, Calcium 7.9 L, Ferritin 205, C-React Prot Ext Range 150.00 H, TSH 2.76 Micro: Microbiology 06/03/23 20:25 Mucosa - Nose Influenza & RSV (PCR) - Final 06/03/23 20:30 Nasal Secretion SARS-CoV-2 Antigen (Rapid) - Final SARS-CoV-2 (COVID 19) ABG Data ABG results: ABG 06/04/23 01:51 Specimen Type ART Sample Site R Brach pH 7.31 L Bicarbonate Actual 15.7 L Total CO2 17 Base Excess -11 L O2 Saturation 92 L O2 % 40.0 ABG pCO2 30.8 L ABG pO2 68 L Hank Test Positive Respiration Rate 14 O2 Delivery Device Adult Vent Vent Mode Not entered Tidal Volume 450.0 POC PEEP 5 Radiography Diagnostic Testing: Radiology Impression Chest X-Ray 06/03/23 21:06 IMPRESSION: Diffuse bilateral interstitial thickening, somewhat more consolidative at the right lung base with associated small right layering pleural effusion, to include pulmonary edema or other inflammatory process. Infectious etiology is not excluded. Electronically Signed: Buck Greco MD at 21:51 EST , Chest X-Ray 06/03/23 23:45 IMPRESSION: Endotracheal tube tip is just at the tony. Recommend retracting 4 cm and reimaging. Right IJ central venous catheter tip overlies cavoatrial junction. Improved aeration with decreased bilateral interstitial thickening, although still more consolidative at the right lung base with associated small right layering pleural effusion. Electronically Signed: Buck Greco MD at 0:35 EST , Chest CTA 06/04/23 22:00 IMPRESSION: Endotracheal tube tip is 21 mm from the tony. Interval worsening of multiple diffuse bilateral groundglass pulmonary nodules, suggesting atypical infectious etiology. Small right and trace left pleural effusion. Metastatic disease is not excluded. Distal pulmonary artery branch vessel evaluation is suboptimal secondary to timing of contrast bolus as well as respiratory motion, however, there is no obvious proximal pulmonary embolus. No acute aortic abnormality. Electronically Signed: Buck Greco MD at 2:33 EST , Assessment & Plan Assessment/Plan (1) Acute hypoxemic respiratory failure: (2) Septic shock: (3) Non-ST elevation AK (NSTEMI): (4) COVID-19: PLAN: Plan Acute hypoxic respiratory failure -Clearly related to acute COVID-19 infection however there may be superimposed infection as well -I doubt that her acute COVID-19 infection is 100% responsible for her respiratory failure -Patient with markedly elevated white count at greater than 41,000 -Start broad-spectrum antibiotics with vancomycin and Zosyn -Blood cultures pending -Urine culture pending -Sputum culture pending -strep pneumo and Legionella antigens pending -Patient currently requiring Levophed at 15 mics per minute -Remdesivir and Decadron have been initiated for acute COVID infection -Remdesivir day 1 of 5 -Decadron day 1 of 10 -Patient could potentially be a candidate for baricitinib -Continue mechanical ventilation and wean as -Will utilize diuretics as hemodynamics allow--> patient did get 1 dose of Lasix in the emergency department -Pulmonary/critical care medicine following Septic shock -Doubt COVID-19 is 100% responsible for this -Procalcitonin is pending -Cultures are pending -Start broad-spectrum antibiotics -Fluids were held due to COVID infection and concerns for volume with history of heart failure with preserved ejection fraction -Will give fluid boluses now and attempt to wean Levophed COVID-19 pneumonia -Treatment as noted above NSTEMI -Acute troponin elevation -On-call cardiology was consulted with by the emergency department and no active STEMI noted on EKG -Check echocardiogram -Cycle cardiac enzymes -Heparin drip -Start aspirin -Check lipid panel and start high-intensity dose statin -Hold antihypertensives due to hypotension -Will likely need risk stratification with invasive versus noninvasive testing once more medically stable if patient wishes to proceed -Cardiology consultation pending Chronic normocytic anemia -Follows outpatient with hematology -Previous hospitalization about 1 year ago she was found to have a 3 angiodysplastic lesions in the stomach that were treated with heater probe, 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 and on colonoscopy had 3 medium sized angiodysplastic lesions with bleeding at the splenic flexure that was treated with heater probe -Hemoglobin at admission at that time was 5.5 -Hemoglobin stable at 12 on admission at this time -No current signs of bleeding -Continue heparin drip and monitor closely HFpEF -No current signs of heart failure -Monitor clinically History of pulmonary nodules -Patient had been following with oncology -Recommended further workup with PET scan and to proceed with biopsy if there was significant uptake however patient declined and plan was to follow with serial CAT scans. -Repeat CAT scan was recommended at 6 months and that was on August 02, 2022 -Does not appear patient ever followed up with CAT scan History of large pleural effusion -Will monitor -pleural effusions noted on CAT scan or chest x-ray at admission Hypothyroidism -Continue home levothyroxine via G-tube Hypertension -Hold home antihypertensives as patient is currently hypotensive Hyperlipidemia -Check lipids with NSTEMI -Continue statin but transition to high intensity dosing given NSTEMI DVT prophylaxis -Patient is fully anticoagulated with heparin drip CODE STATUS -DNR CCA okay for intubation as per discussion at the time of admission prior to intubation
[2023-06-04 07:47] LABS: Differential Comment SCANNED
--- NOTE | 2023-06-04 08:37 | PCM.CONS.C ---
Assessment & Plan Assessment/Plan (1) Septic shock: PLAN: Manage as per intensive care. On vasopressor agents for support. (2) Acute hypoxemic respiratory failure: PLAN: Mechanically ventilated. Critical care following. (3) COVID-19: PLAN: As per critical care/internal medicine. (4) Non-ST elevation [place] (NSTEMI): PLAN: Type II in the setting of COVID-19 infection with respiratory failure and septic shock. On aspirin. Also on heparin infusion. Check echocardiogram. Conservative management at present. HPI Consult Data Date of Consult: 06/04/23 HPI Narrative Reason for Consultation: NSTEMI HPI Narrative: This 77-year-old female presented to the hospital with complaints of cough and shortness of breath. She was noted to be hypoxic. COVID-19 positive. As her respiratory status declined, she had to be intubated in the emergency room. As part of her workup, troponins were checked. These were elevated ruling her in for NSTEMI. We are asked for evaluation and help with management. History is obtained from the chart as the patient is intubated. Patient was also noted to be in septic shock. Presently she is on Levophed infusion. CT chest showed bilateral infiltrates suggestive of atypical infectious etiology. FOR[facility]LY [facility] Medical History Angiodysplasia of colon Angiodysplasia of stomach Chronic gastritis Congestive heart failure Diverticular disease Dyslipidemia Hemorrhoids Hypothyroid Iron deficiency anemia due to chronic blood loss Lung nodule, multiple Pleural effusion, bilateral Home Medications pantoprazole 40 mg tablet,delayed release (Protonix) 40 mg PO BID #60 tabs 06/01/22 [Rx Last Taken Unknown] losartan 50 mg-hydrochlorothiazide 12.5 mg tablet 1 tab PO DAILY 07/19/22 [History Last Taken Unknown] pravastatin 20 mg tablet 20 mg PO DAILY 07/19/22 [History Last Taken Unknown] levothyroxine 100 mcg tablet 125 mcg PO DAILY 08/02/22 [History Last Taken Unknown] triamterene 37.5 mg-hydrochlorothiazide 25 mg tablet 1 tab PO DAILY 06/03/23 [History Last Taken Unknown] Allergy/AdvReac Type Severity Reaction Status Date / Time No Known Allergies Allergy Verified 06/03/23 19:28 Family History Mother NHL (non-Hodgkin's lymphoma) Father Heart disease Brother Myocardial infarction Daughter Essential thrombocytopenia Surgical History History of removal of skin mole History of tubal ligation Social History household members: family Smoking Status: Former smoker how long ago did patient quit smoking: >20 years; 1ppd x 35yrs alcohol intake: never substance use type: does not use Physical Exam Narrative Patient is intubated, sedated on mechanical ventilation. Risk Stratification Risk Stratification Applicable: No Objective Data Vital Signs: Vital Signs Temp Pulse Resp BP Pulse Ox O2 Del Method O2 Flow Rate 97 F L 83 16 107/65 93 Mechanical Ventilator 100 06/04/23 06:00 06/04/23 07:18 06/04/23 07:18 06/04/23 07:00 06/04/23 07:20 06/04/23 07:20 06/03/23 23:44 FiO2 25 06/04/23 07:20 Oxygen Flow Rate (L/min) 100 Oxygen Delivery Method Mechanical Ventilator Weight: 119 lb 0.794 oz Body Mass Index (BMI) 20.4 Intake & Output: Intake and Output for Last 24 Hours 06/02/23 06/03/23 06/04/23 23:59 23:59 23:59 Intake Total 1.25 / 1.25 1839.56 / 1839.56 Output Total 450 / 450 Balance 1.25 / 1.25 1389.56 / 1389.56 Lab / Micro Data Attestation: I reviewed the patient's lab results. 06/04/23 04:25 06/04/23 04:25 Labs: Laboratory Results - last 24 hr 06/03/23 20:30: WBC 26.0 H, RBC 4.48, Hgb 11.0 L, Hct 36.4 L, MCV 81.3, MCH 24.6 L, MCHC 30.2 L, RDW Std Deviation 47.9 H, RDW Coeff of [place] 16.1 H, Plt Count 429, MPV 10.0, Immature Gran % (Auto) 0.400, Neut % (Auto) 90.8 H, Lymph % (Auto) 3.0 L, [place] % (Auto) 5.4, Eos % (Auto) 0.0, Baso % (Auto) 0.4, Absolute Neuts (auto) 23.6 H, Absolute Lymphs (auto) 0.78 L, Nucleated RBC % 0, Differential Comment SCANNED, PT 14.8, INR 1.2, APTT 36.9 H, Sodium 136, Potassium 4.0, Chloride 106, Carbon Dioxide 20.0 L, Anion Gap 10, BUN 27 H, Creatinine 1.04 H, Estim Creat Clear Calc 36.84, Est GFR (MDRD) Af Amer 66, Est GFR (MDRD) Non-Af 54 L, BUN/Creatinine Ratio 26.0 H, Glucose 94, Lactic Acid 1.8, Calcium 9.2, Total Bilirubin 0.20, Direct Bilirubin 0.09, AST 27, ALT 15, Alkaline Phosphatase 116, Total Creatine Kinase 83, Troponin I High Sens 1745 H*, B-Natriuretic Peptide 698.1 H, Total Protein 7.7, Albumin 3.2, Globulin 4.5 H, Triglycerides 105, Lipase 67 06/03/23 23:40: Urine Color Yellow, Urine Clarity Clear, Urine pH 6.0, Ur Specific [place] 1.020, Urine Protein 30 H, Urine Glucose (UA) Normal, Urine Ketones 5 H, Urine Occult Blood 25 H, Urine Nitrite Negative, Urine Bilirubin Negative, Urine Urobilinogen Normal, Ur Leukocyte Esterase Negative, Urine RBC 0 SEEN, Urine WBC 0-5 SEEN, Ur Squamous Epith Cells 0 SEEN, Urine Bacteria 0 SEEN, Urine Mucus 0 SEEN 06/04/23 02:30: Troponin I High Sens 7803 H* 06/04/23 04:25: WBC 41.9 H*, RBC 4.21, Hgb 10.5 L, Hct 34.6 L, MCV 82.2, MCH 24.9 L, MCHC 30.3 L, RDW Std Deviation 48.3 H, RDW Coeff of [place] 16.3 H, Plt Count 522 H, MPV 10.0, Immature Gran % (Auto) 0.900, Neut % (Auto) 90.8 H, Lymph % (Auto) 2.2 L, [place] % (Auto) 5.6, Eos % (Auto) 0.3, Baso % (Auto) 0.2, Absolute Neuts (auto) 38.1 H, Absolute Lymphs (auto) 0.92, Nucleated RBC % 0, Differential Comment SCANNED, Diff Path Review October, APTT > 200.0 H*, Sodium 136, Potassium 3.7, Chloride 107, Carbon Dioxide 16.0 L, Anion Gap 13, BUN 29 H, Creatinine 1.17 H, Estim Creat Clear Calc 33.24, Est GFR (MDRD) Af Amer 57 L, Est GFR (MDRD) Non-Af 47 L, BUN/Creatinine Ratio 24.8 H, Glucose 107 H, Calcium 7.9 L, Ferritin 205, C-React Prot Ext Range 150.00 H, TSH 2.76 Micro: Microbiology 06/03/23 20:25 Mucosa - Nose Influenza & RSV (PCR) - Final 06/03/23 20:30 Nasal Secretion SARS-CoV-2 Antigen (Rapid) - Final SARS-CoV-2 (COVID 19) ABG Data ABG results: ABG 06/04/23 01:51 Specimen Type ART Sample Site R Brach pH 7.31 L Bicarbonate Actual 15.7 L Total CO2 17 Base Excess -11 L O2 Saturation 92 L O2 % 40.0 ABG pCO2 30.8 L ABG pO2 68 L Hank Test Positive Respiration Rate 14 O2 Delivery Device Adult Vent Vent Mode Not entered Tidal Volume 450.0 POC PEEP 5 Rhythm Strip Rhythm Strip: Sinus Rhythm Cardiology Labs/Tests 06/03/23 20:30: WBC 26.0 H, RBC 4.48, Hgb 11.0 L, Hct 36.4 L, MCV 81.3, MCH 24.6 L, MCHC 30.2 L, Plt Count 429, MPV 10.0, Immature Gran % (Auto) 0.400, Neut % (Auto) 90.8 H, Lymph % (Auto) 3.0 L, [place] % (Auto) 5.4, Eos % (Auto) 0.0, Baso % (Auto) 0.4, Absolute Neuts (auto) 23.6 H, Nucleated RBC % 0, PT 14.8, INR 1.2, APTT 36.9 H, Sodium 136, Potassium 4.0, Chloride 106, Carbon Dioxide 20.0 L, Anion Gap 10, BUN 27 H, Creatinine 1.04 H, Est GFR (MDRD) Af Amer 66, Est GFR (MDRD) Non-Af 54 L, BUN/Creatinine Ratio 26.0 H, Glucose 94, Lactic Acid 1.8, Calcium 9.2, Total Bilirubin 0.20, Direct Bilirubin 0.09, B-Natriuretic Peptide 698.1 H, Triglycerides 105 06/03/23 23:40: Urine Color Yellow, Urine Clarity Clear, Urine pH 6.0, Ur Specific [place] 1.020, Urine Protein 30 H, Urine Glucose (UA) Normal, Urine Ketones 5 H, Urine Occult Blood 25 H, Urine Nitrite Negative, Urine Bilirubin Negative, Urine Urobilinogen Normal, Ur Leukocyte Esterase Negative, Urine RBC 0 SEEN, Urine WBC 0-5 SEEN 06/04/23 01:51: pH 7.31 L, Bicarbonate Actual 15.7 L, Base Excess -11 L, O2 Saturation 92 L, ABG pCO2 30.8 L, ABG pO2 68 L, Hank Test Positive 06/04/23 04:25: WBC 41.9 H*, RBC 4.21, Hgb 10.5 L, Hct 34.6 L, MCV 82.2, MCH 24.9 L, MCHC 30.3 L, Plt Count 522 H, MPV 10.0, Immature Gran % (Auto) 0.900, Neut % (Auto) 90.8 H, Lymph % (Auto) 2.2 L, [place] % (Auto) 5.6, Eos % (Auto) 0.3, Baso % (Auto) 0.2, Absolute Neuts (auto) 38.1 H, Nucleated RBC % 0, APTT > 200.0 H*, Sodium 136, Potassium 3.7, Chloride 107, Carbon Dioxide 16.0 L, Anion Gap 13, BUN 29 H, Creatinine 1.17 H, Est GFR (MDRD) Af Amer 57 L, Est GFR (MDRD) Non-Af 47 L, BUN/Creatinine Ratio 24.8 H, Glucose 107 H, Calcium 7.9 L, Ferritin 205 Rhythm: EKG: Sinus tachycardia with right bundle branch block ECHO: Stress Test: Cardiac Cath: PCI: CT Surgery: Holter monitor: EPS: PPM: CXR: Chest CT Scan: Radiography Diagnostic Testing: Radiology Impression Chest X-Ray 06/03/23 21:06 IMPRESSION: Diffuse bilateral interstitial thickening, somewhat more consolidative at the right lung base with associated small right layering pleural effusion, to include pulmonary edema or other inflammatory process. Infectious etiology is not excluded. Electronically Signed: Buck Greco MD at 21:51 EST , Chest X-Ray 06/03/23 23:45 IMPRESSION: Endotracheal tube tip is just at the tony. Recommend retracting 4 cm and reimaging. Right IJ central venous catheter tip overlies cavoatrial junction. Improved aeration with decreased bilateral interstitial thickening, although still more consolidative at the right lung base with associated small right layering pleural effusion. Electronically Signed: Buck Greco MD at 0:35 EST , Chest CTA 06/04/23 22:00 IMPRESSION: Endotracheal tube tip is 21 mm from the tony. Interval worsening of multiple diffuse bilateral groundglass pulmonary nodules, suggesting atypical infectious etiology. Small right and trace left pleural effusion. Metastatic disease is not excluded. Distal pulmonary artery branch vessel evaluation is suboptimal secondary to timing of contrast bolus as well as respiratory motion, however, there is no obvious proximal pulmonary embolus. No acute aortic abnormality. Electronically Signed: Buck Greco MD at 2:33 EST ,
[2023-06-04 08:41] LABS: Cholesterol 116 mg/dL (200); High Density Lipoprotein 48 mg/dL; Triglycerides 115 mg/dL; Very Low Density Lipoprotein 23 mg/dL (5-40)
[2023-06-04] MEDS: 0.9% Normal Saline (1000mL) 1,000 ML 999 ML IV ×2 (08:59→10:09)
[2023-06-04] MEDS: Chlorhexidine 15 ML PO ×2 (09:03→21:59)
[2023-06-04] MEDS: Vancomycin HCl 1,250 MG in 0.9% Normal Saline (250mL Bag) 250 ML 167 MG IV (09:14)
[2023-06-04] MEDS: dexAMETHasone 4 MG/ML Vial 6 MG IV (10:07)
[2023-06-04] MEDS: Levothyroxine 125 MCG Tablet NG (10:07)
[2023-06-04] MEDS: Aspirin 81 MG TAB.CHEW GT (10:07)
--- NOTE | 2023-06-04 10:09 | PCM.RX.CS ---
Consult Antibiotic Management Pharmacy has been consulted to manage selected antibiotic: Vancomycin Type of Intervention Type of Consult: New start Suspected Infection Suspected Infection: Pneumonia Labs Labs: Sodium 136 mmol/L (136-145) 06/04/23 04:25 Potassium 3.7 mmol/L (3.5-5.1) 06/04/23 04:25 Chloride 107 mmol/L (98-107) 06/04/23 04:25 Carbon Dioxide 16.0 mmol/L (21.0-32.0) L 06/04/23 04:25 Anion Gap 13 (5-15) 06/04/23 04:25 BUN 29 mg/dL (7-18) H 06/04/23 04:25 Creatinine 1.17 mg/dL (0.55-1.02) H 06/04/23 04:25 Est GFR (MDRD) Af Amer 57 mL/min (>60) L 06/04/23 04:25 Est GFR (MDRD) Non-Af 47 mL/min (>60) L 06/04/23 04:25 BUN/Creatinine Ratio 24.8 RATIO (10-20) H 06/04/23 04:25 Glucose 107 mg/dL (74-106) H 06/04/23 04:25 Microbiology Microbiology: Microbiology 06/03/23 20:25 Mucosa - Nose Influenza & RSV (PCR) - Final 06/03/23 20:30 Nasal Secretion SARS-CoV-2 Antigen (Rapid) - Final SARS-CoV-2 (COVID 19) Pharmacy Plan for Drug Dosing Pharmacy Plan for Drug Dosing: NEW START IV VANCOMYCIN Consulting Physician: Bijan MELISSA Indication: PNEUMONIA Goal Trough: 15-20 MG/DL SrCr: 1.17 MG/DL CrCl: 33 ML/MIN Comments: LOADING DOSE OF 1250MG GIVEN 06/04 @ 0914 Vancomycin Dose: WILL START 750MG Q24H 06/05 @ 0900 AND GET A LEVEL PRIOR TO THE 3RD TOTAL DOSE PER POLICY. Pending Level: 06/06/23 @ 0830 Pharmacy Service will continue to monitor and adjust dosing as required.
[2023-06-04] MEDS: Pantoprazole Sodium 40 MG in 0.9% Normal Saline (100mL MB+) 100 ML 330 MG IV ×2 (10:59→21:59)
[2023-06-04 11:00] LABS: Procalcitonin > 50.00 ng/mL (0.00-0.09)
[2023-06-04] MEDS: Piperacil/Tazobactam 3.375 GM in 0.9% Normal Saline (50mL MB+) 50 ML IV ×3 (11:08→21:59)
[2023-06-04 14:09] LABS: CPK Total, Creatine Kinase 170 U/L (26-192); Triglycerides 118 mg/dL
[2023-06-04] MEDS: Norepinephrine 8 MG in 0.9% Normal Saline (250mL Bag) 242 ML 9.40000000000000036 MG CONT INF ×2 (17:09→17:13)
[2023-06-04 17:22] LABS: Partial Thromboplast Time 111.2 Seconds (24.1-36.2)
[2023-06-04] MEDS: Propofol 10MG/Ml 1,000 MG/100 ML Bottle 6.40000000000000036 MG CONT INF ×2 (17:43→22:00)
[2023-06-04] MEDS: Atorvastatin Calcium 80 MG Tablet GT (21:59)
--- NOTE | 2023-06-04 22:00 | CT_ITS ---
INDICATION: pulmonary embolism EXAMINATION: - CTA Chest WO/W Contrast Injection A radiation dose optimization technique was used for this scan. RADIATION DOSAGE (If Supplied By Facility): CTDIvol/DLP = 13.07 / 396.59 mGy / mGycm COMPARISON: Chest radiograph previous day and chest CT 08/02/2022. FINDINGS: Contrast enhanced serial CTA axial images through the chest with coronal and sagittal reformatted series. Additional dedicated coronal and sagittal MIP reformatted series provided as well. IV Contrast dosage and agent: 75mL [id number]-370 IV. Endotracheal tube tip is 21 mm from the tony. Enteric tube tip terminates beyond the mid gastric lumen off the inferior margin of the image. MEDIASTINUM: No acute thoracic aortic abnormality. Distal pulmonary artery branch vessel evaluation is suboptimal secondary to timing of contrast bolus as well as respiratory motion, however, there are no obvious proximal pulmonary artery filling defects. Right IJ central venous catheter tip terminates within the superior vena cava. LUNG PARENCHYMA: Interval worsening of multiple diffuse bilateral groundglass pulmonary nodules, suggesting atypical infectious etiology. PLEURA: Small right and trace left pleural effusion. No pneumothorax. BONES: Osseous structures are unremarkable for age. UPPER ABDOMEN: Unremarkable. CT/CTA Chest W/WO Contrast IMPRESSION: Endotracheal tube tip is 21 mm from the tony. Interval worsening of multiple diffuse bilateral groundglass pulmonary nodules, suggesting atypical infectious etiology. Small right and trace left pleural effusion. Metastatic disease is not excluded. Distal pulmonary artery branch vessel evaluation is suboptimal secondary to timing of contrast bolus as well as respiratory motion, however, there is no obvious proximal pulmonary embolus. No acute aortic abnormality. Electronically Signed: Buck Greco MD at 2:33 EST ,
[2023-06-05] VITALS (48 sets, daily range): BP systolic 95–129; BP diastolic 51–79; PULSE 63–89; RESP 14–19; TEMP 35.3–37.2; O2SAT 100
[2023-06-05] MEDS: 0.9% Normal Saline 250 ML IV.SOLN. IV ×2 (01:50→22:43)
[2023-06-05] MEDS: fentaNYL drip 100 ML 2.5 MCG CONT INF (01:51)
[2023-06-05 02:20] LABS: Partial Thromboplast Time 50.8 Seconds (24.1-36.2)
[2023-06-05 04:22] LABS: Hematocrit 30.6 % (37-47); Hemoglobin 9.2 g/dL (12.0-15.0); Mean Corp Hgb Conc 30.1 g/dL (32-36); Mean Corpuscular Hgb 24.5 pg (27.0-32.0); Mean Corpuscular Volume 81.6 fL (81-99); Mean Platelet Vol. 10.1 fl (6.2-12.0); POSITIVE COUNT YES; Platelet Count 490 K/mm3 (150-450); RBC Distribution Width CV 16.6 % (11.6-14.6); RBC Distribution Width SD 49.3 fl (35.1-43.9); Red Blood Count 3.75 M/mm3 (4.2-5.4)
[2023-06-05 04:49] LABS: Phosphorus 5.7 mg/dL (2.5-4.9)
[2023-06-05 05:05] LABS: ALB/GLOB Ratio 0.6 RATIO (0.9-2.4); AST(SGOT) 56 U/L (15-37); Alanine Aminotransfer ALT/SGPT 16 U/L (13-56); Albumin, Serum 2.4 g/dL (3.2-5.0); Alkaline Phosphatase 78 U/L (45-117); Anion Gap 17 (5-15); BUN 40 mg/dL (7-18); Calcium,Total 7.5 mg/dL (8.5-10.1); Chloride 112 mmol/L (98-107); Creatinine, Serum 1.29 mg/dL (0.55-1.02); EST Glomerular Filtration Rate 42 mL/min (>60); Est Glom Filt Rate - Afr Amer 51 mL/min (>60); Estimated Creatinine Clearance 30.15 ml/min; Globulin 3.7 g/dL (2.2-4.2); Glucose 100 mg/dL (74-106); Potassium 4.3 mmol/L (3.5-5.1); Protein, Total 6.1 g/dL (6.4-8.2); Sodium Level 141 mmol/L (136-145); Thyroid Stim Hormone (TSH) 1.45 uIU/mL (0.358-3.74)
[2023-06-05 05:14] LABS: Scan Indicated on CBC? Y/N YES- FLAGS NOTED
[2023-06-05] MEDS: Norepinephrine 8 MG in 0.9% Normal Saline (250mL Bag) 242 ML 14.0999999999999996 MG CONT INF (05:57)
[2023-06-05] MEDS: Levothyroxine 125 MCG Tablet NG (05:58)
[2023-06-05] MEDS: Piperacil/Tazobactam 3.375 GM in 0.9% Normal Saline (50mL MB+) 50 ML IV ×3 (05:58→22:42)
[2023-06-05 07:29] LABS: Base Excess -15 mmol/L (-2 to +2); Bicarbonate 11.7 mmol/L (22-26); Blood Gas Specimen Type ART; Mode CPAP/PS; O2 Delivery Device Adult Vent; PO2 85 mmHG (75-100); SITE R Brach; SO2 95 % (95-99); Total Carbon Dioxide 13 mmol/L; pCO2 24.7 mmHg (35-45); pH 7.29 (7.35-7.45)
--- NOTE | 2023-06-05 07:39 | PCM.PN.HOSP ---
Reason for Visit Reason for Visit: Shortness of breath/cough Subjective Subjective No issues overnight. Patient has been stable. Has developed a metabolic acidosis and lactic acid and ABG are pending. Etiology is unclear at this time. Currently with minimal oxygen requirements at 25% FiO2 and sats are stable at 100%. Weaning trial in progress. Objective Data Objective Data Vital Signs: Vital Signs Temp Pulse Resp BP Pulse Ox O2 Del Method O2 Flow Rate 98.8 F 78 14 110/58 L 100 Mechanical Ventilator 100 06/05/23 04:00 06/05/23 05:20 06/05/23 05:20 06/05/23 05:57 06/05/23 05:20 06/05/23 05:00 06/03/23 23:44 FiO2 25 06/05/23 05:00 Oxygen Flow Rate (L/min) 100 Oxygen Delivery Method Mechanical Ventilator Weight: 54 kg Body Mass Index (BMI) 20.4 Intake & Output: Intake and Output for Last 24 Hours 06/03/23 06/04/23 06/05/23 23:59 23:59 23:59 Intake Total 1.25 / 1.25 4765.12 / 4878.12 389.01 / 389.01 Output Total 1200 / 1550 350 / 350 Balance 1.25 / 1.25 3565.12 / 3328.12 39.01 / 39.01 Lab / Micro Data 06/05/23 04:15 06/05/23 04:15 Labs: Laboratory Results - last 24 hr 06/04/23 04:25: Differential Comment SCANNED, Diff Path Review May sis Total Creatine Kinase 170, Triglycerides 115 06/04/23 04:25: Triglycerides 118, Cholesterol 116, LDL Cholesterol 45, VLDL Cholesterol 23, HDL Cholesterol 48 06/04/23 05:05: Procalcitonin > 50.00 H 06/04/23 16:45: APTT 111.2 H* 06/05/23 01:55: APTT 50.8 H 06/05/23 04:15: WBC 35.0 H*, RBC 3.75 L, Hgb 9.2 L, Hct 30.6 L, MCV 81.6, MCH 24.5 L, MCHC 30.1 L, RDW Std Deviation 49.3 H, RDW Coeff of [place] 16.6 H, Plt Count 490 H, MPV 10.1, Diff Path Review May foll, Sodium 141, Potassium 4.3, Chloride 112 H, Carbon Dioxide 12.0 L, Anion Gap 17 H, BUN 40 H, Creatinine 1.29 H, Estim Creat Clear Calc 30.15, Est GFR (MDRD) Af Amer 51 L, Est GFR (MDRD) Non-Af 42 L, BUN/Creatinine Ratio 31.0 H, Glucose 100, Calcium 7.5 L, Phosphorus 5.7 H, Magnesium 2.0, Total Bilirubin 0.50, AST 56 H, ALT 16, Alkaline Phosphatase 78, Total Protein 6.1 L, Albumin 2.4 L, Globulin 3.7, Albumin/Globulin Ratio 0.6 L, TSH 1.45 Micro: Microbiology 06/03/23 23:58 Sputum, Tracheal Aspirate Gram Stain - Final 06/04/23 13:00 Urine Catheter - Isaac Legionella Antigen - Final 06/04/23 13:00 Urine Catheter - Isaac Streptococcus pneumoniae Antigen (M - Final 06/04/23 07:16 Mucosa - Nasopharyngeal Respiratory Panel (PCR) - Final 06/03/23 20:25 Mucosa - Nose Influenza & RSV (PCR) - Final 06/03/23 20:30 Nasal Secretion SARS-CoV-2 Antigen (Rapid) - Final SARS-CoV-2 (COVID 19) ABG Data ABG results: ABG 06/05/23 07:25 Specimen Type ART Sample Site R Brach pH 7.29 L Bicarbonate Actual 11.7 L Total CO2 13 Base Excess -15 L O2 Saturation 95 O2 % 25.0 ABG pCO2 24.7 L ABG pO2 85 O2 Delivery Device Adult Vent Vent Mode CPAP/PS Rhythm Strip Rhythm Strip: Sinus Rhythm Physical Exam Const Constitutional Narrative: Intubated and sedated, not following commands HEENT normocephalic and head/scalp atraumatic HEENT Narrative: ET tube in place, OG in place, mucous membranes are moist Resp no retractions, no use of accessory muscles and clear to auscultation bilaterally Resp Narrative: Patient remains on a ventilator however appears comfortable with mild tachypnea probably to compensate for her acidosis but normal breathing pattern otherwise Auscultation: Negative for rales, rhonchi or wheezes Cardio regular rate, regular rhythm, S1 normal heart sound, S2 normal heart sound, no murmurs, no rub, no gallops and no clicks GI normal to inspection, nondistended, normoactive bowel sounds, soft to palpation and non-tender Extremity no clubbing, cyanosis or edema Neuro Neuro Narrative: Patient moves all 4 extremities spontaneously to noxious stimuli but no purposeful movement while sedated and on Psych Psych Narrative: Unable to assess Assessment & Plan Assessment/Plan (1) Acute hypoxemic respiratory failure: (2) Septic shock: (3) Non-ST elevation [place] (NSTEMI): (4) COVID-19: PLAN: Plan Acute hypoxic respiratory failure -Clearly related to acute COVID-19 infection however there may be superimposed infection as well -Remains on ventilator however FiO2 has been weaned to 25% -Patient with tachypnea however this is likely compensatory for her metabolic acidosis -Continue vancomycin and Zosyn till cultures result -White count still markedly elevated but trending down at 35,000 currently -Blood cultures pending -Urine culture pending -Sputum culture pending however Gram stain looks like it we will probably be oral maris -Strep pneumo and Legionella antigens are negative -Patient currently requiring Levophed at 15 mics per minute -Remdesivir and Decadron have been initiated for acute COVID infection -Remdesivir day 2 of 5 -Decadron day 2 of 10 -Baricitinib day 2 -Pulmonary/critical care medicine following Septic shock -Doubt COVID-19 is 100% responsible for this -Patient remains on Levophed at 7.5 mcg/min down from 15 yesterday -Procalcitonin was greater than 50 -Cultures are pending -Continue vancomycin and Zosyn -Fluids were held due to COVID infection and concerns for volume with history of heart failure with preserved ejection fraction -Patient did get appropriate fluid resuscitation yesterday with 30 cc/kg of body weight Elevated anion gap metabolic acidosis -Anion gap is now abnormal and bicarb has trended down to 12 -ABG shows metabolic acidosis -Lactic acid is pending -May be propofol induced acidosis and if lactate is up will discontinue propofol in favor of Precedex and monitor COVID-19 pneumonia -Treatment as noted above NSTEMI -Acute troponin elevation -Cardiology feels that this is most likely a type II infarct related to respiratory failure and shock -Cardiogram is pending -Continue heparin drip -Continue aspirin -Continue high intensity dose statin -Total cholesterol is 116/LDL 45/HDL 48/triglycerides 118 -Hold antihypertensives due to hypotension -Cardiology is following-appreciate input -No current follow-up recommended at this time Chronic normocytic anemia -Follows outpatient with hematology -Previous hospitalization about 1 year ago she was found to have a 3 angiodysplastic lesions in the stomach that were treated with heater probe, 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 and on colonoscopy had 3 medium sized angiodysplastic lesions with bleeding at the splenic flexure that was treated with heater probe -Hemoglobin at admission at that time was 5.5 -Hemoglobin has dropped and is currently 9.2 with no signs of active bleeding -Continue heparin drip and monitor closely -Will check guaiac and monitor CBC HFpEF -No current signs of heart failure -Monitor clinically -Will dose Lasix as hemodynamics allow History of pulmonary nodules -Patient had been following with oncology -Recommended further workup with PET scan and to proceed with biopsy if there was significant uptake however patient declined and plan was to follow with serial CAT scans. -Repeat CAT scan was recommended at 6 months and that was on August 02, 2022 -Does not appear patient ever followed up with CAT scan History of large pleural effusion -Will monitor -pleural effusions noted on CAT scan or chest x-ray at admission Hypothyroidism -Continue home levothyroxine via G-tube Hypertension -Hold home antihypertensives as patient is currently hypotensive Hyperlipidemia -Check lipids with NSTEMI -Continue statin but transition to high intensity dosing given NSTEMI DVT prophylaxis -Patient is fully anticoagulated with heparin drip CODE STATUS -DNR CCA okay for intubation as per discussion at the time of admission prior to intubation Charges/Coding Visit Charges Inpatient E&M: 32354 Subs Hosp L2
--- NOTE | 2023-06-05 08:13 | PN.CC_ITS ---
Assessment & Plan Assessment/Plan (1) Acute hypoxemic respiratory failure: (2) Septic shock: PLAN: Plan RECOMMENDATIONS: 1. Continue assist-control mode mechanical ventilation. Wean FiO2 and PEEP for saturations greater than 90%. 2. Discontinue propofol. Transition to Precedex 3. Hold on additional fluids if possible. Okay to start tube feeds 4. Continue remdesivir and Decadron as ordered. 5. Continue empiric broad-spectrum antimicrobials, pending infectious workup . 6. Continue heparin infusion. 7. Continue appropriate ICU prophylaxis. IMPRESSIONS: 1. Septic shock The patient presented with sepsis due to COVID-19 pneumonia with concern for concurrent bacterial superinfection with acute sepsis related organ dysfunction as evidenced by acute respiratory failure requiring invasive mechanical ventilatory support. Initially, fluid resuscitation was withheld over concerns for worsening respiratory status. Patient did have slightly delayed fluid bolus secondary to respiratory status. Patient currently on pressor therapy. Continuing broad-spectrum antimicrobials. Continue Decadron and remdesivir. The patient will be appropriate for the initiation of baricitinib as well. 2. Acute hypoxemic respiratory failure Concern for multifactorial etiology. Obviously, the patient has COVID-19 pneumonia. Patient was able to have a spontaneous breathing trial this morning and was tachypneic. Patient found to have significant metabolic acidosis. Patient does not appear to be in DKA and blood pressures have been controlled with pressor therapy. Clinical concern for propofol infusion syndrome leading to ongoing acidosis. Propofol will be discontinued and patient will be transition to Precedex. Continue spontaneous breathing and awakening trials per protocol 3. NSTEMI Most likely secondary demand ischemia in the setting of #1 and 2. The patient has been initiated on a heparin infusion. Await cardiology interpretation of echocardiogram 4. History of pulmonary nodules/hypothyroidism/hypertension/hyperlipi demia/anemia Complicates care, management, recovery and prognosis. Hold home antihype rtensives. The patient has been followed on an outpatient basis by oncology with regard to her underlying pulmonary nodules. She is electing to pursue serial CT scans on an outpatient basis. However, it does not appear that she ever followed up for repeat imaging. TIME: 35 minutes of critical care time, independent of procedures, was spent addressing the patient's septic shock, acute hypoxemic respiratory failure, NSTEMI, review of all data and collaboration with the care team. Subjective Subjective Patient did okay overnight. Patient did have a low-grade fever, but did not have to be initiated on pressors. Patient did have a spontaneous breathing trial this morning and tolerated well. Patient was slightly tachypneic and ABG showed significant metabolic acidosis, so she was not extubated. Objective Data Objective Data Vital Signs: Vital Signs Temp Pulse Resp BP Pulse Ox O2 Del Method O2 Flow Rate 37.1 C 74 15 103/53 L 100 Mechanical Ventilator 100 06/05/23 06:00 06/05/23 07:00 06/05/23 07:00 06/05/23 07:00 06/05/23 07:00 06/05/23 07:00 06/03/23 23:44 FiO2 25 06/05/23 07:00 Oxygen Flow Rate (L/min) 100 Oxygen Delivery Method Mechanical Ventilator Weight: 54 kg Body Mass Index (BMI) 20.4 Intake & Output: Intake and Output for Last 24 Hours 06/03/23 06/04/23 06/05/23 23:59 23:59 23:59 Intake Total 1.25 / 1.25 4765.12 / 4878.12 498.82 / 498.82 Output Total 1200 / 1550 350 / 350 Balance 1.25 / 1.25 3565.12 / 3328.12 148.82 / 148.82 Lab / Micro Data Attestation: I reviewed the patient's lab results. 06/05/23 04:15 06/05/23 04:15 Labs: Laboratory Results - last 24 hr 06/04/23 04:25: Total Creatine Kinase 170, Triglycerides 115 06/04/23 04:25: Triglycerides 118, Cholesterol 116, LDL Cholesterol 45, VLDL Cholesterol 23, HDL Cholesterol 48 06/04/23 05:05: Procalcitonin > 50.00 H 06/04/23 16:45: APTT 111.2 H* 06/05/23 01:55: APTT 50.8 H 06/05/23 04:15: WBC 35.0 H*, RBC 3.75 L, Hgb 9.2 L, Hct 30.6 L, MCV 81.6, MCH 24.5 L, MCHC 30.1 L, RDW Std Deviation 49.3 H, RDW Coeff of [place] 16.6 H, Plt Count 490 H, MPV 10.1, Diff Path Review October, Sodium 141, Potassium 4.3, Chloride 112 H, Carbon Dioxide 12.0 L, Anion Gap 17 H, BUN 40 H, Creatinine 1.29 H, Estim Creat Clear Calc 30.15, Est GFR (MDRD) Af Amer 51 L, Est GFR (MDRD) Non-Af 42 L, BUN/Creatinine Ratio 31.0 H, Glucose 100, Calcium 7.5 L, Phosphorus 5.7 H, Magnesium 2.0, Total Bilirubin 0.50, AST 56 H, ALT 16, Alkaline Phosphatase 78, Total Protein 6.1 L, Albumin 2.4 L, Globulin 3.7, Albumin/Globulin Ratio 0.6 L, TSH 1.45 Micro: Microbiology 06/03/23 23:58 Sputum, Tracheal Aspirate Gram Stain - Final 06/04/23 13:00 Urine Catheter - Isaac Legionella Antigen - Final 06/04/23 13:00 Urine Catheter - Isaac Streptococcus pneumoniae Antigen (M - Final 06/04/23 07:16 Mucosa - Nasopharyngeal Respiratory Panel (PCR) - Final 06/03/23 20:25 Mucosa - Nose Influenza & RSV (PCR) - Final 06/03/23 20:30 Nasal Secretion SARS-CoV-2 Antigen (Rapid) - Final SARS-CoV-2 (COVID 19) ABG Data ABG results: ABG 06/05/23 07:25 Specimen Type ART Sample Site R Brach pH 7.29 L Bicarbonate Actual 11.7 L Total CO2 13 Base Excess -15 L O2 Saturation 95 O2 % 25.0 ABG pCO2 24.7 L ABG pO2 85 O2 Delivery Device Adult Vent Vent Mode CPAP/PS Rhythm Strip Rhythm Strip: Sinus Rhythm Rate: 78 Physical Exam Const Constitutional Narrative: Intubated, sedated mechanically ventilated. No ventilator synchrony noted. HEENT normocephalic and head/scalp atraumatic Eyes PERRL and EOMs intact bilaterally Neck supple General: trachea midline and CVC in place Chest inspection of chest normal Resp Effort and Inspection: tachypneic Auscultation: diminished lung sounds; Negative for rales, rhonchi or wheezes Cardio regular rate and regular rhythm GI normal to inspection, nondistended, normoactive bowel sounds Extremity no clubbing, cyanosis or edema Skin no rashes or lesions noted Neuro Sensorium / Orientation: sedated on vent Psych Mood & Affect: flat affect Charges/Coding Procedures Hospitalists Procedures: 79021 Critical Care 1st Hr
[2023-06-05] MEDS: dexAMETHasone 4 MG/ML Vial 6 MG IV (08:43)
[2023-06-05] MEDS: Aspirin 81 MG TAB.CHEW GT (08:45)
[2023-06-05] MEDS: Pantoprazole Sodium 40 MG in 0.9% Normal Saline (100mL MB+) 100 ML 330 MG IV ×2 (08:47→20:52)
[2023-06-05] MEDS: Chlorhexidine 15 ML PO ×2 (08:49→20:56)
[2023-06-05 09:06] LABS: Partial Thromboplast Time 45.4 Seconds (24.1-36.2)
[2023-06-05] MEDS: Heparin Injection (Vial) 5,000 UNIT/ML VIAL IV (10:29)
[2023-06-05] MEDS: Vancomycin HCl 750 MG in 0.9% Normal Saline (250mL Bag) 250 ML 250 MG IV (10:37)
[2023-06-05] MEDS: dexMEDEtomidine 400 MCG in 0.9% Normal Saline (100mL Bag) 96 ML 6.79999999999999982 MCG CONT INF (10:39)
[2023-06-05] MEDS: Vital AF 1.2 Cal Liquid 1,000 ML 15 ML GT (10:45)
[2023-06-05 14:21] LABS: Pathologist Review Reviewed
--- NOTE | 2023-06-05 15:14 | CASEMGMT ---
RN CM NOTE: Call placed to pt's son, Rudy, for initial CM assessment. No answer and VM box is full. Unable to leave a message for a return call. Call also placed to pt's daughter, Lili. No answer. VM left w/kristen RN CM # if able to return call today and also left Emma MIRAMONTES CM, #, if returning the call tomorrow. Rigoberto OGLESBY RN CM
--- NOTE | 2023-06-05 15:34 | CASEMGMT ---
FE GAGE Assessment: Call received back from pt's daughter, Lili. FE GAGE introduced self and role at [facility]. Care providers, pharmacy,?and demographics verified. ? PCP: Dr Angelo. Pt last saw Gi in November and had a f/u appt scheduled this past , but she cancelled it d/t all the stuff going around and she didn't want to get sick . Specialists: None at this time. Preferred Pharmacy: [facility] @ discharge. Otherwise, [facility]. Insurance: MCR A/B, AARP Prescription Benefit:?Yes Living Will/HPOA: Lili states she does not think pt has completed these. LNOK: Son Rudy, Daughter Lili, Son Emil Living Arrangements: Pt lives in a single story home with 2-3 steps to enter. Pt lives w/her son (Rudy) and daughter (Lili) and other son (Emil) lives next door. Pt is never alone. Family assist her any time she gets up to go to the bathroom or walk. They assist w/bathing/dressing and do all home mgmt tasks. Rudy manages pt's medications and set up weekly pill containers. Transportation: Family DME: shower chair, walker, pulse ox. Lili states she wears O2 @ 2.5 L/M through [employer] as needed. Per Dedra @ [employer], current O2 orders are 2 l/m continuously. Pt has a concentrator and portable O2 that family can bring in for pt to discharge home on, if needed. SNF/HHC: No hx of SNF. Has had [facility] in the past. Discussed discharge planning w/Lili. She states they prefer for pt to discharge home, if able. If HHC is recommended, she states she will discuss this w/her brother, Rudy. She states pt is oriented @ her baseline, also, so discharge planning to be discussed with pt once she is extubated/oriented. ? Plan: TBD by course of treatment and progress w/therapy. Rigoberto OGLESBY RN, CM
[2023-06-05 17:26] LABS: Anion Gap 10 (5-15); BUN 46 mg/dL (7-18); BUN/Creat Ratio 35.9 RATIO (10-20); Calcium,Total 7.2 mg/dL (8.5-10.1); Chloride 115 mmol/L (98-107); Creatinine, Serum 1.28 mg/dL (0.55-1.02); EST Glomerular Filtration Rate 43 mL/min (>60); Est Glom Filt Rate - Afr Amer 52 mL/min (>60); Estimated Creatinine Clearance 30.38 ml/min; Glucose 127 mg/dL (74-106); Potassium 4.5 mmol/L (3.5-5.1); Sodium Level 140 mmol/L (136-145)
[2023-06-05 18:00] LABS: Partial Thromboplast Time 60.3 Seconds (24.1-36.2)
[2023-06-05] MEDS: dexMEDEtomidine 400 MCG in 0.9% Normal Saline (100mL Bag) 96 ML 9.5 MCG CONT INF (20:51)
[2023-06-05] MEDS: Atorvastatin Calcium 80 MG Tablet GT (20:58)
[2023-06-05] MEDS: Remdesivir 100 MG in 0.9% Normal Saline (250mL Bag) 230 ML 250 MG IV (21:00)
[2023-06-05 23:02] LABS: Partial Thromboplast Time 62.9 Seconds (24.1-36.2)
[2023-06-06] VITALS (35 sets, daily range): BP systolic 72–120; BP diastolic 47–73; PULSE 56–101; RESP 14–23; TEMP 35.7–36.8; O2SAT 94–100; BMI 21.7
[2023-06-06] MEDS: TITRATION PARAMETER CHANGE 1 EACH IV (02:43)
[2023-06-06] MEDS: Levothyroxine 125 MCG Tablet NG (04:27)
[2023-06-06] MEDS: Piperacil/Tazobactam 3.375 GM in 0.9% Normal Saline (50mL MB+) 50 ML IV ×3 (04:27→20:17)
[2023-06-06 04:40] LABS: Absolute Lymphocyte Count 0.87 X10^3/uL (0.83-4.51); Absolute Neutrophil Count 13.8 X10^3/uL (2.0-7.7); Basophil# 0.02 X10^3/uL; Basophil% 0.1 % (0-1); Hematocrit 28.5 % (37-47); Hemoglobin 9.1 g/dL (12.0-15.0); Lymphocyte # 0.87 X10^3/ul (0.83-4.51); Lymphocyte % 5.6 % (19-41); Mean Corp Hgb Conc 31.9 g/dL (32-36); Mean Corpuscular Hgb 25.3 pg (27.0-32.0); Mean Corpuscular Volume 79.4 fL (81-99); Mean Platelet Vol. 10.4 fl (6.2-12.0); Monocyte# 0.77 X10^3/uL; NRBC Flagged by Analyzer 0 % (0-5); Neutrophil # 13.78 X10^3/uL (2.7-7.7); Neutrophil % 88.8 % (47-70); Platelet Count 394 K/mm3 (150-450); RBC Distribution Width CV 16.6 % (11.6-14.6); RBC Distribution Width SD 47.8 fl (35.1-43.9); Red Blood Count 3.59 M/mm3 (4.2-5.4); White Blood Count 15.5 K/mm3 (4.4-11.0)
[2023-06-06 04:54] LABS: Partial Thromboplast Time 69.5 Seconds (24.1-36.2)
[2023-06-06 04:58] LABS: ALB/GLOB Ratio 0.6 RATIO (0.9-2.4); AST(SGOT) 58 U/L (15-37); Alanine Aminotransfer ALT/SGPT 16 U/L (13-56); Albumin, Serum 2.2 g/dL (3.2-5.0); Alkaline Phosphatase 69 U/L (45-117); Anion Gap 11 (5-15); BUN 51 mg/dL (7-18); BUN/Creat Ratio 38.6 RATIO (10-20); Chloride 115 mmol/L (98-107); Creatinine, Serum 1.32 mg/dL (0.55-1.02); EST Glomerular Filtration Rate 41 mL/min (>60); Est Glom Filt Rate - Afr Amer 50 mL/min (>60); Estimated Creatinine Clearance 29.46 ml/min; Globulin 3.5 g/dL (2.2-4.2); Glucose 162 mg/dL (74-106); Phosphorus 4.8 mg/dL (2.5-4.9); Potassium 4.1 mmol/L (3.5-5.1); Protein, Total 5.7 g/dL (6.4-8.2); Sodium Level 142 mmol/L (136-145)
--- NOTE | 2023-06-06 05:30 | RAD_ITS ---
STUDY: X-RAY CHEST REASON FOR EXAM: Female, 77 years old. Follow-up of pleural effusion. TECHNIQUE: Single frontal view of the chest. COMPARISON: June 03, 2023 FINDINGS: Tip of endotracheal tube approximately 3.7 cm above the tony. Tip of NG tube not identified. Right internal jugular catheter tip projected over the lower SVC. Cardiomegaly, aortic tortuosity and calcification, hyperinflation and patchy opacity at the right base with right pleural effusion, unchanged. Resolution of left lower lobe opacity. No abnormality of the visualized soft tissue structures of the upper abdomen. RAD/Chest 1 View (Portable) IMPRESSION: Stable chest except for resolution of patchy left lower lobe opacity. No acute or emergent finding. Electronically Signed: Conner Ross MD at 9:37 EST ,
[2023-06-06 07:38] LABS: Allen Test Positive; Base Excess -11 mmol/L (-2 to +2); Bicarbonate 13.8 mmol/L (22-26); Blood Gas Specimen Type ART; Mode PC/PS; O2 Delivery Device Adult Vent; PEEP 5; PO2 86 mmHG (75-100); SITE R Radial; SO2 97 % (95-99); Total Carbon Dioxide 15 mmol/L; pH 7.39 (7.35-7.45)
--- NOTE | 2023-06-06 07:51 | PCM.PN.INT ---
Assessment & Plan Assessment/Plan (1) Acute hypoxemic respiratory failure: (2) Septic shock: PLAN: Plan RECOMMENDATIONS: 1. Will treat patient with bicarbonate and then proceed to extubation 2. Discontinue Precedex and fentanyl once extubated 3. Swallow study prior to initiation of p.o. diet 4. Continue remdesivir and Decadron as ordered. 5. Continue empiric broad-spectrum antimicrobials. Possibly transition to Unasyn if culture negative 6. Continue heparin infusion. 7. Continue appropriate ICU prophylaxis. IMPRESSIONS: 1. Septic shock The patient presented with sepsis due to COVID-19 pneumonia with concern for concurrent bacterial superinfection with acute sepsis related organ dysfunction as evidenced by acute respiratory failure requiring invasive mechanical ventilatory support. Initially, fluid resuscitation was withheld over concerns for worsening respiratory status. Hold on additional fluid boluses. Chest x-ray shows no significant pleural effusion. Patient currently on pressor therapy. Continuing broad-spectrum antimicrobials. Continue Decadron and remdesivir. Likely transition to Unasyn if culture negative to cover aspiration 2. Acute hypoxemic respiratory failure Concern for multifactorial etiology. Obviously, the patient has COVID-19 pneumonia. Patient was able to have a spontaneous breathing trial this morning and ABG shows improvement in metabolic acidosis. Patient found to have significant metabolic acidosis. Patient does not appear to be in DKA and blood pressures have been controlled with pressor therapy. Will proceed with extubation 3. NSTEMI Most likely secondary demand ischemia in the setting of #1 and 2. The patient has been initiated on a heparin infusion. Await cardiology interpretation of echocardiogram 4. History of pulmonary nodules/hypothyroidism/hypertension/hyperlipidemia/anemia Complicates care, management, recovery and prognosis. Hold home antihypertensives. The patient has been followed on an outpatient basis by oncology with regard to her underlying pulmonary nodules. She is electing to pursue serial CT scans on an outpatient basis. However, it does not appear that she ever followed up for repeat imaging. 5. Probable propofol infusion syndrome Unclear etiology of metabolic acidosis. Clinical suspicion for propofol infusion syndrome as metabolic acidosis has improved significantly following discontinuation. Some concern that metabolic acidosis could lead to increased respiratory demand. Patient will be given an amp of bicarb prior to extubation TIME: 32 minutes of critical care time, independent of procedures, was spent addressing the patient's septic shock, acute hypoxemic respiratory failure, NSTEMI, review of all data and collaboration with the care team. Subjective Subjective Patient did well overnight. Patient's status has not significantly changed. Patient has been improved on pressor requirements, but is still on Levophed at 1. Patient was able to tolerate a spontaneous breathing trial this morning. Bicarbonate is significantly improved after discontinuation of propofol. Objective Data Objective Data Vital Signs: Vital Signs Temp Pulse Resp BP Pulse Ox O2 Del Method O2 Flow Rate 36.4 C L 62 17 91/55 L 100 Mechanical Ventilator 100 06/06/23 04:00 06/06/23 07:00 06/06/23 07:00 06/06/23 07:00 06/06/23 07:00 06/06/23 07:00 06/03/23 23:44 FiO2 25 06/06/23 07:00 Oxygen Flow Rate (L/min) 100 Oxygen Delivery Method Mechanical Ventilator Weight: 57.4 kg Body Mass Index (BMI) 21.7 Intake & Output: Intake and Output for Last 24 Hours 06/04/23 06/05/23 06/06/23 23:59 23:59 23:59 Intake Total 4765.12 / 4878.12 2112.12 / 2123.67 260.22 / 260.22 Output Total 1200 / 1550 1400 / 1400 200 / 200 Balance 3565.12 / 3328.12 712.12 / 723.67 60.22 / 60.22 Lab / Micro Data Attestation: I reviewed the patient's lab results. 06/06/23 04:30 06/06/23 04:30 Labs: Laboratory Results - last 24 hr 06/05/23 04:15: Diff Path Review Reviewed 06/05/23 08:05: Lactic Acid 1.0 06/05/23 08:30: APTT 45.4 H 06/05/23 16:45: APTT 60.3 H, Sodium 140, Potassium 4.5, Chloride 115 H, Carbon Dioxide 15.0 L, Anion Gap 10, BUN 46 H, Creatinine 1.28 H, Estim Creat Clear Calc 30.38, Est GFR (MDRD) Af Amer 52 L, Est GFR (MDRD) Non-Af 43 L, BUN/Creatinine Ratio 35.9 H, Glucose 127 H, Calcium 7.2 L 06/05/23 22:40: APTT 62.9 H 06/06/23 04:30: WBC 15.5 H, RBC 3.59 L, Hgb 9.1 L, Hct 28.5 L, MCV 79.4 L, MCH 25.3 L, MCHC 31.9 L D, RDW Std Deviation 47.8 H, RDW Coeff of Bernardino 16.6 H, Plt Count 394, MPV 10.4, Immature Gran % (Auto) 0.500, Neut % (Auto) 88.8 H, Lymph % (Auto) 5.6 L, [place] % (Auto) 5.0, Eos % (Auto) 0.0, Baso % (Auto) 0.1, Absolute Neuts (auto) 13.8 H, Absolute Lymphs (auto) 0.87, Nucleated RBC % 0, APTT 69.5 H, Sodium 142, Potassium 4.1, Chloride 115 H, Carbon Dioxide 16.0 L, Anion Gap 11, BUN 51 H, Creatinine 1.32 H, Estim Creat Clear Calc 29.46, Est GFR (MDRD) Af Amer 50 L, Est GFR (MDRD) Non-Af 41 L, BUN/Creatinine Ratio 38.6 H, Glucose 162 H, Calcium 7.0 L, Phosphorus 4.8, Magnesium 2.0, Total Bilirubin 0.30, AST 58 H, ALT 16, Alkaline Phosphatase 69, Total Protein 5.7 L, Albumin 2.2 L, Globulin 3.5, Albumin/Globulin Ratio 0.6 L Micro: Microbiology 06/04/23 13:00 Urine Catheter - Isaac Urine Culture - Preliminary Culture exhibits no growth. 06/03/23 23:58 Sputum, Tracheal Aspirate Gram Stain - Final 06/03/23 23:58 Sputum, Tracheal Aspirate Respiratory Culture - Preliminary Appears to be normal respiratory maris. Further studies to follow. 06/04/23 13:00 Urine Catheter - Isaac Legionella Antigen - Final 06/04/23 13:00 Urine Catheter - Isaac Streptococcus pneumoniae Antigen (M - Final 06/04/23 07:16 Mucosa - Nasopharyngeal Respiratory Panel (PCR) - Final 06/03/23 20:25 Mucosa - Nose Influenza & RSV (PCR) - Final 06/03/23 20:30 Nasal Secretion SARS-CoV-2 Antigen (Rapid) - Final SARS-CoV-2 (COVID 19) ABG Data ABG results: ABG 06/06/23 07:35 Specimen Type ART Sample Site R Radial pH 7.39 Bicarbonate Actual 13.8 L Total CO2 15 Base Excess -11 L O2 Saturation 97 O2 % 25.0 ABG pCO2 23.0 L ABG pO2 86 Hank Test Positive O2 Delivery Device Adult Vent Vent Mode PC/PS POC PEEP 5 Attestation: I personally reviewed and interpreted this ABG as follows: (Compensated metabolic acidosis with increased AA gradient) Radiography Diagnostic Testing: Radiology Impression Echocardiogram 06/04/23 01:29 Interpretation Summary Severe LV systolic dysfunction. Anterior and apical akinesis. Consider Takotsubo's cardiomyopathy. Estimated ejection fraction 20%. Mild diffuse mitral valve thickening. Moderate (2+) mitral valve insufficiency. Moderate (2+) tricuspid valve insufficiency. Right ventricular systolic pressure estimated to be 48 mmHg. Ordering Physician: Nolan Eastman Referring Physician: Garcia Angelo Performed By: Jess Hernandez, DNEISE, RVT Rhythm Strip Rhythm Strip: Sinus Rhythm Rate: 58 Physical Exam Const Constitutional Narrative: Intubated, but on breathing trial breathing comfortably. No ventilator synchrony noted. Follows commands and makes eye contact HEENT normocephalic and head/scalp atraumatic Eyes PERRL and EOMs intact bilaterally Neck supple General: trachea midline and CVC in place Chest inspection of chest normal Resp Effort and Inspection: Negative for tachypneic or actively coughing Auscultation: diminished lung sounds; Negative for rales, rhonchi or wheezes Cardio regular rhythm, S1 normal heart sound and S2 normal heart sound Rate: bradycardia GI normal to inspection, nondistended, normoactive bowel sounds Extremity no clubbing, cyanosis or edema Skin no rashes or lesions noted Neuro CN's II-XII intact bilaterally, moves all extremities and no focal motor deficits Psych Mood & Affect: flat affect Charges/Coding Procedures Hospitalists Procedures: 03326 Critical Care 1st Hr
[2023-06-06] MEDS: Sodium Bicarbonate 8.4% 50 ML Syringe 50 MEQ IV (08:01)
[2023-06-06] MEDS: dexAMETHasone 4 MG/ML Vial 6 MG IV (08:04)
[2023-06-06] MEDS: Chlorhexidine 15 ML PO (08:06)
[2023-06-06] MEDS: Aspirin 81 MG TAB.CHEW GT (08:22)
[2023-06-06] MEDS: Vancomycin Trough/Random Due 1 LAB MC (08:30)
--- NOTE | 2023-06-06 08:30 | PN.HOSP_ITS ---
Reason for Visit Reason for Visit: Shortness of breath/cough Subjective Subjective No issues overnight. Patient remains on 1 mcg of Levophed per minute with still attempting to wean. Plan is for extubation later today if she is doing quite well and her breathing trials. On minimal oxygen at 25%. Objective Data Objective Data Vital Signs: Vital Signs Temp Pulse Resp BP Pulse Ox O2 Del Method O2 Flow Rate 97.6 F L 62 17 91/55 L 100 Mechanical Ventilator 100 06/06/23 04:00 06/06/23 07:00 06/06/23 07:00 06/06/23 07:00 06/06/23 07:00 06/06/23 07:00 06/03/23 23:44 FiO2 25 06/06/23 07:00 Oxygen Flow Rate (L/min) 100 Oxygen Delivery Method Mechanical Ventilator Weight: 57.4 kg Body Mass Index (BMI) 21.7 Intake & Output: Intake and Output for Last 24 Hours 06/04/23 06/05/23 06/06/23 23:59 23:59 23:59 Intake Total 4765.12 / 4878.12 2112.12 / 2123.67 260.22 / 260.22 Output Total 1200 / 1550 1400 / 1400 200 / 200 Balance 3565.12 / 3328.12 712.12 / 723.67 60.22 / 60.22 Lab / Micro Data 06/06/23 04:30 06/06/23 04:30 Labs: Laboratory Results - last 24 hr 06/05/23 04:15: Diff Path Review Reviewed 06/05/23 08:05: Lactic Acid 1.0 06/05/23 08:30: APTT 45.4 H 06/05/23 16:45: APTT 60.3 H, Sodium 140, Potassium 4.5, Chloride 115 H, Carbon Dioxide 15.0 L, Anion Gap 10, BUN 46 H, Creatinine 1.28 H, Estim Creat Clear Calc 30.38, Est GFR (MDRD) Af Amer 52 L, Est GFR (MDRD) Non-Af 43 L, BUN/Creatinine Ratio 35.9 H, Glucose 127 H, Calcium 7.2 L 06/05/23 22:40: APTT 62.9 H 06/06/23 04:30: WBC 15.5 H, RBC 3.59 L, Hgb 9.1 L, Hct 28.5 L, MCV 79.4 L, MCH 25.3 L, MCHC 31.9 L D, RDW Std Deviation 47.8 H, RDW Coeff of [place] 16.6 H, Plt Count 394, MPV 10.4, Immature Gran % (Auto) 0.500, Neut % (Auto) 88.8 H, Lymph % (Auto) 5.6 L, [place] % (Auto) 5.0, Eos % (Auto) 0.0, Baso % (Auto) 0.1, Absolute Neuts (auto) 13.8 H, Absolute Lymphs (auto) 0.87, Nucleated RBC % 0, APTT 69.5 H , Sodium 142, Potassium 4.1, Chloride 115 H, Carbon Dioxide 16.0 L, Anion Gap 11, BUN 51 H, Creatinine 1.32 H, Estim Creat Clear Calc 29.46, Est GFR (MDRD) Af Amer 50 L, Est GFR (MDRD) Non-Af 41 L, BUN/Creatinine Ratio 38.6 H, Glucose 162 H, Calcium 7.0 L, Phosphorus 4.8, Magnesium 2.0, Total Bilirubin 0.30, AST 58 H, ALT 16, Alkaline Phosphatase 69, Total Protein 5.7 L, Albumin 2.2 L, Globulin 3.5, Albumin/Globulin Ratio 0.6 L Micro: Microbiology 06/04/23 13:00 Urine Catheter - Isaac Urine Culture - Preliminary Culture exhibits no growth. 06/03/23 23:58 Sputum, Tracheal Aspirate Gram Stain - Final 06/03/23 23:58 Sputum, Tracheal Aspirate Respiratory Culture - Preliminary Appears to be normal respiratory maris. Further studies to follow. 06/04/23 13:00 Urine Catheter - Isaac Legionella Antigen - Final 06/04/23 13:00 Urine Catheter - Isaac Streptococcus pneumoniae Antigen (M - Final 06/04/23 07:16 Mucosa - Nasopharyngeal Respiratory Panel (PCR) - Final 06/03/23 20:25 Mucosa - Nose Influenza & RSV (PCR) - Final 06/03/23 20:30 Nasal Secretion SARS-CoV-2 Antigen (Rapid) - Final SARS-CoV-2 (COVID 19) ABG Data ABG results: ABG 06/06/23 07:35 Specimen Type ART Sample Site R Radial pH 7.39 Bicarbonate Actual 13.8 L Total CO2 15 Base Excess -11 L O2 Saturation 97 O2 % 25.0 ABG pCO2 23.0 L ABG pO2 86 Hank Test Positive O2 Delivery Device Adult Vent Vent Mode PC/PS POC PEEP 5 Radiography Diagnostic Testing: Radiology Impression Echocardiogram 06/04/23 01:29 Interpretation Summary Severe LV systolic dysfunction. Anterior and apical akinesis. Consider Takotsubo's cardiomyopathy. Estimated ejection fraction 20%. Mild diffuse mitral valve thickening. Moderate (2+) mitral valve insufficiency. Moderate (2+) tricuspid valve insufficiency. Right ventricular systolic pressure estimated to be 48 mmHg. Ordering Physician: Nolan Eastman Referring Physician: Garcia Angelo Performed By: Jess Hernandez, DENISE, RVT Rhythm Strip Rhythm Strip: Sinus Rhythm Rate: 58 Physical Exam Const alert and average body habitus Constitutional Narrative: Intubated and sedated, awakens intermittently and will follow commands HEENT normocephalic and head/scalp atraumatic HEENT Narrative: ET tube/OG in place, mucous membranes are moist Resp no retractions, no use of accessory muscles and clear to auscultation bilaterally Resp Narrative: Patient remains on a ventilator however appears comfortable with no signs of distress Auscultation: Negative for rales, rhonchi or wheezes Cardio regular rate, regular rhythm, S1 normal heart sound, S2 normal heart sound, no murmurs, no rub, no gallops and no clicks GI normal to inspection, nondistended, normoactive bowel sounds, soft to palpation and non-tender Extremity no clubbing, cyanosis or edema Extremity Narrative: Pedal pulses are 2+ Neuro Neuro Narrative: Patient moves all 4 extremities spontaneously, intermittent bouts of alertness and is able to follow commands Psych Psych Narrative: Unable to assess Assessment & Plan Assessment/Plan (1) Acute hypoxemic respiratory failure: (2) Septic shock: (3) Non-ST elevation [place] (NSTEMI): (4) COVID-19: (5) Takotsubo cardiomyopathy: PLAN: Plan Acute hypoxic respiratory failure -Clearly related to acute COVID-19 infection however there may be superimposed infection as well -Remains on ventilator however FiO2 has been weaned to 25% -Patient with tachypnea however this is likely compensatory for her metabolic acidosis -Discontinue vancomycin and Zosyn if blood cultures are negative and will transition to Unasyn for a total of 70 treatment for aspiration coverage -White count still markedly elevated but trending down at 35,000 currently -Blood cultures being pending -Urine culture was unremarkable -Sputum culture unremarkable other than normal respiratory maris -Strep pneumo and Legionella antigens are negative -Patient currently requiring Levophed at 1 mics per minute -Remdesivir and Decadron have been initiated for acute COVID infection -Remdesivir day 3 of 5 -Decadron day 3 of 10 -Baricitinib day 3 -Pulmonary/critical care medicine following Septic shock -Doubt COVID-19 is 100% responsible for this -Patient is on Levophed but down to 1 mcg/min from 7.5 mcg yesterday -Procalcitonin was greater than 50 -If blood cultures are negative will transition to Unasyn for total 7-day treatment to cover aspiration pneumonia -Continue vancomycin and Zosyn for now Elevated anion gap metabolic acidosis -Suspect propofol infusion syndrome -Bicarb is improving -Anion gap has resolved COVID-19 pneumonia -Treatment as noted above NSTEMI -Acute troponin elevation -Cardiology feels that this is most likely a type II infarct related to respiratory failure and shock -Echocardiogram was performed and showed an EF of 20% with anterior and apical akinesis, moderate mitral and tricuspid valve insufficiency and a right ventricular systolic pressure of 40 mmHg -Continue heparin drip will likely discontinue soon after consulting with cardiology -Continue aspirin -Continue high intensity dose statin -Total cholesterol is 116/LDL 45/HDL 48/triglycerides 118 -Hold antihypertensives due to hypotension -Cardiology is following-appreciate input -No current follow-up recommended at this time Acute cardiomyopathy -Appears to be consistent with Takotsubo cardiomyopathy -Once patient off pressors and blood pressure stabilized will initiate appropriate goal-directed therapy and patient will need outpatient follow-up echocardiogram in 6 to 8 weeks for reassessment -Diuresis as hemodynamics allow -Cardiology following-await further input Chronic normocytic anemia -Follows outpatient with hematology -Previous hospitalization about 1 year ago she was found to have a 3 angiodyspla stic lesions in the stomach that were treated with heater probe, 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 History of pulmonary nodules -Patient had been following with oncology -Recommended further workup with PET scan and to proceed with biopsy if there was significant uptake however patient declined and plan was to follow with serial CAT scans. -Repeat CAT scan was recommended at 6 months and that was on August 02, 2022 -Does not appear patient ever followed up with CAT scan History of large pleural effusion -Will monitor -pleural effusions noted on CAT scan or chest x-ray at admission Hypothyroidism -Continue home levothyroxine via G-tube Hypertension -Hold home antihypertensives as patient is currently hypotensive Hyperlipidemia -Check lipids with NSTEMI -Continue statin but transition to high intensity dosing given NSTEMI DVT prophylaxis -Patient is fully anticoagulated with heparin drip CODE STATUS -DNR CCA okay for intubation as per discussion at the time of admission prior to intubation Charges/Coding Visit Charges Inpatient E&M: 45173 Subs Hosp L2
[2023-06-06 08:50] LABS: Partial Thromboplast Time 59.6 Seconds (24.1-36.2)
[2023-06-06 09:32] LABS: Vancomycin, Trough Level 18.8 ug/mL (5.0-15.0)
[2023-06-06] MEDS: 0.9 % NaCl (Sterile) Posiflush 10 mL IV (09:44)
[2023-06-06] MEDS: Pantoprazole Sodium 40 MG in 0.9% Normal Saline (100mL MB+) 100 ML 330 MG IV ×2 (09:44→20:18)
--- NOTE | 2023-06-06 09:53 | PCM.RX.CS ---
Consult Antibiotic Management Pharmacy has been consulted to manage selected antibiotic: Vancomycin Type of Intervention Type of Consult: Follow-up Suspected Infection Suspected Infection: Pneumonia Labs Labs: Sodium 142 mmol/L (136-145) 06/06/23 04:30 Potassium 4.1 mmol/L (3.5-5.1) 06/06/23 04:30 Chloride 115 mmol/L (98-107) H 06/06/23 04:30 Carbon Dioxide 16.0 mmol/L (21.0-32.0) L 06/06/23 04:30 Anion Gap 11 (5-15) 06/06/23 04:30 BUN 51 mg/dL (7-18) H 06/06/23 04:30 Creatinine 1.32 mg/dL (0.55-1.02) H 06/06/23 04:30 Est GFR (MDRD) Af Amer 50 mL/min (>60) L 06/06/23 04:30 Est GFR (MDRD) Non-Af 41 mL/min (>60) L 06/06/23 04:30 BUN/Creatinine Ratio 38.6 RATIO (10-20) H 06/06/23 04:30 Glucose 162 mg/dL (74-106) H 06/06/23 04:30 Vancomycin Trough 18.8 ug/mL (5.0-15.0) H 06/06/23 08:30 Microbiology Microbiology: Microbiology 06/04/23 13:00 Urine Catheter - Isaac Urine Culture - Final Culture exhibits no growth. 06/03/23 23:58 Sputum, Tracheal Aspirate Gram Stain - Final 06/03/23 23:58 Sputum, Tracheal Aspirate Respiratory Culture - Final Mixed normal respiratory maris. No Streptococcus pneumoniae, beta-hemolytic Streptococcus or Staphylococcus aureus isolated. 06/04/23 13:00 Urine Catheter - Isaac Legionella Antigen - Final 06/04/23 13:00 Urine Catheter - Isaac Streptococcus pneumoniae Antigen (M - Final 06/04/23 07:16 Mucosa - Nasopharyngeal Respiratory Panel (PCR) - Final 06/03/23 20:25 Mucosa - Nose Influenza & RSV (PCR) - Final 06/03/23 20:30 Nasal Secretion SARS-CoV-2 Antigen (Rapid) - Final SARS-CoV-2 (COVID 19) Estimated Creatinine Clearance Estimated Creatinine Clearance: 29.8 Goal Trough Goal Trough: 15-20 mcg/mL Pharmacy Plan for Drug Dosing Pharmacy Plan for Drug Dosing: VANCOMYCIN LEVEL RECEIVED Current Vancomycin Dose: 750mg Q24H Number of Doses Received: 750mg x1, 1250mg x1 Vancomycin Level: 18.8 Hours Since Last Dose: 22 Renal Function: sCr 1.32 (CrCl ~ 29.8 ml/min) Renal Function Trend: stable Lab/Micro: pending Vancomycin Plan/Comments: Continue Vancomycin 750mg Q24H for now, recheck labs and trough level tomorrow Pending Level: Vancomycin trough @ 0830 06/07/23 Pharmacy Service will continue to monitor and adjust dosing as required. Follow-Up Labs Follow-Up Labs: Trough: Vancomycin (06/07/23 @ 0830)
[2023-06-06 10:16] LABS: Pathologist Review Reviewed
[2023-06-06] MEDS: Vancomycin HCl 750 MG in 0.9% Normal Saline (250mL Bag) 250 ML 250 MG IV (10:36)
[2023-06-06] MEDS: HEPARIN/D5w 25,000 UNITS 25,000 UNITS/250 ML IV.SOLN. 4 UNITS CONT INF (15:55)
[2023-06-06] MEDS: Atorvastatin Calcium 80 MG Tablet GT (20:17)
[2023-06-06] MEDS: Remdesivir 100 MG in 0.9% Normal Saline (250mL Bag) 230 ML 250 MG IV (20:17)
[2023-06-07] VITALS (29 sets, daily range): BP systolic 92–137; BP diastolic 51–87; PULSE 57–137; RESP 14–35; TEMP 36.1–36.5; O2SAT 86–100; BMI 21.9
[2023-06-07 03:31] LABS: Absolute Lymphocyte Count 0.99 X10^3/uL (0.83-4.51); Absolute Neutrophil Count 15.2 X10^3/uL (2.0-7.7); Basophil# 0.02 X10^3/uL; Basophil% 0.1 % (0-1); Hemoglobin 8.7 g/dL (12.0-15.0); Lymphocyte # 0.99 X10^3/ul (0.83-4.51); Lymphocyte % 5.8 % (19-41); Mean Corp Hgb Conc 32.2 g/dL (32-36); Mean Corpuscular Hgb 25.1 pg (27.0-32.0); Mean Corpuscular Volume 77.8 fL (81-99); Mean Platelet Vol. 10.1 fl (6.2-12.0); Monocyte# 0.84 X10^3/uL; Monocyte% 4.9 % (0-10); NRBC Flagged by Analyzer 0 % (0-5); Neutrophil # 15.17 X10^3/uL (2.7-7.7); Neutrophil % 88.4 % (47-70); Platelet Count 431 K/mm3 (150-450); RBC Distribution Width CV 16.9 % (11.6-14.6); RBC Distribution Width SD 47.8 fl (35.1-43.9); Red Blood Count 3.47 M/mm3 (4.2-5.4); White Blood Count 17.2 K/mm3 (4.4-11.0)
[2023-06-07 03:50] LABS: ALB/GLOB Ratio 0.7 RATIO (0.9-2.4); AST(SGOT) 55 U/L (15-37); Alanine Aminotransfer ALT/SGPT 17 U/L (13-56); Albumin, Serum 2.4 g/dL (3.2-5.0); Alkaline Phosphatase 60 U/L (45-117); Anion Gap 10 (5-15); BUN 47 mg/dL (7-18); BUN/Creat Ratio 39.2 RATIO (10-20); Calcium,Total 7.3 mg/dL (8.5-10.1); Chloride 117 mmol/L (98-107); EST Glomerular Filtration Rate 46 mL/min (>60); Est Glom Filt Rate - Afr Amer 56 mL/min (>60); Estimated Creatinine Clearance 32.83 ml/min; Globulin 3.5 g/dL (2.2-4.2); Glucose 97 mg/dL (74-106); Potassium 3.8 mmol/L (3.5-5.1); Protein, Total 5.9 g/dL (6.4-8.2); Sodium Level 145 mmol/L (136-145)
[2023-06-07] MEDS: Piperacil/Tazobactam 3.375 GM in 0.9% Normal Saline (50mL MB+) 50 ML IV (05:28)
[2023-06-07] MEDS: Levothyroxine 125 MCG Tablet NG (05:28)
[2023-06-07] MEDS: Vancomycin Trough/Random Due 1 LAB MC (08:30)
--- NOTE | 2023-06-07 08:35 | PCM.PN.CARD ---
Subjective Subjective Remains on mechanical ventilatory support. Still requiring small doses of vasopressors. Objective Data Vital Signs: Vital Signs Temp Pulse Resp BP Pulse Ox O2 Del Method O2 Flow Rate 97.6 F L 95 22 H 97/52 L 98 Nasal Cannula 2 06/07/23 00:00 06/07/23 07:00 06/07/23 07:00 06/07/23 03:00 06/07/23 07:00 06/07/23 07:00 06/07/23 07:00 FiO2 25 06/06/23 07:00 Oxygen Flow Rate (L/min) 2 Oxygen Delivery Method Nasal Cannula Weight: 127 lb 6.835 oz Body Mass Index (BMI) 21.9 Intake & Output: Intake and Output for Last 24 Hours 06/05/23 06/06/23 06/07/23 23:59 23:59 23:59 Intake Total 2112.12 / 2123.67 2024.98 / 2026.88 115.2 / 115.2 Output Total 1400 / 1400 800 / 800 Balance 712.12 / 723.67 1224.98 / 1226.88 115.2 / 115.2 Lab / Micro Data 06/07/23 03:15 06/07/23 03:15 Labs: Laboratory Results - last 24 hr 06/04/23 04:25: Diff Path Review Reviewed 06/06/23 08:30: APTT 59.6 H, Vancomycin Trough 18.8 H 06/07/23 03:15: WBC 17.2 H, RBC 3.47 L, Hgb 8.7 L, Hct 27.0 L, MCV 77.8 L, MCH 25.1 L, MCHC 32.2, RDW Std Deviation 47.8 H, RDW Coeff of [place] 16.9 H, Plt Count 431, MPV 10.1, Immature Gran % (Auto) 0.800, Neut % (Auto) 88.4 H, Lymph % (Auto) 5.8 L, [place] % (Auto) 4.9, Eos % (Auto) 0.0, Baso % (Auto) 0.1, Absolute Neuts (auto) 15.2 H, Absolute Lymphs (auto) 0.99, Nucleated RBC % 0, Sodium 145, Potassium 3.8, Chloride 117 H, Carbon Dioxide 18.0 L, Anion Gap 10, BUN 47 H, Creatinine 1.20 H, Estim Creat Clear Calc 32.83, Est GFR (MDRD) Af Amer 56 L, Est GFR (MDRD) Non-Af 46 L, BUN/Creatinine Ratio 39.2 H, Glucose 97, Calcium 7.3 L, Total Bilirubin 0.30, AST 55 H, ALT 17, Alkaline Phosphatase 60, Total Protein 5.9 L, Albumin 2.4 L, Globulin 3.5, Albumin/Globulin Ratio 0.7 L Micro: Microbiology 06/03/23 21:05 Blood Culture (Wb) - Right Hand Blood Culture - Preliminary No growth in 48 hours. 06/03/23 20:30 Blood Culture (Wb) - Left Wrist Blood Culture - Preliminary No growth in 48 hours. 06/04/23 13:00 Urine Catheter - Isaac Urine Culture - Final Culture exhibits no growth. 06/03/23 23:58 Sputum, Tracheal Aspirate Gram Stain - Final 06/03/23 23:58 Sputum, Tracheal Aspirate Respiratory Culture - Final Mixed normal respiratory maris. No Streptococcus pneumoniae, beta-hemolytic Streptococcus or Staphylococcus aureus isolated. Rhythm Strip Rhythm Strip: Sinus Rhythm Rate: 58 Cardiology Labs/Tests 06/06/23 08:30: APTT 59.6 H 06/07/23 03:15: WBC 17.2 H, RBC 3.47 L, Hgb 8.7 L, Hct 27.0 L, MCV 77.8 L, MCH 25.1 L, MCHC 32.2, Plt Count 431, MPV 10.1, Immature Gran % (Auto) 0.800, Neut % (Auto) 88.4 H, Lymph % (Auto) 5.8 L, [place] % (Auto) 4.9, Eos % (Auto) 0.0, Baso % (Auto) 0.1, Absolute Neuts (auto) 15.2 H, Nucleated RBC % 0, Sodium 145, Potassium 3.8, Chloride 117 H, Carbon Dioxide 18.0 L, Anion Gap 10, BUN 47 H, Creatinine 1.20 H, Est GFR (MDRD) Af Amer 56 L, Est GFR (MDRD) Non-Af 46 L, BUN/Creatinine Ratio 39.2 H, Glucose 97, Calcium 7.3 L, Total Bilirubin 0.30 Rhythm: EKG: ECHO: Stress Test: Cardiac Cath: PCI: CT Surgery: Holter monitor: EPS: PPM: CXR: Chest CT Scan: Radiography Diagnostic Testing: Radiology Impression Chest X-Ray 06/06/23 05:30 IMPRESSION: Stable chest except for resolution of patchy left lower lobe opacity. No acute or emergent finding. Electronically Signed: Conner Ross MD at 9:37 EST , Physical Exam Narrative Patient is intubated, sedated on mechanical ventilation. Assessment & Plan Assessment/Plan (1) Septic shock: PLAN: Manage as per intensive care. On vasopressor agents for support. (2) Acute hypoxemic respiratory failure: PLAN: Mechanically ventilated. Critical care following. (3) COVID-19: PLAN: As per critical care/internal medicine. (4) Non-ST elevation [place] (NSTEMI): PLAN: Type II in the setting of COVID-19 infection with respiratory failure and septic shock. Continue aspirin. May discontinue heparin infusion from a cardiology standpoint. (5) Takotsubo cardiomyopathy: PLAN: Recommend starting on beta-blockers and ZACKERY inhibitors once septic shock is resolved and hemodynamic stable. PLAN: Plan Will see on an as-needed basis. Please call if needed.
[2023-06-07] MEDS: Aspirin 81 MG TAB.CHEW GT (08:55)
[2023-06-07] MEDS: Midodrine HCl 5 MG Tablet 10 MG PO ×3 (08:56→17:31)
[2023-06-07] MEDS: dexAMETHasone 4 MG/ML Vial 6 MG IV (08:57)
--- NOTE | 2023-06-07 08:59 | PN.HOSP_ITS ---
Reason for Visit Reason for Visit: Shortness of breath Subjective Subjective Patient states she is still not feeling great. Complains predominantly of a sore throat and that she is significantly weak. We did discuss that the sore throat is likely related to being intubated and this would take time to resolve. I will add some Chloraseptic spray to see if this helps. Also she is complaining of that she is severely weak. We discussed that COVID alone and has probably made her weak let alone the fact she has been in bed and been on steroids. I told her it is very important for her to work with her incentive spirometer and Acapella as well as getting up with therapy and trying to sit upright in a chair some today. She voiced understanding and stated that she would try. Objective Data Objective Data Vital Signs: Vital Signs Temp Pulse Resp BP Pulse Ox O2 Del Method O2 Flow Rate 97.6 F L 95 22 H 97/52 L 98 Nasal Cannula 2 06/07/23 00:00 06/07/23 07:00 06/07/23 07:00 06/07/23 03:00 06/07/23 07:00 06/07/23 07:00 06/07/23 07:00 FiO2 25 06/06/23 07:00 Oxygen Flow Rate (L/min) 2 Oxygen Delivery Method Nasal Cannula Weight: 57.8 kg Body Mass Index (BMI) 21.9 Intake & Output: Intake and Output for Last 24 Hours 06/05/23 06/06/23 06/07/23 23:59 23:59 23:59 Intake Total 2112.12 / 2123.67 2024.98 / 2026.88 365.2 / 365.2 Output Total 1400 / 1400 800 / 800 Balance 712.12 / 723.67 1224.98 / 1226.88 365.2 / 365.2 Lab / Micro Data 06/07/23 03:15 06/07/23 03:15 Labs: Laboratory Results - last 24 hr 06/04/23 04:25: Diff Path Review Reviewed 06/06/23 08:30: Vancomycin Trough 18.8 H 06/07/23 03:15: WBC 17.2 H, RBC 3.47 L, Hgb 8.7 L, Hct 27.0 L, MCV 77.8 L, MCH 25.1 L, MCHC 32.2, RDW Std Deviation 47.8 H, RDW Coeff of [place] 16.9 H, Plt Count 431, MPV 10.1, Immature Gran % (Auto) 0.800, Neut % (Auto) 88.4 H, Lymph % (Auto) 5.8 L, [place] % (Auto) 4.9, Eos % (Auto) 0.0, Baso % (Auto) 0.1, Absolute Neuts (auto) 15.2 H, Absolute Lymphs (auto) 0.99, Nucleated RBC % 0, Sodium 145, Potassium 3.8, Chloride 117 H, Carbon Dioxide 18.0 L, Anion Gap 10, BUN 47 H, Creatinine 1.20 H, Estim Creat Clear Calc 32.83, Est GFR (MDRD) Af Amer 56 L, Est GFR (MDRD) Non-Af 46 L, BUN/Creatinine Ratio 39.2 H, Glucose 97, Calcium 7.3 L, Total Bilirubin 0.30, AST 55 H, ALT 17, Alkaline Phosphatase 60, Total Protein 5.9 L, Albumin 2.4 L, Globulin 3.5, Albumin/Globulin Ratio 0.7 L Micro: Microbiology 06/03/23 21:05 Blood Culture (Wb) - Right Hand Blood Culture - Preliminary No growth in 48 hours. 06/03/23 20:30 Blood Culture (Wb) - Left Wrist Blood Culture - Preliminary No growth in 48 hours. 06/04/23 13:00 Urine Catheter - Isaac Urine Culture - Final Culture exhibits no growth. 06/03/23 23:58 Sputum, Tracheal Aspirate Gram Stain - Final 06/03/23 23:58 Sputum, Tracheal Aspirate Respiratory Culture - Final Mixed normal respiratory maris. No Streptococcus pneumoniae, beta-hemolytic Streptococcus or Staphylococcus aureus isolated. 06/04/23 13:00 Urine Catheter - Isaac Legionella Antigen - Final 06/04/23 13:00 Urine Catheter - Isaac Streptococcus pneumoniae Antigen (M - Final 06/04/23 07:16 Mucosa - Nasopharyngeal Respiratory Panel (PCR) - Final 06/03/23 20:25 Mucosa - Nose Influenza & RSV (PCR) - Final 06/03/23 20:30 Nasal Secretion SARS-CoV-2 Antigen (Rapid) - Final SARS-CoV-2 (COVID 19) Radiography Diagnostic Testing: Radiology Impression Chest X-Ray 06/06/23 05:30 IMPRESSION: Stable chest except for resolution of patchy left lower lobe opacity. No acute or emergent finding. Electronically Signed: Conner Ross MD at 9:37 EST , Rhythm Strip Rhythm Strip: Sinus Rhythm Rate: 58 Physical Exam Const alert, oriented x3, no apparent distress, average body habitus and well nourished Constitutional Narrative: Elderly, white female, sitting up in bed eating breakfast and watching [employer], nursing at bedside, patient appears much improved HEENT normocephalic and head/scalp atraumatic HEENT Narrative: Mallampati 2, no thrush Head and Scalp: normocephalic Resp normal respiratory effort, no retractions, no use of accessory muscles and clear to auscultation bilaterally Resp Narrative: Few crackles at bases bilaterally with inspiration deeply but otherwise clear, stable on 2 L with no signs of respiratory distress Auscultation: crackles; Negative for rales, rhonchi or wheezes Cardio regular rate, regular rhythm, S1 normal heart sound, S2 normal heart sound, no murmurs, no rub, no gallops and no clicks GI normal to inspection, nondistended, normoactive bowel sounds, soft to palpation and non-tender Extremity no clubbing, cyanosis or edema Extremity Narrative: Pedal pulses are 2+ Neuro oriented x3, moves all extremities and no focal motor deficits Neuro Narrative: Significant generalized weakness noted proximal greater than distal Psych affect normal Psych Narrative: Eye contact is good, patient is appropriate, interacts appropriately Assessment & Plan Assessment/Plan (1) Acute hypoxemic respiratory failure: (2) Septic shock: (3) Non-ST elevation RI (NSTEMI): (4) COVID-19: (5) Takotsubo cardiomyopathy: PLAN: Plan Acute hypoxic respiratory failure secondary to acute COVID-19 infection/aspiration pneumonia -Intubated on 06/04/2023 -Extubated on 06/06/2023 -Sputum culture shows normal respiratory maris and all other cultures negative -Discontinue vancomycin and Zosyn and transition to Unasyn 3 g every 6 hours to complete a total of 7-day antibiotic course -day 4 of 7 -Patient still requiring low-dose Levophed at 1 mcg/min -Add midodrine 10 mg 3 times daily to facilitate discontinuation of Levophed -Remdesivir and Decadron have been initiated for acute COVID infection -Remdesivir day 4 of 5 -Decadron day 4 of 10 -Baricitinib day 4 -Pulmonary/critical care medicine following -Once hemodynamically stable will discharge out of ICU Septic shock -Doubt COVID-19 is 100% responsible for this -Remains on Levophed at 1 mcg/min -Add midodrine 10 3 times daily -Procalcitonin was greater than 50 -All cultures except sputum are negative -Sputum culture demonstrates oral maris -Discontinue vancomycin and Zosyn and transition to Unasyn as noted above Elevated anion gap metabolic acidosis -Suspect propofol infusion syndrome -P.o. bicarb continues to improve -Anion gap remains normal COVID-19 pneumonia -Treatment as noted above Leukocytosis -Remains elevated however cultures are negative other than her sputum being consistent with aspiration -Antibiotics changed as noted above -Will continue to monitor -Patient is also on Decadron which may be confounding this Severe debility -PT and OT following -Strongly encourage patient to participate in therapy services today to work on strength -Patient may very likely need skilled at discharge due to her profound weakness -Case management and social science professor following NSTEMI -Acute troponin elevation -Cardiology feels that this is most likely a type II infarct related to respiratory failure and shock -Echocardiogram was performed and showed an EF of 20% with anterior and apical akinesis, moderate mitral and tricuspid valve insufficiency and a right ventricular systolic pressure of 40 mmHg -Okay to discontinue heparin drip per discussion with cardiology -Continue aspirin -Continue high intensity dose statin -Total cholesterol is 116/LDL 45/HDL 48/triglycerides 118 -Hold antihypertensives due to hypotension -Cardiology is following-appreciate input -No current follow-up recommended at this time and cardiology has signed off Acute cardiomyopathy -Appears to be consistent with Takotsubo cardiomyopathy -Once patient off pressors and blood pressure stabilized will initiate appropriate goal-directed therapy and patient will need outpatient follow-up echocardiogram in 6 to 8 weeks for reassessment -Patient still on pressors so unable to start any appropriate goal-directed therapy today we will continue to monitor -Diuresis as hemodynamics allow -Cardiology following-await further input Chronic normocytic anemia -Follows outpatient with hematology -Previous hospitalization about 1 year ago she was found to have a 3 angiodysplastic lesions in the stomach that were treated with heater probe, 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 History of pulmonary nodules -Patient had been following with oncology -Recommended further workup with PET scan and to proceed with biopsy if there was significant uptake however patient declined and plan was to follow with serial CAT scans. -Repeat CAT scan was recommended at 6 months and that was on August 02, 2022 -Does not appear patient ever followed up with CAT scan History of large pleural effusion -Will monitor -pleural effusions noted on CAT scan or chest x-ray at admission Hypothyroidism -Continue home levothyroxine via G-tube Hypertension -Hold home antihypertensives as patient is currently hypotensive Hyperlipidemia -Lipid panel is unremarkable with current therapy having a total cholesterol 116/LDL 45/HDL 48 -Continue statin but transition to high intensity dosing given NSTEMI DVT prophylaxis -Heparin drip was discontinued -Start Lovenox subcu for DVT prophylaxis CODE STATUS -DNR CCA okay for intubation as per discussion at the time of admission prior to intubation Charges/Coding Visit Charges Inpatient E&M: 67891 Subs Hosp L2
[2023-06-07] MEDS: Ampicillin/Sulbactam 3 GM in 0.9% Normal Saline (100mL MB+) 100 ML IV ×3 (11:22→23:49)
[2023-06-07] MEDS: Enoxaparin 40 MG/0.4 ML Syringe SC (11:22)
[2023-06-07] MEDS: Pantoprazole Sodium 40 MG Tablet PO (11:22)
--- NOTE | 2023-06-07 12:10 | CASEMGMT ---
FE GAGE in to discuss needs at discharge with patient and son. FE GAGE explained DC planning process with patient and son. Patient asked if she could stay at [facility] for additional rehab. FE GAGE discuss TCU at discharge, but not sure on bed availability. Patient voiced understanding, denied further questions or concerns. FE GAGE updated SW regarding request for TCU at discharge.
--- NOTE | 2023-06-07 15:22 | PN.CC_ITS ---
Assessment & Plan Assessment/Plan (1) Acute hypoxemic respiratory failure: (2) Septic shock: PLAN: Plan RECOMMENDATIONS: * Respiratory status remains stable she is now on room air. * Evaluated by speech. tolerating diet * Patient remains on Levophed thus midodrine was started to help wean her off * Okay to switch to Unasyn to complete 7 days total of antibiotics * Continue remdesivir and Decadron * She is off heparin drip * DVT prophylaxis subcu Lovenox IMPRESSIONS: 1. Septic shock The patient presented with sepsis due to COVID-19 pneumonia with concern for concurrent bacterial superinfection with acute sepsis related organ dysfunction as evidenced by acute respiratory failure requiring invasive mechanical ventilatory support. Initially, fluid resuscitation was withheld over concerns for worsening respiratory status. Hold on additional fluid boluses. Chest x-ray shows no significant pleural effusion. Patient currently on pressor therapy. Continuing broad-spectrum antimicrobials. Continue Decadron and remdesivir. Likely transition to Unasyn if culture negative to cover aspiration 2. Acute hypoxemic respiratory failure Concern for multifactorial etiology. Obviously, the patient has COVID-19 pneumonia. Patient was extubated on 06/06 3. NSTEMI Most likely secondary demand ischemia in the setting of #1 and 2. Completed heparin drip 4. History of pulmonary nodules/hypothyroidism/hypertension/hyperlipidemia/anemia Complicates care, management, recovery and prognosis. Hold home antihypertensives. The patient has been followed on an outpatient basis by oncology with regard to her underlying pulmonary nodules. She is electing to pursue serial CT scans on an outpatient basis. However, it does not appear that she ever followed up for repeat imaging. 5. Probable propofol infusion syndrome Unclear etiology of metabolic acidosis. Clinical suspicion for propofol infusion syndrome as metabolic acidosis has improved significantly following discontinuation. Some concern that metabolic acidosis could lead to increased respiratory demand. Patient will be given an amp of bicarb prior to extubation TIME: 32 minutes of critical care time, independent of procedures, was spent addressing the patient's septic shock, NSTEMI, review of all data and collaboration with the care team. Subjective Subjective No acute events. She tolerated being off oxygen to room air Objective Data Objective Data Vital Signs: Vital Signs Temp Pulse Resp BP Pulse Ox O2 Del Method O2 Flow Rate 36.1 C L 96 27 H 122/71 H 94 Nasal Cannula 2 06/07/23 13:00 06/07/23 15:00 06/07/23 15:00 06/07/23 15:00 06/07/23 15:13 06/07/23 15:13 06/07/23 15:13 FiO2 25 06/06/23 07:00 Oxygen Flow Rate (L/min) 2 Oxygen Delivery Method Nasal Cannula Weight: 57.8 kg Body Mass Index (BMI) 21.9 Intake & Output: Intake and Output for Last 24 Hours 06/05/23 06/06/23 06/07/23 23:59 23:59 23:59 Intake Total 2112.12 / 2123.67 2024.98 / 2026.88 910.62 / 910.62 Output Total 1400 / 1400 800 / 800 150 / 150 Balance 712.12 / 723.67 1224.98 / 1226.88 760.62 / 760.62 Lab / Micro Data 06/07/23 03:15 06/07/23 03:15 Labs: Laboratory Results - last 24 hr 06/07/23 03:15: WBC 17.2 H, RBC 3.47 L, Hgb 8.7 L, Hct 27.0 L, MCV 77.8 L, MCH 25.1 L, MCHC 32.2, RDW Std Deviation 47.8 H, RDW Coeff of [place] 16.9 H, Plt Count 431, MPV 10.1, Immature Gran % (Auto) 0.800, Neut % (Auto) 88.4 H, Lymph % (Auto) 5.8 L, [place] % (Auto) 4.9, Eos % (Auto) 0.0, Baso % (Auto) 0.1, Absolute Neuts (auto) 15.2 H, Absolute Lymphs (auto) 0.99, Nucleated RBC % 0, Sodium 145, Potassium 3.8, Chloride 117 H, Carbon Dioxide 18.0 L, Anion Gap 10, BUN 47 H, Creatinine 1.20 H, Estim Creat Clear Calc 32.83, Est GFR (MDRD) Af Amer 56 L, Est GFR (MDRD) Non-Af 46 L, BUN/Creatinine Ratio 39.2 H, Glucose 97, Calcium 7.3 L, Total Bilirubin 0.30, AST 55 H, ALT 17, Alkaline Phosphatase 60, Total Protein 5.9 L, Albumin 2.4 L, Globulin 3.5, Albumin/Globulin Ratio 0.7 L Micro: Microbiology 06/03/23 21:05 Blood Culture (Wb) - Right Hand Blood Culture - Preliminary No growth in 48 hours. 06/03/23 20:30 Blood Culture (Wb) - Left Wrist Blood Culture - Preliminary No growth in 48 hours. 06/04/23 13:00 Urine Catheter - Isaac Urine Culture - Final Culture exhibits no growth. 06/03/23 23:58 Sputum, Tracheal Aspirate Gram Stain - Final 06/03/23 23:58 Sputum, Tracheal Aspirate Respiratory Culture - Final Mixed normal respiratory maris. No Streptococcus pneumoniae, beta-hemolytic Streptococcus or Staphylococcus aureus isolated. 06/04/23 13:00 Urine Catheter - Isaac Legionella Antigen - Final 06/04/23 13:00 Urine Catheter - Isaac Streptococcus pneumoniae Antigen (M - Final 06/04/23 07:16 Mucosa - Nasopharyngeal Respiratory Panel (PCR) - Final 06/03/23 20:25 Mucosa - Nose Influenza & RSV (PCR) - Final 06/03/23 20:30 Nasal Secretion SARS-CoV-2 Antigen (Rapid) - Final SARS-CoV-2 (COVID 19) Rhythm Strip Rhythm Strip: Sinus Rhythm Rate: 58 Physical Exam Narrative General alert no acute distress HEENT. Normocephalic atraumatic, pupils equal and reactive Respiratory reduced air entry bilaterally, no wheezing Cardiac S1-S2, regular rate and rhythm GI abdomen soft and nontender MSK no lower extremity edema Skin no rashes Neuro moves all extremities, no dysarthria, no facial droop Charges/Coding Procedures Hospitalists Procedures: [id number] Critical Care 1st Hr
--- NOTE | 2023-06-07 19:20 | RAD_ITS ---
INDICATION: DYSPNEA EXAMINATION/TECHNIQUE: X-RAY - XR Chest 1 View COMPARISON: June 06, 2023 FINDINGS: LINES/DEVICES: Right venous line with tip at the right atrial level.. LUNGS: Increasing right pleural effusion and worsening bilateral infiltrates/edema. MEDIASTINUM AND CARDIOVASCULAR STRUCTURES: Cardiac silhouette not enlarged. Central airways and mediastinal contour are unremarkable. BONES AND SOFT TISSUES: Degenerative vertebral changes. RAD/Chest 1 View (Portable) IMPRESSION: Increasing right pleural effusion and worsening bilateral infiltrates/edema. Electronically Signed: Aníbal Gamboa DO at 19:44 EST Reading Location ID and State: [facility] / [place] Tel [phone], Service support ,
[2023-06-07] MEDS: Furosemide 40 MG/4 ML Vial IV (19:26)
[2023-06-07 19:47] LABS: Anion Gap 13 (5-15); BUN 50 mg/dL (7-18); BUN/Creat Ratio 31.2 RATIO (10-20); Calcium,Total 8.2 mg/dL (8.5-10.1); Chloride 116 mmol/L (98-107); EST Glomerular Filtration Rate 33 mL/min (>60); Est Glom Filt Rate - Afr Amer 40 mL/min (>60); Estimated Creatinine Clearance 24.62 ml/min; Glucose 278 mg/dL (74-106); Potassium 4.5 mmol/L (3.5-5.1); Sodium Level 145 mmol/L (136-145)
[2023-06-07 20:03] LABS: Allen Test Positive; Base Excess -20 mmol/L (-2 to +2); Bicarbonate 10.3 mmol/L (22-26); Blood Gas Specimen Type ART; Mode Not entered; O2 Delivery Device BiPAP; PEEP 12; PO2 85 mmHG (75-100); RR 14; SITE R Radial; SO2 91 % (95-99); Total Carbon Dioxide 11 mmol/L; pCO2 36.8 mmHg (35-45); pH 7.05 (7.35-7.45)
--- NOTE | 2023-06-07 20:06 | NURSING ---
1800- PT SITTING IN CHAIR. REPORTS FEELING SOB. ASKING TO RETURN TO BED. SPO2=94% ON O2 AT 2L NC. PT ASSISTED TO BED X2. ATTENDS CHANGED D/T INCONT STOOL. STOOL SAMPLE COLLECTED FOR OCCULT BLOOD PER ORDER. PT CONT TO C/O SOB, SPO2 DECREASING TO MID 80'S ON 2L, O2 INCREASED TO 4L NC. PT NOTED TO HAVE AUDIBLE CRACKLES, LS W/COARSE CRACKLES. BLE W/+2 PITTING EDEMA. 1829- DR SHIN BARRIENTOS, REQUESTING LASIX. 1899- DR LEDEZMA ON UNIT. INFORMED OF PT STATUS AND LASIX REQUESTED. VERBAL ORDER RECEIVED FOR 40MG LASIX IV, STAT CXR AND STAT BMP. 1925- LASIX GIVEN, CXR DONE, BMP DRAWN. INCOMING NURSE UPDATED ON PT STATUS. CPS PRESENT AT BEDSIDE. SPO2=88% ON 15L HIGH FLOW NC. 1954- CPS STARTED PT ON BIPAP W/AVAPS, SPO2 INCREASING TO 97% 1999- DR LEDEZMA PRESENT ON UNIT- UPDATED ON PT STATUS.
[2023-06-07] MEDS: Ondansetron 4 MG/2 ML Vial IM (20:18)
[2023-06-07] MEDS: Etomidate 20 MG/10 ML Vial 10 MG IV (20:19)
[2023-06-07] MEDS: Succinylcholine Chloride 200 MG/10 ML SYRINGE 10 MG IV (20:20)
[2023-06-07] MEDS: Sodium Bicarbonate 8.4% 50 ML Syringe 50 MEQ IV ×2 (20:24)
[2023-06-07] MEDS: fentaNYL drip 100 ML 5 MCG CONT INF (20:30)
--- NOTE | 2023-06-07 20:32 | RAD_ITS ---
INDICATION: ETT and OG Tube placement EXAMINATION/TECHNIQUE: X-RAY - XR Chest 1 View COMPARISON: FINDINGS: LINES/DEVICES: Endotracheal tube with tip 39 mm above the tony. Nasogastric tube in the stomach. Right venous tip at the right atrium. LUNGS: Right pleural effusion. Bilateral infiltrates/edema. No pneumothorax. MEDIASTINUM AND CARDIOVASCULAR STRUCTURES: Cardiac silhouette not enlarged. Central airways and mediastinal contour are unremarkable. BONES AND SOFT TISSUES: Degenerative vertebral changes. RAD/Chest 1 View (Portable) IMPRESSION: Right pleural effusion. Bilateral infiltrates/edema. Electronically Signed: Aníbal Gamboa DO at 21:00 EST Reading Location ID and State: [facility] / [place] Tel [phone], Service support ,
--- NOTE | 2023-06-07 21:25 | CPS ---
Critical ABG values Dr. Pantoja aware
--- NOTE | 2023-06-07 21:44 | PN.HOSP_ITS ---
Hospitalist Note I was called by the SERVICE ADVISOR slightly before shift change and informed patient was dyspneic and appeared to be failing her BiPAP. She then had an ABG done that revealed a pH of 7.05 so she was set up to be intubated immediately. She was induced with 10 mg of etomidate and 10 mg succinylcholine and intubated on the first attempt with glide scope with tube advanced to 23 cm at the lip. Follow- up chest x-ray revealed endotracheal tube in good position. UN DATE: 06/07/23 [facility], DEPARTMENT OF LABORATORIES PAGE 1 RUN TIME: 2147 Specimen Inquiry [address], [place], [place], [id number] PATIENT: ROS COFFEY LOC: ICU U #: [id number] : 1945 AGE/SX: 77/F FACILITY: [facility] ROOM: ICU02 RE06/04/[address]: Dr. Melissa Inman DO STATUS:ADM IN ED: 1 DIS: ~ SPEC #: [id number] WANDA: 06/07/23 STATUS: COMP REQ #: [id number] RECD: 06/07/[address]: Dr. Melissa Inman, ENTERED: 06/07/[address]: Dr. Nolan Eastman, MD Dr. Everette Shine Dr., MD Dr. Derek Brown, MD Dr. Garcia Sykes Dr., DO MD Lili Armendariz, TEAM ASSEMBLY LINE MACHINE OPERATOR-C ~ Test Result Flag Adult Reference Range IBG Blood Gas Type ART SITE R Radial MICHAEL TEST Positive Mode Not entered O2 Delivery Dev BiPAP Vt 400.0 mL RR 14 FI02 60.0 PEEP 12 Read Back By Yes pH 7.05 *L 7.35-7.45 pCO2 36.8 35-45 mmHg PO2 85 75-100 mmHG HCO3 10.3 L 22-26 mmol/L BE -20 L -2 to +2 mmol/L TOTAL CO2 11 mmol/L SO2 91 L 95-99 % END OF REPORT [facility] Imaging Services [address] [place] [address] Chest 1 View (Portable) MR#: [id number] Acct: [id number] Name: ROS COFFEY Rep #: [id number] : 1945 F 77 From: Aníbal Gamboa DO PCP: Dr. Garcia Angelo DO Status: ADM IN Study: Chest 1 View (Portable) Date of Exam: 06/07/23 Exam# [id number] Ordering Dr: Naun Houser DO INDICATION: ETT and OG Tube placement EXAMINATION/TECHNIQUE: X-RAY - XR Chest 1 View COMPARISON: FINDINGS: LINES/DEVICES: Endotracheal tube with tip 39 mm above the tony. Nasogastric tube in the stomach. Right venous tip at the right atrium. LUNGS: Right pleural effusion. Bilateral infiltrates/edema. No pneumothorax. MEDIASTINUM AND CARDIOVASCULAR STRUCTURES: Cardiac silhouette not enlarged. Central airways and mediastinal contour are unremarkable. BONES AND SOFT TISSUES: Degenerative vertebral changes. RAD/Chest 1 View (Portable) IMPRESSION: Right pleural effusion. Bilateral infiltrates/edema. Electronically Signed: Aníbal Gamboa DO at 21:00 EST Reading Location ID and State: [facility] / [place] Tel [phone], Service support , CC: Dr. Naun Houser DO; Dr. Garcia Angelo DO ~ Shank Inspector: Signed
--- NOTE | 2023-06-07 21:44 | PCM.HOSP.N ---
Hospitalist Note I was called by the BABY STROLLER RENTAL CLERK slightly before shift change and informed patient was dyspneic and appeared to be failing her BiPAP. She then had an ABG done that revealed a pH of 7.05 so she was set up to be intubated immediately. She was induced with 10 mg of etomidate and 10 mg succinylcholine and intubated on the first attempt with glide scope with tube advanced to 23 cm at the lip. Follow-up chest x-ray revealed endotracheal tube in good position. UN DATE: 06/07/23 [facility], DEPARTMENT OF LABORATORIES PAGE 1 RUN TIME: 2147 Specimen Inquiry [address], [place], [place], [id number] PATIENT: ROS COFFEY LOC: ICU U #: [id number] : 1945 AGE/SX: 77/F FACILITY: [facility] ROOM: ICU02 RE06/04/[address]: Dr. Melissa Inman DO STATUS:ADM IN ED: 1 DIS: ~ SPEC #: [id number] WANDA: 06/07/23 STATUS: COMP REQ #: [id number] RECD: 06/07/[address]: Dr. Melissa Inman, ENTERED: 06/07/[address]: Dr. Nolan Eastman, MD Dr. Everette Shine Dr., MD Dr. Derek Brown, MD Dr. Garcia Sykes Dr., DO MD Lili Armendariz, SKULL CHOPPER-C ~ Test Result Flag Adult Reference Range IBG Blood Gas Type ART SITE R Radial MICHAEL TEST Positive Mode Not entered O2 Delivery Dev BiPAP Vt 400.0 mL RR 14 FI02 60.0 PEEP 12 Read Back By Yes pH 7.05 *L 7.35-7.45 pCO2 36.8 35-45 mmHg PO2 85 75-100 mmHG HCO3 10.3 L 22-26 mmol/L BE -20 L -2 to +2 mmol/L TOTAL CO2 11 mmol/L SO2 91 L 95-99 % END OF REPORT [facility] Imaging Services [address] [place] [address] Chest 1 View (Portable) MR#: [id number] Acct: [id number] Name: ROS COFFEY Rep #: [id number] : 1945 F 77 From: Aníbal Gamboa DO PCP: Dr. Garcia Angelo DO Status: ADM IN Study: Chest 1 View (Portable) Date of Exam: 06/07/23 Exam# [id number] Ordering Dr: Naun Houser DO INDICATION: ETT and OG Tube placement EXAMINATION/TECHNIQUE: X-RAY - XR Chest 1 View COMPARISON: FINDINGS: LINES/DEVICES: Endotracheal tube with tip 39 mm above the tony. Nasogastric tube in the stomach. Right venous tip at the right atrium. LUNGS: Right pleural effusion. Bilateral infiltrates/edema. No pneumothorax. MEDIASTINUM AND CARDIOVASCULAR STRUCTURES: Cardiac silhouette not enlarged. Central airways and mediastinal contour are unremarkable. BONES AND SOFT TISSUES: Degenerative vertebral changes. RAD/Chest 1 View (Portable) IMPRESSION: Right pleural effusion. Bilateral infiltrates/edema. Electronically Signed: Aníbal Gamboa DO at 21:00 EST Reading Location ID and State: [facility] / [place] Tel [phone], Service support , CC: Dr. Naun Houser DO; Dr. Garcia Angelo DO ~ Cargo Surveyor: Signed
[2023-06-07] MEDS: dexMEDEtomidine 400 MCG in 0.9% Normal Saline (100mL Bag) 96 ML 7.20000000000000018 MCG CONT INF (21:56)
[2023-06-07] MEDS: Atorvastatin Calcium 40 MG Tablet PO (22:02)
[2023-06-07] MEDS: Remdesivir 100 MG in 0.9% Normal Saline (250mL Bag) 230 ML 250 MG IV (22:34)
[2023-06-07 22:36] LABS: Allen Test Positive; Base Excess -7 mmol/L (-2 to +2); Bicarbonate 18.6 mmol/L (22-26); Blood Gas Specimen Type ART; Mode AC; O2 Delivery Device ET Tube; PEEP 5; PO2 385 mmHG (75-100); RR 14; SITE R Radial; SO2 100 % (95-99); Total Carbon Dioxide 20 mmol/L; pCO2 31.9 mmHg (35-45); pH 7.38 (7.35-7.45)
[2023-06-08] VITALS (33 sets, daily range): BP systolic 89–135; BP diastolic 55–69; PULSE 10–58; RESP 10–14; TEMP 36–36.8; O2SAT 57–100; BMI 21.0
--- NOTE | 2023-06-08 | FLU_PTH ---
PATHOLOGY RESULTS PATIENT: ROS COFFEY LOC: [facility] U#:[id number] AGE/SX: 77/F ROOM: ICU02 RE06/04/[address]: Dr. Nolan Eastman DO : 1945 BED: 1 DIS: 06/13/2023 SPEC #: [id number] RECD: 06/11/23 07:33 STATUS: SOUT REQ #: [id number] WANDA: 06/08/23 00:[address]: Olivia Daniel DEPT: CYTOLOGY RECD BY: Raya Siegel ENTERED: 06/11/23 07:33 SP TYPE: Fluid OTHR DR: Dr. Nolan Eastman, MD Dr. Everette Shine Dr., MD Dr. Derek Brown, MD Dr. Melissa Landers Dr., MD Dr. Garcia Sykes Dr., DO MD Lili Armendariz, EP SPECIALIST-C Tissues: Pleural fluid, NOS Procedures: Special Stain Group II Surgery Specimen Level IV Cytospin Fluid Comments: @ Ordering doctor for SSII edited from to @ by LANDON at 06/11/23 1435 @ Ordering doctor for SUIV edited from to DR.LALJUN Martin by LANDON at 06/11/23 1435 @ Ordering doctor for CYSPIN edited from to DR.LALJUN Martin by LANDON at 06/11/23 1435 @ Submitting doctor edited from to DR.LALJUN Veronica NAVARRETE at 06/11/23 1435 HEADER OPERATION: Thoracentesis PRE-OP DIAGNOSIS: Pleural effusion TISSUE SUBMITTED: Thoracentesis fluid for cytology DIAGNOSIS CYTOLOGY Thoracentesis fluid for cytology (cytospin and cell block): Negative for malignant cells. See comment. SJ:wendie 06/12/2023 COMMENT Clinical correlation and appropriate follow up are necessary. CYTOLOGY STUDY Slides are reviewed. CYTOLOGY GROSS Received is 40 ml of yellow cloudy fluid labeled with the patient's name and and designated per the requisition as thoracentesis. Submitted for cytology preparation including cell block. / wendie 06/11/2023 TC:5 CPT: 42202, 74761
[2023-06-08] MEDS: fentaNYL drip 100 ML 10 MCG CONT INF ×3 (04:18→20:45)
[2023-06-08 04:28] LABS: Absolute Lymphocyte Count 1.31 X10^3/uL (0.83-4.51); Absolute Neutrophil Count 11.4 X10^3/uL (2.0-7.7); Basophil# 0.03 X10^3/uL; Basophil% 0.2 % (0-1); Hematocrit 27.1 % (37-47); Hemoglobin 8.6 g/dL (12.0-15.0); Lymphocyte # 1.31 X10^3/ul (0.83-4.51); Lymphocyte % 9.4 % (19-41); Mean Corp Hgb Conc 31.7 g/dL (32-36); Mean Corpuscular Hgb 24.7 pg (27.0-32.0); Mean Corpuscular Volume 77.9 fL (81-99); Mean Platelet Vol. 10.4 fl (6.2-12.0); Monocyte# 1.02 X10^3/uL; Monocyte% 7.3 % (0-10); NRBC Flagged by Analyzer 0 % (0-5); Neutrophil # 11.37 X10^3/uL (2.7-7.7); Neutrophil % 81.8 % (47-70); Platelet Count 397 K/mm3 (150-450); RBC Distribution Width CV 16.9 % (11.6-14.6); RBC Distribution Width SD 47.8 fl (35.1-43.9); Red Blood Count 3.48 M/mm3 (4.2-5.4); White Blood Count 13.9 K/mm3 (4.4-11.0)
[2023-06-08 04:53] LABS: ALB/GLOB Ratio 0.7 RATIO (0.9-2.4); AST(SGOT) 79 U/L (15-37); Alanine Aminotransfer ALT/SGPT 22 U/L (13-56); Albumin, Serum 2.3 g/dL (3.2-5.0); Alkaline Phosphatase 66 U/L (45-117); Anion Gap 12 (5-15); BUN 50 mg/dL (7-18); BUN/Creat Ratio 35.2 RATIO (10-20); Calcium,Total 7.5 mg/dL (8.5-10.1); Chloride 117 mmol/L (98-107); Creatinine, Serum 1.42 mg/dL (0.55-1.02); EST Glomerular Filtration Rate 38 mL/min (>60); Est Glom Filt Rate - Afr Amer 46 mL/min (>60); Estimated Creatinine Clearance 27.74 ml/min; Globulin 3.4 g/dL (2.2-4.2); Glucose 132 mg/dL (74-106); Potassium 3.6 mmol/L (3.5-5.1); Protein, Total 5.7 g/dL (6.4-8.2); Sodium Level 150 mmol/L (136-145)
[2023-06-08] MEDS: dexMEDEtomidine 400 MCG in 0.9% Normal Saline (100mL Bag) 96 ML 7.20000000000000018 MCG CONT INF ×2 (05:17→20:11)
[2023-06-08] MEDS: Ampicillin/Sulbactam 3 GM in 0.9% Normal Saline (100mL MB+) 100 ML IV ×4 (05:18→23:55)
[2023-06-08] MEDS: Levothyroxine 125 MCG Tablet NG (05:18)
--- NOTE | 2023-06-08 08:10 | PCM.PN.HOSP ---
Reason for Visit Reason for Visit: Shortness of breath Subjective Subjective Patient required reintubation overnight for acute respiratory distress. It seems that maybe she had some pulmonary edema but etiology is not entirely clear as of yet. She was initially given some Lasix and tried on BiPAP however she had worsening acidosis and required intubation at about 10 PM. No issues since then. Currently only requiring an FiO2 of 30%. Objective Data Objective Data Vital Signs: Vital Signs Temp Pulse Resp BP Pulse Ox O2 Del Method O2 Flow Rate 96.8 F L 54 L 14 111/62 98 Mechanical Ventilator 15 06/08/23 04:00 06/08/23 07:00 06/08/23 07:00 06/08/23 07:00 06/08/23 07:00 06/08/23 07:00 06/07/23 20:03 FiO2 30 06/08/23 07:00 Oxygen Flow Rate (L/min) 15 Oxygen Delivery Method Mechanical Ventilator Weight: 55.6 kg Body Mass Index (BMI) 21.0 Intake & Output: Intake and Output for Last 24 Hours 06/06/23 06/07/23 06/08/23 23:59 23:59 23:59 Intake Total 2024.98 / 2026.88 1352.80 / 1370.00 361.60 / 361.60 Output Total 800 / 800 450 / 450 1100 / 1100 Balance 1224.98 / 1226.88 902.80 / 920.00 -738.40 / -738.40 Lab / Micro Data 06/08/23 04:10 06/08/23 04:10 Labs: Laboratory Results - last 24 hr 06/07/23 19:25: Sodium 145, Potassium 4.5, Chloride 116 H, Carbon Dioxide 16.0 L, Anion Gap 13, BUN 50 H, Creatinine 1.60 H, Estim Creat Clear Calc 24.62, Est GFR (MDRD) Af Amer 40 L, Est GFR (MDRD) Non-Af 33 L, BUN/Creatinine Ratio 31.2 H, Glucose 278 H, Calcium 8.2 L 06/08/23 04:10: WBC 13.9 H, RBC 3.48 L, Hgb 8.6 L, Hct 27.1 L, MCV 77.9 L, MCH 24.7 L, MCHC 31.7 L, RDW Std Deviation 47.8 H, RDW Coeff of [place] 16.9 H, Plt Count 397, MPV 10.4, Immature Gran % (Auto) 1.300 H, Neut % (Auto) 81.8 H, Lymph % (Auto) 9.4 L, [place] % (Auto) 7.3, Eos % (Auto) 0.0, Baso % (Auto) 0.2, Absolute Neuts (auto) 11.4 H, Absolute Lymphs (auto) 1.31, Nucleated RBC % 0, Sodium 150 H, Potassium 3.6, Chloride 117 H, Carbon Dioxide 21.0, Anion Gap 12, BUN 50 H, Creatinine 1.42 H, Estim Creat Clear Calc 27.74, Est GFR (MDRD) Af Amer 46 L, Est GFR (MDRD) Non-Af 38 L, BUN/Creatinine Ratio 35.2 H, Glucose 132 H, Calcium 7.5 L, Total Bilirubin 0.30, AST 79 H, ALT 22, Alkaline Phosphatase 66, Total Protein 5.7 L, Albumin 2.3 L, Globulin 3.4, Albumin/Globulin Ratio 0.7 L Micro: Microbiology 06/07/23 18:30 Stool Stool Occult Blood (STEPHANIE) - Final Occult Blood Positive 06/03/23 21:05 Blood Culture (Wb) - Right Hand Blood Culture - Preliminary No growth in 48 hours. 06/03/23 20:30 Blood Culture (Wb) - Left Wrist Blood Culture - Preliminary No growth in 48 hours. 06/04/23 13:00 Urine Catheter - Isaac Urine Culture - Final Culture exhibits no growth. 06/03/23 23:58 Sputum, Tracheal Aspirate Gram Stain - Final 06/03/23 23:58 Sputum, Tracheal Aspirate Respiratory Culture - Final Mixed normal respiratory maris. No Streptococcus pneumoniae, beta-hemolytic Streptococcus or Staphylococcus aureus isolated. 06/04/23 13:00 Urine Catheter - Isaac Legionella Antigen - Final 06/04/23 13:00 Urine Catheter - Isaac Streptococcus pneumoniae Antigen (M - Final 06/04/23 07:16 Mucosa - Nasopharyngeal Respiratory Panel (PCR) - Final 06/03/23 20:25 Mucosa - Nose Influenza & RSV (PCR) - Final 06/03/23 20:30 Nasal Secretion SARS-CoV-2 Antigen (Rapid) - Final SARS-CoV-2 (COVID 19) ABG Data ABG results: ABG 06/07/23 06/07/23 20:00 22:33 Specimen Type ART ART Sample Site R Radial R Radial pH 7.05 L* 7.38 Bicarbonate Actual 10.3 L 18.6 L Total CO2 11 20 Base Excess -20 L -7 L O2 Saturation 91 L 100 H O2 % 60.0 70.0 ABG pCO2 36.8 31.9 L ABG pO2 85 385 H* Hank Test Positive Positive Respiration Rate 14 14 O2 Delivery Device BiPAP ET Tube Vent Mode Not entered AC Tidal Volume 400.0 450.0 POC PEEP 12 5 Crit Call To/Read Back Yes Yes Radiography Diagnostic Testing: Radiology Impression Chest X-Ray 06/07/23 19:20 IMPRESSION: Increasing right pleural effusion and worsening bilateral infiltrates/edema. Electronically Signed: Aníbal Gamboa DO at 19:44 EST , Chest X-Ray 06/07/23 20:32 IMPRESSION: Right pleural effusion. Bilateral infiltrates/edema. Electronically Signed: Aníbal Gamboa DO at 21:00 EST , Rhythm Strip Rhythm Strip: Sinus Rhythm Rate: 58 Physical Exam Const no apparent distress, average body habitus and well nourished Constitutional Narrative: Elderly, white female, lying in bed on mechanical ventilation, currently appears comfortable HEENT normocephalic and head/scalp atraumatic HEENT Narrative: ET tube and OG in place Resp no retractions, no use of accessory muscles and clear to auscultation bilaterally Resp Narrative: Patient is intubated on a ventilator Auscultation: Negative for rales, rhonchi or wheezes Cardio regular rate, regular rhythm, S1 normal heart sound, S2 normal heart sound, no murmurs, no rub, no gallops and no clicks GI normal to inspection, nondistended, normoactive bowel sounds, soft to palpation, non-tender and non-distended Extremity no clubbing, cyanosis or edema Extremity Narrative: Pedal pulses are 2+, trace bilateral lower extremity pedal edema Neuro Neuro Narrative: Intubated and Psych Psych Narrative: Unable to assess due to intubation Assessment & Plan Assessment/Plan (1) Acute hypoxemic respiratory failure: (2) Septic shock: (3) Non-ST elevation [place] (NSTEMI): (4) COVID-19: (5) Takotsubo cardiomyopathy: PLAN: Plan Acute hypoxic respiratory failure secondary to acute COVID-19 infection/aspiration pneumonia -Intubated on 06/04/2023 -Extubated on 06/06/2023 -Reintubated 06/07/2023 -Preintubation ABG shows a pH of 7.05 but acidosis is more metabolic than respiratory -Check BNP -Lasix 40 mg x 1 dose as chest x-ray looks wet -Sputum culture shows normal respiratory maris and all other cultures negative -Unasyn 3 g every 6 hours to complete a total of 7-day antibiotic course -day 5 of 7 -Off Levophed since late yesterday morning -Remdesivir and Decadron have been initiated for acute COVID infection -Remdesivir day -Decadron day -Baricitinib day -Pulmonary/critical care medicine following Septic shock -Doubt COVID-19 is 100% responsible for this -Resolved -Off pressors since yesterday -Continue midodrine for now -Procalcitonin was greater than 50 -All cultures except sputum are negative -Sputum culture demonstrates oral maris -Unasyn as noted above Metabolic acidosis -Propofol infusion syndrome suspected 1 anion gap metabolic acidosis was present -Anion gap is now normalized however patient was 7.05 with a predominantly anabolic acidosis prior to intubation -Repeat ABG is pending now -Serum bicarb on lab this morning is 21 with normal anion gap -Repeat BMP at 1200 -Suspect this may be the reason for her extubation failure in combination with some volume overload -May need to add some oral bicarb COVID-19 pneumonia -Treatment as noted above Leukocytosis -Remains elevated however cultures are negative other than her sputum being consistent with aspiration -Antibiotics changed as noted above -Continues to trend down -Will continue to monitor -Patient is also on Decadron which may be confounding this Severe debility -PT and OT following -Strongly encourage patient to participate in therapy services today to work on strength -Patient may very likely need skilled at discharge due to her profound weakness -Case management and social insurance administrator following NSTEMI -Acute troponin elevation -Cardiology feels that this is most likely a type II infarct related to respiratory failure and shock -Echocardiogram was performed and showed an EF of 20% with anterior and apical akinesis, moderate mitral and tricuspid valve insufficiency and a right ventricular systolic pressure of 40 mmHg -Continue aspirin -Continue high intensity dose statin--> will transition to lower home dose at discharge -Total cholesterol is 116/LDL 45/HDL 48/triglycerides 118 -Hold antihypertensives due to hypotension -Cardiology is following-appreciate input -No current follow-up recommended at this time and cardiology has signed off Acute cardiomyopathy -Appears to be consistent with Takotsubo cardiomyopathy -Once patient off pressors and blood pressure stabilized will initiate appropriate goal-directed therapy and patient will need outpatient follow-up echocardiogram in 6 to 8 weeks for reassessment -off pressors so we will give Lasix 40 mg IV push x 1 dose -Chest x-ray does show volume overload -Check BNP as chest x-ray abnormalities could be related to COVID as well -Will continue diuresis as hemodynamics allow--> discussed with nursing and they will let me know what her blood pressures do after her initial dose of Lasix -Cardiology has signed off Chronic normocytic anemia -Follows outpatient with hematology -Previous hospitalization about 1 year ago she was found to have a 3 angiodysplastic lesions in the stomach that were treated with heater probe, 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 History of pulmonary nodules -Patient had been following with oncology -Recommended further workup with PET scan and to proceed with biopsy if there was significant uptake however patient declined and plan was to follow with serial CAT scans. -Repeat CAT scan was recommended at 6 months and that was on August 02, 2022 -Does not appear patient ever followed up with CAT scan History of large pleural effusion -Small right pleural effusion noted on chest x-ray today -Start Lasix -No current need for thoracentesis Hypothyroidism -Continue home levothyroxine via G-tube Hypertension -Hold home antihypertensives Hyperlipidemia -Lipid panel is unremarkable with current therapy having a total cholesterol 116/LDL 45/HDL 48 -Decrease atorvastatin to 20 mg DVT prophylaxis -Continue Lovenox CODE STATUS -DNR CCA okay for intubation as per discussion at the time of admission prior to intubation Charges/Coding Visit Charges Inpatient E&M: 54308 Subs Hosp L2
[2023-06-08] MEDS: Enoxaparin 40 MG/0.4 ML Syringe SC (08:39)
[2023-06-08] MEDS: Midodrine HCl 5 MG Tablet 10 MG PO ×3 (08:39→17:35)
[2023-06-08] MEDS: Furosemide 40 MG/4 ML Vial IV ×2 (08:39→17:35)
[2023-06-08] MEDS: Aspirin 81 MG TAB.CHEW PO (08:39)
[2023-06-08] MEDS: 0.9 % NaCl (Sterile) Posiflush 10 mL IV (08:40)
[2023-06-08] MEDS: dexAMETHasone 4 MG/ML Vial 6 MG IV (08:40)
[2023-06-08 09:02] LABS: Allen Test Positive; Base Excess -5 mmol/L (-2 to +2); Bicarbonate 16.7 mmol/L (22-26); Blood Gas Specimen Type ART; Mode AC; O2 Delivery Device Adult Vent; PEEP 5; PO2 99 mmHG (75-100); RR 14; SITE R Radial; SO2 99 % (95-99); Total Carbon Dioxide 17 mmol/L; pCO2 18.5 mmHg (35-45); pH 7.56 (7.35-7.45)
[2023-06-08 09:09] LABS: BNP,B-Type NATRIURETIC PEPTIDE 4432.5 pg/mL (0-100)
--- NOTE | 2023-06-08 10:54 | CASEMGMT ---
Social Work As per daughter Lili, pt has not completed LW/POA. Pt's next of kin are her three children: Lili Briggs([phone]), Rudy Diane([phone]), and Emil Diane([phone]). JULIAN Rodriguez
[2023-06-08 12:09] LABS: Allen Test Positive; Base Excess -7 mmol/L (-2 to +2); Bicarbonate 18.1 mmol/L (22-26); Blood Gas Specimen Type ART; Mode AC; O2 Delivery Device Adult Vent; PEEP 5; PO2 64 mmHG (75-100); RR 10; SITE L Radial; SO2 92 % (95-99); Total Carbon Dioxide 19 mmol/L; pH 7.37 (7.35-7.45)
[2023-06-08] MEDS: Vital AF 1.2 Cal Liquid 1,000 ML 10 ML GT (13:20)
--- NOTE | 2023-06-08 14:22 | CHAPLAIN ---
Type of Pastoral Visit ___ Initial Visit ___ Follow-up Visit ___ On-call Visit ___ General Patient Visit ___ Spiritual Assessment ___ Family Conference ___ Bereavement ___ Rapid Response ___ Code Blue ___ Other (describe below) Pastoral Care Referral From ___ Patient ___ Family ___ Nurse ___ Physician ___ Religion Instructor ___ Lunchroom Worker ___ Other (describe below) Sacrament/Intervention ___ Active listening ___ Anointing ___ Congregation ___ Bereavement ___ Communion ___ Adore exploration ___ ___ Life review ___ Prayer ___ Reconciliation ___ Sacrament of Sick ___ Supportive presence ___ Wedding ___ Other (describe below) Pastoral Comments phone call made into isolation room; voicemail states that pt is not available and no ability to leave a message
--- NOTE | 2023-06-08 15:20 | PN.CC_ITS ---
Assessment & Plan Assessment/Plan (1) Acute hypoxemic respiratory failure: (2) Septic shock: PLAN: Plan RECOMMENDATIONS: * Patient required to be reintubated last night with concerns for flash pulmonary anemia and severe metabolic acidosis with a pH of 7 with bicarb of 10 * Will consider nephrology consult if serum bicarb continues to trend down * Continue vent support and wean as tolerated * Blood pressure improved she is currently off Levophed. Continue midodrine. Will start diuresis given her CHF and volume overload * She appears to have developed a right pleural effusion. Will continue diuresis if right pleural effusion persist we will proceed with a thoracentesis * Vent settings adjusted for respiratory alkalosis * DVT prophylaxis subcu Lovenox * Start trickle feeds * Patient's son was at bedside today had many questions all of which were answered to his satisfaction. IMPRESSIONS: 1. Septic shock The patient presented with sepsis due to COVID-19 pneumonia with concern for concurrent bacterial superinfection with acute sepsis related organ dysfunction as evidenced by acute respiratory failure requiring invasive mechanical ventilatory support. Initially, fluid resuscitation was withheld over concerns for worsening respiratory status. Will complete remdesivir 06/08. Will complete 7 days of antibiotics currently on Unasyn. 2. Acute hypoxemic respiratory failure Concern for multifactorial etiology. Obviously, the patient has COVID-19 pneumonia. Patient was extubated on 06/06 and was reintubated on 06/07 evening with flash pulmonary edema 3. NSTEMI Most likely secondary demand ischemia in the setting of #1 and 2. Completed heparin drip 4. History of pulmonary nodules/hypothyroidism/hypertension/hyperlipidemia/anemia Complicates care, management, recovery and prognosis. Hold home antihypertensives. The patient has been followed on an outpatient basis by oncology with regard to her underlying pulmonary nodules. She is electing to pursue serial CT scans on an outpatient basis. However, it does not appear that she ever followed up for repeat imaging. 5. ? propofol infusion syndrome/metabolic acidosis Unclear etiology of metabolic acidosis. Clinical suspicion for propofol infusion syndrome as metabolic acidosis has improved significantly following discontinuation. Some concern that metabolic acidosis could lead to increased respiratory demand. Patient will be given an amp of bicarb prior to extubation 06/06. Patient again had severe metabolic acidosis with bicarb of 10 and pH of 7 on the evening of 06/07 which required her to be reintubated. She received 2 A of bicarb. Her bicarb appears to be improving. Unclear etiology of metabolic acidosis? RTA\ 6. FELISHA TIME: 34 minutes of critical care time, independent of procedures, was spent addressing the patient's septic shock, NSTEMI, review of all data and collaboration with the care team. Subjective Subjective Patient was reintubated overnight due to concerns for flash pulmonary edema. She was also found to have severe metabolic acidosis that improved after 2 A of bicarb. Objective Data Objective Data Vital Signs: Vital Signs Temp Pulse Resp BP Pulse Ox O2 Del Method O2 Flow Rate 36.1 C L 55 L 10 L 113/56 L 96 Mechanical Ventilator 15 06/08/23 12:00 06/08/23 13:00 06/08/23 13:00 06/08/23 13:00 06/08/23 13:00 06/08/23 13:00 06/07/23 20:03 FiO2 30 06/08/23 13:00 Oxygen Flow Rate (L/min) 15 Oxygen Delivery Method Mechanical Ventilator Weight: 55.6 kg Body Mass Index (BMI) 21.0 Intake & Output: Intake and Output for Last 24 Hours 06/06/23 06/07/23 06/08/23 23:59 23:59 23:59 Intake Total 2024.98 / 2026.88 1352.80 / 1370.00 629.83 / 629.83 Output Total 800 / 800 450 / 450 1600 / 1600 Balance 1224.98 / 1226.88 902.80 / 920.00 -970.17 / -970.17 Lab / Micro Data 06/08/23 04:10 06/08/23 04:10 Labs: Laboratory Results - last 24 hr 06/07/23 19:25: Sodium 145, Potassium 4.5, Chloride 116 H, Carbon Dioxide 16.0 L , Anion Gap 13, BUN 50 H, Creatinine 1.60 H, Estim Creat Clear Calc 24.62, Est GFR (MDRD) Af Amer 40 L, Est GFR (MDRD) Non-Af 33 L, BUN/Creatinine Ratio 31.2 H , Glucose 278 H, Calcium 8.2 L 06/08/23 04:10: WBC 13.9 H, RBC 3.48 L, Hgb 8.6 L, Hct 27.1 L, MCV 77.9 L, MCH 24.7 L, MCHC 31.7 L, RDW Std Deviation 47.8 H, RDW Coeff of [place] 16.9 H, Plt Count 397, MPV 10.4, Immature Gran % (Auto) 1.300 H, Neut % (Auto) 81.8 H, Lymph % (Auto) 9.4 L, [place] % (Auto) 7.3, Eos % (Auto) 0.0, Baso % (Auto) 0.2, Absolute Neuts (auto) 11.4 H, Absolute Lymphs (auto) 1.31, Nucleated RBC % 0, Sodium 150 H, Potassium 3.6, Chloride 117 H, Carbon Dioxide 21.0, Anion Gap 12, BUN 50 H, Creatinine 1.42 H, Estim Creat Clear Calc 27.74, Est GFR (MDRD) Af Amer 46 L, Est GFR (MDRD) Non-Af 38 L, BUN/Creatinine Ratio 35.2 H, Glucose 132 H, Calcium 7.5 L, Total Bilirubin 0.30, AST 79 H, ALT 22, Alkaline Phosphatase 66, B- Natriuretic Peptide 4432.5 H, Total Protein 5.7 L, Albumin 2.3 L, Globulin 3.4, Albumin/Globulin Ratio 0.7 L Micro: Microbiology 06/07/23 18:30 Stool Stool Occult Blood (STEPHANIE) - Final Occult Blood Positive 06/03/23 21:05 Blood Culture (Wb) - Right Hand Blood Culture - Preliminary No growth in 48 hours. 06/03/23 20:30 Blood Culture (Wb) - Left Wrist Blood Culture - Preliminary No growth in 48 hours. 06/04/23 13:00 Urine Catheter - Isaac Urine Culture - Final Culture exhibits no growth. 06/03/23 23:58 Sputum, Tracheal Aspirate Gram Stain - Final 06/03/23 23:58 Sputum, Tracheal Aspirate Respiratory Culture - Final Mixed normal respiratory maris. No Streptococcus pneumoniae, beta-hemolytic Streptococcus or Staphylococcus aureus isolated. 06/04/23 13:00 Urine Catheter - Isaac Legionella Antigen - Final 06/04/23 13:00 Urine Catheter - Isaac Streptococcus pneumoniae Antigen (M - Final 06/04/23 07:16 Mucosa - Nasopharyngeal Respiratory Panel (PCR) - Final 06/03/23 20:25 Mucosa - Nose Influenza & RSV (PCR) - Final 06/03/23 20:30 Nasal Secretion SARS-CoV-2 Antigen (Rapid) - Final SARS-CoV-2 (COVID 19) ABG Data ABG results: ABG 06/07/23 06/07/23 06/08/23 20:00 22:33 08:59 Specimen Type ART ART ART Sample Site R Radial R Radial R Radial pH 7.05 L* 7.38 7.56 H Bicarbonate Actual 10.3 L 18.6 L 16.7 L Total CO2 11 20 17 Base Excess -20 L -7 L -5 L O2 Saturation 91 L 100 H 99 O2 % 60.0 70.0 30.0 ABG pCO2 36.8 31.9 L 18.5 L* ABG pO2 85 385 H* 99 Hank Test Positive Positive Positive Respiration Rate 14 14 14 O2 Delivery Device BiPAP ET Tube Adult Vent Vent Mode Not entered AC AC Tidal Volume 400.0 450.0 450.0 POC PEEP 12 5 5 Crit Call To/Read Back Yes Yes Yes Blood Gas Notified Whom aljundi Blood Gas Notified Time 09:00:50 06/08/23 12:06 Specimen Type ART Sample Site L Radial pH 7.37 Bicarbonate Actual 18.1 L Total CO2 19 Base Excess -7 L O2 Saturation 92 L O2 % 30.0 ABG pCO2 31.0 L ABG pO2 64 L Hank Test Positive Respiration Rate 10 O2 Delivery Device Adult Vent Vent Mode AC Tidal Volume 400.0 POC PEEP 5 Crit Call To/Read Back Blood Gas Notified Whom Blood Gas Notified Time Radiography Diagnostic Testing: Radiology Impression Chest X-Ray 06/07/23 19:20 IMPRESSION: Increasing right pleural effusion and worsening bilateral infiltrates/edema. Electronically Signed: Aníbal Gamboa DO at 19:44 EST Reading Location ID and State: [facility] / [place] Tel [phone], Service support , Chest X-Ray 06/07/23 20:32 IMPRESSION: Right pleural effusion. Bilateral infiltrates/edema. Electronically Signed: Aníbal Gamboa DO at 21:00 EST , Rhythm Strip Rhythm Strip: Sinus Rhythm Rate: 58 Physical Exam Narrative General intubated and sedated HEENT. Normocephalic atraumatic, pupils equal and reactive Respiratory mechanical breath sounds, no wheezing Cardiac S1-S2, regular rate and rhythm GI abdomen soft and nontender MSK bilateral lower extremity edema Neuro intubated and sedated Charges/Coding Procedures Hospitalists Procedures: [id number] Critical Care 1st Hr
[2023-06-08 15:24] LABS: Anion Gap 11 (5-15); BUN 54 mg/dL (7-18); BUN/Creat Ratio 32.1 RATIO (10-20); Calcium,Total 7.9 mg/dL (8.5-10.1); Chloride 117 mmol/L (98-107); Creatinine, Serum 1.68 mg/dL (0.55-1.02); EST Glomerular Filtration Rate 31 mL/min (>60); Est Glom Filt Rate - Afr Amer 38 mL/min (>60); Estimated Creatinine Clearance 23.45 ml/min; Glucose 146 mg/dL (74-106); Potassium 3.9 mmol/L (3.5-5.1); Sodium Level 149 mmol/L (136-145)
[2023-06-08] MEDS: 0.9% Normal Saline 250 ML IV.SOLN. IV (17:36)
[2023-06-08] MEDS: Atorvastatin Calcium 20 MG Tablet PO (21:29)
[2023-06-08] MEDS: Remdesivir 100 MG in 0.9% Normal Saline (250mL Bag) 230 ML 250 MG IV (21:29)
[2023-06-09] VITALS (33 sets, daily range): BP systolic 112–148; BP diastolic 57–80; PULSE 51–100; RESP 10–19; TEMP 36.1–36.8; O2SAT 92–100; BMI 20.7
[2023-06-09] MEDS: Levothyroxine 125 MCG Tablet NG (05:28)
[2023-06-09] MEDS: Ampicillin/Sulbactam 3 GM in 0.9% Normal Saline (100mL MB+) 100 ML IV ×3 (05:29→18:29)
[2023-06-09 05:49] LABS: Absolute Lymphocyte Count 0.74 X10^3/uL (0.83-4.51); Absolute Neutrophil Count 11.8 X10^3/uL (2.0-7.7); Basophil# 0.03 X10^3/uL; Basophil% 0.2 % (0-1); Hematocrit 28.1 % (37-47); Hemoglobin 8.8 g/dL (12.0-15.0); Lymphocyte # 0.74 X10^3/ul (0.83-4.51); Lymphocyte % 5.2 % (19-41); Mean Corp Hgb Conc 31.3 g/dL (32-36); Mean Corpuscular Hgb 24.6 pg (27.0-32.0); Mean Corpuscular Volume 78.5 fL (81-99); Mean Platelet Vol. 10.7 fl (6.2-12.0); Monocyte# 1.57 X10^3/uL; Monocyte% 10.9 % (0-10); NRBC Flagged by Analyzer 0 % (0-5); Neutrophil # 11.81 X10^3/uL (2.7-7.7); Neutrophil % 82.3 % (47-70); POSITIVE DIFFERENTIAL YES; Platelet Count 382 K/mm3 (150-450); RBC Distribution Width CV 16.9 % (11.6-14.6); RBC Distribution Width SD 48.4 fl (35.1-43.9); Red Blood Count 3.58 M/mm3 (4.2-5.4); White Blood Count 14.4 K/mm3 (4.4-11.0)
[2023-06-09 05:56] LABS: Ionized Calcium 4.43 mg/dL (4.36-5.20)
[2023-06-09 06:05] LABS: Anion Gap 11 (5-15); BUN 65 mg/dL (7-18); BUN/Creat Ratio 35.1 RATIO (10-20); Calcium,Total 7.5 mg/dL (8.5-10.1); Chloride 116 mmol/L (98-107); Creatinine, Serum 1.85 mg/dL (0.55-1.02); EST Glomerular Filtration Rate 28 mL/min (>60); Est Glom Filt Rate - Afr Amer 34 mL/min (>60); Estimated Creatinine Clearance 21.29 ml/min; Glucose 134 mg/dL (74-106); Magnesium 2.1 mg/dL (1.6-2.6); Phosphorus 5.6 mg/dL (2.5-4.9); Potassium 3.6 mmol/L (3.5-5.1); Sodium Level 149 mmol/L (136-145)
[2023-06-09 06:09] LABS: Differential Indicated SCAN CRITERIA MET
[2023-06-09 06:10] LABS: Differential Comment SCANNED
--- NOTE | 2023-06-09 07:08 | US_ITS ---
HISTORY: FELISHA, COVID POSITIVE. TECHNIQUE: Scruggs scale and color doppler images were obtained of the kidneys. 39 images. COMPARISON: None. FINDINGS: Limited examination due to patient condition. RIGHT KIDNEY: 10.8 cm in length with a cortical thickness of 1 cm. No hydronephrosis. No gross renal mass demonstrated. LEFT KIDNEY: 8.8 cm in length with a cortical thickness of 1.1 cm. No hydronephrosis. No gross renal mass demonstrated. URINARY BLADDER: Decompressed by Isaac catheter, limiting evaluation. US/Kidney and Bladder IMPRESSION: Unremarkable examination of the kidneys. Electronically Signed: Erin Bee MD at 14:11 EST ,
[2023-06-09 07:15] LABS: Base Excess -5 mmol/L (-2 to +2); Bicarbonate 18.8 mmol/L (22-26); Blood Gas Specimen Type ART; Mode CPAP/PS; O2 Delivery Device Not entered; PEEP 5; PO2 115 mmHG (75-100); SITE R Radial; SO2 99 % (95-99); Total Carbon Dioxide 20 mmol/L; pCO2 27.3 mmHg (35-45); pH 7.45 (7.35-7.45)
--- NOTE | 2023-06-09 07:25 | RAD_ITS ---
HISTORY: vent. TECHNIQUE: XR Chest 1 View. COMPARISON: 06/07/2023. FINDINGS: LINES/TUBES: Right internal jugular central venous catheter tip at the level of the distal superior vena cava. Endotracheal tube tip 1.6 cm above the tony. Nasogastric tube again extends to the stomach. CARDIOMEDIASTINAL BORDERS: Stable. LUNGS: Decreased diffuse interstitial opacities. Mild residual bibasilar atelectasis. PLEURA: Decreased right greater than left pleural effusions. RAD/Chest 1 View (Portable) IMPRESSION: Decreased pulmonary edema with decreased mild bilateral pleural effusions. Electronically Signed: Erin Bee MD at 8:27 EST ,
--- NOTE | 2023-06-09 09:35 | PCM.PN.HOSP ---
Reason for Visit Reason for Visit: Shortness of breath Subjective Subjective No issues overnight. Patient did not put out much urine with her Lasix and her creatinine is rising despite a markedly elevated BNP at greater than 4000. Patient also has a persistent acidosis which she seemingly is correcting for with a respiratory correction however the etiology of her persistent acidosis is still unclear. I have consulted nephrology with her worsening renal function as well Objective Data Objective Data Vital Signs: Vital Signs Temp Pulse Resp BP Pulse Ox O2 Del Method O2 Flow Rate 97.2 F L 73 13 119/63 94 Mechanical Ventilator 15 06/09/23 04:00 06/09/23 08:49 06/09/23 08:49 06/09/23 07:00 06/09/23 08:49 06/09/23 07:00 06/07/23 20:03 FiO2 40 06/09/23 08:49 Oxygen Flow Rate (L/min) 15 Oxygen Delivery Method Mechanical Ventilator Weight: 54.9 kg Body Mass Index (BMI) 20.7 Intake & Output: Intake and Output for Last 24 Hours 06/07/23 06/08/23 06/09/23 23:59 23:59 23:59 Intake Total 1352.80 / 1370.00 1238.52 / 1270.72 486.67 / 486.67 Output Total 450 / 450 2250 / 2550 825 / 825 Balance 902.80 / 920.00 -1011.48 / -1279.28 -338.33 / -338.33 Lab / Micro Data 06/09/23 05:30 06/09/23 05:30 Labs: Laboratory Results - last 24 hr 06/08/23 14:45: Sodium 149 H, Potassium 3.9, Chloride 117 H, Carbon Dioxide 21.0, Anion Gap 11, BUN 54 H, Creatinine 1.68 H, Estim Creat Clear Calc 23.45, Est GFR (MDRD) Af Amer 38 L, Est GFR (MDRD) Non-Af 31 L, BUN/Creatinine Ratio 32.1 H, Glucose 146 H, Calcium 7.9 L 06/09/23 05:30: WBC 14.4 H, RBC 3.58 L, Hgb 8.8 L, Hct 28.1 L, MCV 78.5 L, MCH 24.6 L, MCHC 31.3 L, RDW Std Deviation 48.4 H, RDW Coeff of [place] 16.9 H, Plt Count 382, MPV 10.7, Immature Gran % (Auto) 1.400 H, Neut % (Auto) 82.3 H, Lymph % (Auto) 5.2 L, [place] % (Auto) 10.9 H, Eos % (Auto) 0.0, Baso % (Auto) 0.2, Absolute Neuts (auto) 11.8 H, Absolute Lymphs (auto) 0.74 L, Nucleated RBC % 0, Differential Comment SCANNED, Diff Path Review October, Sodium 149 H, Potassium 3.6, Chloride 116 H, Carbon Dioxide 22.0, Anion Gap 11, BUN 65 H, Creatinine 1.85 H, Estim Creat Clear Calc 21.29, Est GFR (MDRD) Af Amer 34 L, Est GFR (MDRD) Non-Af 28 L, BUN/Creatinine Ratio 35.1 H, Glucose 134 H, Calcium 7.5 L, Phosphorus 5.6 H, Magnesium 2.1 06/09/23 05:53: Ionized Calcium 4.43 Micro: Microbiology 06/03/23 21:05 Blood Culture (Wb) - Right Hand Blood Culture - Final No growth in 5 days. 06/03/23 20:30 Blood Culture (Wb) - Left Wrist Blood Culture - Final No growth in 5 days. 06/07/23 18:30 Stool Stool Occult Blood (STEPHANIE) - Final Occult Blood Positive 06/04/23 13:00 Urine Catheter - Isaac Urine Culture - Final Culture exhibits no growth. 06/03/23 23:58 Sputum, Tracheal Aspirate Gram Stain - Final 06/03/23 23:58 Sputum, Tracheal Aspirate Respiratory Culture - Final Mixed normal respiratory maris. No Streptococcus pneumoniae, beta-hemolytic Streptococcus or Staphylococcus aureus isolated. 06/04/23 13:00 Urine Catheter - Isaac Legionella Antigen - Final 06/04/23 13:00 Urine Catheter - Isaac Streptococcus pneumoniae Antigen (M - Final 06/04/23 07:16 Mucosa - Nasopharyngeal Respiratory Panel (PCR) - Final 06/03/23 20:25 Mucosa - Nose Influenza & RSV (PCR) - Final 06/03/23 20:30 Nasal Secretion SARS-CoV-2 Antigen (Rapid) - Final SARS-CoV-2 (COVID 19) ABG Data ABG results: ABG 06/08/23 06/09/23 12:06 07:12 Specimen Type ART ART Sample Site L Radial R Radial pH 7.37 7.45 Bicarbonate Actual 18.1 L 18.8 L Total CO2 19 20 Base Excess -7 L -5 L O2 Saturation 92 L 99 O2 % 30.0 40.0 ABG pCO2 31.0 L 27.3 L ABG pO2 64 L 115 H Hank Test Positive Respiration Rate 10 O2 Delivery Device Adult Vent Not entered Vent Mode AC CPAP/PS Tidal Volume 400.0 POC PEEP 5 5 Radiography Diagnostic Testing: Radiology Impression Chest X-Ray 06/09/23 07:25 IMPRESSION: Decreased pulmonary edema with decreased mild bilateral pleural effusions. Electronically Signed: Erin Bee MD at 8:27 EST , Rhythm Strip Rhythm Strip: Sinus Rhythm Rate: 58 Physical Exam Const alert, no apparent distress, average body habitus and well nourished Constitutional Narrative: Elderly, white female, lying in bed on mechanical ventilation, currently appears comfortable, is awake and seems to be able to fairly consistently follow commands HEENT normocephalic and head/scalp atraumatic HEENT Narrative: ET tube and OG in place Resp normal respiratory effort, no retractions, no use of accessory muscles and clear to auscultation bilaterally Resp Narrative: Patient is intubated on a ventilator Auscultation: crackles; Negative for rales, rhonchi or wheezes Cardio regular rate, regular rhythm, S1 normal heart sound, S2 normal heart sound, no murmurs, no rub, no gallops and no clicks GI normal to inspection, nondistended, normoactive bowel sounds, soft to palpation and non-tender Extremity no clubbing, cyanosis or edema Extremity Narrative: Pedal pulses are 2+, 1+ bilateral lower extremity pedal edema Neuro moves all extremities and no focal motor deficits Neuro Narrative: Intubated and sedated, patient is awake and able to follow commands, moves all extremities symmetrically with no focal deficits Sensorium / Orientation: awake and alert Psych Psych Narrative: Unable to assess due to intubation Assessment & Plan Assessment/Plan (1) Acute hypoxemic respiratory failure: (2) Septic shock: (3) Non-ST elevation DE (NSTEMI): (4) COVID-19: (5) Takotsubo cardiomyopathy: PLAN: Plan Acute hypoxic respiratory failure secondary to acute COVID-19 infection/aspiration pneumonia -Intubated on 06/04/2023 -Extubated on 06/06/2023 -Reintubated 06/07/2023 -Preintubation ABG shows a pH of 7.05 but acidosis is more metabolic than respiratory -BNP was markedly elevated however she did not respond well to Lasix with minimal urine output and worsening renal function -Will try dobutamine -Sputum culture shows normal respiratory maris and all other cultures negative -Unasyn 3 g every 6 hours to complete a total of 7-day antibiotic course -day 6 of -Remains off pressors -Remdesivir and Decadron have been initiated for acute COVID infection -Remdesivir completed -Decadron -Baricitinib day -Pulmonary/critical care medicine following Septic shock -Doubt COVID-19 is 100% responsible for this -Resolved -Off pressors now for 24 hours -Continue midodrine for now and start to wean tomorrow if stable -Procalcitonin was greater than 50 -All cultures except sputum are negative -Sputum culture demonstrates oral maris -Unasyn as noted above Metabolic acidosis -Propofol infusion syndrome suspected 1 anion gap metabolic acidosis was present -Anion gap is now normalized however patient was 7.05 with a predominantly anabolic acidosis prior to intubation -Urine studies ordered to check urine anion gap for renal tubular acidosis -Consult nephrology due to this and worsening renal function -Suspect this may be the reason for her extubation failure in combination with some volume overload FELISHA -Check renal ultrasound -Check urine sodium/UA/urine creatinine/urine urea/urine potassium/urine chloride -A.m. questioning if this is cardiorenal and she does not need some dobutamine so we will add this at 5 mcg/min and see how she tolerates it -Repeat BMP at 2 PM COVID-19 pneumonia -Treatment as noted above Leukocytosis -Remains elevated however cultures are negative other than her sputum being consistent with aspiration -Antibiotics changed as noted above -Continues to trend down -Will continue to monitor -Patient is also on Decadron which may be confounding this Severe debility -PT and OT following -Strongly encourage patient to participate in therapy services today to work on strength -Patient may very likely need skilled at discharge due to her profound weakness -Case management and social science research assistant following NSTEMI type II secondary to respiratory failure and shock -Echocardiogram was performed and showed an EF of 20% with anterior and apical akinesis, moderate mitral and tricuspid valve insufficiency and a right ventricular systolic pressure of 40 mmHg -Continue aspirin -Continue high intensity dose statin--> will transition to lower home dose at discharge -Total cholesterol is 116/LDL 45/HDL 48/triglycerides 118 -Cardiology is following-appreciate input -No current follow-up recommended at this time and cardiology has signed off Acute cardiomyopathy -Appears to be consistent with Takotsubo cardiomyopathy -Once patient off pressors and blood pressure stabilized will initiate appropriate goal-directed therapy and patient will need outpatient follow-up echocardiogram in 6 to 8 weeks for reassessment -BNP was greater than 4000 -Patient did not diurese well with Lasix -Add Coreg 3.125 mg p.o. 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 History of pulmonary nodules -Patient had been following with oncology -Recommended further workup with PET scan and to proceed with biopsy if there was significant uptake however patient declined and plan was to follow with serial CAT scans. -Repeat CAT scan was recommended at 6 months and that was on August 02, 2022 -Does not appear patient ever followed up with CAT scan History of large pleural effusion -Small right pleural effusion noted on chest x-ray today -Start Lasix -No current need for thoracentesis Hypothyroidism -Continue home levothyroxine via G-tube Hypertension -Hold home antihypertensives Hyperlipidemia -Lipid panel is unremarkable with current therapy having a total cholesterol 116/LDL 45/HDL 48 -Decrease atorvastatin to 20 mg DVT prophylaxis -Continue Lovenox CODE STATUS -DNR CCA okay for intubation as per discussion at the time of admission prior to intubation Charges/Coding Visit Charges Inpatient E&M: 37689 Subs Hosp L2
[2023-06-09] MEDS: Midodrine HCl 5 MG Tablet 10 MG PO (09:47)
[2023-06-09] MEDS: Aspirin 81 MG TAB.CHEW PO (09:47)
[2023-06-09] MEDS: Carvedilol 3.125 MG TABLET PO ×2 (09:48→20:46)
[2023-06-09] MEDS: dexAMETHasone 4 MG/ML Vial 6 MG IV (09:48)
[2023-06-09] MEDS: Enoxaparin 30 MG/0.3 ML Syringe SC (09:49)
[2023-06-09] MEDS: 0.9 % NaCl (Sterile) Posiflush 10 mL IV ×2 (09:50→14:18)
[2023-06-09 09:52] LABS: Bacteria 0 SEEN /hpf (None Seen); Mucous, Urine 0 SEEN /hpf (<or=2+); Red Blood Cells-Urine 0 SEEN /hpf (0-5); Squamous Epithelial Cells - UA 0 SEEN /hpf (5-10)
[2023-06-09 09:55] LABS: Color, Urine Yellow (Yellow); Glucose, Dipstick Normal (Normal); Ketone-Dipstick Negative (Negative); Leukocyte Esterase-Dipstick 25 /ul (Negative); Nitrite-Dipstick Negative (Negative); Occult Blood-Urine 150 /ul (Negative); Protein-Dipstick 15 mg/dl (Negative); Specific Gravity, Urine 1.015 (1.002-1.030); Urine Bilirubin Dipstick Negative (Negative); Urine Clarity Clear (Clear); Urine Urobilinogen Normal (Normal)
[2023-06-09 10:03] LABS: Urine Sodium 132 mmol/L (Not Establ.)
[2023-06-09 10:12] LABS: White Blood Cells 0-5 SEEN /hpf (0-5); Yeast-Urine 1+ /hpf (None Seen)
[2023-06-09] MEDS: Potassium Chloride 10mEq/100mL 10 MEQ/100 ML IV.SOLN. 100 MEQ IV BOLUS ×2 (10:34→12:45)
[2023-06-09 10:47] LABS: Urine Chloride 138 mmol/L (Not Establ.)
[2023-06-09] MEDS: DOBUTamine 500mg PM 500 MG/250 ML IV.SOLN. 8.19999999999999929 MG CONT INF (11:00)
[2023-06-09 11:33] LABS: Bedside Glucose 60 mg/dL (74-106)
[2023-06-09] MEDS: fentaNYL drip 100 ML 10 MCG CONT INF ×2 (12:26→21:42)
--- NOTE | 2023-06-09 13:40 | NURSING ---
1340 HR 93, R 13, BP 131/76 SjpO2 96, Dr. Daniel present prep for thoracentesis 1343 tap begun 1345 HR 94 R 10 BP 133/77 SpO2 97 1347 bottle attached draining clear yellow fluid 1350 HR 98 R 10 BP 131/74 SpO2 97 1354 completed.cxr ordered
[2023-06-09 13:46] LABS: Ionized Calcium Order ORDER TUBE
--- NOTE | 2023-06-09 14:30 | RAD_ITS ---
HISTORY: post thoracentesis. TECHNIQUE: XR Chest 1 View. COMPARISON: 07:20. FINDINGS: LINES/TUBES: Right internal jugular central venous catheter tip at the superior cavoatrial junction. Endotracheal tube tip 2 cm above the tony. Nasogastric tube extends to the stomach. CARDIOMEDIASTINAL BORDERS: Stable. LUNGS: Appearance of cavitary nodules in the left upper and perihilar left lung. Decreased right basilar opacity. PLEURA: Decreased right pleural effusion. RAD/Chest 1 View (Portable) IMPRESSION: Decreased right pleural effusion with improved aeration of the right lung base post thoracentesis. No pneumothorax. Suspect cavitary nodules in the left lung, which may be secondary to atypical infection, septic emboli, or metastases. Electronically Signed: Erin Bee MD at 15:24 EST ,
--- NOTE | 2023-06-09 14:45 | PN.CC_ITS ---
Assessment & Plan Assessment/Plan (1) Acute hypoxemic respiratory failure: (2) Septic shock: PLAN: Plan RECOMMENDATIONS: * Remains on the vent she passed SBT however she has large right pleural effusion and her kidney function continues to worsen. * Her urine output was around 2.25 L but creatinine has worsened. Discussed with Dr. Inman, started dobutamine for concerns for cardiorenal. * Nephro consulted, renal US ordered * she was hypoglycemic this AM, advance TF to goal * R side thora done and 750 CC of clear yellow fluid removed. fluid was sent for analysis. * Her son at bedside today we discussed her current status. He told me that Ms. iDane would not want to be on the ventilator long-term and if she does not improve then he will likely proceed with palliative extubation. We discussed that we will try to optimize her by performing right-sided thoracentesis today and improving renal perfusion with dobutamine. If she were to be extubated again her CODE STATUS will be changed to DNI. IMPRESSIONS: 1. Septic shock The patient presented with sepsis due to COVID-19 pneumonia with concern for concurrent bacterial superinfection with acute sepsis related organ dysfunction as evidenced by acute respiratory failure requiring invasive mechanical ventilatory support. Initially, fluid resuscitation was withheld o nadeem concerns for worsening respiratory status. completed remdesivir 06/08. Will complete 7 days of antibiotics currently on Unasyn. 2. Acute hypoxemic respiratory failure Concern for multifactorial etiology. Obviously, the patient has COVID-19 pneumonia. Patient was extubated on 06/06 and was reintubated on 06/07 evening with flash pulmonary edema 3. NSTEMI Most likely secondary demand ischemia in the setting of #1 and 2. Completed heparin drip 4. History of pulmonary nodules/hypothyroidism/hypertension/hyperlipide maylin/anemia Complicates care, management, recovery and prognosis. Hold home antihypertensives. The patient has been followed on an outpatient basis by oncology with regard to her underlying pulmonary nodules. She is electing to pursue serial CT scans on an outpatient basis. However, it does not appear that she ever followed up for repeat imaging. 5. ? propofol infusion syndrome/metabolic acidosis Unclear etiology of metabolic acidosis. Clinical suspicion for propofol infusion syndrome as metabolic acidosis has improved significantly following di scontinuation. Some concern that metabolic acidosis could lead to increased respiratory demand. Patient will be given an amp of bicarb prior to extubation 06/06. Patient again had severe metabolic acidosis with bicarb of 10 and pH of 7 on the evening of 06/07 which required her to be reintubated. She received 2 A of bicarb. Her bicarb appears to be improving. Unclear etiology of metabolic acidosis? RTA\ 6. FELISHA Maybe 2/2 cardio renal, her Cr worsened after lasix was started, She was started on dobutamine 06/09 7.R pleural effusion s/p thoracentesis 06/09/23 TIME: 33 minutes of critical care time, independent of procedures, was spent addressing the patient's septic shock, NSTEMI, review of all data and co llaboration with the care team. Subjective Subjective On the vent. Her urine output was around 2.25 L however her creatinine has worsened. Discussed with Dr. Inman she was started on dobutamine for concerns for cardiorenal. Her son at bedside today we discussed her current status. He told me that Ms. Dwyer would not want to be on the ventilator long-term and if she does not improve then he will likely proceed with palliative extubation. We discussed that we will try to optimize her by performing right-sided thoracen tesis today and improving renal perfusion with dobutamine. If she were to be extubated again her CODE STATUS will be changed to DNI. Objective Data Objective Data Vital Signs: Vital Signs Temp Pulse Resp BP Pulse Ox O2 Del Method O2 Flow Rate 36.2 C L 94 10 L 119/63 100 Mechanical Ventilator 15 06/09/23 04:00 06/09/23 13:06 06/09/23 13:06 06/09/23 07:00 06/09/23 13:06 06/09/23 08:30 06/07/23 20:03 FiO2 40 06/09/23 13:06 Oxygen Flow Rate (L/min) 15 Oxygen Delivery Method Mechanical Ventilator Weight: 54.9 kg Body Mass Index (BMI) 20.7 Intake & Output: Intake and Output for Last 24 Hours 06/07/23 06/08/23 06/09/23 23:59 23:59 23:59 Intake Total 1352.80 / 1370.00 1238.52 / 1270.72 712.41 / 712.41 Output Total 450 / 450 2250 / 2550 825 / 825 Balance 902.80 / 920.00 -1011.48 / -1279.28 -112.59 / -112.59 Lab / Micro Data 06/09/23 05:30 06/09/23 14:05 Labs: Laboratory Results - last 24 hr 06/08/23 14:45: Sodium 149 H, Potassium 3.9, Chloride 117 H, Carbon Dioxide 21.0, Anion Gap 11, BUN 54 H, Creatinine 1.68 H, Estim Creat Clear Calc 23.45, Est GFR (MDRD) Af Amer 38 L, Est GFR (MDRD) Non-Af 31 L, BUN/Creatinine Ratio 32.1 H, Glucose 146 H, Calcium 7.9 L 06/09/23 05:30: WBC 14.4 H, RBC 3.58 L, Hgb 8.8 L, Hct 28.1 L, MCV 78.5 L, MCH 24.6 L, MCHC 31.3 L, RDW Std Deviation 48.4 H, RDW Coeff of [place] 16.9 H, Plt Count 382, MPV 10.7, Immature Gran % (Auto) 1.400 H, Neut % (Auto) 82.3 H, Lymph % (Auto) 5.2 L, [place] % (Auto) 10.9 H, Eos % (Auto) 0.0, Baso % (Auto) 0.2, Absolute Neuts (auto) 11.8 H, Absolute Lymphs (auto) 0.74 L, Nucleated RBC % 0, Differential Comment SCANNED, Diff Path Review October, Sodium 149 H, Potassium 3.6, Chloride 116 H, Carbon Dioxide 22.0, Anion Gap 11, BUN 65 H, Creatinine 1.85 H, Estim Creat Clear Calc 21.29, Est GFR (MDRD) Af Amer 34 L, Est GFR (MDRD) Non-Af 28 L, BUN/Creatinine Ratio 35.1 H, Glucose 134 H, Calcium 7.5 L, Phosphorus 5.6 H, Magnesium 2.1 06/09/23 05:53: Ionized Calcium 4.43 06/09/23 09:25: Urine Color Yellow, Urine Clarity Clear, Urine pH 6.0, Ur Specific [place] 1.015, Urine Protein 15 H, Urine Glucose (UA) Normal, Urine Ketones Negative, Urine Occult Blood 150 H, Urine Nitrite Negative, Urine Bilirubin Negative, Urine Urobilinogen Normal, Ur Leukocyte Esterase 25 H, Urine RBC 0 SEEN, Urine WBC 0-5 SEEN, Ur Squamous Epith Cells 0 SEEN, Urine Bacteria 0 SEEN, Urine Mucus 0 SEEN, Urine Yeast 1+, Ur Random Sodium 132, Urine Creatinine 15.70, Urine Potassium 14.0, Urine Chloride 138 06/09/23 11:13: POC Glucose 60 L Micro: Microbiology 06/03/23 21:05 Blood Culture (Wb) - Right Hand Blood Culture - Final No growth in 5 days. 06/03/23 20:30 Blood Culture (Wb) - Left Wrist Blood Culture - Final No growth in 5 days. 06/07/23 18:30 Stool Stool Occult Blood (STEPHANIE) - Final Occult Blood Positive 06/04/23 13:00 Urine Catheter - Isaac Urine Culture - Final Culture exhibits no growth. 06/03/23 23:58 Sputum, Tracheal Aspirate Gram Stain - Final 06/03/23 23:58 Sputum, Tracheal Aspirate Respiratory Culture - Final Mixed normal respiratory maris. No Streptococcus pneumoniae, beta-hemolytic Streptococcus or Staphylococcus aureus isolated. 06/04/23 13:00 Urine Catheter - Isaac Legionella Antigen - Final 06/04/23 13:00 Urine Catheter - Isaac Streptococcus pneumoniae Antigen (M - Final 06/04/23 07:16 Mucosa - Nasopharyngeal Respiratory Panel (PCR) - Final 06/03/23 20:25 Mucosa - Nose Influenza & RSV (PCR) - Final 06/03/23 20:30 Nasal Secretion SARS-CoV-2 Antigen (Rapid) - Final SARS-CoV-2 (COVID 19) ABG Data ABG results: ABG 06/09/23 07:12 Specimen Type ART Sample Site R Radial pH 7.45 Bicarbonate Actual 18.8 L Total CO2 20 Base Excess -5 L O2 Saturation 99 O2 % 40.0 ABG pCO2 27.3 L ABG pO2 115 H O2 Delivery Device Not entered Vent Mode CPAP/PS POC PEEP 5 Radiography Diagnostic Testing: Radiology Impression Renal Ultrasound 06/09/23 07:08 IMPRESSION: Unremarkable examination of the kidneys. Electronically Signed: Erin Bee MD at 14:11 EST , Chest X-Ray 06/09/23 07:25 IMPRESSION: Decreased pulmonary edema with decreased mild bilateral pleural effusions. Electronically Signed: Erin Bee MD at 8:27 EST , Rhythm Strip Rhythm Strip: Sinus Rhythm Rate: 58 Physical Exam Narrative General intubated and sedated HEENT. Normocephalic atraumatic, pupils equal and reactive Respiratory mechanical breath sounds, no wheezing Cardiac S1-S2, regular rate and rhythm GI abdomen soft and nontender MSK bilateral lower extremity edema Neuro intubated and sedated Charges/Coding Procedures Hospitalists Procedures: [id number] Critical Care 1st Hr
--- NOTE | 2023-06-09 14:46 | PCM.OP.PRO ---
Procedure Report Date of Procedure: 06/09/23 US guided Right sided Thoracentesis Procedure Note INDICATION:Large R pleural effusion, resp failure CONSENT: During the informed consent discussion regarding the procedure, or treatment, I explained the following to the patient's next of kin: son a. Nature of the procedure or treatment and who will perform the procedure or treatment. b. Necessity for procedure and the possible benefits. c. Risks and complications (most common and serious). d. Alternative treatments and the risks, benefits and side effects of each (including no treatment). e. Likelihood of the patient achieving his/her goals without this procedure and surgery treatment. f. Problems that might occur during the recuperation. g. Conflicts of interest, if any PROCEDURE SUMMARY: A time out was performed and the chest x-ray was reviewed, the appropriate side (R) was confirmed and marked. US was used to identify effusion site and that was marked. I wore a surgical cap, mask with sterile gloves throughout the procedure. The patient was prepped and draped in a sterile manner using chlorhexidine scrub after the appropriate level was percussed and confirmed by ultrasound. 1% lidocaine was used to anesthesize the skin, subcutaneous tissue, superior aspect of the rib periosteum and parietal pleura. A finder needle was then introduced over the superior aspect of the rib to locate the pleural fluid. A 10-blade scalpel was used to shailesh the skin at the insertion site. The [id number]-[id number] needle was then introduced through the skin incision into the pleural space using negative aspiration pressure and the red colormetric indicator to confirm appropriate positioning of the needle. The thoracentesis catheter was then threaded without difficulty. 750 ml of clear yellow colored fluid was removed without difficulty. The catheter was then removed. No immediate complications were noted during the procedure. A post-procedure chest x-ray is pending at the time of this note. The fluid will be sent for studies. Estimated blood loss is 5cc. Procedures Hospitalists Procedures: [id number] Aspirate Pleura w/Imaging
[2023-06-09 14:49] LABS: Albumin, Serum 2.4 g/dL (3.2-5.0); BUN 66 mg/dL (7-18); BUN/Creat Ratio 34.4 RATIO (10-20); Calcium,Total 7.9 mg/dL (8.5-10.1); Chloride 116 mmol/L (98-107); Creatinine, Serum 1.92 mg/dL (0.55-1.02); EST Glomerular Filtration Rate 27 mL/min (>60); Est Glom Filt Rate - Afr Amer 32 mL/min (>60); Estimated Creatinine Clearance 20.52 ml/min; Glucose 145 mg/dL (74-106); Phosphorus 5.1 mg/dL (2.5-4.9); Sodium Level 148 mmol/L (136-145)
[2023-06-09] MEDS: dexMEDEtomidine 400 MCG in 0.9% Normal Saline (100mL Bag) 96 ML 7.20000000000000018 MCG CONT INF (15:00)
[2023-06-09 16:14] LABS: Cytology, Body Fluid / CSF SEE PATHOLOGY REPORT
[2023-06-09 16:28] LABS: Body Fluid Mononuclear WBC # 0.092 10^3/uL; Body Fluid Mononuclear WBC % 82.9 %; Body Fluid Polynuclear WBC # 0.019 10^3/uL; Body Fluid Polynuclear WBC % 17.1 %; Body Fluid Total Cells Counted 0.132 10^3/ul; White Blood Count/Body Fluid 0.111 10^3/uL
[2023-06-09 17:41] LABS: Glucose, Body Fluid 129 mg/dL (40-70); LDH,Body Fluid 151 Units/L (Not Establ.); Protein, Body Fluid 2.3 g/dL (Not Establ.)
[2023-06-09 17:42] LABS: Red Cell Count/Body Fluid 30 /mm3
--- NOTE | 2023-06-09 18:13 | CON.PCM.RE_ITS ---
Assessment & Plan Assessment/Plan (1) FELISHA (acute kidney injury): (2) Hypernatremia: (3) Shock circulatory: PLAN: Plan Impression/Plan: 77-year-old woman with past history of hypertension, hyperlipidemia, hypothyroidism and GERD. The patient presented to hospital on 06/04/2023 with dyspnea. She was found to have acute hypoxic respiratory failure requiring intubation and ventilator.The patient been diagnosed with COVID-19 and circulatory shock. She was also diagnosed with stress-induced cardiomyopathy. Nephrology is following for FELISHA. Acute kidney injury. Baseline serum creatinine prior to this admission had been around 1.1 to 1.3 mg/dL. So, there may be some component of CKD as well. FELISHA, with serum creatinine rising to 1.92 mg/dL today, is likely due to ischemic ATN from circulatory shock. Ultrasound was unremarkable. There is no hydronephrosis. Urinalysis appears benign, so have low suspicion for GN or vasculitis. Continue efforts to keep MAP above 65 mmHg. Patient seems to be responding to dobutamine with better BP and some increase in urine output this afternoon. There is no urgent need for kidney replacement therapy at this point. I will continue to monitor. Acid-base status. Based on today's ABG, the patient appears to have primary chronic respiratory alkalosis. Her expected bicarbonate level for pCO2 of 27 with a been around 17 mmol/L. So, there is no significant metabolic acidosis at this point. However, given fluctuation in her status, I would recommend repeating ABG and metabolic panel again tomorrow. Hypernatremia. The patient has mild hyponatremia with serum sodium of 148 mmol/L today. This is likely due to relative dehydration. She is not polyuric, so there is low suspicion for DI. There is no need for specific treatment of hyponatremia for this degree of serum sodium. Will continue to monitor serum sodium. Circulatory shock. The patient has multifactorial reasons for shock. She has sepsis and is being treated for pneumonia. She also has stress-induced cardiomyopathy and is now on dobutamine. Coordination of care is as per hospital medicine and critical care services. Nephrology plan will be discussed with Dr. Inman. HPI Consult Data Date of Consult: 06/09/23 HPI Narrative Reason for Consultation: Acute kidney injury HPI Narrative: The patient is a 77-year-old woman with past history of hypertension, hyperlipidemia, hypothyroidism and GERD. The patient presented to hospital on 06/04/2023 with dyspnea. She was found to have acute hypoxic respiratory failure requiring intubation.The patient been diagnosed with COVID-19 and circulatory shock. Patient also has stress-induced cardiomyopathy and NSTEMI as well. Nephrology is consulted for FELISHA and persistent metabolic acidosis. The patient has no prior history of chronic kidney disease. Her baseline serum creatinine has been 1.10 mg/dL prior to admission. Serum creatinine has been rising since admission from 1.17 mg/dL on presentation of 06/04/2023 up to 1.92 mg deciliter today on 06/09/2023. Fortunately, she is not oliguric. The patient remains intubated, so I cannot obtain ROS directly from the patient. She underwent right thoracentesis earlier today. Chart was extensively reviewed. [facility] Medical History Angiodysplasia of colon Angiodysplasia of stomach Chronic gastritis Congestive heart failure Diverticular disease Dyslipidemia Hemorrhoids Hypothyroid Iron deficiency anemia due to chronic blood loss Lung nodule, multiple Pleural effusion, bilateral Home Medications pantoprazole 40 mg tablet,delayed release (Protonix) 40 mg PO BID #60 tabs 06/01/22 [Rx Last Taken Unknown] losartan 50 mg-hydrochlorothiazide 12.5 mg tablet 1 tab PO DAILY 07/19/22 [History Last Taken Unknown] pravastatin 20 mg tablet 20 mg PO DAILY 07/19/22 [History Last Taken Unknown] levothyroxine 100 mcg tablet 125 mcg PO DAILY 08/02/22 [History Last Taken Unknown] triamterene 37.5 mg-hydrochlorothiazide 25 mg tablet 1 tab PO DAILY 06/03/23 [History Last Taken Unknown] Allergy/AdvReac Type Severity Reaction Status Date / Time No Known Allergies Allergy Verified 06/03/23 19:28 Family History Mother NHL (non-Hodgkin's lymphoma) Father Heart disease Brother Myocardial infarction Daughter Essential thrombocytopenia Surgical History History of removal of skin mole History of tubal ligation Social History household members: family Smoking Status: Former smoker how long ago did patient quit smoking: >20 years; 1ppd x 35yrs alcohol intake: never substance use type: does not use ROS ROS Narrative Cannot obtain ROS because of her current medical status. She is intubated and sedated on ventilator. Physical Exam Narrative General: On ventilator, sedated. HEENT: Normocephalic, atraumatic. Intubated. Neck: Supple, no JVD. Trachea is midline. No thyromegaly or lymphadenopathy. Cardiovascular: Normal S1, S2. No rubs, murmurs, or gallops. Respiratory: Lungs are decreased to auscultation at bases bilaterally. There is mild expiratory wheezing. Abdomen: Normal bowel sounds, soft, nontender, no guarding or rebound, no organomegaly. Extremities: No clubbing, cyanosis, or edema. Musculoskeletal: Full passive range of motion, no joint swelling. Psychiatric: Normal mood and affect. Skin: Warm and dry, no rash. Neurologic: Cranial nerve II to XII are grossly intact. No focal neurologic def icits. Lab / Micro Data 06/09/23 05:30 06/09/23 14:05 Labs: Laboratory Results - last 24 hr 06/09/23 05:30: WBC 14.4 H, RBC 3.58 L, Hgb 8.8 L, Hct 28.1 L, MCV 78.5 L, MCH 24.6 L, MCHC 31.3 L, RDW Std Deviation 48.4 H, RDW Coeff of [place] 16.9 H, Plt Count 382, MPV 10.7, Immature Gran % (Auto) 1.400 H, Neut % (Auto) 82.3 H, Lymph % (Auto) 5.2 L, [place] % (Auto) 10.9 H, Eos % (Auto) 0.0, Baso % (Auto) 0.2, Absolute Neuts (auto) 11.8 H, Absolute Lymphs (auto) 0.74 L, Nucleated RBC % 0, Differential Comment SCANNED, Diff Path Review October foll, Sodium 149 H, Potassium 3.6, Chloride 116 H, Carbon Dioxide 22.0, Anion Gap 11, BUN 65 H, Creatinine 1.85 H, Estim Creat Clear Calc 21.29, Est GFR (MDRD) Af Amer 34 L, Est GFR (MDRD) Non-Af 28 L, BUN/Creatinine Ratio 35.1 H, Glucose 134 H, Calcium 7.5 L, Phosphorus 5.6 H, Magnesium 2.1 06/09/23 05:53: Ionized Calcium 4.43 06/09/23 09:25: Urine Color Yellow, Urine Clarity Clear, Urine pH 6.0, Ur Specific [place] 1.015, Urine Protein 15 H, Urine Glucose (UA) Normal, Urine Ketones Negative, Urine Occult Blood 150 H, Urine Nitrite Negative, Urine Bilirubin Negative, Urine Urobilinogen Normal, Ur Leukocyte Esterase 25 H, Urine RBC 0 SEEN, Urine WBC 0-5 SEEN, Ur Squamous Epith Cells 0 SEEN, Urine Bacteria 0 SEEN, Urine Mucus 0 SEEN, Urine Yeast 1+, Ur Random Sodium 132, Urine Creatinine 15.70, Urine Potassium 14.0, Urine Chloride 138 06/09/23 11:13: POC Glucose 60 L 06/09/23 13:50: Fluid WBC 0.111, Fluid RBC 30, Fluid Tot Cell Count 0.132 H, Fld Polynuclear WBCs # 0.019, Fld Polynuclear WBCs % 17.1, Fluid Mononuclear WBCs 0.092, Fld Mononuclear WBCs % 82.9, Fluid Glucose 129 H, Fluid Total Protein 2.3, Fluid LDH Cancelled 06/09/23 13:50: Fluid LDH 151 06/09/23 14:05: Sodium 148 H, Potassium 4.0, Chloride 116 H, Carbon Dioxide 22.0, BUN 66 H, Creatinine 1.92 H, Estim Creat Clear Calc 20.52, Est GFR (MDRD) Af Amer 32 L, Est GFR (MDRD) Non-Af 27 L, BUN/Creatinine Ratio 34.4 H, Glucose 145 H, Calcium 7.9 L, Phosphorus 5.1 H, Albumin 2.4 L Micro: Microbiology 06/03/23 21:05 Blood Culture (Wb) - Right Hand Blood Culture - Final No growth in 5 days. 06/03/23 20:30 Blood Culture (Wb) - Left Wrist Blood Culture - Final No growth in 5 days. ABG Data ABG results: ABG 06/09/23 07:12 Specimen Type ART Sample Site R Radial pH 7.45 Bicarbonate Actual 18.8 L Total CO2 20 Base Excess -5 L O2 Saturation 99 O2 % 40.0 ABG pCO2 27.3 L ABG pO2 115 H O2 Delivery Device Not entered Vent Mode CPAP/PS POC PEEP 5 Rhythm Strip Rhythm Strip: Sinus Rhythm Rate: 58 Imagaing Radiology Impression Renal Ultrasound 06/09/23 07:08 IMPRESSION: Unremarkable examination of the kidneys. Electronically Signed: Erin Bee MD at 14:11 EST , Chest X-Ray 06/09/23 07:25 IMPRESSION: Decreased pulmonary edema with decreased mild bilateral pleural effusions. Electronically Signed: Erin Bee MD at 8:27 EST , Chest X-Ray 06/09/23 14:30 IMPRESSION: Decreased right pleural effusion with improved aeration of the right lung base post thoracentesis. No pneumothorax. Suspect cavitary nodules in the left lung, which may be secondary to atypical infection, septic emboli, or metastases. Electronically Signed: Erin Bee MD at 15:24 EST ,
[2023-06-09 18:46] LABS: LDH 1573 U/L (84-246)
[2023-06-09 18:48] LABS: Appearance/Body Fluid CLEAR; Color/Body Fluid YELLOW; Neutrophil (Segs) 18 %; Source- Body Fluid THORACENTESIS
[2023-06-09 18:49] LABS: Body Fluid QC Type(s) BF1Q; Lymphocytes 12 %; Macrophages 10 %; Monocytes 60 %
[2023-06-09 18:54] LABS: Auto B Fluid Analyzer BKGD Ct COUNTS W/IN LIMITS (W/IN LIMITS)
[2023-06-09] MEDS: Atorvastatin Calcium 20 MG Tablet PO (20:46)
[2023-06-09] MEDS: Chlorhexidine 15 ML PO (20:46)
[2023-06-10] VITALS (31 sets, daily range): BP systolic 109–136; BP diastolic 52–79; PULSE 67–113; RESP 7–22; TEMP 35.9–37; O2SAT 93–100; BMI 21.9
[2023-06-10] MEDS: Ampicillin/Sulbactam 3 GM in 0.9% Normal Saline (100mL MB+) 100 ML IV ×4 (00:58→18:44)
[2023-06-10] MEDS: dexMEDEtomidine 400 MCG in 0.9% Normal Saline (100mL Bag) 96 ML 7.20000000000000018 MCG CONT INF (02:30)
--- NOTE | 2023-06-10 03:05 | CPS ---
Critical ABG values noted on 06/07/23 at 22:33. Dr. Pantoja aware.
[2023-06-10 04:56] LABS: Absolute Lymphocyte Count 0.73 X10^3/uL (0.83-4.51); Absolute Neutrophil Count 16.8 X10^3/uL (2.0-7.7); Basophil# 0.03 X10^3/uL; Basophil% 0.2 % (0-1); Hematocrit 26.6 % (37-47); Hemoglobin 8.1 g/dL (12.0-15.0); Lymphocyte # 0.73 X10^3/ul (0.83-4.51); Lymphocyte % 3.8 % (19-41); Mean Corp Hgb Conc 30.5 g/dL (32-36); Mean Corpuscular Hgb 24.3 pg (27.0-32.0); Mean Corpuscular Volume 79.6 fL (81-99); Mean Platelet Vol. 11.1 fl (6.2-12.0); Monocyte% 7.7 % (0-10); NRBC Flagged by Analyzer 0 % (0-5); Neutrophil # 16.76 X10^3/uL (2.7-7.7); Neutrophil % 86.5 % (47-70); Platelet Count 303 K/mm3 (150-450); RBC Distribution Width SD 48.8 fl (35.1-43.9); Red Blood Count 3.34 M/mm3 (4.2-5.4); White Blood Count 19.4 K/mm3 (4.4-11.0)
[2023-06-10 05:15] LABS: Anion Gap 9 (5-15); BUN 70 mg/dL (7-18); BUN/Creat Ratio 38.7 RATIO (10-20); Calcium,Total 7.2 mg/dL (8.5-10.1); Chloride 114 mmol/L (98-107); Creatinine, Serum 1.81 mg/dL (0.55-1.02); EST Glomerular Filtration Rate 29 mL/min (>60); Est Glom Filt Rate - Afr Amer 35 mL/min (>60); Estimated Creatinine Clearance 21.76 ml/min; Glucose 168 mg/dL (74-106); Phosphorus 4.1 mg/dL (2.5-4.9); Potassium 3.4 mmol/L (3.5-5.1); Sodium Level 147 mmol/L (136-145)
[2023-06-10 05:52] LABS: Ionized Calcium 4.44 mg/dL (4.36-5.20)
[2023-06-10] MEDS: Levothyroxine 125 MCG Tablet NG (06:29)
[2023-06-10 07:14] LABS: Allen Test Positive; Base Excess -2 mmol/L (-2 to +2); Bicarbonate 22.7 mmol/L (22-26); Blood Gas Specimen Type ART; Mode CPAP/PS; O2 Delivery Device Adult Vent; PEEP 5; PO2 126 mmHG (75-100); SITE R Radial; SO2 99 % (95-99); Total Carbon Dioxide 24 mmol/L; pCO2 36.1 mmHg (35-45); pH 7.41 (7.35-7.45)
[2023-06-10] MEDS: Aspirin 81 MG TAB.CHEW PO (08:45)
[2023-06-10] MEDS: Carvedilol 3.125 MG TABLET PO ×2 (08:45→21:15)
--- NOTE | 2023-06-10 09:35 | PN.HOSP_ITS ---
Subjective Subjective No issues overnight. Patient has been doing well and her breathing trial. Urine output has improved with dobutamine and renal function starting to trend back down. Critical care medicine plans to talk to family about possible extubation without reintubation if she fails again and making her a DNR/DNI. She did have conversations with him yesterday and this is what he was leaning towards. Objective Data Objective Data Vital Signs: Vital Signs Temp Pulse Resp BP Pulse Ox O2 Del Method O2 Flow Rate 96.6 F L 80 22 H 129/64 H 100 Bi-pap 15 06/10/23 03:00 06/10/23 09:24 06/10/23 09:24 06/10/23 07:00 06/10/23 09:24 06/10/23 09:15 06/07/23 20:03 FiO2 35 06/10/23 09:24 Oxygen Flow Rate (L/min) 15 Oxygen Delivery Method Bi-pap Weight: 58.2 kg Body Mass Index (BMI) 21.9 Intake & Output: Intake and Output for Last 24 Hours 06/08/23 06/09/23 06/10/23 23:59 23:59 23:59 Intake Total 1238.52 / 1270.72 1779.04 / 1877.24 874.88 / 874.88 Output Total 2250 / 2550 1500 / 1900 400 / 400 Balance -1011.48 / -1279.28 279.04 / -22.76 474.88 / 474.88 Lab / Micro Data 06/10/23 04:20 06/10/23 04:20 Labs: Laboratory Results - last 24 hr 06/09/23 09:25: Urine Color Yellow, Urine Clarity Clear, Urine pH 6.0, Ur Specific [place] 1.015, Urine Protein 15 H, Urine Glucose (UA) Normal, Urine Ketones Negative, Urine Occult Blood 150 H, Urine Nitrite Negative, Urine Bilirubin Negative, Urine Urobilinogen Normal, Ur Leukocyte Esterase 25 H, Urine RBC 0 SEEN, Urine WBC 0-5 SEEN, Ur Squamous Epith Cells 0 SEEN, Urine Bacteria 0 SEEN, Urine Mucus 0 SEEN, Urine Yeast 1+, Ur Random Sodium 132, Urine Creatinine 15.70, Urine Potassium 14.0, Urine Chloride 138 06/09/23 11:13: POC Glucose 60 L 06/09/23 13:50: Fluid Source THORACENTESIS, Fluid Color YELLOW, Fluid Appearance CLEAR, Fluid WBC 0.111, Fluid RBC 30, Fluid Tot Cell Count 0.132 H, Fld Polynuclear WBCs # 0.019, Fld Polynuclear WBCs % 17.1, Fluid Mononuclear WBCs 0.092, Fld Mononuclear WBCs % 82.9, Fluid Neutrophils 18, Fluid Lymphocytes 12, Fluid Monocytes 60, Fluid Macrophages 10, Fld Mesothelial Cells TNP, Fl Pathologist Comment May follow, Fluid Glucose 129 H, Fluid Total Protein 2.3, Fluid LDH Cancelled 06/09/23 13:50: Fluid LDH 151, Fluid Comment 2 SEE COMMENT 06/09/23 14:05: Sodium 148 H, Potassium 4.0, Chloride 116 H, Carbon Dioxide 22.0, BUN 66 H, Creatinine 1.92 H, Estim Creat Clear Calc 20.52, Est GFR (MDRD) Af Amer 32 L, Est GFR (MDRD) Non-Af 27 L, BUN/Creatinine Ratio 34.4 H, Glucose 145 H, Calcium 7.9 L, Phosphorus 5.1 H, Lactate Dehydrogenase 1573 H, Albumin 2.4 L 06/10/23 04:20: WBC 19.4 H, RBC 3.34 L, Hgb 8.1 L, Hct 26.6 L, MCV 79.6 L, MCH 24.3 L, MCHC 30.5 L, RDW Std Deviation 48.8 H, RDW Coeff of [place] 17.0 H, Plt Count 303, MPV 11.1, Immature Gran % (Auto) 1.800 H, Neut % (Auto) 86.5 H, Lymph % (Auto) 3.8 L, [place] % (Auto) 7.7, Eos % (Auto) 0.0, Baso % (Auto) 0.2, Absolute Neuts (auto) 16.8 H, Absolute Lymphs (auto) 0.73 L, Nucleated RBC % 0, Sodium 147 H, Potassium 3.4 L, Chloride 114 H, Carbon Dioxide 24.0, Anion Gap 9, BUN 70 H, Creatinine 1.81 H, Estim Creat Clear Calc 21.76, Est GFR (MDRD) Af Amer 35 L, Est GFR (MDRD) Non-Af 29 L, BUN/Creatinine Ratio 38.7 H, Glucose 168 H, Calcium 7.2 L, Phosphorus 4.1, Magnesium 2.0 06/10/23 05:48: Ionized Calcium 4.44 Micro: Microbiology 06/03/23 21:05 Blood Culture (Wb) - Right Hand Blood Culture - Final No growth in 5 days. 06/03/23 20:30 Blood Culture (Wb) - Left Wrist Blood Culture - Final No growth in 5 days. 06/07/23 18:30 Stool Stool Occult Blood (STEPHANIE) - Final Occult Blood Positive 06/04/23 13:00 Urine Catheter - Isaac Urine Culture - Final Culture exhibits no growth. 06/03/23 23:58 Sputum, Tracheal Aspirate Gram Stain - Final 06/03/23 23:58 Sputum, Tracheal Aspirate Respiratory Culture - Final Mixed normal respiratory maris. No Streptococcus pneumoniae, beta-hemolytic Streptococcus or Staphylococcus aureus isolated. 06/04/23 13:00 Urine Catheter - Isaac Legionella Antigen - Final 06/04/23 13:00 Urine Catheter - Isaac Streptococcus pneumoniae Antigen (M - Final 06/04/23 07:16 Mucosa - Nasopharyngeal Respiratory Panel (PCR) - Final 06/03/23 20:25 Mucosa - Nose Influenza & RSV (PCR) - Final 06/03/23 20:30 Nasal Secretion SARS-CoV-2 Antigen (Rapid) - Final SARS-CoV-2 (COVID 19) ABG Data ABG results: ABG 06/10/23 07:11 Specimen Type ART Sample Site R Radial pH 7.41 Bicarbonate Actual 22.7 Total CO2 24 Base Excess -2 O2 Saturation 99 O2 % 35.0 ABG pCO2 36.1 ABG pO2 126 H Hank Test Positive O2 Delivery Device Adult Vent Vent Mode CPAP/PS POC PEEP 5 Radiography Diagnostic Testing: Radiology Impression Renal Ultrasound 06/09/23 07:08 IMPRESSION: Unremarkable examination of the kidneys. Electronically Signed: Erin Bee MD at 14:11 EST , Chest X-Ray 06/09/23 14:30 IMPRESSION: Decreased right pleural effusion with improved aeration of the right lung base post thoracentesis. No pneumothorax. Suspect cavitary nodules in the left lung, which may be secondary to atypical infection, septic emboli, or metastases. Electronically Signed: Erin Bee MD at 15:24 EST , Rhythm Strip Rhythm Strip: Sinus Rhythm Rate: 58 Physical Exam Const alert, oriented x3, no apparent distress, average body habitus and well nourished Constitutional Narrative: Elderly, white female, lying in bed on mechanical ventilation, currently appears comfortable, is awake and able to follow commands consistently, toxic HEENT normocephalic, head/scalp atraumatic and moist oral mucous membranes HEENT Narrative: ET tube in place Resp normal respiratory effort, no retractions, no use of accessory muscles and clear to auscultation bilaterally Resp Narrative: Patient is intubated on a ventilator, few crackles on right base after thoracentesis Auscultation: crackles; Negative for rales, rhonchi or wheezes Cardio regular rate, regular rhythm, S1 normal heart sound, S2 normal heart sound, no murmurs, no rub, no gallops and no clicks GI normal to inspection, nondistended, normoactive bowel sounds, soft to palpation, non-tender and non-distended Extremity normal to inspection, no clubbing, cyanosis or edema and no pedal edema Extremity Narrative: Pedal pulses are 2+, 1+ bilateral lower extremity pedal edema Skin no rashes or lesions noted Neuro oriented x3, moves all extremities and no focal motor deficits Neuro Narrative: Intubated and sedated, patient is awake and able to follow commands, moves all extremities symmetrically with no focal deficits Sensorium / Orientation: awake and alert Psych affect normal Psych Narrative: Unable to assess due to intubation Assessment & Plan Assessment/Plan (1) Acute hypoxemic respiratory failure: (2) Septic shock: (3) Non-ST elevation PA (NSTEMI): (4) COVID-19: (5) Takotsubo cardiomyopathy: PLAN: Plan Acute hypoxic respiratory failure secondary to acute COVID-19 inf ection/aspiration pneumonia -Intubated on 06/04/2023 -Extubated on 06/06/2023 -Reintubated 06/07/2023 -Possible extubation today -Sputum culture shows normal respiratory maris and all other cultures negative -Unasyn 3 g every 6 hours to complete a total of 7-day antibiotic course -day 7 of 7 -Remdesivir and Decadron have been initiated for acute COVID infection -Remdesivir completed -Decadron -Baricitinib day -Pulmonary/critical care medicine following Septic shock -Doubt COVID-19 is 100% responsible for this -Resolved -Discontinue midodrine -Procalcitonin was greater than 50 -All cultures except sputum are negative -Sputum culture demonstrates oral maris -Unasyn as noted above Metabolic acidosis -Propofol infusion syndrome suspected 1 anion gap metabolic acidosis was present -Seems to be resolving FELISHA secondary to ATN -Renal ultrasound was unremarkable -Serum creatinine is now improving with the addition of dobutamine and urine output is increasing -UA is unremarkable -Nephrology is following-appreciate input COVID-19 pneumonia -Treatment as noted above Leukocytosis -Trending up again -Repeat culture sent on 06/10/2023 -No change in antibiotics for now -Depending on findings may need to change or extend antibiotic course -Repeat PCT is pending Severe debility -PT and OT following -Patient may very likely need skilled at discharge due to her profound weakness -Case management and social worker health services following NSTEMI type II secondary to respiratory failure and shock -Echocardiogram was performed and showed an EF of 20% with anterior and apical akinesis, moderate mitral and tricuspid valve insufficiency and a right ventricular systolic pressure of 40 mmHg -Continue aspirin -Continue high intensity dose statin--> will transition to lower home dose at discharge -Total cholesterol is 116/LDL 45/HDL 48/triglycerides 118 -Cardiology is following-appreciate input -No current follow-up recommended at this time and cardiology has signed off Acute cardiomyopathy -Appears to be consistent with Takotsubo cardiomyopathy -Once patient off pressors and blood pressure stabilized will initiate appropriate goal-directed therapy and patient will need outpatient follow-up echocardiogram in 6 to 8 weeks for reassessment -BNP was greater than 4000 -Patient did not diurese well with Lasix -And output is improved significantly with dobutamine -Continue Coreg 3.125 mg p.o. 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 History of pulmonary nodules -Patient had been following with oncology -Recommended further workup with PET scan and to proceed with biopsy if there was significant uptake however patient declined and plan was to follow with serial CAT scans. -Repeat CAT scan was recommended at 6 months and that was on August 02, 2022 -Does not appear patient ever followed up with CAT scan Acute on chronic right-sided pleural effusion -Patient with history of large pleural effusion remotely -Recurrent right pleural effusion noted on chest x-ray from yesterday and thoracentesis for 750 cc performed -Improved aeration of right lung base today -Would monitor Hypothyroidism -Continue home levothyroxine via G-tube Hypertension -Hold home antihypertensives Hyperlipidemia -Lipid panel is unremarkable with current therapy having a total cholesterol 116/LDL 45/HDL 48 -Continue atorvastatin 20 mg DVT prophylaxis -Will hold Lovenox and put on SCDs with positive guaiac CODE STATUS -DNR CCA okay for intubation as per discussion at the time of admission prior to intubation Charges/Coding Visit Charges Inpatient E&M: 39982 Subs Hosp L2
[2023-06-10 09:45] LABS: Procalcitonin 4.98 ng/mL (0.00-0.09)
--- NOTE | 2023-06-10 10:14 | PN.CC_ITS ---
Assessment & Plan Assessment/Plan (1) Acute hypoxemic respiratory failure: (2) Septic shock: PLAN: Plan RECOMMENDATIONS: * Pt was extubated to bipap this AM. Cont bipap at night * Pleural fluid is a transudate by light's criteria, this is likely 2/2 her CHF * She is tolerating dobutamine with improvement of her kidney function and UO. Renal US unremarkable * Her WBC count has trended up, procal is elevated, concern for an ongoing infection, She will complete unasyn today. Will add vanc. MRSA swab and Repeat cultures ordered. Will d/c barcitinib * Hgb is trending down. GI consulted. Protonix bid * Despite our discussion yesterday about changing code status to DNI, family refused to change her code status when we discussed that she's passing SBT and she remains DNR with intubation IMPRESSIONS: 1. Septic shock The patient presented with sepsis due to COVID-19 pneumonia with concern for concurrent bacterial superinfection with acute sepsis related organ dysfunction as evidenced by acute respiratory failure requiring invasive mechanical ventilatory support. Initially, fluid resuscitation was withheld over concerns for worsening respiratory status. completed remdesivir 06/08. 2. Acute hypoxemic respiratory failure Concern for multifactorial etiology. Obviously, the patient has COVID-19 pneumonia. Patient was extubated on 06/06 and was reintubated on 06/07 evening with flash pulmonary edema 3. NSTEMI Most likely secondary demand ischemia in the setting of #1 and 2. Completed heparin drip 4. History of pulmonary nodules/hypothyro idism/hypertension/hyperlipidemia/anemia Complicates care, management, recovery and prognosis. Hold home antihypertensives. The patient has been followed on an outpatient basis by onco ksenia with regard to her underlying pulmonary nodules. She is electing to pursue serial CT scans on an outpatient basis. However, it does not appear that she ever followed up for repeat imaging. 5. ? propofol infusion syndrome/metabolic acidosis Unclear etiology of metabolic acidosis. Clinical suspicion for propofol infusion syndrome as metabolic acidosis has improved significantly following discontinuation. Some concern that metabolic acidosis could lead to increased respiratory demand. Patient will be given an amp of bicarb prior to extubation 06/06. Patient again had severe metabolic acidosis with bicarb of 10 and pH of 7 on the evening of 06/07 which required her to be reintubated. She received 2 A of bicarb. Her bicarb appears to be improving. Unclear etiology of metabolic acidosis? RTA\ 6. FELISHA Maybe 2/2 cardio renal, her Cr worsened after lasix was started, She was started on dobutamine 06/09 7.Transudative R pleural effusion s/p thoracentesis 06/09/23 TIME: 36 minutes of critical care time, independent of procedures, was spent addressing the patient's septic shock, NSTEMI, review of all data and collaboration with the care team. Subjective Subjective Underwent SBT this morning and passed she was extubated to BiPAP. Discussed again with her family and they would like to reintubate if needed. Objective Data Objective Data Vital Signs: Vital Signs Temp Pulse Resp BP Pulse Ox O2 Del Method O2 Flow Rate 35.9 C L 80 22 H 129/64 H 100 Bi-pap 15 06/10/23 03:00 06/10/23 09:24 06/10/23 09:24 06/10/23 07:00 06/10/23 09:24 06/10/23 09:15 06/07/23 20:03 FiO2 35 06/10/23 09:24 Oxygen Flow Rate (L/min) 15 Oxygen Delivery Method Bi-pap Weight: 58.2 kg Body Mass Index (BMI) 21.9 Intake & Output: Intake and Output for Last 24 Hours 06/08/23 06/09/23 06/10/23 23:59 23:59 23:59 Intake Total 1238.52 / 1270.72 1779.04 / 1877.24 874.88 / 874.88 Output Total 2250 / 2550 1500 / 1900 400 / 400 Balance -1011.48 / -1279.28 279.04 / -22.76 474.88 / 474.88 Lab / Micro Data 06/10/23 04:20 06/10/23 04:20 Labs: Laboratory Results - last 24 hr 06/09/23 09:25: Urine Potassium 14.0, Urine Chloride 138 06/09/23 11:13: POC Glucose 60 L 06/09/23 13:50: Fluid Source THORACENTESIS, Fluid Color YELLOW, Fluid Appearance CLEAR, Fluid WBC 0.111, Fluid RBC 30, Fluid Tot Cell Count 0.132 H, Fld Polynuclear WBCs # 0.019, Fld Polynuclear WBCs % 17.1, Fluid Mononuclear WBCs 0.092, Fld Mononuclear WBCs % 82.9, Fluid Neutrophils 18, Fluid Lymphocytes 12, Fluid Monocytes 60, Fluid Macrophages 10, Fld Mesothelial Cells TNP, Fl Pathologist Comment May follow, Fluid Glucose 129 H, Fluid Total Protein 2.3, Fluid LDH Cancelled 06/09/23 13:50: Fluid LDH 151, Fluid Comment 2 SEE COMMENT 06/09/23 14:05: Sodium 148 H, Potassium 4.0, Chloride 116 H, Carbon Dioxide 22.0, BUN 66 H, Creatinine 1.92 H, Estim Creat Clear Calc 20.52, Est GFR (MDRD) Af Amer 32 L, Est GFR (MDRD) Non-Af 27 L, BUN/Creatinine Ratio 34.4 H, Glucose 145 H, Calcium 7.9 L, Phosphorus 5.1 H, Lactate Dehydrogenase 1573 H, Albumin 2.4 L 06/10/23 04:20: WBC 19.4 H, RBC 3.34 L, Hgb 8.1 L, Hct 26.6 L, MCV 79.6 L, MCH 24.3 L, MCHC 30.5 L, RDW Std Deviation 48.8 H, RDW Coeff of [place] 17.0 H, Plt Count 303, MPV 11.1, Immature Gran % (Auto) 1.800 H, Neut % (Auto) 86.5 H, Lymph % (Auto) 3.8 L, [place] % (Auto) 7.7, Eos % (Auto) 0.0, Baso % (Auto) 0.2, Absolute Neuts (auto) 16.8 H, Absolute Lymphs (auto) 0.73 L, Nucleated RBC % 0, Sodium 147 H, Potassium 3.4 L, Chloride 114 H, Carbon Dioxide 24.0, Anion Gap 9, BUN 70 H, Creatinine 1.81 H, Estim Creat Clear Calc 21.76, Est GFR (MDRD) Af Amer 35 L, Est GFR (MDRD) Non-Af 29 L, BUN/Creatinine Ratio 38.7 H, Glucose 168 H, Calcium 7.2 L, Phosphorus 4.1, Magnesium 2.0 06/10/23 05:48: Ionized Calcium 4.44 06/10/23 08:50: Procalcitonin 4.98 H Micro: Microbiology 06/09/23 13:50 Fluid - Pleural (Lung) Body Fluid Culture - Preliminary No growth-Final to follow 06/03/23 21:05 Blood Culture (Wb) - Right Hand Blood Culture - Final No growth in 5 days. 06/03/23 20:30 Blood Culture (Wb) - Left Wrist Blood Culture - Final No growth in 5 days. 06/07/23 18:30 Stool Stool Occult Blood (STEPHANIE) - Final Occult Blood Positive 06/04/23 13:00 Urine Catheter - Isaac Urine Culture - Final Culture exhibits no growth. 06/03/23 23:58 Sputum, Tracheal Aspirate Gram Stain - Final 06/03/23 23:58 Sputum, Tracheal Aspirate Respiratory Culture - Final Mixed normal respiratory maris. No Streptococcus pneumoniae, beta-hemolytic Streptococcus or Staphylococcus aureus isolated. 06/04/23 13:00 Urine Catheter - Isaac Legionella Antigen - Final 06/04/23 13:00 Urine Catheter - Isaac Streptococcus pneumoniae Antigen (M - Final 06/04/23 07:16 Mucosa - Nasopharyngeal Respiratory Panel (PCR) - Final 06/03/23 20:25 Mucosa - Nose Influenza & RSV (PCR) - Final 06/03/23 20:30 Nasal Secretion SARS-CoV-2 Antigen (Rapid) - Final SARS-CoV-2 (COVID 19) ABG Data ABG results: ABG 06/10/23 07:11 Specimen Type ART Sample Site R Radial pH 7.41 Bicarbonate Actual 22.7 Total CO2 24 Base Excess -2 O2 Saturation 99 O2 % 35.0 ABG pCO2 36.1 ABG pO2 126 H Hank Test Positive O2 Delivery Device Adult Vent Vent Mode CPAP/PS POC PEEP 5 Radiography Diagnostic Testing: Radiology Impression Renal Ultrasound 06/09/23 07:08 IMPRESSION: Unremarkable examination of the kidneys. Electronically Signed: Erin Bee MD at 14:11 EST , Chest X-Ray 06/09/23 14:30 IMPRESSION: Decreased right pleural effusion with improved aeration of the right lung base post thoracentesis. No pneumothorax. Suspect cavitary nodules in the left lung, which may be secondary to atypical infection, septic emboli, or metastases. Electronically Signed: Erin Bee MD at 15:24 EST , Rhythm Strip Rhythm Strip: Sinus Rhythm Rate: 58 Physical Exam Narrative General intubated tolerating SBT HEENT. Normocephalic atraumatic, pupils equal and reactive Respiratory mechanical breath sounds, no wheezing, +ve cuff leak Cardiac S1-S2, regular rate and rhythm GI abdomen soft and nontender MSK bilateral lower extremity edema, occasional cyanosis of b/l fingers Neuro intubated follows commands moves all extremities Charges/Coding Procedures Hospitalists Procedures: 07869 Critical Care 1st Hr
[2023-06-10] MEDS: dexAMETHasone 4 MG/ML Vial 6 MG IV (11:48)
[2023-06-10] MEDS: CHLORHEXIDINE GLUC 2% CLOTH 1 EACH TOWELETTE TOPICAL (11:48)
[2023-06-10] MEDS: Vancomycin HCl 1,500 MG in 0.9% Normal Saline (500mL Bag) 500 ML 250 MG IV (11:51)
[2023-06-10] MEDS: DOBUTamine 500mg PM 500 MG/250 ML IV.SOLN. 8.19999999999999929 MG CONT INF (11:51)
[2023-06-10] MEDS: 0.9 % NaCl (Sterile) Posiflush 10 mL IV (11:58)
[2023-06-10 12:52] LABS: Bedside Glucose 99 mg/dL (74-106)
[2023-06-10 12:52] LABS: Ionized Calcium Order ORDER TUBE
--- NOTE | 2023-06-10 15:00 | PCM.RX.CS ---
Consult Antibiotic Management Pharmacy has been consulted to manage selected antibiotic: Vancomycin Type of Intervention Type of Consult: New start Suspected Infection Suspected Infection: Other Labs Labs: Sodium 147 mmol/L (136-145) H 06/10/23 04:20 Potassium 3.4 mmol/L (3.5-5.1) L 06/10/23 04:20 Chloride 114 mmol/L (98-107) H 06/10/23 04:20 Carbon Dioxide 24.0 mmol/L (21.0-32.0) 06/10/23 04:20 Anion Gap 9 (5-15) 06/10/23 04:20 BUN 70 mg/dL (7-18) H 06/10/23 04:20 Creatinine 1.81 mg/dL (0.55-1.02) H 06/10/23 04:20 Est GFR (MDRD) Af Amer 35 mL/min (>60) L 06/10/23 04:20 Est GFR (MDRD) Non-Af 29 mL/min (>60) L 06/10/23 04:20 BUN/Creatinine Ratio 38.7 RATIO (10-20) H 06/10/23 04:20 Glucose 168 mg/dL (74-106) H 06/10/23 04:20 Vancomycin Trough 18.8 ug/mL (5.0-15.0) H 06/06/23 08:30 Microbiology Microbiology: Microbiology 06/10/23 09:00 Sputum, Induced/Lukens Gram Stain - Final 06/09/23 13:50 Fluid - Pleural (Lung) Gram Stain - Final 06/09/23 13:50 Fluid - Pleural (Lung) Body Fluid Culture - Preliminary No growth-Final to follow 06/03/23 21:05 Blood Culture (Wb) - Right Hand Blood Culture - Final No growth in 5 days. 06/03/23 20:30 Blood Culture (Wb) - Left Wrist Blood Culture - Final No growth in 5 days. 06/07/23 18:30 Stool Stool Occult Blood (STEPHANIE) - Final Occult Blood Positive 06/04/23 13:00 Urine Catheter - Isaac Urine Culture - Final Culture exhibits no growth. 06/03/23 23:58 Sputum, Tracheal Aspirate Gram Stain - Final 06/03/23 23:58 Sputum, Tracheal Aspirate Respiratory Culture - Final Mixed normal respiratory maris. No Streptococcus pneumoniae, beta-hemolytic Streptococcus or Staphylococcus aureus isolated. 06/04/23 13:00 Urine Catheter - Isaac Legionella Antigen - Final 06/04/23 13:00 Urine Catheter - Isaac Streptococcus pneumoniae Antigen (M - Final 06/04/23 07:16 Mucosa - Nasopharyngeal Respiratory Panel (PCR) - Final 06/03/23 20:25 Mucosa - Nose Influenza & RSV (PCR) - Final 06/03/23 20:30 Nasal Secretion SARS-CoV-2 Antigen (Rapid) - Final SARS-CoV-2 (COVID 19) Goal Trough Goal Trough: 15-20 mcg/mL Pharmacy Plan for Drug Dosing Pharmacy Plan for Drug Dosing: NEW START IV VANCOMYCIN Consulting Physician: Dr. Daniel Indication: R/O infection Goal Trough: 15-20 SrCr: 1.81 CrCl: 22 mL/min Comments: Patient had loading dose 1500mg IV x1 ordered and administered 06/10/23 @1151 Vancomycin Dose: 500mg IV Q24hr to start 06/11/23 @1200 Pending Level: 06/12/23 @1130, prior to 3rd total dose of vancomycin per protocol Pharmacy Service will continue to monitor and adjust dosing as required.
[2023-06-10] MEDS: Pantoprazole Sodium 40 MG in 0.9% Normal Saline (100mL MB+) 100 ML 330 MG IV ×2 (16:19→21:15)
[2023-06-10 17:55] LABS: M R Staph aureus DNA By PCR Negative (Negative); Probe Check PASS; Specimen Processing Control PASS
[2023-06-10] MEDS: Potassium Chloride Oral Tablet 20 MEQ 40 MEQ PO (18:44)
--- NOTE | 2023-06-10 19:23 | EX.PCM.CON.G ---
HPI Consult Data Date of Consult: 06/10/23 HPI Narrative Reason for Consultation: Anemia HPI Narrative: ROS COFFEY, is a 77 F who presented back on on 06/04/2023 with worsening shortness of breath with cough and recent COVID exposure. History obtained from chart review. She was diagnosed with COVID-19 pneumonia with concern for concurrent bacterial superinfection with acute sepsis related organ dysfunction as evidenced by acute respiratory failure requiring invasive mechanical ventilatory support. I was asked to see for worsening anemia. I previously saw for anemia about a year ago. 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 She had a colonoscopy performed which showed localized mild inflammation in the sigmoid colon, biopsies were taken, there were 3 medium sized localized angiodysplastic lesions with bleeding found at the splenic flexure and in the transverse colon coagulation with a heater probe was carried out. [facility] Medical History Angiodysplasia of colon Angiodysplasia of stomach Chronic gastritis Congestive heart failure Diverticular disease Dyslipidemia Hemorrhoids Hypothyroid Iron deficiency anemia due to chronic blood loss Lung nodule, multiple Pleural effusion, bilateral Home Medications pantoprazole 40 mg tablet,delayed release (Protonix) 40 mg PO BID #60 tabs 06/01/22 [Rx Last Taken Unknown] losartan 50 mg-hydrochlorothiazide 12.5 mg tablet 1 tab PO DAILY 07/19/22 [History Last Taken Unknown] pravastatin 20 mg tablet 20 mg PO DAILY 07/19/22 [History Last Taken Unknown] levothyroxine 100 mcg tablet 125 mcg PO DAILY 08/02/22 [History Last Taken Unknown] triamterene 37.5 mg-hydrochlorothiazide 25 mg tablet 1 tab PO DAILY 06/03/23 [History Last Taken Unknown] Allergy/AdvReac Type Severity Reaction Status Date / Time No Known Allergies Allergy Verified 06/03/23 19:28 Family History Mother NHL (non-Hodgkin's lymphoma) Father Heart disease Brother Myocardial infarction Daughter Essential thrombocytopenia Surgical History History of removal of skin mole History of tubal ligation Social History household members: family Smoking Status: Former smoker how long ago did patient quit smoking: >20 years; 1ppd x 35yrs alcohol intake: never substance use type: does not use ROS Constitutional Constitutional: Reports as per HPI Physical Exam Narrative General intubated tolerating SBT HEENT. Normocephalic atraumatic, pupils equal and reactive Respiratory mechanical breath sounds, no wheezing, +ve cuff leak Cardiac S1-S2, regular rate and rhythm GI abdomen soft and nontender MSK bilateral lower extremity edema, occasional cyanosis of b/l fingers Neuro intubated follows commands moves all extremities Lab / Micro Data 06/10/23 04:20 06/10/23 04:20 Labs: Laboratory Results - last 24 hr 06/10/23 04:20: WBC 19.4 H, RBC 3.34 L, Hgb 8.1 L, Hct 26.6 L, MCV 79.6 L, MCH 24.3 L, MCHC 30.5 L, RDW Std Deviation 48.8 H, RDW Coeff of [place] 17.0 H, Plt Count 303, MPV 11.1, Immature Gran % (Auto) 1.800 H, Neut % (Auto) 86.5 H, Lymph % (Auto) 3.8 L, [place] % (Auto) 7.7, Eos % (Auto) 0.0, Baso % (Auto) 0.2, Absolute Neuts (auto) 16.8 H, Absolute Lymphs (auto) 0.73 L, Nucleated RBC % 0, Sodium 147 H, Potassium 3.4 L, Chloride 114 H, Carbon Dioxide 24.0, Anion Gap 9, BUN 70 H, Creatinine 1.81 H, Estim Creat Clear Calc 21.76, Est GFR (MDRD) Af Amer 35 L, Est GFR (MDRD) Non-Af 29 L, BUN/Creatinine Ratio 38.7 H, Glucose 168 H, Calcium 7.2 L, Phosphorus 4.1, Magnesium 2.0 06/10/23 05:48: Ionized Calcium 4.44 06/10/23 08:50: Procalcitonin 4.98 H 06/10/23 11:41: POC Glucose 99 01/07/24 16:15: MRSA (PCR) Negative Micro: Microbiology 06/10/23 09:00 Sputum, Induced/Lukens Gram Stain - Final 06/09/23 13:50 Fluid - Pleural (Lung) Gram Stain - Final 06/09/23 13:50 Fluid - Pleural (Lung) Body Fluid Culture - Preliminary No growth-Final to follow ABG Data ABG results: ABG 06/10/23 07:11 Specimen Type ART Sample Site R Radial pH 7.41 Bicarbonate Actual 22.7 Total CO2 24 Base Excess -2 O2 Saturation 99 O2 % 35.0 ABG pCO2 36.1 ABG pO2 126 H Hank Test Positive O2 Delivery Device Adult Vent Vent Mode CPAP/PS POC PEEP 5 Rhythm Strip Rhythm Strip: Sinus Rhythm Rate: 58 Assessment & Plan Assessment/Plan (1) Anemia: QUALIFIERS: Anemia type: iron deficiency Iron deficiency anemia type: other iron deficiency Qualified Code(s): D50.8 - Other iron deficiency anemias PLAN: Anemia secondary to acute on chronic GI blood loss secondary to angiodysplastic lesions that were treated endoscopically in the setting of colitis likely secondary to ischemic colitis in the past. Continue to follow her hemoglobin. If her hemoglobin continues to drop then she would benefit from an upper endoscopy and likely a capsule endoscopy as an outpatient. I will continue to follow. Charges/Coding Visit Charges Inpatient E&M: 00124 Init Hosp L3
[2023-06-10] MEDS: Atorvastatin Calcium 20 MG Tablet PO (21:15)
[2023-06-10] MEDS: Menthol/Lanolin/Calamine/Znox 113 GM Tube 1 APPLIC TOPICAL (21:15)
[2023-06-10] MEDS: 0.9% Saline Lock 10 ML Syringe IV (21:16)
[2023-06-11] VITALS (17 sets, daily range): BP systolic 109–140; BP diastolic 65–90; PULSE 61–115; RESP 12–17; TEMP 36–36.6; O2SAT 92–100; BMI 21.4
[2023-06-11] MEDS: Levothyroxine 125 MCG Tablet NG (04:43)
[2023-06-11] MEDS: Acetaminophen 325 MG Tablet 650 MG PO (04:45)
[2023-06-11 04:57] LABS: Absolute Lymphocyte Count 0.92 X10^3/uL (0.83-4.51); Absolute Neutrophil Count 23.6 X10^3/uL (2.0-7.7); Basophil# 0.05 X10^3/uL; Basophil% 0.2 % (0-1); Hematocrit 25.4 % (37-47); Hemoglobin 7.6 g/dL (12.0-15.0); Lymphocyte # 0.92 X10^3/ul (0.83-4.51); Lymphocyte % 3.4 % (19-41); Mean Corp Hgb Conc 29.9 g/dL (32-36); Mean Corpuscular Hgb 24.1 pg (27.0-32.0); Mean Corpuscular Volume 80.6 fL (81-99); Mean Platelet Vol. 11.6 fl (6.2-12.0); Monocyte# 1.39 X10^3/uL; Monocyte% 5.2 % (0-10); NRBC Flagged by Analyzer 0 % (0-5); Neutrophil # 23.64 X10^3/uL (2.7-7.7); Neutrophil % 87.7 % (47-70); POSITIVE DIFFERENTIAL YES; Platelet Count 353 K/mm3 (150-450); RBC Distribution Width CV 17.2 % (11.6-14.6); RBC Distribution Width SD 50.2 fl (35.1-43.9); Red Blood Count 3.15 M/mm3 (4.2-5.4); White Blood Count 26.9 K/mm3 (4.4-11.0)
[2023-06-11 05:28] LABS: Ionized Calcium 4.81 mg/dL (4.36-5.20)
[2023-06-11 05:38] LABS: Differential Indicated SCAN CRITERIA MET
[2023-06-11 05:40] LABS: Differential Comment SCANNED
[2023-06-11 05:47] LABS: Anion Gap 9 (5-15); BUN 61 mg/dL (7-18); BUN/Creat Ratio 36.5 RATIO (10-20); Calcium,Total 8.3 mg/dL (8.5-10.1); Chloride 117 mmol/L (98-107); Creatinine, Serum 1.67 mg/dL (0.55-1.02); EST Glomerular Filtration Rate 31 mL/min (>60); Est Glom Filt Rate - Afr Amer 38 mL/min (>60); Estimated Creatinine Clearance 23.59 ml/min; Glucose 100 mg/dL (74-106); Magnesium 2.1 mg/dL (1.6-2.6); Phosphorus 4.3 mg/dL (2.5-4.9); Potassium 4.7 mmol/L (3.5-5.1); Sodium Level 148 mmol/L (136-145)
--- NOTE | 2023-06-11 06:51 | PN.CC_ITS ---
Assessment & Plan Assessment/Plan (1) Acute hypoxemic respiratory failure: (2) Septic shock: PLAN: Plan RECOMMENDATIONS: 1. Continue to wean supplemental oxygen to maintain saturations at or above 90%. 2. Continue Decadron to complete 10 days of therapy. 3. Continue PPI therapy. Transfuse if hemoglobin drops below 7 g/dL. 4. Continue antibiotics, pending repeat culture results. 5. Encourage incentive spirometer use and mobilize patient as tolerated. IMPRESSIONS: 1. Septic shock The patient presented with sepsis due to COVID-19 pneumonia with concern for concurrent bacterial superinfection with acute sepsis related organ dysfunction as evidenced by acute respiratory failure requiring invasive mechanical ventilatory support. The patient remains hemodynamically stable off of vasopressor support. She has completed remdesivir and will be continued on Decadron to complete 10 days of therapy. 2. Acute hypoxemic respiratory failure Clinically improving. The patient was able to be successfully extubated and is requiring minimal supplemental oxygen. Plan to continue current supportive measures. Wean supplemental oxygen to maintain saturations at or above 90%. Plan to complete 10 days of Decadron. Encourage incentive spirometer use and mobilize patient as tolerated. Dobutamine has been discontinued. 3. NSTEMI Most likely secondary demand ischemia in the setting of #1 and 2. 4. Acute kidney injury Potentially related to cardiorenal syndrome versus ischemic ATN in the setting #1. Dobutamine has been discontinued at this time. Plan to continue to monitor urine output. Nephrology is following to assist with medical management. 5. Anemia Patient has a history of angiodysplastic lesions. She has been followed by gastroenterology with plans for potential endoscopic evaluation if hemoglobin continues to worsen. For now, continue to monitor blood counts and transfuse if hemoglobin drops below 7 g/dL. Continue PPI therapy as ordered. 6. History of pulmonary nodul es/hypothyroidism/hypertension/hyperlipidemia/anemia Complicates care, management, recovery and prognosis. The patient has been followed on an outpatient basis by oncology with regard to her underlying pulmonary nodules. She is electing to pursue serial CT scans on an outpatient basis. However, it does not appear that she ever followed up for repeat imaging. This note was generated with Qewzation software. It may contain incorrect words, spelling, and punctuation that were not noted in checking the note before signing. Subjective Subjective The patient was seen and examined at the bedside this morning. Events from the last 24 hours have been reviewed. The patient was extubated yesterday and is doing well this morning from a respiratory perspective. The patient's dobutamine was discontinued this morning. The patient is documented to be overall net +6.5 L for the hospitalization. White count is elevated at 27,000 with a hemoglobin of 7.6 g/dL. Creatinine has improved to 1.67. The patient remains on Decadron and vancomycin. The patient continues to report the presen ce of a cough with difficult to expectorate sputum. Objective Data Objective Data The patient's most recent lab work, culture data and imaging studies have all been personally reviewed. Surface echocardiogram from June 05 demonstrated severe LV systolic dysfunction with an ejection fraction of 20%. COVID antigen testing was positive on June 03. Vital Signs: Vital Signs Temp Pulse Resp BP Pulse Ox O2 Del Method O2 Flow Rate 97.6 F L 61 16 119/65 94 Nasal Cannula 1 06/11/23 04:00 06/11/23 06:00 06/11/23 06:00 06/11/23 06:00 06/11/23 06:00 06/11/23 06:00 06/11/23 06:00 FiO2 30 06/11/23 01:05 Oxygen Flow Rate (L/min) 1 Oxygen Delivery Method Nasal Cannula Weight: 125 lb 14.143 oz Body Mass Index (BMI) 21.4 Intake & Output: Intake and Output for Last 24 Hours 06/09/23 06/10/23 06/11/23 23:59 23:59 23:59 Intake Total 1779.04 / 1877.24 2151.88 / 2151.88 Output Total 1500 / 1900 980 / 1230 250 / 250 Balance 279.04 / -22.76 1171.88 / 921.88 -250 / -250 Lab / Micro Data Attestation: I reviewed the patient's lab results. 06/11/23 04:45 06/11/23 04:45 Labs: Laboratory Results - last 24 hr 06/10/23 08:50: Procalcitonin 4.98 H 06/10/23 11:41: POC Glucose 99 06/10/23 16:15: MRSA (PCR) Negative 06/11/23 04:45: WBC 26.9 H, RBC 3.15 L, Hgb 7.6 L, Hct 25.4 L, MCV 80.6 L, MCH 24.1 L, MCHC 29.9 L, RDW Std Deviation 50.2 H, RDW Coeff of [place] 17.2 H, Plt Count 353, MPV 11.6, Immature Gran % (Auto) 3.500 H, Neut % (Auto) 87.7 H, Lymph % (Auto) 3.4 L, [place] % (Auto) 5.2, Eos % (Auto) 0.0, Baso % (Auto) 0.2, Absolute Neuts (auto) 23.6 H, Absolute Lymphs (auto) 0.92, Nucleated RBC % 0, Differential Comment SCANNED, Sodium 148 H, Potassium 4.7, Chloride 117 H, Carbon Dioxide 22.0, Anion Gap 9, BUN 61 H, Creatinine 1.67 H, Estim Creat Clear Calc 23.59, Est GFR (MDRD) Af Amer 38 L, Est GFR (MDRD) Non-Af 31 L, BUN/Creatinine Ratio 36.5 H, Glucose 100, Calcium 8.3 L, Phosphorus 4.3, Magnesium 2.1 06/11/23 05:23: Ionized Calcium 4.81 Micro: Microbiology 06/10/23 09:00 Sputum, Induced/Lukens Gram Stain - Final 06/09/23 13:50 Fluid - Pleural (Lung) Gram Stain - Final 06/09/23 13:50 Fluid - Pleural (Lung) Body Fluid Culture - Preliminary No growth-Final to follow 06/03/23 21:05 Blood Culture (Wb) - Right Hand Blood Culture - Final No growth in 5 days. 06/03/23 20:30 Blood Culture (Wb) - Left Wrist Blood Culture - Final No growth in 5 days. 06/07/23 18:30 Stool Stool Occult Blood (STEPHANIE) - Final Occult Blood Positive 06/04/23 13:00 Urine Catheter - Isaac Urine Culture - Final Culture exhibits no growth. 06/03/23 23:58 Sputum, Tracheal Aspirate Gram Stain - Final 06/03/23 23:58 Sputum, Tracheal Aspirate Respiratory Culture - Final Mixed normal respiratory maris. No Streptococcus pneumoniae, beta-hemolytic Streptococcus or Staphylococcus aureus isolated. 06/04/23 13:00 Urine Catheter - Isaac Legionella Antigen - Final 06/04/23 13:00 Urine Catheter - Isaac Streptococcus pneumoniae Antigen (M - Final 06/04/23 07:16 Mucosa - Nasopharyngeal Respiratory Panel (PCR) - Final 06/03/23 20:25 Mucosa - Nose Influenza & RSV (PCR) - Final 06/03/23 20:30 Nasal Secretion SARS-CoV-2 Antigen (Rapid) - Final SARS-CoV-2 (COVID 19) ABG Data ABG results: ABG 06/10/23 07:11 Specimen Type ART Sample Site R Radial pH 7.41 Bicarbonate Actual 22.7 Total CO2 24 Base Excess -2 O2 Saturation 99 O2 % 35.0 ABG pCO2 36.1 ABG pO2 126 H Hank Test Positive O2 Delivery Device Adult Vent Vent Mode CPAP/PS POC PEEP 5 Rhythm Strip Rhythm Strip: Sinus Rhythm Rate: 58 Physical Exam Const alert and no apparent distress General Appearance: cooperative HEENT normocephalic, head/scalp atraumatic and moist oral mucous membranes Eyes PERRL and EOMs intact bilaterally Neck supple General: trachea midline Chest inspection of chest normal Resp normal respiratory effort Auscultation: Negative for rales, rhonchi or wheezes Cardio regular rate and regular rhythm GI normal to inspection, nondistended, normoactive bowel sounds Extremity no clubbing, cyanosis or edema Skin no rashes or lesions noted Neuro moves all extremities and no focal motor deficits Psych cooperative and affect normal Charges/Coding Visit Charges Inpatient E&M: 77212 Subs Hosp L3
[2023-06-11] MEDS: CHLORHEXIDINE GLUC 2% CLOTH 1 EACH TOWELETTE TOPICAL (07:27)
[2023-06-11] MEDS: Menthol/Lanolin/Calamine/Znox 113 GM Tube 1 APPLIC TOPICAL ×3 (07:27→21:52)
[2023-06-11] MEDS: Carvedilol 3.125 MG TABLET PO ×2 (07:44→21:46)
[2023-06-11] MEDS: dexAMETHasone 4 MG/ML Vial 6 MG IV (07:45)
[2023-06-11] MEDS: Pantoprazole Sodium 40 MG in 0.9% Normal Saline (100mL MB+) 100 ML 330 MG IV ×2 (07:45→21:46)
--- NOTE | 2023-06-11 10:16 | PCM.PN.REN ---
Subjective Subjective Following for FELISHA. The patient was extubated on 06/10/2023. She feels better overall. She denies nausea, vomiting, or chest pain. Dyspnea is better. Objective Data Objective Data Vital Signs: Vital Signs Temp Pulse Resp BP Pulse Ox O2 Del Method O2 Flow Rate 96.8 F L 78 12 117/80 95 Nasal Cannula 1 06/11/23 08:00 06/11/23 10:00 06/11/23 10:00 06/11/23 10:00 06/11/23 10:00 06/11/23 10:00 06/11/23 10:00 FiO2 30 06/11/23 01:05 Oxygen Flow Rate (L/min) 1 Oxygen Delivery Method Nasal Cannula Weight: 57.1 kg Body Mass Index (BMI) 21.4 Intake & Output: Intake and Output for Last 24 Hours 06/09/23 06/10/23 06/11/23 23:59 23:59 23:59 Intake Total 1779.04 / 1877.24 2151.88 / 2151.88 329.63 / 329.63 Output Total 1500 / 1900 980 / 1230 250 / 250 Balance 279.04 / -22.76 1171.88 / 921.88 79.63 / 79.63 Lab / Micro Data 06/11/23 04:45 06/11/23 04:45 Labs: Laboratory Results - last 24 hr 06/10/23 11:41: POC Glucose 99 06/10/23 16:15: MRSA (PCR) Negative 06/11/23 04:45: WBC 26.9 H, RBC 3.15 L, Hgb 7.6 L, Hct 25.4 L, MCV 80.6 L, MCH 24.1 L, MCHC 29.9 L, RDW Std Deviation 50.2 H, RDW Coeff of [place] 17.2 H, Plt Count 353, MPV 11.6, Immature Gran % (Auto) 3.500 H, Neut % (Auto) 87.7 H, Lymph % (Auto) 3.4 L, [place] % (Auto) 5.2, Eos % (Auto) 0.0, Baso % (Auto) 0.2, Absolute Neuts (auto) 23.6 H, Absolute Lymphs (auto) 0.92, Nucleated RBC % 0, Differential Comment SCANNED, Sodium 148 H, Potassium 4.7, Chloride 117 H, Carbon Dioxide 22.0, Anion Gap 9, BUN 61 H, Creatinine 1.67 H, Estim Creat Clear Calc 23.59, Est GFR (MDRD) Af Amer 38 L, Est GFR (MDRD) Non-Af 31 L, BUN/Creatinine Ratio 36.5 H, Glucose 100, Calcium 8.3 L, Phosphorus 4.3, Magnesium 2.1 06/11/23 05:23: Ionized Calcium 4.81 Micro: Microbiology 06/10/23 09:00 Sputum, Induced/Lukens Gram Stain - Final 06/09/23 13:50 Fluid - Pleural (Lung) Gram Stain - Final 06/09/23 13:50 Fluid - Pleural (Lung) Body Fluid Culture - Preliminary No growth-Final to follow 06/03/23 21:05 Blood Culture (Wb) - Right Hand Blood Culture - Final No growth in 5 days. 06/03/23 20:30 Blood Culture (Wb) - Left Wrist Blood Culture - Final No growth in 5 days. 06/07/23 18:30 Stool Stool Occult Blood (STEPHANIE) - Final Occult Blood Positive 06/04/23 13:00 Urine Catheter - Isaac Urine Culture - Final Culture exhibits no growth. 06/03/23 23:58 Sputum, Tracheal Aspirate Gram Stain - Final 06/03/23 23:58 Sputum, Tracheal Aspirate Respiratory Culture - Final Mixed normal respiratory maris. No Streptococcus pneumoniae, beta-hemolytic Streptococcus or Staphylococcus aureus isolated. 06/04/23 13:00 Urine Catheter - Isaac Legionella Antigen - Final 06/04/23 13:00 Urine Catheter - Isaac Streptococcus pneumoniae Antigen (M - Final 06/04/23 07:16 Mucosa - Nasopharyngeal Respiratory Panel (PCR) - Final 06/03/23 20:25 Mucosa - Nose Influenza & RSV (PCR) - Final 06/03/23 20:30 Nasal Secretion SARS-CoV-2 Antigen (Rapid) - Final SARS-CoV-2 (COVID 19) Rhythm Strip Rhythm Strip: Sinus Rhythm Rate: 58 Physical Exam Narrative General: No apparent distress. HEENT: Normocephalic, atraumatic. PERRLA, EOMI. Cardiovascular: Normal S1, S2. No rubs, murmurs, or gallops. Respiratory: Lungs are decreased to auscultation at bases bilaterally. Abdomen: Normal bowel sounds, soft, nontender, no guarding or rebound, no organomegaly. Extremities: No clubbing, cyanosis, or edema. Assessment & Plan Assessment/Plan (1) FELISHA (acute kidney injury): (2) Hypernatremia: (3) Shock circulatory: PLAN: Plan Impression/Plan: 77-year-old woman with past history of hypertension, hyperlipidemia, hypothyroidism and GERD. The patient presented to hospital on 06/04/2023 with dyspnea. She was found to have acute hypoxic respiratory failure requiring intubation and ventilator.The patient been diagnosed with COVID-19 and circulatory shock. She was also diagnosed with stress-induced cardiomyopathy. Nephrology is following for FELISHA. Acute kidney injury. Baseline serum creatinine prior to this admission had been around 1.1 to 1.3 mg/dL. So, there may be some component of CKD as well. FELISHA, with serum creatinine rising to 1.92 mg/dL on 06/09/2023, is likely due to ischemic ATN from circulatory shock. Ultrasound was unremarkable. There is no hydronephrosis. Urinalysis appears benign, so have low suspicion for GN or vasculitis. Renal function has improved since 06/09/2023. Serum creatinine is down to 1.67 mg/dL today. The patient is not oliguric. Continue efforts to keep MAP above 65 mmHg. There is no urgent need for kidney replacement therapy at this point. I will continue to monitor renal function, volume status, electrolytes, and acid-base. Acid-base status. Based on today's ABG on 06/09/2023, the patient primarily had chronic respiratory alkalosis. Her expected bicarbonate level for pCO2 should have been around 17 mmol/L on 06/09/2023. Her actual serum bicarbonate was 22 mmol/L which is higher than expected. So, there is no significant metabolic acidosis at this point. Recheck of acid-base status with ABG on 06/10/2023 reveal similar results. Patient likely has chronic respiratory alkalosis with renal compensation and probable mild metabolic alkalosis. Continue treatment of current causes of respiratory failure as per hospital medicine and intensive care services. Hypernatremia. The patient has mild hyponatremia with serum sodium of 148 mmol/L today. This is likely due to relative dehydration. She is not polyuric, so there is low suspicion for DI. There is no need for specific treatment of hyponatremia for this degree of serum sodium. Will continue to monitor serum sodium. Circulatory shock. The patient has multifactorial reasons for shock. She has sepsis and is being treated for pneumonia. The patient is being treated for COVID-19 pneumonia with dexamethasone. She is also on antimicrobial for probable bacterial superinfection. She also has stress cardiomyopathy. The patient was transiently on dobutamine which has been weaned off. Coordination of care is as per hospital medicine and critical care services.
--- NOTE | 2023-06-11 10:52 | CASEMGMT ---
Social Work Pt was extubated yesterday. TCU aware of referral, will review referral when pt is closer to being ready for discharge, she is on their list. JULIAN Rodriguez
[2023-06-11] MEDS: Vancomycin IV 500 MG/100 ML BAG 100 MG IV (11:28)
[2023-06-11 12:04] LABS: Pathologist Comment/Body Fluid Reviewed
[2023-06-11 12:06] LABS: Pathologist Review Reviewed
--- NOTE | 2023-06-11 14:23 | PN.GI_ITS ---
Subjective Subjective Patient was successfully extubated yesterday. She is currently on 4 to 6 L of nasal cannula. She is still recovering from COVID-19 infection. She is tolerating a liquid diet but not eating much. She has been urinating. She is about 1.5 L positive. Objective Data Objective Data Vital Signs: Vital Signs Temp Pulse Resp BP Pulse Ox O2 Del Method O2 Flow Rate 97.0 F L 77 13 117/80 95 Bi-pap 1 06/11/23 10:00 06/11/23 10:00 06/11/23 10:00 06/11/23 10:00 06/11/23 10:35 06/11/23 10:00 06/11/23 10:35 FiO2 30 06/11/23 01:05 Oxygen Flow Rate (L/min) 1 Oxygen Delivery Method Bi-pap Weight: 125 lb 14.143 oz Body Mass Index (BMI) 21.4 Intake & Output: Intake and Output for Last 24 Hours 06/09/23 06/10/23 06/11/23 23:59 23:59 23:59 Intake Total 1779.04 / 1877.24 2151.88 / 2151.88 589.63 / 589.63 Output Total 1500 / 1900 980 / 1230 450 / 450 Balance 279.04 / -22.76 1171.88 / 921.88 139.63 / 139.63 Lab / Micro Data 06/11/23 04:45 06/11/23 04:45 Labs: Laboratory Results - last 24 hr 06/09/23 05:30: Diff Path Review Reviewed 06/09/23 13:50: Fl Pathologist Comment Reviewed 06/10/23 16:15: MRSA (PCR) Negative 06/11/23 04:45: WBC 26.9 H, RBC 3.15 L, Hgb 7.6 L, Hct 25.4 L, MCV 80.6 L, MCH 24.1 L, MCHC 29.9 L, RDW Std Deviation 50.2 H, RDW Coeff of [place] 17.2 H, Plt Count 353, MPV 11.6, Immature Gran % (Auto) 3.500 H, Neut % (Auto) 87.7 H, Lymph % (Auto) 3.4 L, [place] % (Auto) 5.2, Eos % (Auto) 0.0, Baso % (Auto) 0.2, Absolute Neuts (auto) 23.6 H, Absolute Lymphs (auto) 0.92, Nucleated RBC % 0, Differential Comment SCANNED, Sodium 148 H, Potassium 4.7, Chloride 117 H, Ca rbon Dioxide 22.0, Anion Gap 9, BUN 61 H, Creatinine 1.67 H, Estim Creat Clear Calc 23.59, Est GFR (MDRD) Af Amer 38 L, Est GFR (MDRD) Non-Af 31 L, BUN/Creatinine Ratio 36.5 H, Glucose 100, Calcium 8.3 L, Phosphorus 4.3, Magnesium 2.1 06/11/23 05:23: Ionized Calcium 4.81 Micro: Microbiology 06/10/23 09:00 Sputum, Induced/Lukens Gram Stain - Final 06/10/23 09:00 Sputum, Induced/Lukens Respiratory Culture - Preliminary Presumptive C albicans 06/10/23 09:00 Urine Catheter - Isaac Urine Culture - Preliminary Yeast Like Organism 06/09/23 13:50 Fluid - Pleural (Lung) Gram Stain - Final 06/09/23 13:50 Fluid - Pleural (Lung) Body Fluid Culture - Preliminary No growth-Final to follow 06/03/23 21:05 Blood Culture (Wb) - Right Hand Blood Culture - Final No growth in 5 days. 06/03/23 20:30 Blood Culture (Wb) - Left Wrist Blood Culture - Final No growth in 5 days. 06/07/23 18:30 Stool Stool Occult Blood (STEPHANIE) - Final Occult Blood Positive 06/04/23 13:00 Urine Catheter - Isaac Urine Culture - Final Culture exhibits no growth. 06/03/23 23:58 Sputum, Tracheal Aspirate Gram Stain - Final 06/03/23 23:58 Sputum, Tracheal Aspirate Respiratory Culture - Final Mixed normal respiratory maris. No Streptococcus pneumoniae, beta-hemolytic Streptococcus or Staphylococcus aureus isolated. 06/04/23 13:00 Urine Catheter - Isaac Legionella Antigen - Final 06/04/23 13:00 Urine Catheter - Isaac Streptococcus pneumoniae Antigen (M - Final 06/04/23 07:16 Mucosa - Nasopharyngeal Respiratory Panel (PCR) - Final 06/03/23 20:25 Mucosa - Nose Influenza & RSV (PCR) - Final 06/03/23 20:30 Nasal Secretion SARS-CoV-2 Antigen (Rapid) - Final SARS-CoV-2 (COVID 19) Rhythm Strip Rhythm Strip: Sinus Rhythm Rate: 58 Physical Exam Narrative General: No apparent distress. HEENT: Normocephalic, atraumatic. PERRLA, EOMI. Cardiovascular: Normal S1, S2. No rubs, murmurs, or gallops. Respiratory: Lungs are decreased to auscultation at bases bilaterally. Abdomen: Normal bowel sounds, soft, nontender, no guarding or rebound, no organomegaly. Extremities: No clubbing, cyanosis, or edema. Assessment & Plan Assessment/Plan (1) Acute hypoxemic respiratory failure: (2) Septic shock: (3) Non-ST elevation [place] (NSTEMI): (4) COVID-19: (5) Takotsubo cardiomyopathy: (6) Angiodysplasia of stomach: PLAN: Plan 77-year-old with progressive shortness of breath who developed worsening hypoxic respiratory failure as result of COVID-19 infection, non-ST segment elevation ME, acute kidney injury status post intubation and currently successfully extubated. Acute hypoxic respiratory failure secondary to acute COVID-19 infection/aspiration pneumonia -Intubated on 06/04/2023 -Extubated on 06/06/2023 -Reintubated 06/07/2023 -Extubated 06/10/2023 -Pulmonary/critical care medicine following FELISHA secondary to ATN -Renal ultrasound was unremarkable -Serum creatinine is now improving with the addition of dobutamine and urine output is increasing -UA is unremarkable -Nephrology is following COVID-19 pneumonia -Treatment as noted above Leukocytosis -Trending up again. Possibly secondary to steroids. NSTEMI type II secondary to respiratory failure and shock -Echocardiogram was performed and showed an EF of 20% with anterior and apical akinesis, moderate mitral and tricuspid valve insufficiency and a right ventricular systolic pressure of 40 mmHg -She is currently on medical therapy including aspirin Acute on chronic normocytic anemia -Previous hospitalization about 1 year ago she was found to have a 3 angiodysplastic lesions in the stomach that were treated with heater probe, 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 and on colonoscopy had 3 medium sized angiodysplastic lesions with bleeding at the splenic flexure that was treated with heater probe -Hemoglobin at admission at that time was 5.5 -Hemoglobin stable is slowly trending down and now down to 7.6 -Guaiac was positive -Continue IV PPI -If hemoglobin trends down below 7 and that if she is extubated we will likely need to do an upper endoscopy. Charges/Coding Visit Charges Inpatient E&M: 63805 Subs Hosp L3
--- NOTE | 2023-06-11 15:35 | PCM.PN.HOSP ---
Reason for Visit Reason for Visit: Diagnoses Sepsis, unspecified organism (06/04/23) Other iron deficiency anemias (06/04/23) Hyperosmolality and hypernatremia (06/04/23) Non-ST elevation (NSTEMI) myocardial infarction (06/04/23) Takotsubo syndrome (06/04/23) Acute respiratory failure with hypoxia (06/04/23) Angiodysplasia of stomach and duodenum without bleeding (06/04/23) Acute kidney failure, unspecified (06/04/23) Shock, unspecified (06/04/23) Severe sepsis with septic shock (06/04/23) COVID-19 (06/04/23) Subjective Subjective Patient seen at bedside this morning. Patient was sitting up in bed, breathing comfortably on 2 L nasal cannula, in no acute distress. Patient states today that she feels improved from previous days. Denies any shortness of breath at rest or chest pain. She was using her suction actively for her mouth during our interview, had minimal sputum production noted. Denies any fevers or chills. No other acute concerns at this time. Objective Data Objective Data Vital Signs: Vital Signs Temp Pulse Resp BP Pulse Ox O2 Del Method O2 Flow Rate 97.0 F L 77 13 117/80 95 Bi-pap 1 06/11/23 10:00 06/11/23 10:00 06/11/23 10:00 06/11/23 10:00 06/11/23 10:35 06/11/23 10:00 06/11/23 10:35 FiO2 30 06/11/23 01:05 Oxygen Flow Rate (L/min) 1 Oxygen Delivery Method Bi-pap Weight: 57.1 kg Body Mass Index (BMI) 21.4 Intake & Output: Intake and Output for Last 24 Hours 06/09/23 06/10/23 06/11/23 23:59 23:59 23:59 Intake Total 1779.04 / 1877.24 2151.88 / 2151.88 589.63 / 589.63 Output Total 1500 / 1900 980 / 1230 450 / 450 Balance 279.04 / -22.76 1171.88 / 921.88 139.63 / 139.63 Lab / Micro Data 06/11/23 04:45 06/11/23 04:45 Labs: Laboratory Results - last 24 hr 06/09/23 05:30: Diff Path Review Reviewed 06/09/23 13:50: Fl Pathologist Comment Reviewed 06/10/23 16:15: MRSA (PCR) Negative 06/11/23 04:45: WBC 26.9 H, RBC 3.15 L, Hgb 7.6 L, Hct 25.4 L, MCV 80.6 L, MCH 24.1 L, MCHC 29.9 L, RDW Std Deviation 50.2 H, RDW Coeff of [place] 17.2 H, Plt Count 353, MPV 11.6, Immature Gran % (Auto) 3.500 H, Neut % (Auto) 87.7 H, Lymph % (Auto) 3.4 L, [place] % (Auto) 5.2, Eos % (Auto) 0.0, Baso % (Auto) 0.2, Absolute Neuts (auto) 23.6 H, Absolute Lymphs (auto) 0.92, Nucleated RBC % 0, Differential Comment SCANNED, Sodium 148 H, Potassium 4.7, Chloride 117 H, Carbon Dioxide 22.0, Anion Gap 9, BUN 61 H, Creatinine 1.67 H, Estim Creat Clear Calc 23.59, Est GFR (MDRD) Af Amer 38 L, Est GFR (MDRD) Non-Af 31 L, BUN/Creatinine Ratio 36.5 H, Glucose 100, Calcium 8.3 L, Phosphorus 4.3, Magnesium 2.1 06/11/23 05:23: Ionized Calcium 4.81 Micro: Microbiology 06/10/23 09:00 Sputum, Induced/Lukens Gram Stain - Final 06/10/23 09:00 Sputum, Induced/Lukens Respiratory Culture - Preliminary Presumptive C albicans 06/10/23 09:00 Urine Catheter - Isaac Urine Culture - Preliminary Yeast Like Organism 06/09/23 13:50 Fluid - Pleural (Lung) Gram Stain - Final 06/09/23 13:50 Fluid - Pleural (Lung) Body Fluid Culture - Preliminary No growth-Final to follow 06/03/23 21:05 Blood Culture (Wb) - Right Hand Blood Culture - Final No growth in 5 days. 06/03/23 20:30 Blood Culture (Wb) - Left Wrist Blood Culture - Final No growth in 5 days. 06/07/23 18:30 Stool Stool Occult Blood (STEPHANIE) - Final Occult Blood Positive 06/04/23 13:00 Urine Catheter - Isaac Urine Culture - Final Culture exhibits no growth. 06/03/23 23:58 Sputum, Tracheal Aspirate Gram Stain - Final 06/03/23 23:58 Sputum, Tracheal Aspirate Respiratory Culture - Final Mixed normal respiratory maris. No Streptococcus pneumoniae, beta-hemolytic Streptococcus or Staphylococcus aureus isolated. 06/04/23 13:00 Urine Catheter - Isaac Legionella Antigen - Final 06/04/23 13:00 Urine Catheter - Isaac Streptococcus pneumoniae Antigen (M - Final 06/04/23 07:16 Mucosa - Nasopharyngeal Respiratory Panel (PCR) - Final 06/03/23 20:25 Mucosa - Nose Influenza & RSV (PCR) - Final 06/03/23 20:30 Nasal Secretion SARS-CoV-2 Antigen (Rapid) - Final SARS-CoV-2 (COVID 19) Rhythm Strip Rhythm Strip: Sinus Rhythm Rate: 58 Physical Exam Const alert, no apparent distress and average body habitus Constitutional Narrative: Elderly female, chronically ill-appearing, sitting up in bed, conversing normally, no acute distress. General Appearance: cooperative and comfortable HEENT normocephalic, head/scalp atraumatic, hearing grossly normal bilaterally, nasal mucous membranes and turbinates normal and moist oral mucous membranes Eyes PERRL, EOMs intact bilaterally and conjunctivae normal Neck full ROM, no lymphadenopathy and supple Lymph Lymphatic: no lymphadenopathy noted Chest inspection of chest normal Resp normal respiratory effort, normal air movement and no use of accessory muscles Resp Narrative: Mildly decreased breath sounds bilaterally, no wheezing or crackles noted. Cardio regular rate, regular rhythm, no murmurs and peripheral pulses 2+ throughout GI normal to inspection, nondistended, normoactive bowel sounds, soft to palpation, non-tender and non-distended Back/Spine normal ROM Extremity normal to inspection and no pedal edema Extremity Narrative: +1-2 lower extremity edema bilaterally. Skin no rashes or lesions noted Neuro no focal motor deficits and no sensory deficits noted Speech: speech normal Psych mental status grossly normal Assessment & Plan Assessment/Plan (1) Acute hypoxemic respiratory failure: (2) Septic shock: (3) Non-ST elevation [place] (NSTEMI): (4) COVID-19: (5) Takotsubo cardiomyopathy: (6) FELISHA (acute kidney injury): (7) Hypernatremia: PLAN: Plan Patient is a 77-year-old female who presented to [facility] ED on 06/04/2023 with worsening shortness of breath. 1. Acute hypoxic respiratory failure secondary to acute COVID-19 infection/aspiration ammonia -Intubated on 06/04/2023. Extubated on 06/06/2023. Reintubated 06/07/2023. Extubated to BiPAP on 06/10/2023, now stable on 2 L nasal cannula on 06/11. -Sputum culture shows normal respiratory maris and all other cultures negative. Unasyn 3 g every 6 hours, completed 7-day course on 06/11. However, WBC count up now uptrending, procal elevated concerning for ongoing infection, vancomycin added on 06/10, continue for now. Repeat MRSA swab negative. Sputum culture with presumptive Ivon albicans, otherwise normal maris, final read pending. -Remdesivir?completed course. Decadron day 8 of 10. Completed 7 days of baricitinib, discontinued on 06/10 due to concern for recurrent infection. -Pulmonary/critical care medicine following. -Stable for transfer out of the ICU on 06/11, orders placed. 2. Septic shock ?Presumed secondary to COVID-19 pneumonia with aspiration pneumonia as noted above. Resolved. Midodrine discontinued on 06/10. However, does have increasing WBC count with elevated procal as of 06/10 as noted above. Completed course of Unasyn, now treating with vancomycin, follow up repeat cultures. 3. Metabolic acidosis, resolving ? Possibly secondary to propofol infusion syndrome, resolving. Monitor. 4. FELISHA secondary to ATN ? Nephrology following. Renal ultrasound unremarkable. UA unremarkable. Serum creatinine improved with addition of dobutamine with increasing urine output. Discontinued dobutamine on 06/11, monitor daily BMP and urine output. 5. Hypernatremia ? Nephrology following. Sodium 148 on 06/11. Likely due to relative dehydration. No need for specific treatment, monitor daily sodium. 6. Severe debility ? PT/OT/case management following. Will very likely need skilled rehab at discharge. 7. NSTEMI type II secondary to respiratory failure and shock, acute cardiomyopathy ? Echo showed EF 20%, anterior and apical akinesis, moderate mitral tricuspid valve insufficiency with elevated RVSP. Appears consistent with Takotsubo cardiomyopathy. Cardiology followed, now signed off. Continue aspirin, statin. Continue Coreg 3.125 mg p.o. twice daily. Dobutamine discontinued on 06/11. Monitor BP. Monitor renal function as noted above. Add lisinopril when able. 8. Chronic normocytic anemia ? Previous history of upper and lower GI bleed about 1 year ago. Found on EGD to have 3 angiodysplastic lesions in the stomach treated with heater probe, as well as gave with bleeding treated with APC. Also found on colonoscopy to have 3 medium sized angiodysplastic lesions with bleeding at splenic flexure treated with heater probe. ? Hemoglobin slowly downtrending here, now down to 7.5. ? Gastroenterology following. Continue to trend hemoglobin. If hemoglobin drops below 7, will likely need to repeat upper endoscopy. Continue IV PPI twice daily for now. 9. History of pulmonary nodules -Patient had been following with oncology -Recommended further workup with PET scan and to proceed with biopsy if there was significant uptake however patient declined and plan was to follow with serial CAT scans. -Repeat CAT scan was recommended at 6 months and that was on August 02, 2022 -Does not appear patient ever followed up with CAT scan 10. Acute on chronic right-sided pleural effusion -Patient with history of large pleural effusion remotely -Recurrent right pleural effusion noted on chest x-ray from yesterday and thoracentesis for 750 cc performed -Improved aeration of right lung base today -Would monitor 11. Hypothyroidism ? Continue home Synthroid. 12. Hypertension/hyperlipidemia ? Holding home antihypertensives. Lipid panel unremarkable. Continue home atorvastatin 20 mg daily. DVT prophylaxis: Holding Lovenox, if hemoglobin stable tomorrow will restart, SCDs for now CODE STATUS: DNR CCA, DNI. Confirmed with patient and family after most recent extubation. Expected disposition: SNF, TBD Total clinical time spent by myself addressing the patient's medical issues, reviewing all the data, and collaborating with patient's care team: 50 minutes. Charges/Coding Visit Charges Inpatient E&M: 86141 Subs Hosp L3
[2023-06-11 15:40] LABS: Hematocrit 24.2 % (37-47); Hemoglobin 7.5 g/dL (12.0-15.0); Mean Corpuscular Hgb 24.8 pg (27.0-32.0); Mean Corpuscular Volume 80.1 fL (81-99); Mean Platelet Vol. 12.1 fl (6.2-12.0); Platelet Count 396 K/mm3 (150-450); RBC Distribution Width CV 17.3 % (11.6-14.6); RBC Distribution Width SD 49.4 fl (35.1-43.9); Red Blood Count 3.02 M/mm3 (4.2-5.4); White Blood Count 25.1 K/mm3 (4.4-11.0)
[2023-06-11 17:11] LABS: Bedside Glucose 65 mg/dL (74-106)
[2023-06-11 17:14] LABS: Bedside Glucose 73 mg/dL (74-106)
[2023-06-11 17:41] LABS: Bedside Glucose 98 mg/dL (74-106)
[2023-06-11] MEDS: Atorvastatin Calcium 20 MG Tablet PO (21:46)
[2023-06-12 02:00] VITALS: BP 125/75; PULSE 81; RESP 17; TEMP 36.5; O2SAT 100
[2023-06-12 05:43] VITALS: BMI 21.9
[2023-06-12] MEDS: Levothyroxine 125 MCG Tablet NG (06:48)
[2023-06-12] MEDS: Menthol/Lanolin/Calamine/Znox 113 GM Tube 1 APPLIC TOPICAL ×3 (06:48→20:58)
[2023-06-12 07:03] LABS: Hematocrit 23.3 % (37-47); Hemoglobin 7.2 g/dL (12.0-15.0); Mean Corp Hgb Conc 30.9 g/dL (32-36); Mean Corpuscular Hgb 24.4 pg (27.0-32.0); Mean Platelet Vol. 12.4 fl (6.2-12.0); POSITIVE MORPHOLOGY YES; Platelet Count 470 K/mm3 (150-450); RBC Distribution Width CV 17.3 % (11.6-14.6); RBC Distribution Width SD 48.9 fl (35.1-43.9); Red Blood Count 2.95 M/mm3 (4.2-5.4); White Blood Count 27.7 K/mm3 (4.4-11.0)
[2023-06-12 07:09] LABS: Scan Indicated on CBC? Y/N YES- FLAGS NOTED
[2023-06-12 07:17] LABS: Anion Gap 6 (5-15); BUN 64 mg/dL (7-18); Calcium,Total 8.8 mg/dL (8.5-10.1); Chloride 116 mmol/L (98-107); Creatinine, Serum 1.56 mg/dL (0.55-1.02); EST Glomerular Filtration Rate 34 mL/min (>60); Est Glom Filt Rate - Afr Amer 41 mL/min (>60); Estimated Creatinine Clearance 25.25 ml/min; Glucose 88 mg/dL (74-106); Potassium 4.5 mmol/L (3.5-5.1); Sodium Level 145 mmol/L (136-145)
--- NOTE | 2023-06-12 07:20 | PCM.PN.INT ---
Assessment & Plan Assessment/Plan (1) Acute hypoxemic respiratory failure: (2) Septic shock: PLAN: Plan RECOMMENDATIONS: 1. Continue to wean supplemental oxygen to maintain saturations at or above 90%. 2. Continue Decadron to complete 10 days of therapy. 3. Continue PPI therapy. Transfuse if hemoglobin drops below 7 g/dL. 4. Antibiotics can be discontinued from my perspective. 5. Encourage incentive spirometer use and mobilize patient as tolerated. 6. Aggressive PT/OT. IMPRESSIONS: 1. Septic shock The patient presented with sepsis due to COVID-19 pneumonia with concern for concurrent bacterial superinfection with acute sepsis related organ dysfunction as evidenced by acute respiratory failure requiring invasive mechanical ventilatory support. The patient remains hemodynamically stable off of vasopressor support. She has completed remdesivir and will be continued on Decadron to complete 10 days of therapy. 2. Acute hypoxemic respiratory failure Clinically improving. The patient was able to be successfully extubated and is requiring minimal supplemental oxygen. Plan to continue current supportive measures. Wean supplemental oxygen to maintain saturations at or above 90%. Plan to complete 10 days of Decadron. Encourage incentive spirometer use and mobilize patient as tolerated. Dobutamine has been discontinued. 3. NSTEMI Most likely secondary demand ischemia in the setting of #1 and 2. 4. Acute kidney injury Potentially related to cardiorenal syndrome versus ischemic ATN in the setting #1. Dobutamine has been discontinued at this time. Plan to continue to monitor urine output. Nephrology is following to assist with medical management. 5. Anemia Patient has a history of angiodysplastic lesions. She has been followed by gastroenterology with plans for potential endoscopic evaluation if hemoglobin continues to worsen. For now, continue to monitor blood counts and transfuse if hemoglobin drops below 7 g/dL. Continue PPI therapy as ordered. 6. History of pulmonary nodules/hypothyroidism/hypertension/hyperlipidemia/anemia Complicates care, management, recovery and prognosis. The patient has been followed on an outpatient basis by oncology with regard to her underlying pulmonary nodules. She is electing to pursue serial CT scans on an outpatient basis. However, it does not appear that she ever followed up for repeat imaging. This note was generated with [employer] software. It may contain incorrect words, spelling, and punctuation that were not noted in checking the note before signing. Subjective Subjective The patient was seen and examined at the bedside this morning. Events from the last 24 hours have been reviewed. The patient is currently afebrile, hemodynamically stable and maintaining appropriate oxygen saturations on 1 L/min via nasal cannula. The patient is documented to be overall net +6.7 L for the hospitalization. Hemoglobin is stable at 7.2 g/dL. Creatinine is stable at 1.56. Objective Data Objective Data The patient's most recent lab work, culture data and imaging studies have all been personally reviewed. Surface echocardiogram from June 05 demonstrated severe LV systolic dysfunction with an ejection fraction of 20%. COVID antigen testing was positive on June 03. Vital Signs: Vital Signs Temp Pulse Resp BP Pulse Ox O2 Del Method O2 Flow Rate 97.7 F L 81 17 125/75 H 100 Nasal Cannula 1 06/12/23 02:00 06/12/23 02:00 06/12/23 02:00 06/12/23 02:00 06/12/23 02:00 06/12/23 02:00 06/11/23 20:57 FiO2 30 06/11/23 01:05 Oxygen Flow Rate (L/min) 1 Oxygen Delivery Method Nasal Cannula Weight: 128 lb 1.417 oz Body Mass Index (BMI) 21.9 Intake & Output: Intake and Output for Last 24 Hours 06/10/23 06/11/23 06/12/23 23:59 23:59 23:59 Intake Total 2151.88 / 2151.88 939.63 / 939.63 Output Total 980 / 1230 800 / 800 200 / 200 Balance 1171.88 / 921.88 139.63 / 139.63 -200 / -200 Lab / Micro Data Attestation: I reviewed the patient's lab results. 06/12/23 06:55 06/12/23 06:55 Labs: Laboratory Results - last 24 hr 06/09/23 05:30: Diff Path Review Reviewed 06/09/23 13:50: Fl Pathologist Comment Reviewed 06/11/23 07:43: POC Glucose 73 L 06/11/23 14:45: WBC 25.1 H, RBC 3.02 L, Hgb 7.5 L, Hct 24.2 L, MCV 80.1 L, MCH 24.8 L, MCHC 31.0 L, RDW Std Deviation 49.4 H, RDW Coeff of Bernardino 17.3 H, Plt Count 396, MPV 12.1 H 06/11/23 16:52: POC Glucose 65 L 06/11/23 17:23: POC Glucose 98 06/12/23 06:55: WBC 27.7 H, RBC 2.95 L, Hgb 7.2 L, Hct 23.3 L, MCV 79.0 L, MCH 24.4 L, MCHC 30.9 L, RDW Std Deviation 48.9 H, RDW Coeff of Bernardino 17.3 H, Plt Count 470 H, MPV 12.4 H, Sodium 145, Potassium 4.5, Chloride 116 H, Carbon Dioxide 23.0, Anion Gap 6, BUN 64 H, Creatinine 1.56 H, Estim Creat Clear Calc 25.25, Est GFR (MDRD) Af Amer 41 L, Est GFR (MDRD) Non-Af 34 L, BUN/Creatinine Ratio 41.0 H, Glucose 88, Calcium 8.8 Micro: Microbiology 06/09/23 13:50 Fluid - Pleural (Lung) Gram Stain - Final 06/09/23 13:50 Fluid - Pleural (Lung) Body Fluid Culture - Preliminary No growth-Final to follow 06/09/23 13:50 Fluid - Pleural (Lung) Anaerobic Culture - Preliminary No growth in 48 hours. 06/10/23 09:00 Sputum, Induced/Lukens Gram Stain - Final 06/10/23 09:00 Sputum, Induced/Lukens Respiratory Culture - Preliminary Presumptive C albicans 06/10/23 09:00 Urine Catheter - Isaac Urine Culture - Preliminary Yeast Like Organism 06/03/23 21:05 Blood Culture (Wb) - Right Hand Blood Culture - Final No growth in 5 days. 06/03/23 20:30 Blood Culture (Wb) - Left Wrist Blood Culture - Final No growth in 5 days. 06/07/23 18:30 Stool Stool Occult Blood (STEPHANIE) - Final Occult Blood Positive 06/04/23 13:00 Urine Catheter - Isaac Urine Culture - Final Culture exhibits no growth. 06/03/23 23:58 Sputum, Tracheal Aspirate Gram Stain - Final 06/03/23 23:58 Sputum, Tracheal Aspirate Respiratory Culture - Final Mixed normal respiratory maris. No Streptococcus pneumoniae, beta-hemolytic Streptococcus or Staphylococcus aureus isolated. 06/04/23 13:00 Urine Catheter - Isaac Legionella Antigen - Final 06/04/23 13:00 Urine Catheter - Isaac Streptococcus pneumoniae Antigen (M - Final 06/04/23 07:16 Mucosa - Nasopharyngeal Respiratory Panel (PCR) - Final 06/03/23 20:25 Mucosa - Nose Influenza & RSV (PCR) - Final 06/03/23 20:30 Nasal Secretion SARS-CoV-2 Antigen (Rapid) - Final SARS-CoV-2 (COVID 19) ABG Data ABG results: ABG 06/10/23 07:11 Specimen Type ART Sample Site R Radial pH 7.41 Bicarbonate Actual 22.7 Total CO2 24 Base Excess -2 O2 Saturation 99 O2 % 35.0 ABG pCO2 36.1 ABG pO2 126 H Hank Test Positive O2 Delivery Device Adult Vent Vent Mode CPAP/PS POC PEEP 5 Rhythm Strip Rhythm Strip: Sinus Rhythm Rate: 58 Physical Exam Const alert and no apparent distress Constitutional Narrative: Frail and deconditioned. General Appearance: cooperative HEENT normocephalic, head/scalp atraumatic and moist oral mucous membranes Eyes PERRL and EOMs intact bilaterally Neck supple General: trachea midline Chest inspection of chest normal Resp normal respiratory effort Auscultation: Negative for rales, rhonchi or wheezes Cardio regular rate and regular rhythm GI normal to inspection, nondistended, normoactive bowel sounds Extremity no clubbing, cyanosis or edema Skin no rashes or lesions noted Neuro moves all extremities and no focal motor deficits Psych cooperative and affect normal Charges/Coding Visit Charges Inpatient E&M: 30223 Subs Hosp L2
[2023-06-12 08:00] VITALS: BP 125/75; PULSE 81; RESP 17; TEMP 36.6; O2SAT 100
[2023-06-12 08:28] LABS: Differential Comment SCANNED
[2023-06-12 09:00] VITALS: O2SAT 99
--- NOTE | 2023-06-12 09:19 | CASEMGMT ---
Patient is no longer ICU status. SW asked Kristi in TCU to review patient. Apryl Jean [employer]ILIZ[employer] SPECIALIST [place]
[2023-06-12] MEDS: Pantoprazole Sodium 40 MG in 0.9% Normal Saline (100mL MB+) 100 ML 330 MG IV (09:51)
[2023-06-12] MEDS: Carvedilol 3.125 MG TABLET PO ×2 (09:51→20:57)
[2023-06-12] MEDS: dexAMETHasone 4 MG/ML Vial 6 MG IV (09:51)
[2023-06-12 11:35] LABS: Bedside Glucose 85 mg/dL (74-106)
[2023-06-12] MEDS: CHLORHEXIDINE GLUC 2% CLOTH 1 EACH TOWELETTE TOPICAL (11:54)
[2023-06-12 13:29] VITALS: O2SAT 91
--- NOTE | 2023-06-12 13:49 | CASEMGMT ---
TCU can take patient. SW called patient's daughter Lili letting her know this information. Lili was happy to hear this news. Plan: d/c to [facility] TCU when medically ready. Apryl DE LUNA
[2023-06-12 14:00] VITALS: BP 116/60; PULSE 75; RESP 16; TEMP 37; O2SAT 97
[2023-06-12 14:09] LABS: Albumin, Body Fluid 1.5 g/dL (Not Estab.)
--- NOTE | 2023-06-12 14:58 | PN.HOSP_ITS ---
Reason for Visit Reason for Visit: Diagnoses Sepsis, unspecified organism (06/04/23) Other iron deficiency anemias (06/04/23) Hyperosmolality and hypernatremia (06/04/23) Non-ST elevation (NSTEMI) myocardial infarction (06/04/23) Takotsubo syndrome (06/04/23) Acute respiratory failure with hypoxia (06/04/23) Angiodysplasia of stomach and duodenum without bleeding (06/04/23) Acute kidney failure, unspecified (06/04/23) Shock, unspecified (06/04/23) Severe sepsis with septic shock (06/04/23) COVID-19 (06/04/23) Subjective Subjective Patient seen bedside this morning. Sitting up in bed comfortably, no acute distress. Appeared very similar this morning to yesterday. Satting well on 1 to 2 L nasal cannula, no increased work of breathing noted. Was again using the suction in her mouth but was not suctioning much out today. Patient denies any acute pain or discomfort today. States she continues to feel better than previous days. She was agreeable to possibly going to a rehab facility on discharge if needed. No other acute concerns today. Objective Data Objective Data Vital Signs: Vital Signs Temp Pulse Resp BP Pulse Ox O2 Del Method O2 Flow Rate 97.8 F 81 17 125/75 H 91 Nasal Cannula 2 06/12/23 08:00 06/12/23 08:00 06/12/23 08:00 06/12/23 08:00 06/12/23 13:29 06/12/23 08:00 06/12/23 13:29 FiO2 30 06/11/23 01:05 Oxygen Flow Rate (L/min) 2 Oxygen Delivery Method Nasal Cannula Weight: 58.1 kg Body Mass Index (BMI) 21.9 Intake & Output: Intake and Output for Last 24 Hours 06/10/23 06/11/23 06/12/23 23:59 23:59 23:59 Intake Total 2151.88 / 2151.88 939.63 / 939.63 110 / 110 Output Total 980 / 1230 800 / 800 200 / 200 Balance 1171.88 / 921.88 139.63 / 139.63 -90 / -90 Lab / Micro Data 06/12/23 06:55 06/12/23 06:55 Labs: Laboratory Results - last 24 hr 06/09/23 13:50: Fluid Albumin 1.5 06/11/23 07:43: POC Glucose 73 L 06/11/23 14:45: WBC 25.1 H, RBC 3.02 L, Hgb 7.5 L, Hct 24.2 L, MCV 80.1 L, MCH 24.8 L, MCHC 31.0 L, RDW Std Deviation 49.4 H, RDW Coeff of Bernardino 17.3 H, Plt Count 396, MPV 12.1 H 06/11/23 16:52: POC Glucose 65 L 06/11/23 17:23: POC Glucose 98 06/12/23 06:55: WBC 27.7 H, RBC 2.95 L, Hgb 7.2 L, Hct 23.3 L, MCV 79.0 L, MCH 24.4 L, MCHC 30.9 L, RDW Std Deviation 48.9 H, RDW Coeff of Bernardino 17.3 H, Plt Count 470 H, MPV 12.4 H, Differential Comment SCANNED, Sodium 145, Potassium 4.5, Chloride 116 H, Carbon Dioxide 23.0, Anion Gap 6, BUN 64 H, Creatinine 1.56 H, Estim Creat Clear Calc 25.25, Est GFR (MDRD) Af Amer 41 L, Est GFR (MDRD) Non-Af 34 L, BUN/Creatinine Ratio 41.0 H, Glucose 88, Calcium 8.8 06/12/23 11:16: POC Glucose 85 Micro: Microbiology 06/10/23 09:00 Urine Catheter - Isaac Urine Culture - Final Ivon albicans 06/10/23 09:00 Sputum, Induced/Lukens Gram Stain - Final 06/10/23 09:00 Sputum, Induced/Lukens Respiratory Culture - Final Presumptive C albicans 06/09/23 13:50 Fluid - Pleural (Lung) Gram Stain - Final 06/09/23 13:50 Fluid - Pleural (Lung) Body Fluid Culture - Final Culture exhibits no growth. 06/09/23 13:50 Fluid - Pleural (Lung) Anaerobic Culture - Preliminary No growth in 48 hours. 06/03/23 21:05 Blood Culture (Wb) - Right Hand Blood Culture - Final No growth in 5 days. 06/03/23 20:30 Blood Culture (Wb) - Left Wrist Blood Culture - Final No growth in 5 days. 06/07/23 18:30 Stool Stool Occult Blood (STEPHANIE) - Final Occult Blood Positive 06/04/23 13:00 Urine Catheter - Isaac Urine Culture - Final Culture exhibits no growth. 06/03/23 23:58 Sputum, Tracheal Aspirate Gram Stain - Final 06/03/23 23:58 Sputum, Tracheal Aspirate Respiratory Culture - Final Mixed normal respiratory maris. No Streptococcus pneumoniae, beta-hemolytic Streptococcus or Staphylococcus aureus isolated. 06/04/23 13:00 Urine Catheter - Isaac Legionella Antigen - Final 06/04/23 13:00 Urine Catheter - Isaac Streptococcus pneumoniae Antigen (M - Final 06/04/23 07:16 Mucosa - Nasopharyngeal Respiratory Panel (PCR) - Final 06/03/23 20:25 Mucosa - Nose Influenza & RSV (PCR) - Final 06/03/23 20:30 Nasal Secretion SARS-CoV-2 Antigen (Rapid) - Final SARS-CoV-2 (COVID 19) Rhythm Strip Rhythm Strip: Sinus Rhythm Rate: 58 Physical Exam Const alert, no apparent distress and average body habitus Constitutional Narrative: Elderly female, chronically ill-appearing, sitting up in bed, conversing normally, no acute distress. General Appearance: cooperative and comfortable HEENT normocephalic, head/scalp atraumatic, hearing grossly normal bilaterally, nasal mucous membranes and turbinates normal and moist oral mucous membranes Eyes PERRL, EOMs intact bilaterally and conjunctivae normal Neck full ROM, no lymphadenopathy and supple Lymph Lymphatic: no lymphadenopathy noted Chest inspection of chest normal Resp normal respiratory effort, normal air movement and no use of accessory muscles Resp Narrative: Mildly decreased breath sounds bilaterally, no wheezing or crackles noted. Cardio regular rate, regular rhythm, no murmurs and peripheral pulses 2+ throughout GI normal to inspection, nondistended, normoactive bowel sounds, soft to palpation, non-tender and non-distended Back/Spine normal ROM Extremity normal to inspection and no pedal edema Extremity Narrative: +1-2 lower extremity edema bilaterally. Skin no rashes or lesions noted Neuro no focal motor deficits and no sensory deficits noted Speech: speech normal Psych mental status grossly normal Assessment & Plan Assessment/Plan (1) Acute hypoxemic respiratory failure: (2) Septic shock: (3) Non-ST elevation VA (NSTEMI): (4) COVID-19: (5) Takotsubo cardiomyopathy: (6) FELISHA (acute kidney injury): (7) Hypernatremia: PLAN: Plan Patient is a 77-year-old female who presented to [facility] ED on 06/04/2023 with worsening shortness of breath. 1. Acute hypoxic respiratory failure secondary to acute COVID-19 infection/aspiration ammonia -Intubated on 06/04/2023. Extubated on 06/06/2023. Reintubated 06/07/2023. Extubated to BiPAP on 06/10/2023, now stable on 2 L nasal cannula on 06/11. -Sputum culture shows normal respiratory maris and all other cultures negative. Unasyn 3 g every 6 hours, completed 7-day course on 06/11. However, WBC count up now uptrending, procal elevated concerning for ongoing infection, vancomycin added on 06/10, continue for now. Repeat MRSA swab negative. Sputum culture with presumptive Ivon albicans, otherwise normal maris, final read pending. -Remdesivir?completed course. Decadron day . Completed 7 days of baricitinib, discontinued on 06/10 due to concern for recurrent infection. -Pulmonary/critical care medicine following. -Stable for transfer out of the ICU on 06/11, orders placed. 2. Septic shock, resolved ?Presumed secondary to COVID-19 pneumonia with aspiration pneumonia as noted above. Resolved. Midodrine discontinued on 06/10. Mildly increased white count on 06/11 and 06/12, afebrile and stable, repeat cultures negative to this point, MRSA probe negative, will hold off on further antibiotics for now. Completed 7- day course of Unasyn on 06/10. 3. Metabolic acidosis, resolving ? Possibly secondary to propofol infusion syndrome, resolving. Monitor. 4. FELISHA secondary to ATN, improving ? Nephrology following. Renal ultrasound unremarkable. UA unremarkable. Serum creatinine improved with addition of dobutamine with increasing urine output. Discontinued dobutamine on 06/11, monitor daily BMP and urine output. 5. Hypernatremia, improving ? Nephrology following. Sodium 148 on 06/11, improved to 145 on 06/12. Likely due to relative dehydration. No need for specific treatment, monitor daily sodium. 6. Severe debility ? PT/OT/case management following. Planning for SNF on discharge. 7. NSTEMI type II secondary to respiratory failure and shock, acute cardiomyopathy ? Echo showed EF 20%, anterior and apical akinesis, moderate mitral tricuspid valve insufficiency with elevated RVSP. Appears consistent with Takotsubo cardiomyopathy. Cardiology followed, now signed off. Continue aspirin, statin. Continue Coreg 3.125 mg p.o. twice daily. Dobutamine discontinued on 06/11. Monitor BP. Monitor renal function as noted above. Add lisinopril when able. 8. Chronic normocytic anemia ? Previous history of upper and lower GI bleed about 1 year ago. Found on EGD to have 3 angiodysplastic lesions in the stomach treated with heater probe, as well as gave with bleeding treated with APC. Also found on colonoscopy to have 3 medium sized angiodysplastic lesions with bleeding at splenic flexure treated with heater probe. ? Hemoglobin slowly downtrending here, 7.2 on 06/12. ? Gastroenterology following. Continue to trend hemoglobin. If hemoglobin drops below 7, will likely need to repeat upper endoscopy. De-escalated to p.o. PPI twice daily on 06/12. 9. History of pulmonary nodules -Patient had been following with oncology -Recommended further workup with PET scan and to proceed with biopsy if there was significant uptake however patient declined and plan was to follow with serial CAT scans. -Repeat CAT scan was recommended at 6 months and that was on August 02, 2022 -Does not appear patient ever followed up with CAT scan 10. Acute on chronic right-sided pleural effusion -Patient with history of large pleural effusion remotely -Recurrent right pleural effusion noted on chest x-ray from yesterday and thoracentesis for 750 cc performed -Improved aeration of right lung base today -Would monitor 11. Hypothyroidism ? Continue home Synthroid. 12. Hypertension/hyperlipidemia ? Holding home antihypertensives. Lipid panel unremarkable. Continue home atorvastatin 20 mg daily. DVT prophylaxis: Heparin subcu CODE STATUS: DNR CCA, DNI. Confirmed with patient and family after most recent extubation. Expected disposition: SNF, 2-3 days Total clinical time spent by myself addressing the patient's medical issues, reviewing all the data, and collaborating with patient's care team: 35 minutes. Charges/Coding Visit Charges Inpatient E&M: 22222 Subs Hosp L2
--- NOTE | 2023-06-12 15:01 | CHAPLAIN ---
Type of Pastoral Visit _x__ Initial Visit ___ Follow-up Visit ___ On-call Visit ___ General Patient Visit ___ Spiritual Assessment ___ Family Conference ___ Bereavement ___ Rapid Response ___ Code Blue ___ Other (describe below) Pastoral Care Referral From _x__ Patient ___ Family ___ Nurse ___ Physician ___ Soaker ___ Hydrate Control Tender ___ Other (describe below) Sacrament/Intervention _x__ Active listening ___ Anointing ___ Mandaen ___ Bereavement ___ Communion ___ Adore exploration ___ ___ Life review _x__ Prayer ___ Reconciliation ___ Sacrament of Sick _x__ Supportive presence ___ Wedding ___ Other (describe below) Pastoral Comments patient recounts her days in the ICU isolation; pt believes that she is getting better and needs rehab to regain strength; pt is affirmed and asked about things she may need; 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
--- NOTE | 2023-06-12 15:26 | PN.RENAL_ITS ---
Subjective Subjective Following for FELISHA. Patient has remained off of ventilator since 06/10/2023. She denies increasing dyspnea. She denies chest pain, nausea or vomiting. The patient is continue to feel better. Objective Data Objective Data Vital Signs: Vital Signs Temp Pulse Resp BP Pulse Ox O2 Del Method O2 Flow Rate 97.8 F 81 17 125/75 H 91 Nasal Cannula 2 06/12/23 08:00 06/12/23 08:00 06/12/23 08:00 06/12/23 08:00 06/12/23 13:29 06/12/23 09:00 06/12/23 13:29 FiO2 30 06/11/23 01:05 Oxygen Flow Rate (L/min) 2 Oxygen Delivery Method Nasal Cannula Weight: 58.1 kg Body Mass Index (BMI) 21.9 Intake & Output: Intake and Output for Last 24 Hours 06/10/23 06/11/23 06/12/23 23:59 23:59 23:59 Intake Total 2151.88 / 2151.88 939.63 / 939.63 110 / 110 Output Total 980 / 1230 800 / 800 200 / 200 Balance 1171.88 / 921.88 139.63 / 139.63 -90 / -90 Lab / Micro Data 06/12/23 06:55 06/12/23 06:55 Labs: Laboratory Results - last 24 hr 06/09/23 13:50: Fluid Albumin 1.5 06/11/23 07:43: POC Glucose 73 L 06/11/23 14:45: WBC 25.1 H, RBC 3.02 L, Hgb 7.5 L, Hct 24.2 L, MCV 80.1 L, MCH 24.8 L, MCHC 31.0 L, RDW Std Deviation 49.4 H, RDW Coeff of [place] 17.3 H, Plt Count 396, MPV 12.1 H 06/11/23 16:52: POC Glucose 65 L 06/11/23 17:23: POC Glucose 98 06/12/23 06:55: WBC 27.7 H, RBC 2.95 L, Hgb 7.2 L, Hct 23.3 L, MCV 79.0 L, MCH 24.4 L, MCHC 30.9 L, RDW Std Deviation 48.9 H, RDW Coeff of [place] 17.3 H, Plt Co unt 470 H, MPV 12.4 H, Differential Comment SCANNED, Sodium 145, Potassium 4.5, Chloride 116 H, Carbon Dioxide 23.0, Anion Gap 6, BUN 64 H, Creatinine 1.56 H, Estim Creat Clear Calc 25.25, Est GFR (MDRD) Af Amer 41 L, Est GFR (MDRD) Non-Af 34 L, BUN/Creatinine Ratio 41.0 H, Glucose 88, Calcium 8.8 06/12/23 11:16: POC Glucose 85 Micro: Microbiology 06/10/23 09:00 Urine Catheter - Isaac Urine Culture - Final Ivon albicans 06/10/23 09:00 Sputum, Induced/Lukens Gram Stain - Final 06/10/23 09:00 Sputum, Induced/Lukens Respiratory Culture - Final Presumptive C albicans 06/09/23 13:50 Fluid - Pleural (Lung) Gram Stain - Final 06/09/23 13:50 Fluid - Pleural (Lung) Body Fluid Culture - Final Culture exhibits no growth. 06/09/23 13:50 Fluid - Pleural (Lung) Anaerobic Culture - Preliminary No growth in 48 hours. 06/03/23 21:05 Blood Culture (Wb) - Right Hand Blood Culture - Final No growth in 5 days. 06/03/23 20:30 Blood Culture (Wb) - Left Wrist Blood Culture - Final No growth in 5 days. 06/07/23 18:30 Stool Stool Occult Blood (STEPHANIE) - Final Occult Blood Positive 06/04/23 13:00 Urine Catheter - Isaac Urine Culture - Final Culture exhibits no growth. 06/03/23 23:58 Sputum, Tracheal Aspirate Gram Stain - Final 06/03/23 23:58 Sputum, Tracheal Aspirate Respiratory Culture - Final Mixed normal respiratory maris. No Streptococcus pneumoniae, beta-hemolytic Streptococcus or Staphylococcus aureus isolated. 06/04/23 13:00 Urine Catheter - Isaac Legionella Antigen - Final 06/04/23 13:00 Urine Catheter - Isaac Streptococcus pneumoniae Antigen (M - Final 06/04/23 07:16 Mucosa - Nasopharyngeal Respiratory Panel (PCR) - Final 06/03/23 20:25 Mucosa - Nose Influenza & RSV (PCR) - Final 06/03/23 20:30 Nasal Secretion SARS-CoV-2 Antigen (Rapid) - Final SARS-CoV-2 (COVID 19) Rhythm Strip Rhythm Strip: Sinus Rhythm Rate: 58 Physical Exam Narrative General: No apparent distress. HEENT: Normocephalic, atraumatic. PERRLA, EOMI. Cardiovascular: Normal S1, S2. No rubs, murmurs, or gallops. Respiratory: Lungs are decreased to auscultation at bases bilaterally. Abdomen: Normal bowel sounds, soft, nontender, no guarding or rebound, no organomegaly. Extremities: No clubbing, cyanosis, or edema. Assessment & Plan Assessment/Plan (1) FELISHA (acute kidney injury): (2) Hypernatremia: (3) Shock circulatory: PLAN: Plan Impression/Plan: 77-year-old woman with past history of hypertension, hyperlipidemia, hypothyroidism and GERD. The patient presented to hospital on 06/04/2023 with dyspnea. She was found to have acute hypoxic respiratory failure requiring intubation and ventilator.The patient been diagnosed with COVID-19 and circulatory shock. She was also diagnosed with stress-induced cardiomyopathy. Nephrology is following for FELISHA. Acute kidney injury. Baseline serum creatinine prior to this admission had been around 1.1 to 1.3 mg/dL. So, there may be some component of CKD as well. FELISHA, with serum creatinine rising to 1.92 mg/dL on 06/09/2023, is likely due to ischemic ATN from circulatory shock. Ultrasound was unremarkable. There is no hydronephrosis. Urinalysis appears benign, so have low suspicion for GN or vasculitis. Renal function has improved since 06/09/2023. Serum creatinine is down to 1.56 mg/dL today. The patient is not oliguric. Continue efforts to keep MAP above 65 mmHg. There is no need for kidney replacement therapy at this point as renal function has continued to improve. I will continue to monitor renal function, volume status, electrolytes, and acid-base. Acid-base status. Based on today's ABG on 06/09/2023, the patient primarily had chronic respiratory alkalosis. Her expected bicarbonate level for pCO2 should have been around 17 mmol/L on 06/09/2023. Her actual serum bicarbonate was 22 mmol/L which is higher than expected. So, there is no significant metabolic acidosis at this point. Recheck of acid-base status with ABG on 06/10/2023 reveal similar results. Patient likely has chronic respiratory alkalosis with renal compensation and probable mild metabolic alkalosis. Serum bicarbonate level stable at 23 mmol/L today. Continue treatment of current causes of respiratory failure as per hospital medicine and intensive care services. Hypernatremia. The patient has mild hyponatremia with serum sodium of 148 mmol/L on 06/11/2023. Serum sodium is better at 145 mmol/L today.. Th hypernatremia was likely due to relative dehydration. She is not polyuric, so there is low suspicion for DI. There is no need for specific treatment of hyponatremia for this degree of serum sodium. Will continue to monitor serum sodium. Circulatory shock. The patient has multifactorial reasons for shock. She has sepsis and is being treated for pneumonia. The patient is being treated for COVID-19 pneumonia with dexamethasone. She is also on antimicrobial for probable bacterial superinfection. She also has stress cardiomyopathy. The patient was transiently on dobutamine which has been weaned off. Coordination of care is as per hospital medicine and critical care services.
[2023-06-12 20:00] VITALS: BP 131/71; PULSE 89; RESP 15; TEMP 36.3; O2SAT 96
[2023-06-12] MEDS: Pantoprazole Sodium 40 MG Tablet PO (20:57)
[2023-06-12] MEDS: Atorvastatin Calcium 20 MG Tablet PO (20:57)
[2023-06-12] MEDS: Heparin Injection (Vial) 5,000 UNIT/ML VIAL 5000 UNIT SC (20:57)
[2023-06-12 22:18] LABS: Bedside Glucose 174 mg/dL (74-106)
[2023-06-12 23:44] LABS: Bedside Glucose 113 mg/dL (74-106)
[2023-06-13 03:00] VITALS: BP 131/70; PULSE 73; RESP 20; TEMP 36.6; O2SAT 94
[2023-06-13 03:16] LABS: Hematocrit 23.3 % (37-47); Hemoglobin 7.1 g/dL (12.0-15.0); Mean Corp Hgb Conc 30.5 g/dL (32-36); Mean Corpuscular Hgb 24.1 pg (27.0-32.0); Mean Corpuscular Volume 79.3 fL (81-99); Mean Platelet Vol. 12.1 fl (6.2-12.0); Platelet Count 487 K/mm3 (150-450); RBC Distribution Width CV 17.7 % (11.6-14.6); RBC Distribution Width SD 48.4 fl (35.1-43.9); Red Blood Count 2.94 M/mm3 (4.2-5.4); White Blood Count 26.9 K/mm3 (4.4-11.0)
[2023-06-13 03:31] LABS: Anion Gap 8 (5-15); BUN 60 mg/dL (7-18); BUN/Creat Ratio 40.8 RATIO (10-20); Chloride 117 mmol/L (98-107); Creatinine, Serum 1.47 mg/dL (0.55-1.02); EST Glomerular Filtration Rate 36 mL/min (>60); Est Glom Filt Rate - Afr Amer 44 mL/min (>60); Glucose 118 mg/dL (74-106); Potassium 4.2 mmol/L (3.5-5.1); Sodium Level 147 mmol/L (136-145)
[2023-06-13 05:12] VITALS: BMI 21.4
[2023-06-13] MEDS: Menthol/Lanolin/Calamine/Znox 113 GM Tube 1 APPLIC TOPICAL ×2 (05:51→14:45)
[2023-06-13] MEDS: Levothyroxine 125 MCG Tablet NG (05:51)
[2023-06-13] MEDS: 0.9 % NaCl (Sterile) Posiflush 10 mL IV (05:51)
--- NOTE | 2023-06-13 08:06 | PN.CC_ITS ---
Assessment & Plan Assessment/Plan (1) Acute hypoxemic respiratory failure: (2) Septic shock: PLAN: Plan RECOMMENDATIONS: 1. Continue to wean supplemental oxygen to maintain saturations at or above 90%. 2. Continue Decadron to complete 10 days of therapy. 3. Continue PPI therapy. Transfuse if hemoglobin drops below 7 g/dL. 4. Encourage incentive spirometer use and mobilize patient as tolerated. 5. Aggressive PT/OT. 6. Will sign off from a critical care perspective. Please call with any additional questions. IMPRESSIONS: 1. Septic shock The patient presented with sepsis due to COVID-19 pneumonia with concern for co ncurrent bacterial superinfection with acute sepsis related organ dysfunction as evidenced by acute respiratory failure requiring invasive mechanical ventilatory support. The patient remains hemodynamically stable off of vasopressor support. She has completed remdesivir and will be continued on Decadron to complete 10 days of therapy. 2. Acute hypoxemic respiratory failure Clinically improving. The patient was able to be successfully extubated and is requiring minimal supplemental oxygen. Plan to continue current supportive measures. Wean supplemental oxygen to maintain saturations at or above 90%. Plan to complete 10 days of Decadron. Encourage incentive spirometer use and mobilize patient as tolerated. Dobutamine has been discontinued. 3. NSTEMI Most likely secondary demand ischemia in the setting of #1 and 2. 4. Acute kidney injury Potentially related to cardiorenal syndrome versus ischemic ATN in the setting #1. Dobutamine has been discontinued at this time. Plan to continue to monitor urine output. Nephrology is following to assist with medical management. 5. Anemia Patient has a history of angiodysplastic lesions. She has been followed by gastroenterology with plans for potential endoscopic evaluation if hemoglobin continues to worsen. For now, continue to monitor blood counts and transfuse if hemoglobin drops below 7 g/dL. Continue PPI therapy as ordered. 6. History of pulmonary nodules/hypothyroidism/hypertension/hyperlipi demia/anemia Complicates care, management, recovery and prognosis. The patient has been followed on an outpatient basis by oncology with regard to her underlying pulmonary nodules. She is electing to pursue serial CT scans on an outpatient basis. However, it does not appear that she ever followed up for repeat imaging. This note was generated with [employer] dictation software. It may contain incorrect words, spelling, and punctuation that were not noted in checking the note before signing. Subjective Subjective The patient was seen and examined at the bedside this morning. Events from the last 24 hours have been reviewed. The patient is currently afebrile, hemodynamically stable and maintaining appropriate oxygen saturations on 1 L/min via nasal cannula. No overnight issues were identified by the nursing staff. The patient is documented to be overall net +6.5 L for the hospitalization. She continues to have a residual cough. Hemoglobin was noted to be 7.1 g/dL this morning. Creatinine is stable at 1.47. Objective Data Objective Data The patient's most recent lab work, culture data and imaging studies have all been personally reviewed. Surface echocardiogram from June 05 demonstrated severe LV systolic dysfunction with an ejection fraction of 20%. COVID antigen testing was positive on June 03. Vital Signs: Vital Signs Temp Pulse Resp BP Pulse Ox O2 Del Method O2 Flow Rate 97.8 F 73 20 H 131/70 H 94 Nasal Cannula 1 06/13/23 03:00 06/13/23 03:00 06/13/23 03:00 06/13/23 03:00 06/13/23 03:00 06/13/23 03:00 06/13/23 03:00 FiO2 30 06/11/23 01:05 Oxygen Flow Rate (L/min) 1 Oxygen Delivery Method Nasal Cannula Weight: 125 lb 3.561 oz Body Mass Index (BMI) 21.4 Intake & Output: Intake and Output for Last 24 Hours 06/11/23 06/12/23 06/13/23 23:59 23:59 23:59 Intake Total 939.63 / 939.63 210 / 210 Output Total 800 / 800 650 / 650 50 / 50 Balance 139.63 / 139.63 -440 / -440 -50 / -50 Lab / Micro Data Attestation: I reviewed the patient's lab results. 06/13/23 03:09 06/13/23 03:09 Labs: Laboratory Results - last 24 hr 06/09/23 13:50: Fluid Albumin 1.5 06/12/23 06:55: Differential Comment SCANNED 06/12/23 11:16: POC Glucose 85 06/12/23 17:10: POC Glucose 113 H 06/12/23 22:00: POC Glucose 174 H 06/13/23 03:09: WBC 26.9 H, RBC 2.94 L, Hgb 7.1 L, Hct 23.3 L, MCV 79.3 L, MCH 24.1 L, MCHC 30.5 L, RDW Std Deviation 48.4 H, RDW Coeff of [place] 17.7 H, Plt Count 487 H, MPV 12.1 H, Sodium 147 H, Potassium 4.2, Chloride 117 H, Carbon Dioxide 22.0, Anion Gap 8, BUN 60 H, Creatinine 1.47 H, Estim Creat Clear Calc 26.80, Est GFR (MDRD) Af Amer 44 L, Est GFR (MDRD) Non-Af 36 L, BUN/Creatinine Ratio 40.8 H, Glucose 118 H, Calcium 8.0 L Micro: Microbiology 06/10/23 09:00 Urine Catheter - Isaac Urine Culture - Final Ivon albicans 06/10/23 09:00 Sputum, Induced/Lukens Gram Stain - Final 06/10/23 09:00 Sputum, Induced/Lukens Respiratory Culture - Final Presumptive C albicans 06/09/23 13:50 Fluid - Pleural (Lung) Gram Stain - Final 06/09/23 13:50 Fluid - Pleural (Lung) Body Fluid Culture - Final Culture exhibits no growth. 06/09/23 13:50 Fluid - Pleural (Lung) Anaerobic Culture - Preliminary No growth in 48 hours. 06/03/23 21:05 Blood Culture (Wb) - Right Hand Blood Culture - Final No growth in 5 days. 06/03/23 20:30 Blood Culture (Wb) - Left Wrist Blood Culture - Final No growth in 5 days. 06/07/23 18:30 Stool Stool Occult Blood (STEPHANIE) - Final Occult Blood Positive 06/04/23 13:00 Urine Catheter - Isaac Urine Culture - Final Culture exhibits no growth. 06/03/23 23:58 Sputum, Tracheal Aspirate Gram Stain - Final 06/03/23 23:58 Sputum, Tracheal Aspirate Respiratory Culture - Final Mixed normal respiratory maris. No Streptococcus pneumoniae, beta-hemolytic Streptococcus or Staphylococcus aureus isolated. 06/04/23 13:00 Urine Catheter - Isaac Legionella Antigen - Final 06/04/23 13:00 Urine Catheter - Isaac Streptococcus pneumoniae Antigen (M - Final 06/04/23 07:16 Mucosa - Nasopharyngeal Respiratory Panel (PCR) - Final 06/03/23 20:25 Mucosa - Nose Influenza & RSV (PCR) - Final 06/03/23 20:30 Nasal Secretion SARS-CoV-2 Antigen (Rapid) - Final SARS-CoV-2 (COVID 19) ABG Data ABG results: ABG 06/10/23 07:11 Specimen Type ART Sample Site R Radial pH 7.41 Bicarbonate Actual 22.7 Total CO2 24 Base Excess -2 O2 Saturation 99 O2 % 35.0 ABG pCO2 36.1 ABG pO2 126 H Hank Test Positive O2 Delivery Device Adult Vent Vent Mode CPAP/PS POC PEEP 5 Rhythm Strip Rhythm Strip: Sinus Rhythm Rate: 58 Physical Exam Const alert and no apparent distress Constitutional Narrative: Frail and deconditioned. General Appearance: cooperative HEENT normocephalic, head/scalp atraumatic and moist oral mucous membranes Eyes PERRL and EOMs intact bilaterally Neck supple General: trachea midline Chest inspection of chest normal Resp normal respiratory effort Auscultation: Negative for rales, rhonchi or wheezes Cardio regular rate and regular rhythm GI normal to inspection, nondistended, normoactive bowel sounds Extremity no clubbing, cyanosis or edema Skin no rashes or lesions noted Neuro moves all extremities and no focal motor deficits Psych cooperative and affect normal Charges/Coding Visit Charges Inpatient E&M: 93419 Subs Hosp L2
[2023-06-13 08:14] LABS: Bedside Glucose 101 mg/dL (74-106)
[2023-06-13 09:00] VITALS: BP 131/68; PULSE 74; RESP 17; TEMP 36.4; O2SAT 98
[2023-06-13 10:26] VITALS: O2SAT 93
[2023-06-13] MEDS: 0.9% Saline Lock 10 ML Syringe IV (10:55)
[2023-06-13] MEDS: dexAMETHasone 4 MG/ML Vial 6 MG IV (10:56)
[2023-06-13] MEDS: Carvedilol 3.125 MG TABLET PO (10:56)
[2023-06-13] MEDS: Pantoprazole Sodium 40 MG Tablet PO (10:58)
[2023-06-13] MEDS: Heparin Injection (Vial) 5,000 UNIT/ML VIAL 5000 UNIT SC (10:58)
[2023-06-13 12:10] VITALS: O2SAT 98
[2023-06-13 12:13] LABS: Bedside Glucose 111 mg/dL (74-106)
--- NOTE | 2023-06-13 13:21 | DCINST_ITS ---
Discharge Instructions Diet Discharge Diet: No restrictions Activity Discharge Activity: No Restrictions Weight Bearing Status: Full weight bearing Follow Up Care Test Results: Test results from this visit will be discussed in further detail at your follow- up appointment, if applicable. Discharge Plan Admission Admit Date/Time: 06/04/23 01:20 Primary Reason for Your Visit: Worsening shortness of breath Attending Provider: Nolan Eastman Primary Care Provider: Garcia Angelo Consulting Providers: Everette Renee; Arley Cain; Olivia Daniel; Alex Gomez; Lili Aranda LOCOMOTIVE CRANE OPERATOR; Nolan Eastman; Melissa Inman; Olman Cruz; Davie White Discharge Orders/Prescriptions Prescriptions: New carvedilol 3.125 mg Tablet 3.125 mg PO BID 30 Days Qty: 60 0RF Continued pravastatin 20 mg tablet 20 mg PO DAILY pantoprazole [Protonix] 40 mg tablet,delayed release (DR/EC) 40 mg PO BID Qty: 60 0RF levothyroxine 100 mcg tablet 125 mcg PO DAILY Discontinued losartan-hydrochlorothiazide 50-12.5 mg tablet 1 tab PO DAILY triamterene-hydrochlorothiazid 37.5-25 mg tablet 1 tab PO DAILY Patient Comments: TAKE 1 TABLET BY MOUTH EVERY DAY. STOP FUROSEMIDE Referrals / Follow Up: Garcia Angelo DO [Primary Care Provider] - Disposition Disposition (needs filled in before D/C Order can be placed): Assisted Facility
--- NOTE | 2023-06-13 13:25 | PCM.TXEXTCAR ---
Diet Diet Order/Speech Therapy: 06/11/23 09:56 Diet: Regular - General Dietary Modifications:: Sodium Restricted Is pt able to select menu?: No Routine Orders/Code Status O2 Frequency: PRN Routine Lab Work: CBC (repeat in 5-7 days) Code Status: DNRCC-A (DO NOT INTUBATE) Wound(s) coccyx: Wound Type: Pressure Injury Therapies Weight Bearing: Weight bearing as tolerated Physical Therapy: Eval and Treat Occupational Therapy: Eval and Treat Problem/Diagnosis (1) Acute hypoxemic respiratory failure: Status: Acute Code(s): J96.01 - Acute respiratory failure with hypoxia (2) Septic shock: Status: Acute Code(s): A41.9 - Sepsis, unspecified organism; R65.21 - Severe sepsis with septic shock Plan Patient is a 77-year-old female who presented to [facility] ED on 06/04/2023 with worsening shortness of breath. Complex hospital course as noted below. Patient was eventually stable for discharge to group home facility (TCU) on 06/13. 1. Acute hypoxic respiratory failure secondary to acute COVID-19 infection/aspiration ammonia, resolved Initially intubated on 06/04/2023. Extubated on 06/06 but unfortunately needed reintubation on 06/07. Again extubated to BiPAP on 06/10. Cultures all came back negative. Completed 7-day course of Unasyn for empiric antibiotic coverage. Completed 5-day course of remdesivir. Completed 7 days of baricitinib, discontinued on 06/10 due to concern for recurrent infection. Completed 10-day course of Decadron. - Bar Back followed. Stable on room air at rest on discharge. 2. Septic shock, resolved ? Presumed secondary to COVID-19 pneumonia with aspiration pneumonia as noted above. Midodrine discontinued on 06/10. Completed 7-day course of Unasyn on 06/10. Mildly increased white count on 06/11 and 06/12, afebrile and stable, repeat cultures negative, MRSA probe negative, held on further antibiotics. 3. Metabolic acidosis, resolved ? Possibly secondary to propofol infusion syndrome, resolved. 4. FELISHA secondary to ATN, improving ? Nephrology followed. Baseline creatinine 1.0-1.2 (GFR 60-65), at baseline on admission but worsened with peak creatinine 1.92 on 06/09. Improved to creatinine 1.47 on discharge, GFR approximately 45. Renal ultrasound unremarkable. UA unremarkable. Serum creatinine improved with addition of dobutamine with increasing urine output. Discontinued dobutamine on 06/11, continued to have renal improvement. Recommend repeat BMP in 5 to 7 days to ensure continued improvement of kidney function. 5. Hypernatremia, stable ? Nephrology followed. Mildly elevated, peak sodium 148 on 06/11, sodium 147 on discharge. Likely due to relative dehydration. No need for specific treatment. 6. Severe debility ? PT/OT/case management followed. SNF on discharge. 7. NSTEMI type II secondary to respiratory failure and shock, acute cardiomyopathy ? Echo showed EF 20%, anterior and apical akinesis, moderate mitral tricuspid valve insufficiency with elevated RVSP. Appears consistent with Takotsubo cardiomyopathy. Cardiology followed. Continue aspirin, statin. Held home BP medications, started on Coreg 3.125 mg p.o. twice daily during admission, will continue on discharge. Dobutamine discontinued on 06/11. Will need outpatient cardiology follow-up and repeat echo in 6 to 8 weeks to assess for improvement in EF. Can consider adding ZACKERY/ARB at that time if patient's blood pressure tolerates. 8. Chronic normocytic anemia, stable ? Previous history of upper and lower GI bleed about 1 year ago. Found on EGD to have 3 angiodysplastic lesions in the stomach treated with heater probe, as well as gave with bleeding treated with APC. Also found on colonoscopy to have 3 medium sized angiodysplastic lesions with bleeding at splenic flexure treated with heater probe. Hemoglobin 11.0 on admit, down trended to 9.2 suspected secondary to IV fluid resuscitation. However, had continued slow downtrend during hospitalization. Hemoglobin 7.1 on discharge. Gastroenterology followed. Suspect anemia of chronic disease with frequent blood draws as primary etiology for slowly downtrending hemoglobin while here. Recommend repeat CBC in 5 to 7 days to assess hemoglobin. Continue p.o. PPI twice daily. 9. History of pulmonary nodules ? Had been following with oncology, who had recommended further workup with PET scan and proceeding with biopsy if significant uptake, however patient and family declined. Plan was for serial CT scans, but these were not done. CTA chest on admission with no pulmonary nodules noted. Recommend outpatient follow-up with oncology. 10. Acute on chronic right-sided pleural effusion ? Remote history of large pleural effusion. Recurrent right pleural effusion noted during this admission, s/p thoracentesis on 06/09 with 750 cc removed. Fluid labs consistent with heart failure. No recurrence of pleural effusion during this admission. Continue to monitor in outpatient setting. 11. Hypothyroidism ? Continue home Synthroid. 12. Hypertension/hyperlipidemia ? Held home antihypertensives, started low-dose Coreg on discharge. Lipid panel unremarkable. Continue home atorvastatin 20 mg daily. Total clinical time spent by myself addressing the patient's discharge needs: 35 minutes. Allergies/Procedures Done in Hospital Allergies No Known Allergies Allergy (Verified 06/03/23 19:28) Procedures: Central line placement, EKG, Intubation, Thoracentesis, Transthoracic Echo and - (Chest x-ray x 7, CTA chest, renal ultrasound) Type of Care/Length of Stay Estimated LOS: Convalescent Care Less Than 30 days Type of Care Needed: Skilled Rehab Potential: Fair Prognosis: Fair Additional Orders/Day of Discharge H&P will serve as current which was dated: 06/03/23 Day of Discharge: 06/13/23 Dietary and Speech Recommendations Dietitian Recommendations/Changes: Continue Regular - Sodium restricted diet. Monitor need for po supplement pending po intake as established. Discharge Plan Admission Admit Date/Time: 06/04/23 01:20 Primary Reason for Your Visit: Worsening shortness of breath Attending Provider: Nolan Eastman Primary Care Provider: Garcia Angelo Consulting Providers: Everette Renee; Arley Cain; Olivia Daniel; Alex Gomez; Lili Aranda PROTECTIVE SERVICES SOCIAL WORKER; Nolan Eastman; Melissa Inman; Olman Cruz; Davie White Discharge Orders/Prescriptions Prescriptions: New carvedilol 3.125 mg Tablet 3.125 mg PO BID 30 Days Qty: 60 0RF Continued pravastatin 20 mg tablet 20 mg PO DAILY pantoprazole [Protonix] 40 mg tablet,delayed release (DR/EC) 40 mg PO BID Qty: 60 0RF levothyroxine 100 mcg tablet 125 mcg PO DAILY Discontinued losartan-hydrochlorothiazide 50-12.5 mg tablet 1 tab PO DAILY triamterene-hydrochlorothiazid 37.5-25 mg tablet 1 tab PO DAILY Patient Comments: TAKE 1 TABLET BY MOUTH EVERY DAY. STOP FUROSEMIDE Referrals / Follow Up: Garcia Angelo DO [Primary Care Provider] - Disposition Disposition (needs filled in before D/C Order can be placed): Custodial Facility Charges/Coding Visit Charges Inpatient E&M: 62582 Disch Hosp >30min
--- NOTE | 2023-06-13 13:45 | DS.PCM_ITS ---
Providers Date of Admission: 06/04/23 Date of Discharge: 06/13/23 Primary Care Physician: Dr. Garcia Angelo, Consultations 06/04/23 03:40 Consult: La[employer] / Pulmonary Medicine Routine Consulting Provider: Pulmonary Medicine [facility] Reason for Consult: Intubated patient EMERGENT Consult: No Notified: Yes Date Notified: 06/04/23 Time Notified: 03:40 Method of Notification: Text 06/04/23 07:12 Consult: La[employer] / Pulmonary Medicine Routine Consulting Provider: Pulmonary Medicine [facility] Reason for Consult: Vent management EMERGENT Consult: No Notified: Yes Date Notified: 06/04/23 Time Notified: 07:14 Method of Notification: Verbal 06/04/23 07:31 Consult: Cardiology Routine Consulting Provider: Olman Cruz Reason for Consult: NSTEMI EMERGENT Consult: No Notified: Yes Date Notified: 06/04/23 Time Notified: 08:11 Method of Notification: Text 06/09/23 08:05 Consult: Nephrology Routine Consulting Provider: Davie White Reason for Consult: FELISHA-worsening EMERGENT Consult: No Notified: Yes Date Notified: 06/09/23 Time Notified: 08:06 Method of Notification: Answering Service 06/10/23 07:32 Consult: Gastroenterology Routine Consulting Provider: [facility] Reason for Consult: Anemia with heme + stools EMERGENT Consult: No Notified: Yes Date Notified: 06/10/23 Time Notified: 08:23 Method of Notification: Text Reason For Visit: ACUTE HYPOXIC RESPIRATORY FAILURE,COVID 19 INFECTI Diagnosis Discharge Diagnosis (1) Acute hypoxemic respiratory failure: Status: Acute Code(s): J96.01 - Acute respiratory failure with hypoxia (2) Septic shock: Status: Acute Code(s): A41.9 - Sepsis, unspecified organism; R65.21 - Severe sepsis with septic shock Plan Patient is a 77-year-old female who presented to [facility] ED on 06/04/2023 with worsening shortness of breath. Complex hospital course as noted below. Patient was eventually stable [facility]. 1. Acute hypoxic respiratory failure secondary to acute COVID-19 in fection/aspiration ammonia, resolved Initially intubated on 06/04/2023. Extubated on 06/06 but unfortunately needed reintubation on 06/07. Again extubated to BiPAP on 06/10. Cultures all came back negative. Completed 7-day course of Unasyn for empiric antibiotic coverage. Completed 5-day course of remdesivir. Completed 7 days of baricitinib, discontinued on 06/10 due to concern for recurrent infection. Completed 10-day course of Decadron. - [employer] followed. Stable on room air at rest on discharge. 2. Septic shock, resolved ? Presumed secondary to COVID-19 pneumonia with aspiration pneumonia as noted above. Midodrine discontinued on 06/10. Completed 7-day course of Unasyn on 06/10. Mildly increased white count on 06/11 and 06/12, afebrile and stable, repeat cultures negative, MRSA probe negative, held on further antibiotics. 3. Metabolic acidosis, resolved ? Possibly secondary to propofol infusion syndrome, resolved. 4. FELISHA secondary to ATN, improving ? Nephrology followed. Baseline creatinine 1.0-1.2 (GFR 60-65), at baseline on admission but worsened with peak creatinine 1.92 on 06/09. Improved to creatinine 1.47 on discharge, GFR approximately 45. Renal ultrasound unremarkable. UA unremarkable. Serum creatinine improved with addition of dobutamine with increasing urine output. Discontinued dobutamine on 06/11, continued to have renal improvement. Recommend repeat BMP in 5 to 7 days to ensure continued improvement of kidney function. 5. Hypernatremia, stable ? Nephrology followed. Mildly elevated, peak sodium 148 on 06/11, sodium 147 on discharge. Likely due to relative dehydration. No need for specific treatment. 6. Severe debility ? PT/OT/case management followed. SNF on discharge. 7. NSTEMI type II secondary to respiratory failure and shock, acute ca rdiomyopathy ? Echo showed EF 20%, anterior and apical akinesis, moderate mitral tricuspid valve insufficiency with elevated RVSP. Appears consistent with Takotsubo cardiomyopathy. Cardiology followed. Continue aspirin, statin. Held home BP medications, started on Coreg 3.125 mg p.o. twice daily during admission, will continue on discharge. Dobutamine discontinued on 06/11. Will need outpatient cardiology follow-up and repeat echo in 6 to 8 weeks to assess for improvement in EF. Can consider adding ZACKERY/ARB at that time if patient's blood pressure tolerates. 8. Chronic normocytic anemia, stable ? Previous history of upper and lower GI bleed about 1 year ago. Found on EGD to have 3 angiodysplastic lesions in the stomach treated with heater probe, as well as gave with bleeding treated with APC. Also found on colonoscopy to have 3 medium sized angiodysplastic lesions with bleeding at splenic flexure treated with heater probe. Hemoglobin 11.0 on admit, down trended to 9.2 suspected secondary to IV fluid resuscitation. However, had continued slow downtrend during hospitalization. Hemoglobin 7.1 on discharge. Gastroenterology followed. Suspect anemia of chronic disease with frequent blood draws as primary etiology for slowly downtrending hemoglobin while here. Recommend r epeat CBC in 5 to 7 days to assess hemoglobin. Continue p.o. PPI twice daily. 9. History of pulmonary nodules ? Had been following with oncology, who had recommended further workup with PET scan and proceeding with biopsy if significant uptake, however patient and family declined. Plan was for serial CT scans, but these were not done. CTA chest on admission with no pulmonary nodules noted. Recommend outpatient follow-up with oncology. 10. Acute on chronic right-sided pleural effusion ? Remote history of large pleural effusion. Recurrent right pleural effusion noted during this admission, s/p thoracentesis on 06/09 with 750 cc removed. Fluid labs consistent with heart failure. No recurrence of pleural effusion during this admission. Continue to monitor in outpatient setting. 11. Hypothyroidism ? Continue home Synthroid. 12. Hypertension/hyperlipidemia ? Held home antihypertensives, started low-dose Coreg on discharge. Lipid panel unremarkable. Continue home atorvastatin 20 mg daily. Total clinical time spent by myself addressing the patient's discharge needs: 35 minutes. Medications at Discharge Home Medications pantoprazole 40 mg tablet,delayed release (Protonix) 40 mg PO BID #60 tabs 06/01/22 pravastatin 20 mg tablet 20 mg PO DAILY 07/19/22 levothyroxine 100 mcg tablet 125 mcg PO DAILY 08/02/22 carvedilol 3.125 mg tablet 3.125 mg PO BID 30 days #60 tabs 06/13/23 Hospital Course Operations None Procedures Central line placement, EKG, Intubation, Thoracentesis, Transthoracic echo and - (Chest x-ray x 7, CTA chest, renal ultrasound) Summary of Care Provided Minutes Spent on Discharge: 35 Hospital Course: Patient is a 77-year-old female who presented to [facility] ED on 06/04/2023 with worsening shortness of breath. Complex hospital course as noted below. Patient was eventually stable for [facility] to [facility] on [facility]13. 1. Acute hypoxic respiratory failure secondary to acute COVID-19 infection/aspiration ammonia, resolved Initially intubated on 06/04/2023. Extubated on 06/06 but unfortunately needed reintubation on 06/07. Again extubated to BiPAP on 06/10. Cultures all came back negative. Completed 7-day course of Unasyn for empiric antibiotic coverage. Completed 5-day course of remdesivir. Completed 7 days of baricitinib, discontinued on 06/10 due to concern for recurrent infection. Completed 10-day course of Decadron. - La[employer] followed. Stable on room air at rest on discharge. 2. Septic shock, resolved ? Presumed secondary to COVID-19 pneumonia with aspiration pneumonia as noted above. Midodrine discontinued on 06/10. Completed 7-day course of Unasyn on 06/10. Mildly increased white count on 06/11 and 06/12, afebrile and stable, repeat cultures negative, MRSA probe negative, held on further antibiotics. 3. Metabolic acidosis, resolved ? Possibly secondary to propofol infusion syndrome, resolved. 4. FELISHA secondary to ATN, improving ? Nephrology followed. Baseline creatinine 1.0-1.2 (GFR 60-65), at baseline on admission but worsened with peak creatinine 1.92 on 06/09. Improved to creatinine 1.47 on discharge, GFR approximately 45. Renal ultrasound unremarkable. UA unremarkable. Serum creatinine improved with addition of dobutamine with increasing urine output. Discontinued dobutamine on 06/11, continued to have renal improvement. Recommend repeat BMP in 5 to 7 days to ensure continued improvement of kidney function. 5. Hypernatremia, stable ? Nephrology followed. Mildly elevated, peak sodium 148 on 06/11, sodium 147 on discharge. Likely due to relative dehydration. No need for specific treatment. 6. Severe debility ? PT/OT/case management followed. SNF on discharge. 7. NSTEMI type II secondary to respiratory failure and shock, acute cardiomyopathy ? Echo showed EF 20%, anterior and apical akinesis, moderate mitral tricuspid valve insufficiency with elevated RVSP. Appears consistent with Takotsubo cardiomyopathy. Cardiology followed. Continue aspirin, statin. Held home BP medications, started on Coreg 3.125 mg p.o. twice daily during admission, will continue on discharge. Dobutamine discontinued on 06/11. Will need outpatient cardiology follow-up and repeat echo in 6 to 8 weeks to assess for improvement in EF. Can consider adding ZACKERY/ARB at that time if patient's blood pressure tolerates. 8. Chronic normocytic anemia, stable ? Previous history of upper and lower GI bleed about 1 year ago. Found on EGD to have 3 angiodysplastic lesions in the stomach treated with heater probe, as well as gave with bleeding treated with APC. Also found on colonoscopy to have 3 medium sized angiodysplastic lesions with bleeding at splenic flexure treated with heater probe. Hemoglobin 11.0 on admit, down trended to 9.2 suspected secondary to IV fluid resuscitation. However, had continued slow downtrend during hospitalization. Hemoglobin 7.1 on discharge. Gastroenterology followed. Suspect anemia of chronic disease with frequent blood draws as primary etiology for slowly downtrending hemoglobin while here. Recommend repeat CBC in 5 to 7 days to assess hemoglobin. Continue p.o. PPI twice daily. 9. History of pulmonary nodules ? Had been following with oncology, who had recommended further workup with PET scan and proceeding with biopsy if significant uptake, however patient and family declined. Plan was for serial CT scans, but these were not done. CTA chest on admission with no pulmonary nodules noted. Recommend outpatient follow-up with oncology. 10. Acute on chronic right-sided pleural effusion ? Remote history of large pleural effusion. Recurrent right pleural effusion noted during this admission, s/p thoracentesis on 06/09 with 750 cc removed. Fluid labs consistent with heart failure. No recurrence of pleural effusion during this admission. Continue to monitor in outpatient setting. 11. Hypothyroidism ? Continue home Synthroid. 12. Hypertension/hyperlipidemia ? Held home antihypertensives, started low-dose Coreg on discharge. Lipid panel unremarkable. Continue home atorvastatin 20 mg daily. Total clinical time spent by myself addressing the patient's discharge needs: 35 minutes. Physical Exam Const alert, no apparent distress and average body habitus Constitutional Narrative: Elderly female, chronically ill-appearing, sitting up in bed, conversing normally, no acute distress. General Appearance: cooperative and comfortable HEENT normocephalic, head/scalp atraumatic, hearing grossly normal bilaterally, nasal mucous membranes and turbinates normal and moist oral mucous membranes Eyes PERRL, EOMs intact bilaterally and conjunctivae normal Neck full ROM, no lymphadenopathy and supple Lymph Lymphatic: no lymphadenopathy noted Chest inspection of chest normal Resp normal respiratory effort, normal air movement and no use of accessory muscles Resp Narrative: Mildly decreased breath sounds bilaterally, no wheezing or crackles noted. Cardio regular rate, regular rhythm, no murmurs and peripheral pulses 2+ throughout GI normal to inspection, nondistended, normoactive bowel sounds, soft to palpation, non-tender and non-distended Back/Spine normal ROM Extremity normal to inspection and no pedal edema Skin no rashes or lesions noted Neuro no focal motor deficits and no sensory deficits noted Speech: speech normal Psych mental status grossly normal Weight / BMI Weight Weight: 56.8 kg Body Mass Index (BMI) 21.4 ABG / Lab / Microbiology Data 06/13/23 03:09 06/13/23 03:09 Laboratory: Laboratory Results - last 24 hr 06/09/23 13:50: Fluid Albumin 1.5 06/12/23 17:10: POC Glucose 113 H 06/12/23 22:00: POC Glucose 174 H 06/13/23 03:09: WBC 26.9 H, RBC 2.94 L, Hgb 7.1 L, Hct 23.3 L, MCV 79.3 L, MCH 2 4.1 L, MCHC 30.5 L, RDW Std Deviation 48.4 H, RDW Coeff of [place] 17.7 H, Plt Count 487 H, MPV 12.1 H, Sodium 147 H, Potassium 4.2, Chloride 117 H, Carbon Dioxide 22.0, Anion Gap 8, BUN 60 H, Creatinine 1.47 H, Estim Creat Clear Calc 26.80, Est GFR (MDRD) Af Amer 44 L, Est GFR (MDRD) Non-Af 36 L, BUN/Creatinine Ratio 40.8 H, Glucose 118 H, Calcium 8.0 L 06/13/23 07:56: POC Glucose 101 06/13/23 11:56: POC Glucose 111 H Microbiology: Microbiology 06/10/23 09:00 Urine Catheter - Isaac Urine Culture - Final Ivon albicans 06/10/23 09:00 Sputum, Induced/Lukens Gram Stain - Final 06/10/23 09:00 Sputum, Induced/Lukens Respiratory Culture - Final Presumptive C albicans 06/09/23 13:50 Fluid - Pleural (Lung) Gram Stain - Final 06/09/23 13:50 Fluid - Pleural (Lung) Body Fluid Culture - Final Culture exhibits no growth. 06/09/23 13:50 Fluid - Pleural (Lung) Anaerobic Culture - Preliminary No growth in 48 hours. 06/03/23 21:05 Blood Culture (Wb) - Right Hand Blood Culture - Final No growth in 5 days. 06/03/23 20:30 Blood Culture (Wb) - Left Wrist Blood Culture - Final No growth in 5 days. 06/07/23 18:30 Stool Stool Occult Blood (STEPHANIE) - Final Occult Blood Positive 06/04/23 13:00 Urine Catheter - Isaac Urine Culture - Final Culture exhibits no growth. 06/03/23 23:58 Sputum, Tracheal Aspirate Gram Stain - Final 06/03/23 23:58 Sputum, Tracheal Aspirate Respiratory Culture - Final Mixed normal respiratory maris. No Streptococcus pneumoniae, beta-hemolytic Streptococcus or Staphylococcus aureus isolated. 06/04/23 13:00 Urine Catheter - Isaac Legionella Antigen - Final 06/04/23 13:00 Urine Catheter - Isaac Streptococcus pneumoniae Antigen (M - Final 06/04/23 07:16 Mucosa - Nasopharyngeal Respiratory Panel (PCR) - Final 06/03/23 20:25 Mucosa - Nose Influenza & RSV (PCR) - Final 06/03/23 20:30 Nasal Secretion SARS-CoV-2 Antigen (Rapid) - Final SARS-CoV-2 (COVID 19) D/C Instructions Discharge Diet: No restrictions Weight Bearing Status: Full weight bearing Meaningful Use Info Meaningful Use Diagnoses (Choose all that apply): None applicable Discharge Plan Admission Admit Date/Time: 06/04/23 01:20 Primary Reason for Your Visit: Worsening shortness of breath Attending Provider: Nolan Eastman Primary Care Provider: Garcia Angelo Consulting Providers: Everette Renee; Arley Cain; Olivia Daniel; Alex Gomez; Lili Aranda [employer]; Nolan Eastman; Melissa Inman; Olman Cruz; Davie White Discharge Orders/Prescriptions Prescriptions: New carvedilol 3.125 mg Tablet 3.125 mg PO BID 30 Days Qty: 60 0RF Continued pravastatin 20 mg tablet 20 mg PO DAILY pantoprazole [Protonix] 40 mg tablet,delayed release (DR/EC) 40 mg PO BID Qty: 60 0RF levothyroxine 100 mcg tablet 125 mcg PO DAILY Discontinued losartan-hydrochlorothiazide 50-12.5 mg tablet 1 tab PO DAILY triamterene-hydrochlorothiazid 37.5-25 mg tablet 1 tab PO DAILY Patient Comments: TAKE 1 TABLET BY MOUTH EVERY DAY. STOP FUROSEMIDE Referrals / Follow Up: Garcia Angelo DO [Primary Care Provider] - Disposition Disposition (needs filled in before D/C Order can be placed): [facility] Charges/Coding Visit Charges Inpatient E&M: 63612 Disch Hosp >30min
--- NOTE | 2023-06-13 13:56 | CASEMGMT ---
Addendum entered by Apryl Jean 06/13/23 14:24: SW called patient's daughter Lili and let her know that patient will be going to [facility] TCU today. SW also told Lili how to get to TCU and that patient will wear regular clothes while in TCU. Lili thanked KEVIN for the update. Plan: d/c to [facility] TCU under skilled level of care. Apryl DE LUNA Original Note: Patient is ready for discharge to [facility] TCU today. KEVIN notified Kristi in TCU. Apryl DE LUNA
[2023-06-13 14:45] VITALS: BP 112/66; PULSE 73; RESP 20; TEMP 36.4; O2SAT 95
[2023-06-13 15:00] VITALS: BP 131/86; PULSE 73; RESP 16; TEMP 36.6; O2SAT 96
== END 2023-06-13 15:18 | disposition skilled nursing facility (03) | DRG 871 ==
LOC: ED 06-04 01:16 → ICU 06-04 01:21
PROVIDERS: Internal Medicine; Internal Medicine Critical Care Medicine; Admitting Provider Hospitalist; Emergency Provider Emergency Medicine; PCP Family Medicine; Visit Provider Hospitalist
DX: A41.89 Other specified sepsis (principal); U07.1 COVID-19; J96.01 Acute respiratory failure with hypoxia; N17.0 Acute kidney failure with tubular necrosis; J69.0 Pneumonitis due to inhalation of food and vomit; J12.82 Pneumonia due to coronavirus disease 2019; J81.0 Acute pulmonary edema; J15.9 Unspecified bacterial pneumonia; R65.21 Severe sepsis with septic shock; I21.A1 Myocardial infarction type 2; I13.0 Hypertensive heart and chronic kidney disease with heart failure and stage 1 through stage 4 chronic kidney disease, or unspecified chronic kidney disease; I50.32 Chronic diastolic (congestive) heart failure; E87.3 Alkalosis; E87.0 Hyperosmolality and hypernatremia; E87.4 Mixed disorder of acid-base balance; J91.8 Pleural effusion in other conditions classified elsewhere; E87.20 Acidosis, unspecified; D63.8 Anemia in other chronic diseases classified elsewhere; E03.9 Hypothyroidism, unspecified; I08.1 Rheumatic disorders of both mitral and tricuspid valves; N18.9 Chronic kidney disease, unspecified; D50.9 Iron deficiency anemia, unspecified; I25.10 Atherosclerotic heart disease of native coronary artery without angina pectoris; E78.5 Hyperlipidemia, unspecified; T80.89XA Other complications following infusion, transfusion and therapeutic injection, initial encounter; K21.9 Gastro-esophageal reflux disease without esophagitis; E86.0 Dehydration; R19.7 Diarrhea, unspecified; Y84.8 Other medical procedures as the cause of abnormal reaction of the patient, or of later complication, without mention of misadventure at the time of the procedure; Y92.239 Unspecified place in hospital as the place of occurrence of the external cause; Z66 Do not resuscitate; R53.81 Other malaise; Z79.890 Hormone replacement therapy; Z79.899 Other long term (current) drug therapy; Z87.891 Personal history of nicotine dependence
CPT/HCPCS: 31500; 31720; 36556; 36600; 51702; 71045; 71275; 76770; 80048; 80053; 80061; 80069; 80076; 80202; 81001; 82042; 82274; 82330; 82436; 82550; 82570; 82728; 82803; 82945; 82962; 83605; 83615; 83690; 83735; 83880; 84100; 84133; 84145; 84157; 84300; 84443; 84478; 84484; 85025; 85027; 85610; 85730; 86140; 87040; 87070; 87075; 87086; 87088; 87205; 87449; 87631; 87633; 87641; 87811; 88108; 88305; 88313; 89050; 93005; 93306; 94002; 94003; 94660; 94668; 94762; 97110; 97162; 97166; 97530; 97535; 97803; 99252; 99285; J7030; J7040; J7050; Q9967; A4216; G0463; J0248; J0295; J0330; J1940; J2405

== ENCOUNTER 2023-06-13 15:35 | Inpatient (IN) | payer MEDICARE, OTHER, SELFPAY ==
[2023-06-13 15:41] VITALS: BP 149/83; PULSE 82; PULSE 89; RESP 18; TEMP 36.3; O2SAT 91; O2SAT 92
[2023-06-13 16:23] VITALS: BMI 25.2
--- NOTE | 2023-06-13 18:35 | PCM.HP.STD ---
HPI - General General Date of Admission: 06/13/23 Date of Service: 06/13/23 Chief Complaint: Here for rehabilitation. HPI Narrative 06/04/2023 ROS COFFEY, is a 77 Female who presents to [facility] ED with cough. Exposed to covid-19, worsening shortness of breath, chills, diarrhea. Covid positive. Chest X-ray pleural effusion, right pulmonary edema, WBC 26, Lactate 1.8. Troponin 1745, BNP 698. BiPAP applied, cardiology thought NOT acute STEMI. Intubated, central line for pressors. 06/04/2023 Admit to ICU. CTA negative pulmonary embolism. Lasix 60mg iv given. Intubated, pressors. Remdesivir, Decadron for covid pneumonia. Heparin drip, trend troponin for NSTEMI. 06/04/2023 Echo Severe LV systolic dysfunction. EF 20%. Consider Takotsubo cardiomyopathy. RVSP 48mm HG. 06/04/2023 Vancomycin/Zosyn for pneumonia after pancultured. Fluid bolus, wean pressor. 06/05/2023 Intubated, pressors, urinary antigens negative. Remdesivir, Olumiant, Decadron for covid. Vancomycin/Zosyn for septic shock/pneumonia. 06/06/2023 Extubated today, wean Levophed. Unasyn x 7 days for aspiration pneumonia. NSTEMI secondary to Type 2 demand ischemia. Takotsubo cardiomyopathy. 06/07/2023 Off Ventilator. Stop heparin drip. 06/07/2023 Failed BiPAP, reintubated. 06/08/2023 Off pressors. 06/09/2023 Oliguria, Creatinine elevated, BNP > 4000. Dobutamine for acute kidney injury. PT/OT for debility. 06/10/2023 Acute kidney injury, urine output improved with dobutamine. 06/11/2023 Oxygen 2 liters per nasal cannula, feels improved. Transfer out of ICU. Finished Remdesivir, Decadron, Olumiant for covid. Complete Unasyn, on Vancomycin for spetic shock, Off Dobutamine. 06/12/2023 Oxygen 1-2 liters per nasal cannula. Transfuse if hemoglobin less than 7.0, History angiodysplasia stomach/colon. 06/13/2023 Admit to TCU with debility, here for rehabilitation, strengthening, prior to discharge home with family. [facility] Medical History Angiodysplasia of colon Angiodysplasia of stomach Chronic gastritis Congestive heart failure Diverticular disease Dyslipidemia Hemorrhoids Hypothyroid Iron deficiency anemia due to chronic blood loss Lung nodule, multiple Pleural effusion, bilateral Home Medications pantoprazole 40 mg tablet,delayed release (Protonix) 40 mg PO BID GERD #60 tabs 06/01/22 [Rx Last Taken Unknown] pravastatin 20 mg tablet 20 mg PO DAILY Cholesterol 07/19/22 [History Last Taken Unknown] levothyroxine 100 mcg tablet 125 mcg PO DAILY Thyroid 08/02/22 [History Last Taken Unknown] carvedilol 3.125 mg tablet 3.125 mg PO BID BP 30 days #60 tabs 06/13/23 [Rx Last Taken Unknown] Allergy/AdvReac Type Severity Reaction Status Date / Time No Known Allergies Allergy Verified 06/03/23 19:28 Family History Mother NHL (non-Hodgkin's lymphoma) Father Heart disease Brother Myocardial infarction Daughter Essential thrombocytopenia Surgical History History of removal of skin mole History of tubal ligation Social History household members: family Smoking Status: Former smoker how long ago did patient quit smoking: >20 years; 1ppd x 35yrs alcohol intake: never substance use type: does not use ROS Constitutional Constitutional: Reports weakness; Denies chills, fever(s) or weight gain ENT HEENT: Denies headache(s), nasal congestion or nasal discharge Cardiovascular Cardiovascular: Denies chest pain or palpitations Respiratory/Chest Respiratory/Chest: Denies cough, excessive phlegm production or shortness of breath with exertion Gastrointestinal Gastrointestinal: Denies abdominal pain, nausea or vomiting Genitourinary Genitourinary: Denies dysuria Musculoskeletal Musculoskeletal: Denies joint pain or joint swelling Integumentary Integumentary: Denies rash or wounds Neurologic Neurologic: Denies focal weakness, numbness or tingling Psychiatric Psychiatric: Denies anxiety, auditory hallucinations, depression, homicidal ideation or suicidal ideation Vital Signs Vital Signs Vital Signs: 06/13/23 15:41 Temperature 97.4 F L Temperature Source Oral Pulse Rate 89 Respiratory Rate 18 Blood Pressure 149/83 H Blood Pressure Mean 105 Blood Pressure Source Monitor Blood Pressure Position Semi-Fowlers Blood Pressure Location Left Arm Pulse Ox 91 Oxygen Delivery Method Room Air Physical Exam Const alert General Appearance: cooperative HEENT normocephalic Eyes PERRL and EOMs intact bilaterally Neck supple, no JVD and no carotid bruits Resp normal respiratory effort, normal air movement and clear to auscultation bilaterally Cardio regular rate and regular rhythm GI normal to inspection, nondistended, normoactive bowel sounds, non-tender and non-distended Extremity normal capillary refill General Extremity: Negative for edema Skin no rashes or lesions noted General Skin Exam: no breakdown Psych affect normal Appearance: appropriate Assessment & Plan Assessment/Plan (1) Debility: (2) Acute respiratory failure with hypoxia: (3) Septic shock: (4) COVID-19: (5) FELISHA (acute kidney injury): (6) Takotsubo cardiomyopathy: (7) Non-ST elevation [place] (NSTEMI): (8) GERD (gastroesophageal reflux disease): (9) Hypertension: (10) Hyperlipidemia: (11) Hypothyroid: (12) Iron deficiency anemia due to chronic blood loss: PLAN: Plan 77 year old female with below past medical history hospitalized for acute respiratory failure with hypoxia requiring intubation secondary to covid, complicated by septic shock, aspiration pneumonia, nstemi, takotsubo cardiomyopathy, acute kidney injury, anemia, admitted to TCU with debility, here for rehabilitation, strengthening, prior to discharge home with family. Debility - PT/OT. Pain - Tylenol 1000mg q6 prn pain (1-10). Bowel - senna/colace 1 tablet bid prn, Magnesium citrate 300ml daily prn. Adult immunization - Administer pneumonia vaccine, covid vaccine, flu vaccine as appropriate. DVT prophylaxis - Hold, anemia. Anemia 2/2 angiodysplasia - Transfuse if hemoglobin < 7.0, or resident symptomatic. Takotsubo cardiomyopathy - Coreg 3.125mg bid. Hypothyroidism - Levothyroxine 125mcg daily. GERD - Pantoprazole 40mg bid. Hyperlipidemia - Pravastatin 20mg qhs.
[2023-06-13] MEDS: Carvedilol 3.125 MG TABLET PO (22:06)
[2023-06-13] MEDS: Menthol/Lanolin/Calamine/Znox 113 GM Tube 1 APPLIC TOPICAL (22:06)
[2023-06-13] MEDS: Pravastatin 20 MG Tablet PO (22:06)
[2023-06-13] MEDS: Pantoprazole Sodium 40 MG Tablet PO (22:06)
[2023-06-14] MEDS: Acetaminophen 500 MG Tablet 1000 MG PO ×2 (01:03→21:30)
[2023-06-14] MEDS: 0.9% Saline Lock 10 ML Syringe IV (03:54)
[2023-06-14 06:02] LABS: Absolute Lymphocyte Count 0.51 X10^3/uL (0.83-4.51); Basophil# 0.07 X10^3/uL; Basophil% 0.2 % (0-1); Hematocrit 24.4 % (37-47); Hemoglobin 7.4 g/dL (12.0-15.0); Lymphocyte # 0.51 X10^3/ul (0.83-4.51); Lymphocyte % 1.8 % (19-41); Mean Corp Hgb Conc 30.3 g/dL (32-36); Mean Corpuscular Hgb 24.8 pg (27.0-32.0); Mean Corpuscular Volume 81.9 fL (81-99); Mean Platelet Vol. 12.3 fl (6.2-12.0); Monocyte# 1.91 X10^3/uL; Monocyte% 6.6 % (0-10); NRBC Flagged by Analyzer 0.3 % (0-5); Neutrophil # 25.03 X10^3/uL (2.7-7.7); POSITIVE DIFFERENTIAL YES; Platelet Count 503 K/mm3 (150-450); RBC Distribution Width CV 18.7 % (11.6-14.6); Red Blood Count 2.98 M/mm3 (4.2-5.4); White Blood Count 28.8 K/mm3 (4.4-11.0)
[2023-06-14 06:13] LABS: Differential Indicated SCAN CRITERIA MET
[2023-06-14] MEDS: Levothyroxine 125 MCG Tablet PO (06:19)
[2023-06-14 06:40] LABS: Anion Gap 7 (5-15); BUN 59 mg/dL (7-18); BUN/Creat Ratio 40.1 RATIO (10-20); Calcium,Total 8.2 mg/dL (8.5-10.1); Chloride 118 mmol/L (98-107); Creatinine, Serum 1.47 mg/dL (0.55-1.02); EST Glomerular Filtration Rate 36 mL/min (>60); Est Glom Filt Rate - Afr Amer 44 mL/min (>60); Glucose 119 mg/dL (74-106); Sodium Level 147 mmol/L (136-145)
[2023-06-14 07:05] LABS: Differential Comment SCANNED
[2023-06-14 07:06] LABS: Platelet Morphology LARGE
[2023-06-14] MEDS: Menthol/Lanolin/Calamine/Znox 113 GM Tube 1 APPLIC TOPICAL ×2 (09:21→21:39)
[2023-06-14] MEDS: Miconazole Nitrate 43 GM Bottle 1 APPLIC TOPICAL (09:21)
[2023-06-14] MEDS: Carvedilol 3.125 MG TABLET PO ×2 (09:21→21:26)
[2023-06-14] MEDS: Pantoprazole Sodium 40 MG Tablet PO ×2 (09:21→21:27)
[2023-06-14 09:35] VITALS: BP 147/80; PULSE 82
[2023-06-14] MEDS: SimETHICONE 80 MG Chewable Tablet PO ×4 (10:31→21:32)
[2023-06-14] MEDS: Tuberculin,Purif.prot.deriv. 50 TU/ML Vial 0.100000000000000006 ML ID (10:32)
--- NOTE | 2023-06-14 11:22 | CASEMGMT ---
Social Work Met with patient to complete initial assessment. Introduced self and role. Jazz JULIAN, present and pt granted permission for DIL to remain for assessment. Verified/updated contacts. Pt confirms she does not have nor want to complete advanced directives. Pt confirmed code status as DNR-CCA, no intubation. Educated to Medicare benefit and copay coverage. Pt's goal is to return home with 24/7 care assistance of children. SW will continue to follow for DC planning. Mara Rob, [employer]
[2023-06-14] MEDS: NYSTATIN 500,000 UNIT/5 ML UDC 500000 UNIT PO ×3 (11:48→21:26)
--- NOTE | 2023-06-14 13:13 | PCM.PN.DRR ---
TCU RX Drug Regimen Review Subjective/Objective Subjective/Objective: Subjective: TCU Admission. 77 YOF presented to the ER with a cough. Hospitalized for acute respiratory failure with hypoxia requiring intubation secondary to covid, complicated by septic shock, aspiration pneumonia, nstemi, takotsubo cardiomyopathy, acute kidney injury, anemia. Admitted to TCU with debility for strengthening and rehabilitation. Objective: Allergies No Known Allergies Allergy (Verified 06/03/23 19:28) Current Medications Generic Name Dose Route Start Last Admin Trade Name Freq PRN Reason Stop Dose Admin Acetaminophen 1,000 mg 06/13/23 18:54 06/14/23 01:03 Acetaminophen 500 Mg Tablet PO 1,000 mg Q6H PRN PRN Administration Pain Score 1-10 Calamine/Phenol 1 applic 06/13/23 22:00 06/14/23 09:21 Menthol/Lanolin/Calamine/Znox 113 Gm Tube TOPICAL 1 applic BID DEMETRIA Administration Protocol Carvedilol 3.125 mg 06/13/23 22:00 06/14/23 09:21 Carvedilol 3.125 Mg Tablet PO 3.125 mg BID DEMETRIA Administration Protocol Levothyroxine Sodium 125 mcg 06/14/23 06:00 06/14/23 06:19 Levothyroxine 125 Mcg Tablet PO 125 mcg 0600 DEMETRIA Administration Magnesium Citrate 300 ml 06/13/23 18:54 Magnesium Citrate 300 Ml PO DAILY PRN Constipation Miconazole Nitrate 1 applic 06/14/23 10:00 06/14/23 09:21 Miconazole Nitrate 43 Gm Bottle TOPICAL 1 applic DAILY DEMETRIA Administration Protocol Nystatin 500,000 unit 06/14/23 12:00 06/14/23 11:48 Nystatin 500,000 Unit/5 Ml Udc PO 06/24/23 12:01 500,000 unit 4X/DAY DEMETRIA Administration Pantoprazole Sodium 40 mg 06/13/23 22:00 06/14/23 09:21 Pantoprazole Sodium 40 Mg Tablet PO 40 mg BID DEMETRIA Administration Pravastatin Sodium 20 mg 06/13/23 22:00 06/13/23 22:06 Pravastatin 20 Mg Tablet PO 20 mg QHS DEMETRIA Administration Senna/Docusate Sodium 1 tablet 06/13/23 18:54 Senna/Docusate Sodium 1 Tablet PO BID PRN Constipation Simethicone 80 mg 06/14/23 09:00 06/14/23 12:59 Simethicone 80 Mg Chewable Tablet PO 80 mg PCHS DEMETRIA Administration Sodium Chloride 10 - 40 ml 06/13/23 16:31 0.9 % Nacl (Sterile) Posiflush 10 Ml IV UD PRN Port access or dressing change Sodium Chloride 10 - 40 ml 06/13/23 16:31 06/14/23 03:54 0.9% Saline Lock 10 Ml Syringe IV 30 ml UD PRN Administration Multilumen/Garcia Flush Tuberculin PPD 0.1 ml 06/21/23 10:00 Tuberculin,Purif.Prot.Deriv. 50 Tu/Ml Vial ID 06/21/23 10:01 X1 ONE Problem List (Updated 06/13/23 @ 18:[address] Saw Sutton MD) Hyperlipidemia (Acute) Hypertension (Chronic) GERD (gastroesophageal reflux disease) (Acute) Acute respiratory failure with hypoxia (Acute) FELISHA (acute kidney injury) (Acute) Takotsubo cardiomyopathy (Acute) Septic shock (Acute) Non-ST elevation ND (NSTEMI) (Acute) COVID-19 (Acute) Iron deficiency anemia due to chronic blood loss (Chronic) Hypothyroid (Chronic) Vital Signs Temp Pulse Resp BP Pulse Ox O2 Del Method O2 Flow Rate 97.4 F L 82 18 147/80 H 92 Nasal Cannula 2 06/13/23 15:41 06/14/23 09:35 06/13/23 15:41 06/14/23 09:35 06/13/23 15:41 06/13/23 15:41 06/14/23 10:41 Oxygen Flow Rate (L/min) 2 Oxygen Delivery Method Nasal Cannula Weight: 56.8 kg Body Mass Index (BMI) 25.2 Sodium 147 mmol/L (136-145) H 06/14/23 05:16 Potassium 4.0 mmol/L (3.5-5.1) 06/14/23 05:16 Chloride 118 mmol/L (98-107) H 06/14/23 05:16 Carbon Dioxide 22.0 mmol/L (21.0-32.0) 06/14/23 05:16 Anion Gap 7 (5-15) 06/14/23 05:16 BUN 59 mg/dL (7-18) H 06/14/23 05:16 Creatinine 1.47 mg/dL (0.55-1.02) H 06/14/23 05:16 Est GFR (MDRD) Af Amer 44 mL/min (>60) L 06/14/23 05:16 Est GFR (MDRD) Non-Af 36 mL/min (>60) L 06/14/23 05:16 BUN/Creatinine Ratio 40.1 RATIO (10-20) H 06/14/23 05:16 Glucose 119 mg/dL (74-106) H 06/14/23 05:16 Assessment/Plan: 1. Pain: acetaminophen 1000mg PO Q6 PRN pain 1-10. Resident has had 1 dose for general pain of 5. Please continue to monitor for increased pain and PRN usage. 2. Bowel: senna/docusate 1T PO BID PRN constipation and magnesium citrate 300mL PO daily PRN constipation. Resident has not had any PRN doses. Last documented bowel movement 06/08. Please continue to monitor for constipation and PRN usage. 3. Takotsubo cardiomyopathy: carvedilol 3.125mg PO BID. Please continue to monitor BP (last 147/80) and HR (last 82). 4. Hypothyroidism: levothyroxine 125mcg PO daily. Please continue to monitor TSH (last 06/05/23), T4 (last 11/10/22) and S/S of hypo/hyperthyroidism. 5. GERD: pantoprazole 40mg PO BID. Please continue to monitor for S/S of GERD, magnesium (last 2.1 mg/dL 06/11/23) and diarrhea (BEERS medication). 6. Hyperlipidemia: pravastatin 20mg PO QHS. Please continue to monitor lipid panel (last 06/04/23), LFTs (last 06/08/23) and muscle pain. Assessment/Plan for indications treated with psychotropic medications: None Medical chart and medication regimen reviewed. The following medication irregularities or issues were identified: 1. Nystatin 500,000/5mL PO 4x/day and simethicone 80mg PO PCHS. I did not see documented indications for these medications. Please consider adding the indications if clinically appropriate. Thanks. Date Date of Note:: 06/14/23
--- NOTE | 2023-06-14 13:27 | EX.PCM.CON.S ---
Assessment & Plan Assessment/Plan (1) Encounter for removal of vascular catheter: PLAN: Plan Patient was agreeable for right IJ tunneled dialysis catheter removal. The dressing was removed and the sutures were cut with scissors. Triple-lumen catheter pulled easily and pressure was held for about 5 minutes and then a pressure dressing was applied with tape to the area. Patient tolerated procedure well. Samina Denson M.D. Pager: [phone] [facility] [address] [place] [address], Outpatient [place], [address] [place] [address] Office: [phone] HPI Consult Data Date of Consult: 06/14/23 HPI Narrative Reason for Consultation: Right IJ removal HPI Narrative: ROS COFFEY, is a 77 F who admitted to TCU after hospitalization. During patient's hospitalization she did have a right IJ triple-lumen catheter placed. Consulted to remove right IJ as nurses are unable to do so in TCU. [facility] Medical History Angiodysplasia of colon Angiodysplasia of stomach Chronic gastritis Congestive heart failure Diverticular disease Dyslipidemia Hemorrhoids Hypothyroid Iron deficiency anemia due to chronic blood loss Lung nodule, multiple Pleural effusion, bilateral Home Medications pantoprazole 40 mg tablet,delayed release (Protonix) 40 mg PO BID GERD #60 tabs 06/01/22 [Rx Last Taken Unknown] pravastatin 20 mg tablet 20 mg PO DAILY Cholesterol 07/19/22 [History Last Taken Unknown] levothyroxine 100 mcg tablet 125 mcg PO DAILY Thyroid 08/02/22 [History Last Taken Unknown] carvedilol 3.125 mg tablet 3.125 mg PO BID BP 30 days #60 tabs 06/13/23 [Rx Last Taken Unknown] Allergy/AdvReac Type Severity Reaction Status Date / Time No Known Allergies Allergy Verified 06/03/23 19:28 Family History Mother NHL (non-Hodgkin's lymphoma) Father Heart disease Brother Myocardial infarction Daughter Essential thrombocytopenia Surgical History History of removal of skin mole History of tubal ligation Social History household members: family Smoking Status: Former smoker how long ago did patient quit smoking: >20 years; 1ppd x 35yrs alcohol intake: never substance use type: does not use Physical Exam Const alert, oriented x3 and no apparent distress Constitutional Narrative: Right IJ triple-lumen catheter in place General Appearance: cooperative Resp normal respiratory effort Cardio Rate: regular rate GI soft to palpation Lab / Micro Data 06/14/23 05:16 06/14/23 05:16 Labs: Laboratory Results - last 24 hr 06/14/23 05:16: WBC 28.8 H, RBC 2.98 L, Hgb 7.4 L, Hct 24.4 L, MCV 81.9, MCH 24.8 L, MCHC 30.3 L, RDW Std Deviation 51.0 H, RDW Coeff of Bernardino 18.7 H, Plt Count 503 H, MPV 12.3 H, Immature Gran % (Auto) 4.400 H, Neut % (Auto) 87.0 H, Lymph % (Auto) 1.8 L, Brooks % (Auto) 6.6, Eos % (Auto) 0.0, Baso % (Auto) 0.2, Absolute Neuts (auto) 25.0 H, Absolute Lymphs (auto) 0.51 L, Nucleated RBC % 0.3, Differential Comment SCANNED, Diff Path Review May foll, Plt Morphology Comment LARGE, Sodium 147 H, Potassium 4.0, Chloride 118 H, Carbon Dioxide 22.0, Anion Gap 7, BUN 59 H, Creatinine 1.47 H, Estim Creat Clear Calc 24.50, Est GFR (MDRD) Af Amer 44 L, Est GFR (MDRD) Non-Af 36 L, BUN/Creatinine Ratio 40.1 H, Glucose 119 H, Calcium 8.2 L Charges/Coding Visit Charges Inpatient E&M: 11302 Subs Hosp L2
[2023-06-14 13:43] VITALS: O2SAT 98
[2023-06-14 13:45] LABS: Pathologist Review Reviewed
--- NOTE | 2023-06-14 15:02 | NURSING ---
IN AND REMOVED THE IJ LINE IN RT SIDE OF NECK.. DRESSING ON WILL MONITOR.
[2023-06-14 16:00] VITALS: BP 151/84; PULSE 88; RESP 18; TEMP 36.6; O2SAT 96
[2023-06-14] MEDS: Juven (unflavored) Packet 1 PACKET PO (17:07)
[2023-06-14] MEDS: Pravastatin 20 MG Tablet PO (21:27)
[2023-06-14 22:01] VITALS: O2SAT 95
[2023-06-15 05:53] LABS: Absolute Lymphocyte Count 0.86 X10^3/uL (0.83-4.51); Absolute Neutrophil Count 27.5 X10^3/uL (2.0-7.7); Basophil# 0.07 X10^3/uL; Basophil% 0.2 % (0-1); Eosinophil# 0.26 X10^3/uL; Eosinophils% 0.8 % (0-5); Hematocrit 25.5 % (37-47); Hemoglobin 7.6 g/dL (12.0-15.0); Lymphocyte # 0.86 X10^3/ul (0.83-4.51); Lymphocyte % 2.6 % (19-41); Mean Corp Hgb Conc 29.8 g/dL (32-36); Mean Corpuscular Hgb 24.4 pg (27.0-32.0); Monocyte# 3.16 X10^3/uL; Monocyte% 9.6 % (0-10); NRBC Flagged by Analyzer 0.5 % (0-5); Neutrophil # 27.48 X10^3/uL (2.7-7.7); Neutrophil % 83.8 % (47-70); POSITIVE COUNT YES; POSITIVE DIFFERENTIAL YES; Platelet Count 669 K/mm3 (150-450); RBC Distribution Width CV 19.3 % (11.6-14.6); RBC Distribution Width SD 50.4 fl (35.1-43.9); Red Blood Count 3.11 M/mm3 (4.2-5.4)
[2023-06-15] MEDS: Levothyroxine 125 MCG Tablet PO (06:08)
[2023-06-15] MEDS: NYSTATIN 500,000 UNIT/5 ML UDC 500000 UNIT PO (06:08)
[2023-06-15 06:31] LABS: Differential Indicated SCAN CRITERIA MET
[2023-06-15 06:32] LABS: White Blood Count 32.8 K/mm3 (4.4-11.0)
[2023-06-15 06:36] LABS: Differential Comment SCANNED
[2023-06-15 06:50] VITALS: O2SAT 100
[2023-06-15 06:56] LABS: Anion Gap 9 (5-15); BUN 55 mg/dL (7-18); Calcium,Total 8.4 mg/dL (8.5-10.1); Chloride 118 mmol/L (98-107); Creatinine, Serum 1.34 mg/dL (0.55-1.02); EST Glomerular Filtration Rate 41 mL/min (>60); Est Glom Filt Rate - Afr Amer 49 mL/min (>60); Estimated Creatinine Clearance 26.88 ml/min; Glucose 92 mg/dL (74-106); Potassium 3.9 mmol/L (3.5-5.1); Sodium Level 148 mmol/L (136-145)
[2023-06-15 07:00] VITALS: BP 147/84; PULSE 94; RESP 16; TEMP 36.9; O2SAT 100
--- NOTE | 2023-06-15 08:25 | NS ---
MST score = 3
--- NOTE | 2023-06-15 08:30 | NURSING ---
Enter patient room and reports she is not good when asked how feeling and reports she feels bad all over. VS assessed at 150/80 98.4 91 28 89% on 1.5L. Increased to 3L and spo2 96%. Reports she is cold and warm blankets provided. Denies further needs at this time and reports she can't take medicine at this time and wants to rest.
--- NOTE | 2023-06-15 09:00 | NURSING ---
Patient son Hud stops this nurse in [place] and expresses concern over mom not looking well this morning and that he is heading out to let her sleep. Son goes over all her mom went through in ICU and how patient was improving and eating before coming to TCU and now she is not eating and feeling worse again. This nurse reports we can do further testing and that I can make Dr. Sutton aware of concerns but son reports she's had so much testing done and that patient has expressed she wants no more tests done at this point. Son also reports to not do any blood transfusions if that should be an issue without contacting family and that patient has expressed she doesn't want to receive these nor intubation after all she experienced in ICU. As son leaves, this nurse enters patient room and patient is awake and talking and expresses she would like her son to come back, rather than letting her sleep. Son Hud contacted and he is able to come back to room. Both patient and son deny further needs at this time.
[2023-06-15 10:04] LABS: Pathologist Review Reviewed
[2023-06-15] MEDS: Juven (unflavored) Packet 1 PACKET PO (10:52)
[2023-06-15] MEDS: guaiFENesin 600 MG Tablet PO (10:52)
[2023-06-15] MEDS: Menthol/Lanolin/Calamine/Znox 113 GM Tube 1 APPLIC TOPICAL (11:06)
[2023-06-15] MEDS: Miconazole Nitrate 43 GM Bottle 1 APPLIC TOPICAL (11:06)
--- NOTE | 2023-06-15 13:40 | NURSING ---
Son Rudy and daughter Lili enter room and soon become agitated when therapy is in room that patient is not well enough for therapy and wish to speak to SW. Therapist makes this nurse aware and I go into room to help answer any questions. Family reports they don't believe patient is a candidate for TCU and feel she needs to be on a floor with cardiac monitoring. Inform family that transfer was strait from ICU to TCU but that patient was able to stay on ICU for longer amount of time until ready for TCU rather than transfer to a different floor in the hospital. Family is not reassured and become agitated that patient is not receiving the monitoring they feels she needs on this unit. Express to family that SW will be in to talk to them and that Dr. Sutton is on unit and I can make him aware of their concerns. Family requests to talk to Dr. Sutton themselves and Dr. Sutton made aware. Dr. Sutton enters room and talks with patient and family. Patient reports she just wants to go home and Dr. Sutton discusses hospice options but family is not agreeable. NO instead for IV fluids, chest x-ray and urinalysis and culture.
--- NOTE | 2023-06-15 13:49 | RAD_ITS ---
STUDY: X-RAY CHEST REASON FOR EXAM: Female, 77 years old. Productive cough. TECHNIQUE: Single frontal view of the chest. COMPARISON: June 09, 2023 FINDINGS: Right lower lobe interstitial infiltrate. Small right pleural effusion. Life-support apparatus is been removed. Normal size heart. Normal mediastinum and omar. Normal visualized pulmonary arteries. Normal visualized aortic arch and descending thoracic aorta. Normal visualized thoracic spine. Normal visualized ribs, clavicles, and shoulders. There is no demonstrated abnormality of the visualized soft tissue structures of the upper abdomen. RAD/Chest PA and Lateral IMPRESSION: Right lower lobe infiltrate and Small right pleural effusion appears increased. Life-support apparatus is been removed. Electronically Signed: Doc Mejia MD at 20:39 EST ,
--- NOTE | 2023-06-15 13:53 | NURSING ---
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 I was able to talk w/them about calling [employer] and letting the worship know she was in the hospital and they could come and see her. At this time she was able to shake her head no to wanting to answer question.
--- NOTE | 2023-06-15 14:10 | NURSING ---
This nurse goes in to start IV for IV fluids and family is very upset that patient is still on TCU and still feels that patient needs to be on a unit where can receive cardiac monitoring. Made family aware of new orders and that we are working to treat the patient here. Family keeps expressing that she needs to leave TCU and become very upset that we won't send her over and say they will wheel her over themselves. This nurse makes aware that to go to the hospital side, patient would first need to go to ER and then readmitted. Family expresses this is what they want. This nurse asks if patient wants to go to ER and patient reports I guess. Dr. Sutton made aware and he also asks patient if this is her wishes as well and she shrugs and says I guess. and Dr. Sutton gives order to send to ED. Xray is also ready for patient at this time and patient is taken to x-ray first and then to ED and bedside reports given.
--- NOTE | 2023-06-15 19:03 | PCM.DC.SUM ---
Providers Date of Admission: 06/13/23 Primary Care Physician: Dr. Garcia Angelo, Consultations 06/14/23 10:15 Consult: General Surgery Routine Consulting Provider: Samina Denson Reason for Consult: Removal if IJ EMERGENT Consult: No MD Notified: Yes Date Notified: 06/14/23 Time Notified: 10:17 Method of Notification: Verbal Reason For Visit: RESP FAILURE/COVID Diagnosis Discharge Diagnosis (1) Encounter for removal of vascular catheter: Status: Acute Code(s): Z45.2 - Encounter for adjustment and management of vascular access device Plan 77 year old female with below past medical history hospitalized for acute respiratory failure with hypoxia requiring intubation secondary to covid, complicated by septic shock, aspiration pneumonia, nstemi, takotsubo cardiomyopathy, acute kidney injury, anemia, admitted to TCU with debility, here for rehabilitation, strengthening, prior to discharge home with family. Debility - PT/OT. Pain - Tylenol 1000mg q6 prn pain (1-10). Bowel - senna/colace 1 tablet bid prn, Magnesium citrate 300ml daily prn. Adult immunization - Administer pneumonia vaccine, covid vaccine, flu vaccine as appropriate. DVT prophylaxis - Hold, anemia. Anemia 2/2 angiodysplasia - Transfuse if hemoglobin < 7.0, or resident symptomatic. Takotsubo cardiomyopathy - Coreg 3.125mg bid. Hypothyroidism - Levothyroxine 125mcg daily. GERD - Pantoprazole 40mg bid. Hyperlipidemia - Pravastatin 20mg qhs. Medications at Discharge Home Medications pantoprazole 40 mg tablet,delayed release (Protonix) 40 mg PO BID GERD #60 tabs 06/01/22 pravastatin 20 mg tablet 20 mg PO DAILY Cholesterol 07/19/22 levothyroxine 100 mcg tablet 125 mcg PO DAILY Thyroid 08/02/22 carvedilol 3.125 mg tablet 3.125 mg PO BID BP 30 days #60 tabs 06/13/23 Hospital Course Operations None Procedures None Summary of Care Provided Minutes Spent on Discharge: 35 Hospital Course: 77 year old female with below past medical history hospitalized for acute respiratory failure with hypoxia requiring intubation secondary to covid, complicated by septic shock, aspiration pneumonia, nstemi, takotsubo cardiomyopathy, acute kidney injury, anemia, admitted to TCU with debility, here for rehabilitation, strengthening, prior to discharge home with family. 06/15/2023 I spoke with resident, resident son Rudy, resident daughter Lili, daughter in law. Resident not doing well. Resident declined transfer to ER, initially declined evaluation. Resident told me show wants to go home and be comfortable. She told me she is okay with going home to . Rudy, Lili are upset, feel resident should be in the hospital, and thought she should have gone from ICU to PCU instead of directly to TCU. I told Lili Grant, hospital doctors felt she was stable for transfer to TCU and that is why she is here. Her WBC is persistently high, and her CMP shows hypernatremia, dehydration. Appointment with hematology/oncology for persistently high WBC. check Chest X-ray to evaluate for pneumonia, urinalysis, C+S for other causes. Start D51/2NS at 75cc/hour, and repeat labs tomorrow. Monitor closely but resident status is guarded. Resident declined intubation, aggressive care. Later, family requested transfer to [facility] ER for evaluation, resident in agreement. Discharge to [facility] ED 06/15/2023 for evaluation, possible readmission to hospital. Physical Exam Const alert General Appearance: cooperative HEENT normocephalic Eyes PERRL and EOMs intact bilaterally Neck supple, no JVD and no carotid bruits Resp normal respiratory effort, normal air movement and clear to auscultation bilaterally Cardio regular rate and regular rhythm GI normal to inspection, nondistended, normoactive bowel sounds, non-tender and non-distended Extremity normal capillary refill General Extremity: Negative for edema Skin no rashes or lesions noted General Skin Exam: no breakdown Psych affect normal Appearance: appropriate Weight / BMI Weight Weight: 56.8 kg Body Mass Index (BMI) 25.2 ABG / Lab / Microbiology Data 06/15/23 05:16 06/15/23 05:16 Laboratory: Laboratory Results - last 24 hr 06/15/23 05:16: WBC 32.8 H*, RBC 3.11 L, Hgb 7.6 L, Hct 25.5 L, MCV 82.0, MCH 24.4 L, MCHC 29.8 L, RDW Std Deviation 50.4 H, RDW Coeff of [place] 19.3 H, Plt Count 669 H, MPV 12.0, Immature Gran % (Auto) 3.000 H, Neut % (Auto) 83.8 H, Lymph % (Auto) 2.6 L, [place] % (Auto) 9.6, Eos % (Auto) 0.8, Baso % (Auto) 0.2, Absolute Neuts (auto) 27.5 H, Absolute Lymphs (auto) 0.86, Nucleated RBC % 0.5, Differential Comment SCANNED, Diff Path Review Reviewed, Sodium 148 H, Potassium 3.9, Chloride 118 H, Carbon Dioxide 21.0, Anion Gap 9, BUN 55 H, Creatinine 1.34 H, Estim Creat Clear Calc 26.88, Est GFR (MDRD) Af Amer 49 L, Est GFR (MDRD) Non-Af 41 L, BUN/Creatinine Ratio 41.0 H, Glucose 92, Calcium 8.4 L D/C Instructions Call your doctor if you observe: Fever of 101 or Higher, Inability to urinate, Inability to have a bowel movement, Shortness of breath, Dizziness, Fainting spells, Swelling in the ankles, Chest pain and Uncontrolled pain Additional Instructions: Discharge to [facility] ED 06/15/2023 for evaluation, possible readmission to hospital. Please Follow Up With: [facility] When: N/A. Meaningful Use Info Meaningful Use Diagnoses (Choose all that apply): None applicable Discharge Plan Admission Admit Date/Time: 06/13/23 15:35 Primary Reason for Your Visit: Debility. Attending Provider: Saw Sutton Chi Primary Care Provider: Garcia Angelo Instructions Additional Instructions / Restrictions: Discharge to [facility] ED 06/15/2023 for evaluation, possible readmission to hospital. Discharge Orders/Prescriptions Prescriptions: No Action pravastatin 20 mg tablet 20 mg PO DAILY pantoprazole [Protonix] 40 mg tablet,delayed release (DR/EC) 40 mg PO BID Qty: 60 0RF levothyroxine 100 mcg tablet 125 mcg PO DAILY carvedilol 3.125 mg Tablet 3.125 mg PO BID 30 Days Qty: 60 0RF Referrals / Follow Up: Garcia Angelo DO [Primary Care Provider] - Disposition Disposition (needs filled in before D/C Order can be placed): [facility]
--- NOTE | 2023-08-09 14:33 | MDS.RN ---
Admission MDS was completed on time 06/27/23, [facility] error rejected origional MDS report.
== END 2023-06-15 19:46 | disposition short-term general hospital (02) | DRG 177 ==
PROVIDERS: Admitting Provider Family Medicine Geriatric Medicine; PCP Family Medicine; Visit Provider Family Medicine Geriatric Medicine
DX: J69.0 Pneumonitis due to inhalation of food and vomit (principal); I21.A1 Myocardial infarction type 2; K31.811 Angiodysplasia of stomach and duodenum with bleeding; E87.0 Hyperosmolality and hypernatremia; I50.22 Chronic systolic (congestive) heart failure; I51.81 Takotsubo syndrome; I11.0 Hypertensive heart disease with heart failure; E03.9 Hypothyroidism, unspecified; D50.0 Iron deficiency anemia secondary to blood loss (chronic); K21.9 Gastro-esophageal reflux disease without esophagitis; E78.5 Hyperlipidemia, unspecified; B37.9 Candidiasis, unspecified; Z87.891 Personal history of nicotine dependence; Z79.899 Other long term (current) drug therapy; Z79.890 Hormone replacement therapy; U09.9 Post COVID-19 condition, unspecified
CPT/HCPCS: 36415; 71046; 80048; 85025; 92526; 92610; 97162; 97166; 97530; 97802; A4216

== ENCOUNTER 2023-06-15 15:08 | Emergency (ER) | payer MEDICARE, OTHER, SELFPAY ==
[2023-06-15 15:10] VITALS: BP 146/85; PULSE 98; RESP 16; TEMP 37; O2SAT 89; BMI 28.9
--- NOTE | 2023-06-15 15:21 | EDS_ITS ---
HPI History of Present Illness Chief Complaint: Shortness of Breath Informant: patient Onset/Context/Timing Onset: Days Context: gradual Timing: Continuous Worsened by: Nothing Relieved by: Nothing Associated Symptoms cough, rhinorrhea and sore throat; Negative for fever, chills, clear sputum, white sputum, yellow sputum or green sputum Chest Pain: Positive for None Narrative Narrative: Patient presents with shortness of breath that has been getting worse over the p ast few days. Patient states it is gradually getting worse. Patient admits to a cough with some sputum production. Patient is unsure what color the sputum is. Patient denies any fevers or chills. Patient denies any chest pain. Patient denies any nausea or vomiting. Patient does admit to a sore throat and runny nose. Patient is currently a resident in the TCU for generalized weakness. PE Risk Factors: Positive for Recent immobilization; Negative for Recent travel [facility] Medical History Angiodysplasia of colon Angiodysplasia of stomach Chronic gastritis Congestive heart failure Diverticular disease Dyslipidemia Hemorrhoids Hypothyroid Iron deficiency anemia due to chronic blood loss Lung nodule, multiple Pleural effusion, bilateral Home Medications pantoprazole 40 mg tablet,delayed release (Protonix) 40 mg PO BID GERD #60 tabs 06/01/22 [Rx Last Taken Unknown] pravastatin 20 mg tablet 20 mg PO DAILY Cholesterol 07/19/22 [History Last Taken Unknown] levothyroxine 100 mcg tablet 125 mcg PO DAILY Thyroid 08/02/22 [History Last Taken Unknown] carvedilol 3.125 mg tablet 3.125 mg PO BID BP 30 days #60 tabs 06/13/23 [Rx Last Taken Unknown] Allergy/AdvReac Type Severity Reaction Status Date / Time No Known Allergies Allergy Verified 06/03/23 19:28 Family History Mother NHL (non-Hodgkin's lymphoma) Father Heart disease Brother Myocardial infarction Daughter Essential thrombocytopenia Surgical History History of removal of skin mole History of tubal ligation Social History household members: family Smoking Status: Former smoker how long ago did patient quit smoking: >20 years; 1ppd x 35yrs alcohol intake: never substance use type: does not use ROS ROS ED Constitutional Constitutional ED: Denies chills or fever(s) Eyes Eyes: Denies blurry vision or change in vision ENT ENT ED: Reports rhinorrhea and sore throat Cardiovascular Cardiovascular: Denies chest pain or palpitations Respiratory/Chest Respiratory/Chest: Reports cough and dyspnea Gastrointestinal Gastrointestinal: Denies nausea or vomiting Genitourinary Genitourinary ED: Denies dysuria or hematuria Musculoskeletal Musculoskeletal: Reports back pain and neck pain Integumentary Denies abscess or rash Neurologic Neurologic: Reports weakness; Denies headache(s) Allergic/Immunologic Allergic/Immunologic ED: Denies mouth swelling or urticaria EXAM Physical Exam Const Vital Signs: 06/15/23 15:10 06/15/23 15:59 06/15/23 17:32 Temperature 98.6 F Temperature Source Oral Pulse Rate 98 109 H Respiratory Rate 16 24 H Respiratory Effort Respiratory Depth Blood Pressure 146/85 H 157/99 H Blood Pressure Mean 105 118 Pulse Ox 89 91 Oxygen Delivery Method Nasal Cannula Nasal Cannula Nasal Cannula Oxygen Flow Rate (L/min) 3 4 5 Fraction of Inspired Oxygen (FIO2) 06/15/23 15:33 06/15/23 17:50 06/15/23 17:56 Temperature Temperature Source Pulse Rate Respiratory Rate Respiratory Effort Short of Breath Respiratory Depth Shallow Blood Pressure Blood Pressure Mean Pulse Ox 88 97 Oxygen Delivery Method Nasal Cannula Non-Rebreather Oxygen Flow Rate (L/min) 6 15 Fraction of Inspired Oxygen (FIO2) 100 06/15/23 18:01 06/15/23 18:22 Temperature Temperature Source Pulse Rate 111 H 126 H Respiratory Rate 26 H 34 H Respiratory Effort Respiratory Depth Blood Pressure 149/98 H Blood Pressure Mean 115 Pulse Ox 91 99 Oxygen Delivery Method Non-Rebreather Non-Rebreather Oxygen Flow Rate (L/min) 15 Fraction of Inspired Oxygen (FIO2) Positive well nourished and well developed General Appearance ED: well developed and NAD Neck supple, no meningeal signs and no JVD Resp normal respiratory effort Auscultation: rhonchi throughout Cardio regular rate and regular rhythm GI non-tender and non-distended Palpation: soft Neuro oriented x3, CN's II-XII intact bilaterally and no sensory deficits noted Alessandra Coma Scale: document GCS findings Spontaneous Obeys Commands Oriented 15 Sensorium / Orientation: alert Motor Exam: general weakness Psych mental status grossly normal MDM MDM MDM Narrative Medical decision making narrative: Differential diagnosis includes pneumonia, sepsis, urinary tract infection, dehydration, anemia, electrolyte abnormality, cardiac dysrhythmia, and cardiac ischemia. EKG will be obtained to assess for cardiac dysrhythmia and cardiac ischemia. Chest x-ray will be obtained to assess for pneumonia and pneumothorax . CBC will be obtained to assess for leukocytosis and anemia. Comprehensive metabolic profile will be obtained to assess for hepatic function, renal function, and electrolyte abnormality. Lactate will be obtained to assess for sepsis. Urinalysis will be obtained to assess for urinary tract infection. Blood cultures will be obtained to assess for sepsis. Urine culture will be obtained to assess for urinary tract infection. High-sensitivity troponin will be obtained to assess for cardiac ischemia. History & Record Review Discussion w/independent historian: Family Additional record(s) reviewed:: Prior labs Lab Data Attestation: I reviewed the patient's lab results. Lab results narrative: CBC was reviewed. White blood cell count was elevated at 43. This is increased from previous result earlier today. Hemoglobin was 8.4 and hematocrit was 28.7. These are stable compared to previous result. Platelet count was elevated at 946. This was increased from previous result today. Comprehensive metabolic profile was reviewed. BUN was 52 and creatinine was 1.35. This is consistent with prior results. AST was slightly elevated at 84, ALT was 237, and alkaline phosphatase was slightly elevated at 200. PT was INR and PTT were reviewed and were essentially within normal limits. Urinalysis was reviewed. Leukocyte esterase was 500. There is 1+ bacteria. There are 50-100 white blood cells noted. COVID-19 PCR was reviewed and was positive. Influenza PCR was reviewed and was negative for influenza A and influenza B. RSV PCR was reviewed and was negative. Labs: Laboratory Results - last 24 hr 06/15/23 06/15/23 15:51 16:29 WBC 43.0 H* RBC 3.40 L Hgb 8.4 L Hct 28.7 L MCV 84.4 MCH 24.7 L MCHC 29.3 L RDW Std Deviation 51.8 H RDW Coeff of [place] 19.9 H Plt Count 946 H* MPV 11.7 Immature Gran % (Auto) 2.600 H Neut % (Auto) 85.0 H Lymph % (Auto) 1.6 L [place] % (Auto) 10.0 Eos % (Auto) 0.6 Baso % (Auto) 0.2 Absolute Neuts (auto) 36.6 H Absolute Lymphs (auto) 0.67 L Nucleated RBC % 0.3 Differential Comment SCANNED Diff Path Review May foll Toxic Granulation 1+ Platelet Estimate MKD INC PT 14.7 INR 1.2 APTT 25.4 Sodium 148 H Potassium 4.8 Chloride 119 H Carbon Dioxide 22.0 Anion Gap 7 BUN 52 H Creatinine 1.35 H Estim Creat Clear Calc 28.44 Est GFR (MDRD) Af Amer 49 L Est GFR (MDRD) Non-Af 40 L BUN/Creatinine Ratio 38.5 H Glucose 90 Lactic Acid 1.7 Calcium 8.8 Total Bilirubin 0.50 AST 84 H ALT 237 H Alkaline Phosphatase 200 H Total Protein 6.7 Albumin 2.7 L Globulin 4.0 Albumin/Globulin Ratio 0.7 L Urine Color Yellow Urine Clarity Cloudy Urine pH 5.0 Ur Specific [place] 1.015 Urine Protein 30 H Urine Glucose (UA) Normal Urine Ketones Negative Urine Occult Blood 25 H Urine Nitrite Negative Urine Bilirubin Negative Urine Urobilinogen Normal Ur Leukocyte Esterase 500 H Urine RBC 0 SEEN Urine WBC 50-100 SEEN Ur Squamous Epith Cells 0 SEEN Uric Acid Crystals 1+ Urine Bacteria 1+ Urine Mucus 0 SEEN Urine Yeast 3+ Radiography Chest X-Ray - ED: 2 View, Read by ED Physician, Right Infiltrate and Right Effusion Diagnostic Testing: PA and lateral chest x-ray was obtained and while the patient was in TCU just prior to arrival. There are 2 views. On my independent interpretation, there is a right lower lobe pneumonia. There is also a right effusion. Bony thorax is normal. There is no cardiomegaly noted. EKG Initial EKG: Attestation: I personally reviewed and interpreted this EKG as follows: Interpretation: Sinus Tachycardia (103), RBBB and Non-Specific ST Changes Comments: EKG was obtained. On my independent interpretation, it showed a sinus tachycardia with a rate of 103. [place] interval, QRS interval, and QTc intervals were all normal. [place] was normal. There is a right bundle branch block pattern noted. There are nonspecific ST-T wave changes. Prior EKG tracings: available for review Prior: Unchanged (06/04/2023) Management Discussion w/another healthcare provider: Hospitalist Treatment and Re-Evaluation :: Patient and family were advised of the findings. Patient's oxygen level continued to diminish on nasal cannula. Patient was placed on nonrebreather mask. Patient was started on Rocephin and Zithromax. Patient was also given a dose of Decadron. Case will be discussed with the hospitalist for admission. Hospitalist was in to evaluate the patient she discussed hospice with the patient and family. They are requesting to go on hospice but want to stay here. Hospitalist will admit the patient to her service. DNR comfort care only was signed. Patient and family understood and were agreeable with the plan. All questions were answered. Prior to the patient going to the floor, patient's heart rate and respiratory rate began to diminish. Patient's heart rate and respiratory rate went to 0. There is no pulse noted. Patient was pronounced at 1851. Critical Care Time Critical Care Time: Yes Critical care time (excluding procedures): 30-74 minutes (33), Including time spent:, Discussing w/Patient &/or Family/Exchange Specialist, Discussing w/Consultants, Arranging Admission or Transfer and Performing Direct Patient Care at Bedside Discharge Plan Triage Chief Complaint: Shortness of Breath Other Complaint: Weakness ED Provider: Mart Allen Dx/Rx/DC Orders Clinical Impression: Cardiopulmonary arrest, Pneumonia, Urinary tract infection, Leukocytosis, COVID-19 Prescriptions: No Action pravastatin 20 mg tablet 20 mg PO DAILY pantoprazole [Protonix] 40 mg tablet,delayed release (DR/EC) 40 mg PO BID Qty: 60 0RF levothyroxine 100 mcg tablet 125 mcg PO DAILY carvedilol 3.125 mg Tablet 3.125 mg PO BID 30 Days Qty: 60 0RF Primary Care Provider: Garcia Angelo Referrals: Garcia Angelo DO [Primary Care Provider] - Disposition Disposition: Date/Time: 06/15/23 18:51
--- NOTE | 2023-06-15 15:37 | EKG12_ITS ---
Test Reason : SOB Blood Pressure : / mmHG Vent. Rate : 103 BPM Atrial Rate : 103 BPM P-R Int : 168 ms QRS Dur : 104 ms QT Int : 348 ms P-R-T Axes : 060 068 001 degrees QTc Int : 455 ms Sinus tachycardia Low voltage QRS Incomplete right bundle branch block Nonspecific T wave abnormality Abnormal ECG Confirmed by CARLOS RODRIGUEZ, JUAN ([id number]), assignment desk editor ROSANNA CARL ([id number]) on 06/18/2023 6:41:08 AM Referred By: Confirmed By:JUAN GONZALEZ MD
[2023-06-15] MEDS: 0.9% Normal Saline (1000mL) 1,000 ML 999 ML IV (16:07)
[2023-06-15 16:10] LABS: Absolute Lymphocyte Count 0.67 X10^3/uL (0.83-4.51); Absolute Neutrophil Count 36.6 X10^3/uL (2.0-7.7); Basophil% 0.2 % (0-1); Eosinophil# 0.25 X10^3/uL; Eosinophils% 0.6 % (0-5); Hematocrit 28.7 % (37-47); Hemoglobin 8.4 g/dL (12.0-15.0); Lymphocyte # 0.67 X10^3/ul (0.83-4.51); Lymphocyte % 1.6 % (19-41); Mean Corp Hgb Conc 29.3 g/dL (32-36); Mean Corpuscular Hgb 24.7 pg (27.0-32.0); Mean Corpuscular Volume 84.4 fL (81-99); Mean Platelet Vol. 11.7 fl (6.2-12.0); Monocyte# 4.31 X10^3/uL; NRBC Flagged by Analyzer 0.3 % (0-5); Neutrophil # 36.56 X10^3/uL (2.7-7.7); POSITIVE COUNT YES; POSITIVE DIFFERENTIAL YES; POSITIVE MORPHOLOGY YES; Platelet Count 946 K/mm3 (150-450); RBC Distribution Width CV 19.9 % (11.6-14.6); RBC Distribution Width SD 51.8 fl (35.1-43.9)
[2023-06-15 16:21] LABS: Differential Indicated SCAN CRITERIA MET
[2023-06-15 16:25] LABS: ALB/GLOB Ratio 0.7 RATIO (0.9-2.4); AST(SGOT) 84 U/L (15-37); Alanine Aminotransfer ALT/SGPT 237 U/L (13-56); Albumin, Serum 2.7 g/dL (3.2-5.0); Alkaline Phosphatase 200 U/L (45-117); Anion Gap 7 (5-15); BUN 52 mg/dL (7-18); BUN/Creat Ratio 38.5 RATIO (10-20); Calcium,Total 8.8 mg/dL (8.5-10.1); Chloride 119 mmol/L (98-107); Creatinine, Serum 1.35 mg/dL (0.55-1.02); EST Glomerular Filtration Rate 40 mL/min (>60); Est Glom Filt Rate - Afr Amer 49 mL/min (>60); Estimated Creatinine Clearance 28.44 ml/min; Glucose 90 mg/dL (74-106); Potassium 4.8 mmol/L (3.5-5.1); Protein, Total 6.7 g/dL (6.4-8.2); Sodium Level 148 mmol/L (136-145)
[2023-06-15 16:40] LABS: Mucous, Urine 0 SEEN /hpf (<or=2+); Red Blood Cells-Urine 0 SEEN /hpf (0-5); Squamous Epithelial Cells - UA 0 SEEN /hpf (5-10)
[2023-06-15 16:42] LABS: Lactic Acid 1.7 mmol/L (0.4-1.9)
[2023-06-15 16:43] LABS: International Normalized Ratio 1.2; Prothrombin Time (Protime)PT. 14.7 SECONDS (11.7-14.9)
[2023-06-15 16:44] LABS: Partial Thromboplast Time 25.4 Seconds (24.1-36.2)
[2023-06-15 16:46] LABS: Differential Comment SCANNED; Platelet Estimate MKD INC (ADEQ); Toxic Granulation 1+
[2023-06-15 17:18] LABS: Color, Urine Yellow (Yellow); Glucose, Dipstick Normal (Normal); Ketone-Dipstick Negative (Negative); Leukocyte Esterase-Dipstick 500 /ul (Negative); Nitrite-Dipstick Negative (Negative); Occult Blood-Urine 25 /ul (Negative); Protein-Dipstick 30 mg/dl (Negative); Specific Gravity, Urine 1.015 (1.002-1.030); Urine Bilirubin Dipstick Negative (Negative); Urine Clarity Cloudy (Clear); Urine Urobilinogen Normal (Normal)
[2023-06-15 17:21] LABS: Bacteria 1+ /hpf (None Seen); Uric Acid Crystals Ur 1+ /hpf (<or=1+); White Blood Cells 50-100 SEEN /hpf (0-5); Yeast-Urine 3+ /hpf (None Seen)
--- NOTE | 2023-06-15 17:30 | ED.RN ---
Pt. c/o worsening SOB. Pt. offered a breathing mask, pt. refused. This RN also offered to put nasal cannula in pt. mouth as she is breathing with her mouth open. pt. refused.
[2023-06-15 17:32] VITALS: BP 157/99; PULSE 109; RESP 24; O2SAT 91
[2023-06-15 17:50] VITALS: O2SAT 88
[2023-06-15] MEDS: Azithromycin 500 MG in Dextrose 5%-Water (250mL Bag) 250 ML 250 MG IV (17:53)
[2023-06-15] MEDS: dexAMETHasone 10 MG/ML Vial 6 MG IV (17:53)
[2023-06-15 17:56] VITALS: O2SAT 97
--- NOTE | 2023-06-15 18:00 | ED.RN ---
Dr. Allen at bedside, pt. c/o worsening sob. Pt. has audible crackles. Dr. Allen offered breathing treatment, pt. refused. This RN confirmed with pt. and son in room that she does not want a breathing tube if it came to that. She confirmed she did not want a breathing tube.
[2023-06-15 18:01] VITALS: BP 149/98; PULSE 111; RESP 26; O2SAT 91
--- NOTE | 2023-06-15 18:20 | ED.RN ---
Pt. requesting breathing mask, 15L NRB placed.
[2023-06-15 18:22] VITALS: PULSE 126; RESP 34; O2SAT 99
--- NOTE | 2023-06-15 18:35 | ED.RN ---
Dr. Zuniga at bedside, pt. requesting NRB be removed and pt. to placed on nasal cannula.
--- NOTE | 2023-06-15 18:46 | ED.RN ---
This RN witnessed pt. HR amy down to the 40s. This RN went into room to turn monitor on comfort care mode to decreased alarms.
--- NOTE | 2023-06-15 18:52 | PN.HOSP_ITS ---
Hospitalist Note Patient recently discharged from [facility] to TCU on 06/13/23 with treatment and evaluation for acute hypoxic respiratory failure secondary to COVID infection as well as aspiration pneumonia requiring intubation treated with a 7-day course of Unasyn as well as a 5-day course of remdesivir and an 7-day course of baricitinib with an addition of a 10-day course of Decadron with septic shock which resolved with usage of midodrine with metabolic acidosis and FELISHA secondary to ATN with electrolyte abnormalities with associated NSTEMI type II secondary to respiratory failure and shock with acute cardiomyopathy with acute on chronic right-sided effusion and underlying known history of pulmonary nodules, hypothyroidism, hypertension, hyperlipidemia as well as GERD who presented 06/15/2023 from TCU with significant dyspnea worse over the last 24 hours with cough with mild sputum production with no fevers or chills but in the ED patient significantly ill-appearing. Workup in the ED included T90.6, heart rate 98 initially with most recent repeat heart rate 111, BP 146/85 with most recent repeat 149/98, respiratory rate initially 16 with most recent repeat 26, initially 89% on 3 L nasal cannula now 91% on 15 L nonrebreather, CBC with WBC 43, hemoglobin 8.4, MCV 84.4, platelet count 946 with left shift and lymphopenia, unremarkable coags, CMP with sodium 148, chloride 119, BUN/creatinine 52/1.35, GFR 40, lactic acid 1.7, T. bili 0.50, AST/ALT 84/237, alk phos 200, urinalysis marked appearing with specific gravity 1.015, protein 30, occult blood 25, negative nitrite, leukocyte Estrace 500 with urine WBCs 50- 100 with 1+ urine bacteria, urine culture pending per ED, blood culture x 2 pending per ED, SARS COVID rapid positive, negative rapid influenza, negative RSV PCR. In the ED patient ministered Decadron 6 mg IV x 1, IV azithromycin as well as IV Rocephin 2 g x 1 as well as 1 L normal saline. Given patient labs and status with evident appearance of quick demise discussed with patient who is oriented and she adamantly requested hospice status and transition to DNR CC with form filled out. Plan per discussion with patient as she did not want to [facility] and family was concerned that she would not even make it was to admit for hospice comfort care in the hospital however prior to even admitting the patient from the ED she quickly went from being tachycardic, bradycardia down and passed at 1851. Hospitalist was notified by Dr. Allen. CODE status: Discussed CODE status at length including difference between FULL code, DNR-CCA and DNR-CC status. Following discussions about the differences in these status, requested transition to comfort care status and initiation of comfort measures with as noted initial request for admission for hospice care however patient prior to even being admitted from the ED. Advanced Care Planning Face to Face Time: 20 minutes. Procedures Hospitalists Procedures: 61552 Advncd Care Plan 30 Min
[2023-06-19 09:33] LABS: Pathologist Review Reviewed
== END 2023-06-15 20:45 ==
PROVIDERS: Emergency Provider Emergency Medicine; PCP Family Medicine; Visit Provider Emergency Medicine
DX: I46.9 Cardiac arrest, cause unspecified (principal); N17.0 Acute kidney failure with tubular necrosis; I42.9 Cardiomyopathy, unspecified; I50.9 Heart failure, unspecified; I11.0 Hypertensive heart disease with heart failure; J96.90 Respiratory failure, unspecified, unspecified whether with hypoxia or hypercapnia; R57.9 Shock, unspecified; I21.A1 Myocardial infarction type 2; U07.1 COVID-19; E78.5 Hyperlipidemia, unspecified; Z87.891 Personal history of nicotine dependence; R53.1 Weakness; D72.810 Lymphocytopenia; N39.0 Urinary tract infection, site not specified; D72.829 Elevated white blood cell count, unspecified; Z51.5 Encounter for palliative care; J18.9 Pneumonia, unspecified organism; E03.9 Hypothyroidism, unspecified; Z66 Do not resuscitate; E87.20 Acidosis, unspecified; E87.8 Other disorders of electrolyte and fluid balance, not elsewhere classified
CPT/HCPCS: 80053; 81001; 83605; 85025; 85610; 85730; 87040; 87086; 87088; 87631; 93005; 96361; 96365; 96375; 99283; J7030; A4216